=== PATIENT | male | born 1955 | race Caucasian/White ===

== ENCOUNTER 2024-04-19 08:25 | Day surgery (SDC) | payer MEDICARE, SELFPAY ==
[2024-04-17 12:56] VITALS: BMI 38.2
[2024-04-19 08:44] VITALS: BP 161/88; PULSE 82; RESP 16; TEMP 36.4; O2SAT 92
[2024-04-19 09:12] VITALS: O2SAT 95
[2024-04-19] MEDS: Lactated Ringers 1,000 ML 80 ML IVCONT (09:14)
[2024-04-19 09:15] VITALS: BMI 39.6
--- NOTE | 2024-04-19 09:41 | HO.ANESPROP2 ---
HPI - Anesthesia Eval Consult details Narrative: 69 yo M presenting for colonoscopy. SpO2 was 92% in pre-op so RN placed 2L NC. HORACIO not on CPAP. [facility] Past Medical History Medical History (Updated 04/17/24 @ 12:48 by Megan Mo RN) Back pain BPH (benign prostatic hyperplasia) HORACIO (obstructive sleep apnea) Hyperlipidemia Family History Family history of problems with anesthesia: No Surgical History Surgical History (Updated 04/17/24 @ 12:48 by Megan Mo RN) History of back surgery History of total bilateral knee replacement History of esophagogastroduodenoscopy (EGD) H/O colonoscopy History of Problems with Anesthesia: No Social History Social History (Updated 04/17/24 @ 12:48 by Megan Mo RN) Household Members: Spouse Patient Tobacco Use Status: Former Tobacco user Tobacco use type: Cigarette Smoked in Last 30 Days: No Use of substances other than those prescribed or required for medical reasons: Yes Substance Use Type Other:: gummies Substance Use Frequency: Occasionally Are you DNR?: No Advance Directives: No Advance Directives Information Provided: Yes Recently lost weight without trying: No Eating poorly because of decreased appetite: No Nutrition Risks: No Nutritional Risk Poor oral hygiene: No Meds Allergies Allergy/AdvReac Type Severity Reaction Status Date / Time aspirin Allergy Unknown Unknown Verified 04/17/24 12:49 oxycodone [From Tylox] Allergy Unknown Unknown Verified 04/17/24 12:49 Active Medications: Current Medications Lactated Ringer's (Lr) 1,000 mls @ 80 mls/hr IVCONT .[id number] JAGDISH Last Admin: 04/19/24 09:14 Dose: 80 mls/hr Home Medications ?Medication ?Instructions ?Recorded ?Confirmed ?Last Taken ?Type acetaminophen 500 mg tablet 500 mg PO Q6H PRN Pain 04/17/24 04/17/24 Unknown History cetirizine 10 mg tablet (Zyrtec) 10 mg PO DAILY 04/17/24 04/17/24 Unknown History diazepam 5 mg tablet 5 mg PO BEDTIME PRN Anxiety 04/17/24 04/17/24 Unknown History escitalopram oxalate 20 mg tablet 20 mg PO DAILY 04/17/24 04/17/24 Unknown History fluticasone propionate 50 1 spray intranasal DAILY 04/17/24 04/17/24 Unknown History mcg/actuation nasal spray,suspension ibuprofen 600 mg tablet 600 mg PO QID PRN Pain 04/17/24 04/17/24 Unknown History montelukast 10 mg tablet 10 mg PO BEDTIME 04/17/24 04/17/24 Unknown History pantoprazole 40 mg tablet,delayed 40 mg PO DAILY 04/17/24 04/17/24 Unknown History release simvastatin 20 mg tablet 20 mg PO DAILY 04/17/24 04/17/24 Unknown History tamsulosin 0.4 mg capsule 0.4 mg PO BEDTIME 04/17/24 04/17/24 Unknown History Exam Exam Date and Time: 04/19/24 0940 Height,Weight and Vital Signs: Height 5 ft 8.5 in Weight 119.748 kg Last Vital Signs Temp 97.6 F 04/19/24 08:44 Pulse 82 04/19/24 08:44 Resp 16 04/19/24 08:44 BP 161/88 H 04/19/24 08:44 Pulse Ox 95 04/19/24 09:12 O2 Del Method Nasal Cannula 04/19/24 09:12 O2 Flow Rate 2 04/19/24 09:12 Airway Mallampati Class: III TM Dist: <=3cm Neck ROM: Full Denture: Upper Heart: S1S2 Lungs: Diminished bilaterally Assessment and Plan Assessment Anesthesia Assessment: Anesthesia Plan Discussed and Chart Reviewed Final Anesthetic Review Family History of Problems with Anesthesia: No History of Problems with Anesthesia: No NPO: Yes ASA Class: III Final Preanesthetic Review: No Changes in Pt Med Stat, Meds/Allgs Chart Reviewed, Consent Obtained/Reviewed and Anes Risks/Benef Reviewed Patient Risk: Intermediate Procedure Risk: Low Anesthetic Plan Anesthetic Plan: MAC: and Agree w/ Assess. and Plan Disposition: Standard PACU
--- NOTE | 2024-04-19 09:43 | MHC.SHP ---
Pre-Procedural Eval Section A - 24 Hr Update-Section A only Date of Service: 04/19/24 Section B - Complete if H&P > 30 days Chief Complaint: Encounter for screening for malignant neoplasm of Details of Present Illness: see H&P no changes Relevant Family History (Specify if Yes): No Relevant Social History: Tobacco Use Present Medications: None History of Previous Operations: No relevant previous surgery Allergies: Allergies Allergy/AdvReac Type Severity Reaction Status Date / Time aspirin Allergy Unknown Unknown Verified 04/17/24 12:49 oxycodone [From Tylox] Allergy Unknown Unknown Verified 04/17/24 12:49 Review of Systems Sugical H&P ROS: Negative: Constitution, Cardiovascular, Respiratory, Neurological, Psychiatric, Hem-Onc, Allergic/Immunologic, Gastrointestinal, Genitourinary, Musculoskeletal, Integumentary, Endocrine and Eyes/Ears/Nose/Throat Exam Surgical H&P Exam: Normal: HEENT, Normal: Heart, Normal: Lungs, Normal: Extremities, Normal: Abdomen, Normal: Skin and Normal: Neurological Plan Diagnosis/Plan: Unchanged I have reviewed the history and physical and performed a pertinent physical examination on my patient. No changes have occurred unless specified. Time Spent With Patient Time: Total time managing care of this patient today ____ minutes.
[2024-04-19 10:20] VITALS: BP 99/50; PULSE 73; RESP 24; TEMP 36.3
[2024-04-19 10:30] VITALS: BP 110/57; PULSE 68; RESP 22; O2SAT 95
[2024-04-19 10:35] VITALS: BP 121/73; PULSE 71; RESP 20; TEMP 36.2; O2SAT 94
--- NOTE | 2024-04-19 10:46 | OP_ITS ---
DATE OF SERVICE: 04/19/2024 SURGEON: Fili Velasco MD INDICATIONS: Colon cancer screening. PREOPERATIVE DIAGNOSIS: POSTOPERATIVE DIAGNOSIS: PROCEDURE PERFORMED: Colonoscopy to the terminal ileum with snare polypectomy. ESTIMATED BLOOD LOSS: COMPLICATIONS: ANESTHESIA: Medications, monitored anesthesia care. ASSISTANTS: SPECIMENS: DESCRIPTION OF PROCEDURE: History and physical performed. The risks and benefits of the procedure were explained to the patient. Informed consent was obtained. The patient was placed in the left lateral decubitus position. A digital rectal exam was performed and was found to be normal. The Olympus pediatric video colonoscope was introduced into the rectum and advanced to the cecum. The cecum was identified by transillumination, palpation, and identification of ileocecal valve. Examination was performed. The scope was removed. He tolerated the procedure well and was taken to recovery area in stable condition. FINDINGS: The terminal ileum was examined and appeared normal. The visualized colonic mucosa was normal. The quality of prep was good with some liquid stool, which was washed and suctioned as best possible. At 65 cm from the anal verge, there was an 8 mm polyp, which was removed with a hot snare and recovered via suction. No other polyps were identified. Retroflexed examination showed small internal hemorrhoids. IMPRESSION: Colon polyp. RECOMMENDATION: Follow up biopsy results. MD TELLO Arroyo/NIRMALA / [id number]
== END 2024-04-19 10:52 | disposition home or self-care (01) ==
PROVIDERS: PCP Internal Medicine; Visit Provider Internal Medicine Gastroenterology
PROC: 0DJD8ZZ Inspection of Lower Intestinal Tract, Via Natural or Artificial Opening Endoscopic (ICD-10-PCS; CPT 45378; principal; 2024-04-19 10:10)
DX: Z12.11 Encounter for screening for malignant neoplasm of colon (principal); D12.4 Benign neoplasm of descending colon; K64.8 Other hemorrhoids; E78.5 Hyperlipidemia, unspecified; N40.0 Benign prostatic hyperplasia without lower urinary tract symptoms; G47.33 Obstructive sleep apnea (adult) (pediatric); J30.2 Other seasonal allergic rhinitis; Z96.653 Presence of artificial knee joint, bilateral; Z79.1 Long term (current) use of non-steroidal anti-inflammatories (NSAID); Z79.51 Long term (current) use of inhaled steroids; Z79.899 Other long term (current) drug therapy; Z88.5 Allergy status to narcotic agent; Z88.6 Allergy status to analgesic agent; Z87.891 Personal history of nicotine dependence; Z98.890 Other specified postprocedural states
CPT/HCPCS: 45385; 88305; J2003; J2704

== ENCOUNTER 2024-12-30 13:21 | Outpatient (AMB) | payer MEDICARE, SELFPAY ==
--- OUTSIDE RECORDS SUMMARY | 2024-04-19 06:10 | XMS_ITS ---
Author Organization [facility] Address [address] [place] [phone] Care Team Providers Care Extension Division Director Name Role Phone Ishan Andrews Primary Care Provider Fili Shah Jr [phone] REASON FOR VISIT screening Encounters Encounter Location Date Provider Diagnosis [facility] Outpatient [address] [place] [phone] 04/19/2024 Fili Velasco Jr Colon cancer screening Z12.11 and Colon polyps K63.5 Assessments Encounter Date Diagnosis (ICD Code) Assessment Notes Treatment Notes Treatment Clinical Notes Section Notes 04/19/2024 Colon cancer screening (ICD-10 - Z12.11) 04/19/2024 Colon polyps (ICD-10 - K63.5) Plan Of Treatment No Information Progress Notes * DOMENICO PUTNAM EDOB:[birth year] (69 yo M)Acc No.[id number]:04/19/2024 COLON WITH MAC Patient: DOMENICO EPSTEIN Provider: Hugh Velasco MD :1955 A ge:69 Y S ex:Male Date:04/19/2024 Address:[address] [place] [address] Pcp:Ishan Andrews Subjective: * Chief Complaints: * [...] Date: 1 Generated for Helga miller/Sheela/Nylaitting on: 0 12/30/2024 01:44 PM EDT
[2024-12-30 13:27] VITALS: BP 122/70; PULSE 84; O2SAT 94; BMI 38.8
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
--- OUTSIDE RECORDS SUMMARY | 2024-12-30 13:45 | XMS_ITS | Data Portability ---
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) MDM HIGH MUST MEET 2 OUT OF 3 ELEMENTS: PROBLEMS, DATA OR RISK ELEMENT 1: PROBLEMS 1 OR MORE CHRONIC ILLNESS W/SEVERE EXACERBATION, PROGRESSION MAY REQUIRE HOSPITAL LEVEL CARE OR 1 ACUTE OR CHRONIC ILLNESS OR INJURY THAT POSES A THREAT TO LIFE OR BODILY FUNCTION ELEMENT 2: DATA: MUST MEET 2 OF 3 CATEGORIES CATEGORY 1 REVIEW OF PRIOR EXTERNAL NOTES REVIEW OF THE RESULTS ORDERING OF EACH TEST ASSESSMENT REQUIRING INDEPENDENT HISTORIAN(S) CATEGORY 2: INDEPENDENT INTERPRETATION OF TESTS BY ANOTHER PROVIDER/SPECIALI ST CATEGORY 3: DISCUSSION OF MGT OR TEST INTERPRETATION W/EXTERNAL PHYSICIAN/SPECIAL IST ELEMENT 3: RISK HIGH RISK OF MORBIDITY FROM ADDITIONAL DIAGNOSTIC TESTING OR TREATMENT PROVIDER MUST THOROUGHLY DOCUMENT EACH ELEMENT THAT IS COVERED Not available 05/14/2024 15:58:46 09/02/2024 09/02/2024 Patient presente d for medication refill. Patient tolerating medication well at current dose without adverse effects. Refilled as below. Discussed plan with , who expressed understanding. Follow up as noted below. 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) MDM HIGH MUST MEET 2 OUT OF 3 ELEMENTS: PROBLEMS, DATA OR RISK ELEMENT 1: PROBLEMS 1 OR MORE CHRONIC ILLNESS W/SEVERE EXACERBATION, PROGRESSION MAY REQUIRE HOSPITAL LEVEL CARE OR 1 ACUTE OR CHRONIC ILLNESS OR INJURY THAT POSES A THREAT TO LIFE OR BODILY FUNCTION ELEMENT 2: DATA: MUST MEET 2 OF 3 CATEGORIES CATEGORY 1 REVIEW OF PRIOR EXTERNAL NOTES REVIEW OF THE RESULTS ORDERING OF EACH TEST ASSESSMENT REQUIRING INDEPENDENT HISTORIAN(S) CATEGORY 2: INDEPENDENT INTERPRETATION OF TESTS BY ANOTHER PROVIDER/SPECIALI ST CATEGORY 3: DISCUSSION OF MGT OR TEST INTERPRETATION W/EXTERNAL PHYSICIAN/SPECIAL IST ELEMENT 3: RISK HIGH RISK OF MORBIDITY FROM ADDITIONAL DIAGNOSTIC TESTING OR TREATMENT PROVIDER MUST THOROUGHLY DOCUMENT EACH ELEMENT THAT IS COVERED The patient presented to their appointment today for multiple concerns requiring moderate to high-level decision making and took over 40-45 minutes for an adequate and appropriate history, exam, assessment and treatment plan. This appointment was done with an established patient. Not available 10/21/2024 15:39:09 Plan of Treatment Reminders Order Date Submit Date Provider Last Modified By Organization Details Last Modified Time Details Appointments None recorded. Lab hemoglobin A1c, QN, blood 2024 025 [facility], [place], [address], 5 15:07:22 CMP, serum or plasma 2024 025 [facility], [place], [address], 5 15:07:22 CBC w/ auto diff 2024 025 [facility], [place], [address], 5 12:55:51 testostero ne, free + total, serum 2024 025 [facility], [place], [address], 5 15:07:22 amylase + lipase, serum 2024 025 [facility], [place], [address], 5 15:07:22 gamma-glut amyl transferas e (ggt), serum 2024 025 [facility], [place], [address], 5 15:07:22 C-reactive protein, quantitati ve, serum or plasma 2024 025 [facility], [place], [address], 5 15:07:22 ESR (erythrocy te sedimentat ion rate), blood 2024 025 [facility], [place], [address], 5 14:10:05 urinalysis complete, reflex culture 2024 025 [facility], [place], [address], 5 13:03:38 PSA, total + free, serum or plasma 2024 025 [facility], [place], [address], 5 15:35:24 CBC w/ auto diff 2024 025 [facility] (Outpatient), [address] [place] [address], [address], 5 15:49:14 CMP, serum or plasma 2024 025 [facility] (Outpatient), [address] [place] [address], [address], 5 15:49:38 urinalysis complete, reflex culture 2024 025 [facility] (Outpatient), [address] [place] [address], [address], 5 07:47:15 ESR (erythrocy te sedimentat ion rate), blood 2024 [facility] (Outpatient), [address] [place] [address], [address], 5 11:29:44 C reactive protein, QN, serum or plasma 2024 [facility] (Outpatient), [address] [place], [address], 5 11:29:44 HbA1c (hemoglobi n A1c), blood 2024 [facility], [place], [address], 5 13:54:00 PSA, serum or plasma 2024 025 [facility], [place], [address], 5 13:43:41 vitamin D, 25-hydroxy , total, serum 2023 024 [facility], [place], [address], 4 15:57:47 CMP, serum or plasma 2023 024 [facility], [place], [address], 4 15:57:47 CBC 2023 024 [facility], [place], [address], 4 08:53:00 vitamin B12 + folate, serum or blood 2023 024 [facility], [place], [address], 4 21:02:45 TSH, serum or plasma 2023 [address] [place], [address], 4 15:57:47 magnesium, serum or plasma 2023 [address] [place], [address], 4 15:57:47 erythrocyt e sedimentat ion rate by westergren method 2023 0[address] [place], [address], 4 15:57:47 Referral neurologis t referral 2023 024 [facility] Isabel Davila MD, [address] [facility], [address], [place], [address], 4 09:22:28 Procedures None recorded. Surgeries None recorded. Imaging CT, abdomen + pelvis, w/o contrast 2024 025 [facility], [address] [place] [address], [address], 5 09:29:48 XR, chest, 2 view 2024 025 [facility], [address] [place] [address], [address], 5 16:11:23 XR, chest, 2 view 2024 025 [facility] Central Scheduling (Not Breast), [address] [place] [address], [address], 5 17:43:31 MRI, brain, w/o contrast - Not Required Procedure codes: 38618 Call Reference #: [id number] Resolution : Completed on 05/21/2024 at 09:02 am. Call ref #[id number]. 2023 024 [facility], [address] [place], [address], 08:42:07 Medication Orders prednisone 10 mg tablet 2024 025 [facility]2024, [address] [place], [address], 14:37:07 bupropion HCl SR 150 mg tablet,12 hr sustained- release 2024 025 [facility] [address] [place], [address], 14:35:48 trazodone 50 mg tablet 2023 024 [facility] [address] [place], [address], 16:00:38 Patient TargetsNo targets recorded. Patient Instructions Encounter Date Encounter Id Patient Instructions Last Modified By Organization Details Last Modified Time 05/14/2024 [id number] insomnia: care instructions Not available 05/14/2024 16:00:36 09/02/2024 [id number] prediabetes: car e instructions Not available 09/02/2024 14:35:49 learning about mood disorders Not available 09/02/2024 14:29:51 benign prostatic hyperplasia: care instructions Not available 09/02/2024 14:35:49 10/21/2024 [id number] prostate biopsy: about this test Not available 10/21/2024 15:34:04 Reason for Referral Neurologist Referral for Imp aired cognition Referring Physician: Ishan Andrews, Internal Medicine, Encounter Date: 05/14/2024 Results Created Date Observation Date Name Description Value Unit Range Abnormal Flag Note LastModifiedBy Organization Detail LastModifiedTime 05/31/20 24 05/29/2024 MRI, brain , w/o contr ast No observ ation record ed. [address], [address], 09/02/2024 14:14:31 09/19/1909/18/2024 XR, chest , 2 view No observ ation record ed. [email or web address] [address], [address], 09/18/2024 18:16:44 10/23/19 25 10/22/2024 XR, chest , 2 view No observ ation record ed. [email or web address] [address], [address], 10/23/2024 09:04:53 Result Notes None recorded. 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 014818854 Active 2022 Enedelia cid [facility] 5 10:04:24 Benign prostati c hyperpla omer 609448296 Active 2022 Enedelia cid [facility] 5 10:04:38 Morbid obesity 273850560 Active 2022 Enedelia cid [facility] 5 10:04:24 Psoriati c arthriti s 842352805 Active 2017 Enedelia cid [facility] 5 10:04:24 Degenera tion of lumbar interver tebral disc 16589946 Active 2017 hardware [facility]screws [facility] 10:04:24 History of calculus of kidney 330116432 Active 2017 [facility] 5 10:04:24 Injury of knee 349126408 Active 2017 repaired Enedeliaisa cid [facility] 5 10:04:38 Sinusiti s 96119922 Active 2017 [facility] 5 10:04:38 Injury of knee 249074945 Active 2017 [facility] 5 10:04:38 Pain of right hip joint 6833323854 55701 Active 2023 [facility] 5 10:04:38 Pain of left hip joint 2658710202 23324 Active 2023 [facility] 5 10:04:38 Impaired cognitio n 941558258 Active 2023 [facility] 5 10:04:24 Insomnia 826086849 Active 2023 Enedelia cid [facility] 5 10:04:24 COVID-19 718267402 Active 2023 [facility] 5 10:04:38 Sleep apnea 01818695 Active 2024 [facility] 5 10:04:24 Depressi ve disorder 91151003 Active 2024 Ishan Andrews, DO [address] [place] [address], [place], [address], [facility] 5 14:28:37 Impaired fasting glycemia 995597351 Active 2024 DAVIDA MARTINEZ [address] [place], [address], [facility] 5 15:01:45 Acute urinary tract infectio n 621297528 Active 2024 Ishan Andrews, DO [address] [place] [address], [address], [facility] 5 10:00:03 Fever 341584585 Active 2024 DAVIDA MARTINEZ [address] [place], [address], [facility] 5 11:24:39 Acute bronchit is 37982213 Active 2024 DAVIDA MARTINEZ [address] [place] [address], [address], [facility] 5 11:24:52 Pneumoni a 437995054 Active 2024 DAVIDA MARTINEZ [address] [place], [address], [facility] 5 16:41:42 Fatigue 74348698 Active 2024 Ishan Andrews DO [address] [place] [address], [address], [facility] 5 21:32:18 Hypotest osteroni sm 5883575411 104 Active 2024 Ishan Andrews, DO [address] [place] [address], [address], [facility] 5 22:39:56 Intersti tial pneumoni a 78591673 Active 2024 Ishan Andrews DO [address] [place] [address], [address], [facility] 5 15:36:22 Prostate specific antigen above referenc e range 917517219 Active 2017 Ishan Andrews DO [address] [place] [address], [address], [facility] 5 15:33:24 Right upper quadrant pain 305812281 Active 2024 DAVIDA MARTINEZ [address] [place] [address], [address], [facility] 15:00:34 Urinary frequenc y due to benign prostati c hypertro phy 1600310237 75889 Active 2024 DAVIDA MARTINEZ [address] [place] [address], [address], [facility] 15:02:42 Type 2 diabetes mellitus 51689432 Active 2024 DAVIDA MARTINEZ [address] [place] [address], [address], [facility] 16:51:58 Notes:Some problems listed i n Documents: #[id number], #[id number], #[id number], #[id number] could not be added to this patient's chart. Please review these documents and add these problems to the patient's chart manually as needed. Problem Notes None recorded. Procedures Surgical History Date Name Laterality Status Provider Name and Address Organization Details Recorded Time 04/19/20 24 Colonoscopy completed Ishan FlowerNiki Andrews [address], [address], [facility] 04/20/2024 08:37:15 Imaging Results None recorded. Procedure Notes None recorded. Medical Equipment None Reported. Allergies Allergen ID Allergen Name Allergen Category Reaction Reaction Severity Criticality Documentation Date Start Date Code Code System Note Provider Name and Address Organization Details Recorded Time 831 Tylox medicatio n dizziness ringing in ears Not available Not available Not available 10/02/201719700 5 RxNorm [facility] 0 10:32:27 9112 Wellbutri n medicatio n Not available Not available Not available 12/20/2024 41149 RxNorm urina ting alot [facility] 14:36:06 Medications Name Sig Start Date Stop Date Status Note LastModified by Organization Details LastModified Time Prescript ion - Prior Authortyea tirebecca Request 11/07 completed Not Available Not Available Not Available bupropion HCl SR 150 mg tablet,12 hr sustained -release TAKE 1 TABLET BY MOUTH TWICE A DAY 12/20 completed Not Available Not Available Not Available nystatin 100,000 unit/mL oral suspensio n TAKE 5 ML BY MOUTH 4 TIMES A DAY FOR 7 DAYS 10/22 completed Not Available Not Available Not Available prednison e 10 mg tablet TAKE 4 TABLETS BY MOUTH DAILY X3 DAYS, 3 TABS DAILY X3 DAYS,2 TABS DAILY X3 DAYS,1 TAB DAILY X3 DAYS 12/20 completed Not Available Not Available Not Available trazodone 50 mg tablet Take 1 tablet every day by oral route for 30 days. active Not Available Not Available No t Available azithromy suha 250 mg tablet TAKE 2 TABLETS (500 MG) BY ORAL ROUTE ONCE DAILY FOR 1 DAY THEN 1 TABLET (250 MG) BY ORAL ROUTE ONCE DAILY FOR 4 DAYS 09/02 completed Not Available Not Available Not Available meloxicam 15 mg tablet TAKE 1 TABLET EVERY DAY BY ORAL ROUTE FOR 30 DAYS. 10/22 completed Not Available Not Available Not Available Medrol (Ascencion) 4 mg tablets in a dose pack Take 1 dose pk by oral route as directed for 6 days. 09/02 completed Not Available Not Available Not Available ciproflox acin 500 mg tablet TAKE 1 TABLET BY MOUTH EVERY 12 HOURS FOR 10 DAYS 12/20 completed Not Available Not Available Not Available oxycodone -acetamin ophen 5 mg-325 mg tablet TAKE 1 TABLET BY MOUTH EVERY DAY. MAY TAKE 1 EXTRA EVERY DAY NEEDED 04/19 completed Not Available Not Available Not Available hydromorp umer 2 mg tablet TAKE 1 TABLET BY MOUTH EVERY 6 HOURS NEEDED. TAKE SMALLEST , LEAST FREQUENT EFFECTIV E DOSE. 10/22 completed Not Available Not Available Not Available tamsulosi n 0.4 mg capsule TAKE 1 CAPSULE BY MOUTH IN THE EVENING active Not Available Not Available No t Available pantopraz ole 40 mg tablet,de layed release TAKE 1 TABLET BY MOUTH ONCE DAILY 2024 active Not Available Not Available Not Avai lable simvastat in 20 mg tablet TAKE 1 TABLET BY MOUTH ONCE DAILY active Not Available Not Available No t Available oxybutyni n chloride ER 5 mg tablet,ex tended release 24 hr TAKE 1 TABLET BY MOUTH EVERY DAY 12/20 completed Not Available Not Available Not Available monteluka st 10 mg tablet TAKE 1 TABLET BY MOUTH ONCE DAILY active Not Available Not Available No t Available celecoxib 100 mg capsule TAKE 1 CAPSULE BY MOUTH TWICE A DAY 10/22 completed Not Available Not Available Not Available diazepam 5 mg tablet TAKE 1 TABLET BY MOUTH EVERY DAY NEEDED. 2024 active Not Available Not Available Not Avai lable finasteri de 1 mg tablet TAKE 1 TABLET BY MOUTH EVERY DAY FOR 30 DAYS active Not Available Not Available No t Available amoxicill in 875 mg-potass ium clavulana te 125 mg tablet TAKE 1 TABLET BY MOUTH EVERY 12 HOURS FOR 10 DAYS 12/20 completed Not Available Not Available Not Available testoster one 1 % (50 mg/5 gram) transderm al gel packet Apply 1 packet every day by transder mal route for 30 days. 2024 active Not Available Not Available Not Avai lable oxycodone 5 mg tablet Take 2 tablets twice a day by oral route as directed for 30 days. 03/08 completed 10 mg out of stock everywhe re Not Available Not Available Not Available escitalop spring 10 mg tablet TAKE 1 TABLET BY MOUTH EVERY DAY active Not Available Not Available No t Available escitalop spring 20 mg tablet TAKE 1 TABLET BY MOUTH EVERY DAY active Not Available Not Available No t Available testoster one 50 mg/5 gram (1 %) transderm al gel APPLY 1 PACKET EVERY DAY 12/20 completed Not Available Not Available Not Available oxycodone 10 mg tablet Take 1 tablet twice a day by oral route for 30 days. 2024 active Not Available Not Available Not Avai lable vitamin B12 1,000 mcg-folic acid 400 mcg sublingua l tablet Place 1 tablet every day by sublingu al route. active Neurolog ist - OTC Not Available Not Available Not Available BinaxNOW COVID-19 Ag Self Test kit FOLLOW PACKAGE DIRECTIO NS 12/19 completed Not Available Not Available Not Available Paxlovid 300 mg (150 mg x 2)-100 mg tablets in a dose pack Take 1 dose pk by oral route as directed . 09/02 completed STOP SIMVASTA TIN FOR 10 DAYS Not Available Not Available Not Available Vitals Date Recorded Body height Body mass index (BMI) Body weight Heart rate Oxygen saturation Oxygen saturation in Arterial blood by Pulse oximetry Systolic And Diastolic Provider Name and Address Organization Details Last Updated DateTime 5 173.99 cm 39.5 kg/m2 464187. 03 g 96 /min 92 % 92 % 136/82 mm[Hg] Enedelia Lopez [facility] 5 14:06:53 Date Recorded Body height Body mass index (BMI) Body weight Heart rate Oxygen saturation Oxygen saturation in Arterial blood by Pulse oximetry Systolic And Diastolic Provider Name and Address Organization Details Last Updated DateTime 5 173.99 cm 39.4 kg/m2 851469. 79 g 81 /min 98 % 98 % 130/80 mm[Hg] Krystyna Valentine [facility] 5 15:21:31 Date Recorded Body height Body mass index (BMI) Body weight Oxygen saturation Oxygen saturation in Arterial blood by Pulse oximetry Heart rate Systolic And Diastolic Provider Name and Address Organization Details Last Updated DateTime 5 173.99 cm 38.5 kg/m2 818044. 6 g 96 % 96 % 84 /min 122/76 mm[Hg] Barbie Broussard [facility] 5 14:41:55 Date Recorded Body height Body mass index (BMI) Body weight Heart rate Oxygen saturation Oxygen saturation in Arterial blood by Pulse oximetry Systolic And Diastolic Provider Name and Address Organization Details Last Updated DateTime 4 173.99 cm 37 kg/m2 641887. 32 g 94 /min 97 % 97 % 130/80 mm[Hg] Krystyna Valentine [facility] 4 15:36:16 Social History Question Answer Notes LastModified by Organizat ion Details LastModified Time Tobacco Smoking Status Former Smoker Not Available [facility] 04/28/2020 03:36:23 What Was The Date Of Your Most Recent Tobacco Screening? 12/20/2024 [email or web address] Information not available 12/20/2024 Sex: Unknown Functional Status Question Answer Note LastModified by Organization D etails LastModified Time Do you or have you ever used any other forms of tobacco or nicotine? No Information not available 10/04/2021 Mental Status None recorded. Family History Nothing Reported. Medical History No medical history recorded. Immunizations Vaccine Type Date Status Note Provider Nam e and Address Organization Details Recorded Time COVID-19, mRNA, LNP-S, PF, 30 mcg/0.3 mL dose 1 completed Not Available [facility] 08/04/2023 23:29:56 Pneumococcal conjugate PCV 13 0 completed Not Available [facility] 08/04/2023 23:29:56 pneumococcal polysaccharide PPV23 2 completed Not Available [facility] 08/04/2023 23:29:56 Influenza, split virus, quadrivalent, preservative 8 completed Not Available [facility] 08/04/2023 23:29:56 COVID-19, mRNA, LNP-S, PF, 30 mcg/0.3 mL dose 2 completed Not Available [facility] 08/04/2023 23:29:56 Influenza, split virus, quadrivalent, preservative 2 completed Not Available [facility] 08/04/2023 23:29:56 COVID-19, mRNA, LNP-S, PF, 30 mcg/0.3 mL dose 2 completed Not Available [facility] 08/04/2023 23:29:56 COVID-19, mRNA, LNP-S, PF, 30 mcg/0.3 mL dose 1 completed Not Available [facility] 08/04/2023 23:29:56 COVID-19, mRNA, LNP-S, PF, garett-sucrose, 30 mcg/0.3 mL 5 completed Enedelia cid [place] [facility] 12/11/2024 11:40:05 Influenza, split virus, quadrivalent, preservative 9 completed Not Available [facility] 08/04/2023 23:29:56 COVID-19, mRNA, LNP-S, PF, 30 mcg/0.3 mL dose 1 completed Not Available [facility] 08/04/2023 23:29:56 Past Encounters Encounter ID Performer Location Encounter Start Date Encounter Closed Date Diagnosis/Indication Diagnosis SNOMED-CT Code Diagnosis ICD10 Code Diagnosis Note [id number] Ishan Andrews [facility] [address] [facility], [place] [address] 10/02/2017 14:41:22 10/02/2017 15:59:51 Injury of knee 299744429 S89.92XA will need MRI due to knee and leg giving out with spontaneit y Acute sinusitis 18374037 J01.90 finished augmentin and pred with resolution of symptoms [id number] Ishan Andrews [facility] [address] [facility],[place] [address] 03/13/2018 15:30:09 03/13/2018 16:30:07 Injury of knee 827811678 S89.92XA plan forthe knee willbe having th eknee cleaned up and will then get cortisone inj Prostate s pecific antigen above reference range 902662974 R97.20 has undergone bx by dr telles and were negative Degenerati on of lumbar intervertebral disc 89077529 M51.36 about the same will cont with the pain management Renewal of prescription 091907088 Z76.0 [id number] Ishan Andrews [facility] [address] [facility] [place] [address] 09/18/2018 15:32:05 09/18/2018 16:13:17 Psoriatic arthritis 870476372 L40.50 seems to be status quo Degenerati on of lumbar intervertebral disc 47605283 M51.36 about the same will cont with the pain management still in a great erick l of p[ain Abdominal pulsatile mass 6577089 R09.89 [place] [id number] Ishan Andrews [facility] [address] [facility], [place] [address] 04/23/2019 16:04:03 04/23/2019 16:42:49 Abdominal aortic aneurysm screening 461316183 Z13.6 will order Prostate s pecific antigen above reference range 911160948 R97.20 has undergone bx by dr telles and were negative Adult heal th examination 078173759 Z00.00 will order fbw for pt include a1c as his has chk fibs and noted 140's [id number] Ishan Andrews [facility] [address] [facility],[place] [address] 09/23/2019 15:01:16 09/24/2019 14:12:41 Degeneration of lumbar intervertebral disc 23438592 M51.36 about the same will cont with the pain management still in a great erick l of p[ain Psoriatic arthritis 1563 57336 L40.50 seems to be status quo Impaired f asting glycemia [id number] R73.01 A1c is 6.1. I informed him that he needed to be more careful with his appetite and his diet choices. He is certainly prediabeti c at this time but he has shown this to be true in the past. We will be monitoring this later again this summer and will obtain another A-1 C the next time I see him in December. Prostate s pecific antigen above reference range 763309704 R97.20 has undergone bx by dr telles and were negative. Latest psa was 5.5 (5.8) [id number] Ishan Andrews [facility] [address] [facility] [place] [address] 02/24/2020 10:40:35 02/24/2020 15:48:51 Psoriatic arthritis [id number] L40.50 seems to be status quo Degenerati on of lumbar intervertebral disc 93749080 M51.36 about the same will cont with the pain management still in a great erick l of p[ain Injury of knee 554796356 S89.92XA = still struggling with both knees but we will cont totxconser v until pandemic clears [id number] Ishan Andrews [facility] [address] [facility] [address], [place] [address] 09/28/2020 16:06:28 09/29/2020 08:20:32 Degeneration of lumbar intervertebral disc 31198998 M51.36 about the same will cont with the pain management still in a great erick l of p[ain Impaired f asting glycemia 039294793 R73.01 he has lost 40 lbs and i believe he has eliminated the pre dm condition we will chk a1c again in a coupl;e months . Prostate s pecific antigen above reference range 219384860 R97.20 has undergone bx by dr telles and were negative. Latest psa was 5.5 (5.8) [id number] Ishan Andrews [facility] [address] [facility],[place] [address] 02/10/2021 15:20:02 02/10/2021 16:20:11 Active or passive immunization 972650859 Z23 Adult heal th examination 003915799 Z00.00 will order fbw for pt include a1c as his has chk fibs and noted 140's Psoriatic arthritis 1563 03369 L40.50 seems to be status quo Fatigue 20754070 R53.83 [id number] Ishan Andrews [facility] [address] [facility],[place] [employer] [employer] [address] 03/10/2021 13:43:37 03/10/2021 16:43:46 Orthostatic hypotension 44398349 I95.1 will fu with holter and cardio referral [id number] Ishan Andrews [facility] [address] [facility],[place] [employer] [place] [employer] [address] 10/04/2021 15:53:37 10/05/2021 10:29:45 Impaired fasting glycemia 642300560 R73.01 he had lost 40 lbs and i believe he had eliminated the pre dm condition but he has gained a bunch back we will chk a1c again in a couple months . Degenerati on of lumbar intervertebral disc 02220505 M51.36 about the same will cont with the pain management still in a great erick l of p[ain Psoriatic arthritis 1563 11407 L40.50 seems to be status quo Screening for malignant neoplasm of colon 440889286 Z12.11 cologuard [id number] Ishan Andrews [facility] [address] [facility],[place] [employer] [place] [address] 04/19/2022 14:54:17 04/20/2022 11:43:23 Active or passive immunization 165810394 Z23 patient due for flu shot & shingles Adult heal th examination 338989731 Z00.01 will order fbw for pt include a1c as his has chk fibs and noted 140's Advance care planning 71 8558666 Z71.89 done Impaired f asting glycemia 914837595 R73.01 he had lost 40 lbs and i believe he had eliminated the pre dm condition but he has gained a bunch back we will chk a1c again in a couple months . Candidiasis of mouth 797 80939 B37.0 Degenerati on of lumbar intervertebral disc 69183608 M51.36 about the same will cont with the pain management still in a great erick l of p[ain [id number] Ishan Andrews [facility] [address] [facility],[place] [address] 07/04/2022 14:06:38 07/04/2022 15:30:02 Pre-surgery evaluation 950969934 Z01.818 The patient was seen in the office today for pre-op evaluation . All medical conditions on patient's problem list were addressed and are currently stable, no interventi on needed at this time. Based on history and physical performed, the patient is cleared for surgery. Hypotensive episode 6776 3001 I95.1 patient has stable, low BP, has seen cardiology with normal evaluation recheck was 92/60d/c tamsulosin Benign pro static hyperplasia with outflow obstruction 526570184 N13.8 start finasterid e [id number] Ishan Andrews [facility] [address] [facility],[place] [address] 01/11/2023 16:19:14 2023 13:56:55 Psoriatic arthritis 821899300 L40.50 seems to be status quo Impaired f asting glycemia 838292384 R73.01 he had lost 40 lbs and i believe he had eliminated the pre dm condition a1c is now 5.8!!!rech k Benign pro static hyperplasia 675929987 N40.0 Degenerati on of lumbar intervertebral disc 39019598 M51.36 about the same will cont with the pain management still in a great erick l of p[ain [id number] Ishan Calixto Andrews [facility] [address] [facility], [place] [address] 06/21/2023 09:37:43 06/23/2023 15:30:34 Morbid obesity 864176766 E66.01 has cont to lose wgt and is doing fantastic Impaired f asting glycemia 951385333 R73.01 he had lost 40 lbs and i believe he had eliminated the pre dm condition a1c is now 5.8!!!rech k [id number] Ishan Andrews [facility] [address] [facility],[place] [address] [facility] [place] [address] 10/23/2023 13:42:12 10/23/2023 14:16:37 Injury of knee 362653539 S89.92XA = still struggling with both knees but we will cont totxconser v until pandemic clears Degenerati on of lumbar intervertebral disc 12663568 M51.36 about the same will cont with the pain management still in a great erick l of p[ain Pain of ri ght hip joint 9534611957 40281 M25.551 Pain of le ft hip joint 4727582438 22121 M25.552 [id number] Ishan Andrews [facility] [address] [facility],[place] [address] 05/14/2024 15:26:52 05/14/2024 16:03:46 Impaired cognition 021115305 R41.89 is acutely aware of his cognitive decline he is insisting that he is fine at times but also admits he is depressed and his sleep pattern is poor Insomnia 155222642 G47.0 0 [id number] Ishan Andrews [facility] [address] [facility], [address] [facility] [place] [address] 09/02/2024 13:56:06 09/02/2024 14:41:05 Renewal of prescription 942943511 Z76.0 Depression screening 171 455522 Z13.31 pos Psoriatic arthritis 1563 23802 L40.50 seems to be status quo Depressive disorder 3548 9007 F32.A long detailed discussion and review of his consultwil l start buproprion Impaired f asting glycemia 445048278 R73.01 he had lost 40 lbs and i believe he had eliminated the pre dm condition a1c is now 5.8!!!rech k Benign pro static hyperplasia 300617905 N40.0 [id number] [facility] [address] [facility] [address],[place] [address] 09/18/2024 09:22:48 09/18/2024 11:55:15 Fever 251879789 R50.81 will set upwith lab work and recheck urine Acute bronchitis 4430210 2 J20.8 will set up with CXRstart on pred [id number] Ishan Andrews [facility] [address] [facility] [address],[place] [address] 10/21/2024 15:08:57 10/21/2024 16:00:41 Hypotestosteronism 9203335649 104 R89.1 testost was 54 Benign pro static hyperplasia with outflow obstruction 575129034 N13.8 doing better Degenerati on of lumbar intervertebral disc 85144540 M51.369 stable but same Depression screening 171 526535 Z13.31 pos Prostate s pecific antigen above reference range 166225822 R97.20 psa is elevated again we need to have him go back to dr gera Jennings al pneumonia 41192822 J84.9 needs follow up xr [id number] [facility] [address] [facility] [address],[place] [address] 12/20/2024 14:24:35 12/20/2024 15:31:07 Depression screening 235626306 Z13.31 negative Right uppe r quadrant pain 715038865 R10.11 will check blood work levels Impaired f asting glycemia 302471165 R73.01 will set up with lab workIFG Hypotestosteronism 70999 13872 104 E34.9 needs another lab prior to his endo appt Urinary fr equency due to benign prostatic hypertrophy 3694030563 45371 N40.1 R35.0 start finasterid e Health Concerns Section Related Observation LastModified by Organization Detai ls LastModified Time None Recorded Concern Status LastModified by Organization Details LastModified Time None Recorded Advance Directives Directive None Recorded Payers Insurance Date Sequence Insurance Name Policy Number Policy Yo Covered Member ID Yo Member ID Guarantor Name 03/13/2018 1 [employer] (EPO) [id number] Iris Marroquin [id number] Rod Lopez 10/21/2024 1 [place] [employer] Rod Fu Lopez [id number] Rod Marroquin 10/21/2024 1 [place] [id number] Rod Fu Lopez [id number] Rod Marroquin 12/17/2024 1 [facility] (MEDICARE REPLACEMENT/ ADVANTAGE - HMO) [id number] Rod E Lopez [id number] Rod Lopez Notes Date Note Type Note Provider Name a nd Address Organization Details Recorded Time 4 text/html here for rechk and is c/o of his bilat knee painand occ hip painwife feels that he is losing some cognitive ability Ishan Andrews, [address] [place] [address], [address], [facility] 05/14/2024 16:02:36 5 text/html here for rechk and is doing ok overallstill quite depressed and has been dx with a pseudo dementia from thise reportwas started on B12 by neurologistlong detailed discussion Ishan Andrews DO [address] [place], [address], [facility] 09/02/2024 14:36:13 5 text/html c/o bronchitis The patient is participating in this appointment via telemedicine communication with a phone call/video calling service (Doxy)The patient consents to use of these platforms in place of an in-person appointment due to either sick symptoms the patient is presenting with or current office closure due to COVID exposure in order to keep our office staff and patients safe the patient was recently on cipro due to a diverticulitis flare up the patient was exposed to water in the basement patient has fever 100 F, low BP, 104/58, O2 sat 93%per , upper left lobe, diminished lungs soundsfatigue, said he is pale recently on cipro for prostatitis which he has to fu with urology for will have him fu with lab work, urine sample, and CXR DAVIDA MARTINEZ [address] [place], [address], [facility] 09/18/2024 11:30:33 5 text/html Back PainReported bypatient.Location:p ain is not radiating Severity:improving Associated Symptoms:no fever; no weak limbs; no numbness of the legs/feet; no tingling; no incontinence; no shortness of breath; no unintentional weight loss; no chills; no night sweats; no gait instability; no bowel/bladder symptoms; no recent increase in stress Previous Injury:no prior injury to back; no prior malignancy fatigue continues with loss of motivation Ishan Andrews, [address] [place], [address], [facility] 10/21/2024 15:39:34 5 text/html c/o abdominal pain the patient reports that he has been having RUQ painthe patient reports it has been about a monthfeels constant achethe patient does get pain after eatinggetting more bloated with appetite change recommended lab work and CT scan as well DAVIDA MARTINEZ [address] [place], [address], [facility] 12/20/2024 15:10:19
== END 2024-12-30 14:13 | disposition home or self-care (01) ==
LOC: HO.ENCR 13:22
PROVIDERS: PCP Internal Medicine; Visit Provider Student in an Organized Health Care Education/Training Program
DX: E66.9 Obesity, unspecified (principal); Z68.38 Body mass index [BMI] 38.0-38.9, adult; E29.1 Testicular hypofunction; R97.20 Elevated prostate specific antigen [PSA]
CPT/HCPCS: 99205

== ENCOUNTER → 2024-12-30 13:21 | Outpatient (BNVA) | payer MEDICARE, SELFPAY | PROVIDERS: PCP Internal Medicine; Visit Provider Student in an Organized Health Care Education/Training Program | DX: E29.1 Testicular hypofunction (principal); R97.20 Elevated prostate specific antigen [PSA]; E66.9 Obesity, unspecified; Z79.899 Other long term (current) drug therapy; Z68.38 Body mass index [BMI] 38.0-38.9, adult; Z79.51 Long term (current) use of inhaled steroids; Z79.891 Long term (current) use of opiate analgesic | CPT/HCPCS: 99202 ==

== ENCOUNTER 2025-01-01 07:26 | Outpatient (REF) | payer MEDICARE, SELFPAY ==
--- OUTSIDE RECORDS SUMMARY | 2024-04-19 06:10 | XMS_ITS ---
Author Organization [facility] Address [address] [place] [address] Care Team Providers Care Wood Barrel Reconditioner Name Role Phone Ishan Andrews Primary Care Provider Fili Shah Jr REASON FOR VISIT screening Encounters Encounter Location Date Provider Diagnosis [facility] Outpatient [address] [place] [phone] 04/19/2024 Fili Velasco Jr Colon cancer screening Z12.11 and Colon polyps K63.5 Assessments Encounter Date Diagnosis (ICD Code) Assessment Notes Treatment Notes Treatment Clinical Notes Section Notes 04/19/2024 Colon cancer screening (ICD-10 - Z12.11) 04/19/2024 Colon polyps (ICD-10 - K63.5) Plan Of Treatment No Information Progress Notes * DOMENICO PUTNAM EDOB:[birth year] (69 yo M)Acc No.[id number]:04/19/2024 COLON WITH MAC Patient: DOMENICO EPSTEIN Provider: Hugh Velasco MD :1955 A ge:69 Y S ex:Male Date:04/19/2024 Address:[address] [place] [address] Pcp:Ishan Andrews Subjective: * Chief Complaints: * [...] 1 Generated for Helga miller/Sheela/Nylaitting on: 0 01/01/2025 07:28 AM EDT
--- OUTSIDE RECORDS SUMMARY | 2025-01-01 07:28 | XMS_ITS ---
Author Name [facility] Organization Unknown History of Medication Use Medication Directions Dispensed Refills Start Date End Date Stat us acetaminophen (TYLENOL) 500 mg tablet Take 2 tablets (1,000 mg total) by mouth every 6 (six) hours if needed for mild pain. NEEDED active calcium carbonate-vitamin D 500 mg-5 mcg (200 unit) per tablet Take 1 tablet by mouth 1 (one) time each day. 2,000 UNITS active diazePAM (VALIUM) 5 mg tablet Take 1 tablet (5 mg total) by mouth every 8 (eight) hours if needed for anxiety. NEEDED active escitalopram (LEXAPRO) 20 mg tablet Take 1.5 tablets (30 mg total) by mouth 1 (one) time each day. active ibuprofen (ADVIL,MOTRIN) 100 mg/5 mL suspension 30 mL (600 mg total). NEEDED active montelukast (SINGULAIR) 10 mg tablet Take 1 tablet (10 mg total) by mouth at bedtime. active oxyCODONE-acetaminophe n 10-300 mg/5 mL solution Take 10 mg by mouth. 2X DAY active pantoprazole (PROTONIX) 40 mg EC tablet Take 1 tablet (40 mg total) by mouth 1 (one) time each day before breakfast. Do not crush, chew, or split. active simvastatin (ZOCOR) 20 mg tablet Take 1 tablet (20 mg total) by mouth at bedtime. active tamsulosin (FLOMAX) 0.4 mg 24 hr capsule Take 1 capsule (0.4 mg total) by mouth 1 (one) time each day with breakfast. Capsules should be taken 30 minutes following the same meal each day. active Allergies Allergen Reaction Severity Comment Documented Date Source Statu s POLLEN EXTRACTS 07/25/2024 MARIAM_GREG flores
--- OUTSIDE RECORDS SUMMARY | 2025-01-01 07:29 | XMS_ITS | Clinical Summary ---
Author Organization [facility] [place] [address] Care Team Providers Care Cloth Laminating Supervisor Name Role Phone Ishan Andrews DO Primary Care Provider [phone] Allergies Active Allergy Reactions Criticality Noted Date Comments Animal Dander 07/25/2024 Pollen Extracts 07/25/2024 Medications escitalopram (LEXAPRO) 20 mg tablet Take 1.5 tablets (30 mg total) by mouth 1 (one) time each day. Active oxyCODONE-aceta minophen 10-300 mg/5 mL solution Take 10 mg by mouth. 2X DAY Active diazePAM (VALIUM) 5 mg tablet Take 1 tablet (5 mg total) by mouth every 8 (eight) hours if needed for anxiety. NEEDED Active pantoprazole (PROTONIX) 40 mg EC tablet Take 1 tablet (40 mg total) by mouth 1 (one) time each day before breakfast. Do not crush, chew, or split. Active tamsulosin (FLOMAX) 0.4 mg 24 hr capsule Take 1 capsule (0.4 mg total) by mouth 1 (one) time each day with breakfast. Capsules should be taken 30 minutes following the same meal each day. Active montelukast (SINGULAIR) 10 mg tablet Take 1 tablet (10 mg total) by mouth at bedtime. Active simvastatin (ZOCOR) 20 mg tablet Take 1 tablet (20 mg total) by mouth at bedtime. Active calcium carbonate-vitam in D 500 mg-5 mcg (200 unit) per tablet Take 1 tablet by mouth 1 (one) time each day. 2,000 UNITS Active acetaminophen (TYLENOL) 500 mg tablet Take 2 tablets (1,000 mg total) by mouth every 6 (six) hours if needed for mild pain. NEEDED Active ibuprofen (ADVIL,MOTRIN) 100 mg/5 mL suspension 30 mL (600 mg total). NEEDED Active Active Problems No known active problems Social History Tobacco Use Types Packs/Day Years Used Date Smoking Tobacco: Never Assessed Sex and Gender Information Value Date Recorded Sex Assigned at Not on file Legal Sex Male 6:40 AM EST Gender Identity Not on file Sexual Orientation Not on file Plan of Treatment Health Maintenance Due Date Last Done Comments DTaP,Tdap,and Td Vaccines (1 - Tdap) 01/14/1972 Zoster Vaccines (1 of 2) 2003 RSV Immunization Adult Patients (1 - Risk 60-74 years 1-dose series) 2013 Colorectal Cancer Screening: Colonoscopy 05/15/2024 Depression Screening 05/15/2024 Falls Risk Assessment 05/15/2024 Medicare Annual Wellness Visit 05/15/2024 Social Influencers of Health Screening 05/15/2024 Cholesterol Screening (Lipid Panel) 08/25/2024 08/26/2019 COVID-19 Vaccine ( season) 2024 04/09/2024, 11/14/2023, 03/31/2023, Additional history exists Influenza Vaccine (#1) 2025 , 03/02/2023, 03/09/2022, Additional history exists Abdominal Aortic Aneurysm (AAA) Screen Completed 05/16/2019 Hepatitis C Screening Completed 08/26/2019 Pneumococcal Vaccine: 50+ Years Completed 07/26/2021, 03/17/2020 HIB Vaccines Aged Out No longer eligi ble based on patient's age to complete this topic HPV Vaccines Aged Out No longer eligi ble based on patient's age to complete this topic Hepatitis A Vaccines Aged Out No long er eligible based on patient's age to complete this topic Hepatitis B Vaccines Aged Out No long er eligible based on patient's age to complete this topic IPV Vaccines Aged Out No longer eligi ble based on patient's age to complete this topic MMR Vaccines Aged Out No longer eligi ble based on patient's age to complete this topic Meningococcal ACWY Vaccine Aged Out N o longer eligible based on patient's age to complete this topic Meningococcal B Vaccine Aged Out No l onger eligible based on patient's age to complete this topic RSV Immunization Patients Under 20 months Aged Out No longer eligible based on patient's age to complete this topic Varicella Vaccines Aged Out No longer eligible based on patient's age to complete this topic Insurance [employer] MEDICARE Care Teams Cloth Laminating Supervisor Relationship Specialty Start Date End Date Ishan Andrews DO [address] [place] [id number] PCP - General Internal Medicine 07/25/24
--- OUTSIDE RECORDS SUMMARY | 2025-01-01 07:29 | XMS_ITS | Data Portability ---
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) MDM HIGH MUST MEET 2 OUT OF [...] Lab hemoglobin A1c, QN, blood 2024 025 [facility], [place], [address], 5 15:07:22 CMP, serum or plasma 2024 025 [facility], [place], [address], 5 15:07:22 CBC w/ auto diff 2024 025 [facility], [place], [address], 5 12:55:51 testostero ne, free + total, serum 2024 025 [facility], [place], [address], 5 15:07:22 amylase + lipase, serum 2024 025 [facility], [place], [address], 5 15:07:22 gamma-glut amyl transferas e (ggt), serum 2024 025 [facility], [place], [address], 5 15:07:22 C-reactive protein, quantitati ve, serum or plasma 2024 025 [facility], [place], [address], 5 15:07:22 ESR (erythrocy te sedimentat ion rate), blood 2024 025 [facility], [place], [address], 5 14:10:05 urinalysis complete, reflex culture 2024 025 [facility], [place], [address], 5 13:03:38 PSA, total + free, serum or plasma 2024 025 [facility], [place], [address], 5 15:35:24 CBC w/ auto diff 2024 025 [facility] (Outpatient), [address] [place] [address], [address], 5 15:49:14 CMP, serum or plasma 2024 025 [facility] (Outpatient), [address] [place] [address], [address], 5 15:49:38 urinalysis complete, reflex culture 2024 025 [facility] (Outpatient), [address] [place] [address], [address], 5 07:47:15 ESR (erythrocy te sedimentat ion rate), blood 2024 [facility] (Outpatient), [address] [place] [address], [address], 5 11:29:44 C reactive protein, QN, serum or plasma 2024 [facility] (Outpatient), [address] [place], [address], 5 11:29:44 HbA1c (hemoglobi n A1c), blood 2024 [facility], [place], [address], 5 13:54:00 PSA, serum or plasma 2024 025 [facility], [place], [address], 5 13:43:41 vitamin D, 25-hydroxy , total, serum 2023 024 [facility], [place], [address], 4 15:57:47 CMP, serum or plasma 2023 024 [facility], [place], [address], 4 15:57:47 CBC 2023 024 [facility], [place], [address], 4 08:53:00 vitamin B12 + folate, serum or blood 2023 024 [facility], [place], [address], 4 21:02:45 TSH, serum or plasma 2023 [address] [place], [address], 4 15:57:47 magnesium, serum or plasma 2023 024 [place], [address], 4 15:57:47 erythrocyt e sedimentat ion rate by westergren method 2023 024 [place], [address], 4 15:57:47 Referral neurologis t referral 2023 024 [facility] Isabel Davila MD, [address] [facility], [address], [place], [address], 4 09:22:28 Procedures None recorded. Surgeries None recorded. Imaging CT, abdomen + pelvis, w/o contrast 2024 025 [facility], [address] [place] [address], [address], 5 09:29:48 XR, chest, 2 view 2024 025 [facility], [address] [place] [address], [address], 5 16:11:23 XR, chest, 2 view 2024 025 [facility] Central Scheduling (Not Breast), [address] [place] [address], [address], 5 17:43:31 MRI, brain, w/o contrast - Not Required Procedure codes: 38940 Call Reference #: [id number] Resolution : Completed on 05/21/2024 at 09:02 am. Call ref #[id number]. 2023 024 [facility], [address] [place], [address], 08:42:07 Medication Orders prednisone 10 mg tablet 2024 025 [facility], [address] [place], [address], 14:37:07 bupropion HCl SR 150 mg tablet,12 hr sustained- release 2024 025 [facility] [address] [place], [address], 14:35:48 trazodone 50 mg tablet 2023 024 [facility] [address] [place], [address], 16:00:38 Patient TargetsNo targets recorded. Patient Instructions Encounter Date Encounter Id Patient Instructions Last Modified By Organization Details Last Modified Time 05/14/2024 [id number] insomnia: care instructions Not available 05/14/2024 16:00:36 09/02/2024 [id number] prediabetes: car e instructions Not available 09/02/2024 14:35:49 learning about mood disorders Not available 09/02/2024 14:29:51 benign prostatic hyperplasia: care instructions Not available 09/02/2024 14:35:49 10/21/2024 [id number] prostate biopsy: about this test Not available 10/21/2024 15:34:04 Reason for Referral Neurologist Referral for Imp aired cognition Referring Physician: Ishan Andrews, Internal Medicine, Encounter Date: 05/14/2024 Results Created Date Observation Date Name Description Value Unit Range Abnormal Flag Note LastModifiedBy Organization Detail LastModifiedTime 05/31/20 24 05/29/2024 MRI, brain , w/o contr ast No observ ation record ed. [address], [address], 09/02/2024 14:14:31 09/19/1909/18/2024 XR, chest , 2 view No observ ation record ed. [email or web address] [address], [address], 09/18/2024 18:16:44 10/23/19 25 10/22/2024 XR, chest , 2 view No observ ation record ed. [email or web address] [address], [address], 10/23/2024 09:04:53 Result Notes None recorded. Problems Name Problem SNOMED Code Status Onset Date Resolution Date Notes Provider Name and Address Organization Details Recorded Time Impaired fasting glycemia 992025444 Completed 202006/21/2023 Removal Reason: a1c in low 5 DAVIDA MARTINEZ [address] [place], [address], [facility] 5 15:01:46 Candidia sis of mouth 57988617 Active 2021 Enedelia cid [facility] 5 10:04:38 Hypotens demetria episode 14481567 Active 2022 Enedelia cid [facility] 5 10:04:24 Benign prostati c hyperpla omer with outflow obstruct ion 297254714 Active 2022 Enedelia icd [facility] 5 10:04:24 Benign prostati c hyperpla omer 260852339 Active 2022 Enedelia cid [facility] 5 10:04:38 Morbid obesity 059526597 Active 2022 Enedelia cid [facility] 5 10:04:24 Psoriati c arthriti s 132897201 Active 2017 Enedelia cid [facility] 5 10:04:24 Degenera tion of lumbar interver tebral disc 03648039 Active 2017 hardware [facility]screws [facility] 5 10:04:24 History of calculus of kidney 208670700 Active 2017 [facility] 5 10:04:24 Injury of knee 604147356 Active 2017 repaired Enedeliaisa cid [facility] 5 10:04:38 Sinusiti s 22056024 Active 2017 [facility] 5 10:04:38 Injury of knee 597786352 Active 2017 [facility] 5 10:04:38 Pain of right hip joint 1673818938 87434 Active 2023 [facility] 5 10:04:38 Pain of left hip joint 2532128324 25689 Active 2023 [facility] 5 10:04:38 Impaired cognitio n 697605679 Active 2023 [facility] 5 10:04:24 Insomnia 939994502 Active 2023 Enedelia cid [facility] 5 10:04:24 COVID-19 233831962 Active 2023 [facility] 5 10:04:38 Sleep apnea 03523711 Active 2024 [facility] 5 10:04:24 Depressi ve disorder 52809750 Active 2024 Ishan Andrews, DO [address] [place] [address], [place], [address], [facility] 5 14:28:37 Impaired fasting glycemia 257818878 Active 2024 DAVIDA MARTINEZ [address] [place], [address], [facility] 5 15:01:45 Acute urinary tract infectio n 654167998 Active 2024 Ishan Andrews, DO [address] [place] [address], [address], [facility] 5 10:00:03 Fever 919290154 Active 2024 DAVIDA MARTINEZ [address] [place], [address], [facility] 5 11:24:39 Acute bronchit is 49298914 Active 2024 DAVIDA MARTINEZ [address] [place] [address], [address], [facility] 5 11:24:52 Pneumoni a 851539806 Active 2024 DAVIDA MARTINEZ [address] [place], [address], [facility] 5 16:41:42 Fatigue 67036961 Active 2024 Ishan Andrews DO [address] [place] [address], [address], [facility] 5 21:32:18 Hypotest osteroni sm 7263608107 104 Active 2024 Ishan Andrews, DO [address] [place] [address], [address], [facility] 5 22:39:56 Intersti tial pneumoni a 12927240 Active 2024 Ishan Andrews DO [address] [place] [address], [address], [facility] 5 15:36:22 Prostate specific antigen above referenc e range 719120881 Active 2017 Ishan Andrews DO [address] [place] [address], [address], [facility] 5 15:33:24 Right upper quadrant pain 549353311 Active 2024 DAVIDA MARTINEZ [address] [place] [address], [address], [facility] 15:00:34 Urinary frequenc y due to benign prostati c hypertro phy 4019603132 28932 Active 2024 DAVIDA MARTINEZ [address] [place] [address], [address], [facility] 15:02:42 Type 2 diabetes mellitus 75065823 Active 2024 DAVIDA MARTINEZ [address] [place] [address], [address], [facility] 16:51:58 Notes:Some problems listed i n Documents: #[id number], #[id number], #[id number], #[id number] could not be added to this patient's chart. Please review these documents and add these problems to the patient's chart manually as needed. Problem Notes None recorded. Procedures Surgical History Date Name Laterality Status Provider Name and Address Organization Details Recorded Time 04/19/20 24 Colonoscopy completed Ishan FlowerNiki Andrews [address], [address], [facility] 04/20/2024 08:37:15 Imaging Results None recorded. Procedure Notes None recorded. Medical Equipment None Reported. Allergies Allergen ID Allergen Name Allergen Category Reaction Reaction Severity Criticality Documentation Date Start Date Code Code System Note Provider Name and Address Organization Details Recorded Time 831 Tylox medicatio n dizziness ringing in ears Not available Not available Not available 10/02/201719700 5 RxNorm can take [facility]len [facility] 0 10:32:27 9112 Wellbutri n medicatio n Not available Not available Not available 12/20/2024 65017 RxNorm urina ting alot [facility] 14:36:06 Medications Name Sig Start Date Stop [...] Updated DateTime 5 173.99 cm 39.5 kg/m2 219825. 03 g 96 /min 92 % 92 % 136/82 mm[Hg] Enedelia Lopez [facility] 5 14:06:53 Date Recorded Body height Body mass index (BMI) Body weight Heart rate Oxygen saturation Oxygen saturation in Arterial blood by Pulse oximetry Systolic And Diastolic Provider Name and Address Organization Details Last Updated DateTime 5 173.99 cm 39.4 kg/m2 899615. 79 g 81 /min 98 % 98 % 130/80 mm[Hg] Krystyna Valentine [facility] 5 15:21:31 Date Recorded Body height Body mass index (BMI) Body weight Oxygen saturation Oxygen saturation in Arterial blood by Pulse oximetry Heart rate Systolic And Diastolic Provider Name and Address Organization Details Last Updated DateTime 5 173.99 cm 38.5 kg/m2 524878. 6 g 96 % 96 % 84 /min 122/76 mm[Hg] Barbie Broussard [facility] 5 14:41:55 Date Recorded Body height Body mass index (BMI) Body weight Heart rate Oxygen saturation Oxygen saturation in Arterial blood by Pulse oximetry Systolic And Diastolic Provider Name and Address Organization Details Last Updated DateTime 4 173.99 cm 37 kg/m2 482267. 32 g 94 /min 97 % 97 % 130/80 mm[Hg] Krystyna Valentine [facility] 4 15:36:16 Social History Question Answer Notes LastModified by Organizat ion Details LastModified Time Tobacco Smoking Status Former Smoker Not Available [facility]2020 03:36:23 What Was The Date Of [...] mcg/0.3 mL dose 1 completed Not Available [facility] 08/04/2023 23:29:56 Pneumococcal conjugate PCV 13 0 completed Not Available [facility] 08/04/2023 23:29:56 pneumococcal polysaccharide PPV23 2 completed Not Available [facility] 08/04/2023 23:29:56 Influenza, split virus, quadrivalent, preservative 8 completed Not Available [facility] 08/04/2023 23:29:56 COVID-19, mRNA, LNP-S, PF, 30 mcg/0.3 mL dose 2 completed Not Available [facility] 08/04/2023 23:29:56 Influenza, split virus, quadrivalent, preservative 2 completed Not Available [facility] 08/04/2023 23:29:56 COVID-19, mRNA, LNP-S, PF, 30 mcg/0.3 mL dose 2 completed Not Available [facility] 08/04/2023 23:29:56 COVID-19, mRNA, LNP-S, PF, 30 mcg/0.3 mL dose 1 completed Not Available [facility] 08/04/2023 23:29:56 COVID-19, mRNA, LNP-S, PF, garett-sucrose, 30 mcg/0.3 mL 5 completed Enedelia cid [place] [facility] 12/11/2024 11:40:05 Influenza, split virus, quadrivalent, preservative 9 completed Not Available [facility] 08/04/2023 23:29:56 COVID-19, mRNA, LNP-S, PF, 30 mcg/0.3 mL dose 1 completed Not Available [facility] 08/04/2023 23:29:56 Past Encounters Encounter ID Performer Location Encounter Start Date Encounter Closed Date Diagnosis/Indication Diagnosis SNOMED-CT Code Diagnosis ICD10 Code Diagnosis Note [id number] Ishan Andrews [facility] [address], [place] [address] 10/02/2017 14:41:22 10/02/2017 15:59:51 Injury of knee 707077133 S89.92XA will need MRI due to knee and leg giving out with spontaneit y Acute sinusitis 96032949 J01.90 finished augmentin and pred with resolution of symptoms [id number] Ishan Andrews [facility] [address],[facility] [address] 03/13/2018 15:30:09 03/13/2018 16:30:07 Injury of knee 540144793 S89.92XA plan forthe knee willbe having th eknee cleaned up and will then get cortisone inj Prostate s pecific antigen above reference range 363059350 R97.20 has undergone bx by dr telles and were negative Degenerati on of lumbar intervertebral disc 62808174 M51.36 about the same will cont with the pain management Renewal of prescription 324914864 Z76.0 [id number] Ishan Andrews [facility] [address],[facility] [place] [address] 09/18/2018 15:32:05 09/18/2018 16:13:17 Psoriatic arthritis 354088512 L40.50 seems to be status quo Degenerati on of lumbar intervertebral disc 90087921 M51.36 about the same will cont with the pain management still in a great erick l of p[ain Abdominal pulsatile mass 5698104 R09.89 [place] [id number] Ishan Andrews [facility] [address], [address] [address] 04/23/2019 16:04:03 04/23/2019 16:42:49 Abdominal aortic aneurysm screening 373595750 Z13.6 will order Prostate s pecific antigen above reference range 445348302 R97.20 has undergone bx by dr telles and were negative Adult heal th examination 023383348 Z00.00 will order fbw for pt include a1c as his has chk fibs and noted 140's [id number] Ishan Andrews [facility] [address],[place] [address] 09/23/2019 15:01:16 09/24/2019 14:12:41 Degeneration of lumbar intervertebral disc 80668009 M51.36 about the same will cont with the pain management still in a great erick l of p[ain Psoriatic arthritis 1563 27319 L40.50 seems to be status quo Impaired f asting glycemia 066474880 R73.01 A1c is 6.1. I informed him [...] Prostate s pecific antigen above reference range 400966169 R97.20 has undergone bx by dr telles and were negative. Latest psa was 5.5 (5.8) [id number] Ishan Andrews [facility] [address],[facility] [place] [address] 02/24/2020 10:40:35 02/24/2020 15:48:51 Psoriatic arthritis 960974570 L40.50 seems to be status quo Degenerati on of lumbar intervertebral disc 53252941 M51.36 about the same will cont with the pain management still in a great erick l of p[ain Injury of knee 208176951 S89.92XA = still struggling with both knees but we will cont totxconser v until pandemic clears [id number] Ishan Andrews [facility] [address] [facility] [place], [place] [address] 09/28/2020 16:06:28 09/29/2020 08:20:32 Degeneration of lumbar intervertebral disc 63347090 M51.36 about the same will cont with the pain management still in a great erick l of p[ain Impaired f asting glycemia 794228745 R73.01 he has lost 40 lbs and i believe he has eliminated the pre dm condition we will chk a1c again in a coupl;e months . Prostate s pecific antigen above reference range 041291698 R97.20 has undergone bx by dr telles and were negative. Latest psa was 5.5 (5.8) [id number] Ishan Andrews [facility] [address],[place] [address] 02/10/2021 15:20:02 02/10/2021 16:20:11 Active or passive immunization 825153868 Z23 Adult heal th examination 089919753 Z00.00 will order fbw for pt include a1c as his has chk fibs and noted 140's Psoriatic arthritis 1563 42748 L40.50 seems to be status quo Fatigue 05376806 R53.83 [id number] Ishan Andrews [facility] [address],[email or web address] [address] 03/10/2021 13:43:37 03/10/2021 16:43:46 Orthostatic hypotension 31158687 I95.1 will fu with holter and cardio referral [id number] Ishan Andrews [facility] [address],[place] [address] 10/04/2021 15:53:37 10/05/2021 10:29:45 Impaired fasting glycemia 333929132 R73.01 he had lost 40 lbs and i believe he had eliminated the pre dm condition but he has gained a bunch back we will chk a1c again in a couple months . Degenerati on of lumbar intervertebral disc 96052043 M51.36 about the same will cont with the pain management still in a great erick l of p[ain Psoriatic arthritis 1563 05833 L40.50 seems to be status quo Screening for malignant neoplasm of colon 852410711 Z12.11 cologuard [id number] Ishan Andrews [facility] [address],[place] [address] 04/19/2022 14:54:17 04/20/2022 11:43:23 Active or passive immunization 173591564 Z23 patient due for flu shot & shingles Adult heal th examination 250297196 Z00.01 will order fbw for pt include a1c as his has chk fibs and noted 140's Advance care planning 71 4016686 Z71.89 done Impaired f asting glycemia 173891284 R73.01 he had lost 40 lbs and i believe he had eliminated the pre dm condition but he has gained a bunch back we will chk a1c again in a couple months . Candidiasis of mouth 797 48864 B37.0 Degenerati on of lumbar intervertebral disc 37009105 M51.36 about the same will cont with the pain management still in a great erick l of p[ain [id number] Ishan Andrews [facility] [address],[place] [address] 07/04/2022 14:06:38 07/04/2022 15:30:02 Pre-surgery evaluation 909620071 Z01.818 The patient was seen in the [...] Benign pro static hyperplasia with outflow obstruction 255509696 N13.8 start finasterid e [id number] Ishan Andrews [facility] [address],[place] [address] 01/11/2023 16:19:14 2023 13:56:55 Psoriatic arthritis 023662123 L40.50 seems to be status quo Impaired f asting glycemia 688991698 R73.01 he had lost 40 lbs and i believe he had eliminated the pre dm condition a1c is now 5.8!!!rech k Benign pro static hyperplasia 620147161 N40.0 Degenerati on of lumbar intervertebral disc 84210532 M51.36 about the same will cont with the pain management still in a great erick l of p[ain [id number] Ishan Calixto Andrews [facility] [address], [address] [address] 06/21/2023 09:37:43 06/23/2023 15:30:34 Morbid obesity 244444587 E66.01 has cont to lose wgt and is doing fantastic Impaired f asting glycemia 190148136 R73.01 he had lost 40 lbs and i believe he had eliminated the pre dm condition a1c is now 5.8!!!rech k [id number] Ishan Andrews [facility] [address],[place] [address] [facility] [place] [place] [address] 10/23/2023 13:42:12 10/23/2023 14:16:37 Injury of knee 716765984 S89.92XA = still struggling with both knees but we will cont totxconser v until pandemic clears Degenerati on of lumbar intervertebral disc 09411546 M51.36 about the same will cont with the pain management still in a great erick l of p[ain Pain of ri ght hip joint 0780599462 16592 M25.551 Pain of le ft hip joint 4984799970 30506 M25.552 [id number] Ishan Andrews [facility] [address],[place] [address] 05/14/2024 15:26:52 05/14/2024 16:03:46 Impaired cognition 932404771 R41.89 is acutely aware of his cognitive decline he is insisting that he is fine at times but also admits he is depressed and his sleep pattern is poor Insomnia 248188469 G47.0 0 [id number] Ishan Andrews [facility] [address], [address] [facility] [place] [place] [address] 09/02/2024 13:56:06 09/02/2024 14:41:05 Renewal of prescription 194186298 Z76.0 Depression screening 171 239481 Z13.31 pos Psoriatic arthritis 1563 75810 L40.50 seems to be status quo Depressive disorder 3548 9007 F32.A long detailed discussion and review of his consultwil l start buproprion Impaired f asting glycemia 014771290 R73.01 he had lost 40 lbs and i believe he had eliminated the pre dm condition a1c is now 5.8!!!rech k Benign pro static hyperplasia 635648721 N40.0 [id number] [facility] [address] [facility] [place] [address] 09/18/2024 09:22:48 09/18/2024 11:55:15 Fever 991178077 R50.81 will set upwith lab work and recheck urine Acute bronchitis 6837179 2 J20.8 will set up with CXRstart on pred [id number] Ishan Andrews [facility] [address] [facility] [address] [place] [address] 10/21/2024 15:08:57 10/21/2024 16:00:41 Hypotestosteronism 8361167691 104 R89.1 testost was 54 Benign pro static hyperplasia with outflow obstruction 226662672 N13.8 doing better Degenerati on of lumbar intervertebral disc 70937853 M51.369 stable but same Depression screening 171 707016 Z13.31 pos Prostate s pecific antigen above reference range 276779381 R97.20 psa is elevated again we need to have him go back to dr gera Jennings al pneumonia [id number] J84.9 needs follow up xr [id number] [facility] [address] [facility] on [place] [address] 12/20/2024 14:24:35 12/20/2024 15:31:07 Depression screening [id number] Z13.31 negative Right uppe r quadrant pain [id number] R10.11 will check blood work levels Impaired f asting glycemia [id number] R73.01 will set up with lab workIFG Hypotestosteronism [id number] 104 E34.9 needs another lab prior to his endo appt Urinary fr equency due to benign prostatic hypertrophy [id number] 57473 N40.1 R35.0 start finasterid e Health Concerns Section Related Observation LastModified by Organization Detai ls LastModified Time None Recorded Concern Status LastModified by Organization Details LastModified Time None Recorded Advance Directives Directive None Recorded Payers Insurance Date Sequence Insurance Name Policy Number Policy Yo Covered Member ID Yo Member ID Guarantor Name 03/13/2018 1 [employer] (EPO) [id number] Iris Marroquin [id number] Rod Lopez 10/21/2024 1 [place] [employer] Rod Fu Lopez [id number] Rod Marroquin 10/21/2024 1 [place] [id number] Rod Fu Lopez [id number] Rod Marroquin 12/17/2024 1 [employer] (MEDICARE REPLACEMENT/ ADVANTAGE - HMO) [id number] Rod E Lopez [id number] Rod Lopez Notes Date Note Type Note Provider Name a nd Address Organization Details Recorded Time 4 text/html here for rechk and is c/o of his bilat knee painand occ hip painwife feels that he is losing some cognitive ability Ishan Andrews, [address] [place] [address], [phone], [facility] 05/14/2024 16:02:36 5 text/html here for rechk and is doing ok overallstill quite depressed and has been dx with a pseudo dementia from thise reportwas started on B12 by neurologistlong detailed discussion Ishan Andrews DO [address] [place], [address], [facility] 09/02/2024 14:36:13 5 [...] with lab work, urine sample, and CXR DVAIDA MARTINEZ [address] [place], [address], [facility] 09/18/2024 11:30:33 5 [...] with loss of motivation Ishan Andrews, [address] [place], [address], [facility] 10/21/2024 15:39:34 5 text/html c/o abdominal pain the patient reports that he has been having RUQ painthe patient reports it has been about a monthfeels constant achethe patient does get pain after eatinggetting more bloated with appetite change recommended lab work and CT scan as well DAVIDA MARTINEZ [address] [place], [address], [facility] 12/20/2024 15:10:19
[2025-01-01 08:28] LABS: Hematocrit 41.8 % (42.0-52.0); Hemoglobin 13.9 g/dl (14.0-18.0)
[2025-01-01 09:10] LABS: Alanine Aminotransferase 62 U/L (0-40); Albumin Level 4.5 g/dL (3.5-5.0); Alkaline Phosphatase 148 U/L (39-117); Anion Gap 10 (12-20); Aspartate Amino Transferase 56 U/L (5-37); Blood Urea Nitrogen 16 mg/dL (9-16); Calcium 8.9 mg/dL (8.4-10.2); Carbon Dioxide 25 mmol/L (22-29); Chloride 110 mmol/L (96-108); Estimated Glomerular Filt Rate > 60; Potassium 4.3 mmol/L (3.3-5.1); Sodium 141 mmol/L (135-145); Total Protein 7.8 g/dL (6.5-8.0)
[2025-01-01 09:21] LABS: PSA,Total (Free>4and<10) 13.98 ng/mL (0.00-4.00)
[2025-01-02 11:18] LABS: Follicle Stimulating Hormone 2.0 mIU/mL (1.4-12.8)
[2025-01-06 06:28] LABS: Testosterone-Albumin 4.2 g/dL (3.6-5.1); Testosterone-Bioavailable 62.7 ng/dL (15.0-150.0); Testosterone-Free 32.6 pg/mL (6.0-73.0); Testosterone-Total 133 ng/dL (250-1100)
== END 2025-01-01 07:27 | disposition home or self-care (01) ==
LOC: HO.LAB 07:26
PROVIDERS: PCP Internal Medicine; Visit Provider Student in an Organized Health Care Education/Training Program
DX: E29.1 Testicular hypofunction (principal)
CPT/HCPCS: 36415; 80053; 83001; 83002; 84146; 84153; 84270; 84402; 84403; 84443; 85014; 85018

== ENCOUNTER 2025-02-05 14:54 | Outpatient (AMB) | payer MEDICARE, SELFPAY ==
[2025-02-05 14:56] VITALS: BP 114/62; PULSE 68; O2SAT 95; BMI 37.7
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
--- OUTSIDE RECORDS SUMMARY | 2025-02-05 15:01 | XMS_ITS | Patient Health Record ---
Author Organization [facility] Address [address] [place] [address] Care Team Providers Care Sole Stapler Welt Name Role Phone Ishan Andrews Primary Care Provider Fili Shah Jr Unavailable Allergies Allergen (clinical drug ingredient) Drug/Non Drug Allergy documented on EMR Reaction Allergy Type Onset Date Status Tylox Unknown Drug Allergy Active aspirin Aspirin Unknown Drug Allergy Active Results Component Value Reference Range Notes Pathology Reviewed date:04/25/2024 07:50:11 AM Interpretation: Performing Lab:[facility], [address] [place] [phone] Notes/Report: Reason For Referral No Information Medications Medication SIG (Take, Route, Frequency, Duration) Notes Start Date End Date Status Ibuprofen 600 MG 1 tablet with food or milk as needed Orally Three times a day Active Acetaminophen 500 MG 1 capsule as needed Orally every 6 hrs Active Flonase Allergy Relief 50 MCG/ACT 1 spray in each nostril Nasally Once a day for 30 day(s) Active MiraLax (colon prep) 17 GM/SCOOP mixed with Gatorade or Crystal Light Orally begin at 5:00 p.m. the day before the procedure for 1 day 03/07/2024 Active Escitalopram Oxalate 20 MG 1 tablet Orally Once a day Active ZyrTEC 10 MG 1 tablet Orally Once a day for 30 day(s) Active Simvastatin 20 MG Oral for 100 Active Montelukast Sodium 10 MG Oral for 100 Active Pantoprazole Sodium 40 MG Oral for 100 Active Tamsulosin HCl 0.4 MG Oral for 100 Active oxyCODONE HCl 10 MG TAKE 1 TABLET BY MOUTH TWICE DAILY Oral for 30 M5136,Unavailab le Active diazePAM 5 MG TAKE 1 TABLET BY MOUTH EVERY DAY NEEDED Oral for 30 M5136,Unavailab le Active Immunizations Vaccine Route Administration Date Status Comme nts Influenza Unknown 02/26/2024 Administered Social History Tobacco Use: Social History Observation Description Date Details (start date - stop date) Never Smoker NA - NA Tobacco Use/Smoking Question Answer Notes Patient is a nonsmoker Alcohol Screen Question Answer Notes Did you have a drink containing alcohol in the p ast year? No Points 0 Interpretation Negative Problems Problem Type SNOMED Code ICD Code Onset Dates Problem Status W/U Status Risk Notes Problem [id number] Colon cancer screening (Z12.11) Active confirmed Problem [id number] Encounter for long-term (current) use of NSAIDs (Z79.1) Active confirmed Problem [id number] Pre-op evaluation (Z01.818) Active confirmed Vital Signs Temperature 97.7 degrees Fahrenheit 03/07/2024 Blood pressure diastolic 00 mm Hg 03/07/2024 Height 5 ft 8.5 in in 03/07/2024 Blood pressure systolic 000 mm Hg 03/07/2024 Weight 255 lb 4 oz lbs 03/07/2024 BMI 38.24 kg/m2 03/07/2024 Encounters Encounter Location Date Provider Diagnosis [facility] [address] [place] [id number] 04/19/2024 Fili Velasco Jr Colon cancer screening Z12.11 and Colon polyps K63.5 [facility] [address] [place] [phone] 03/07/2024 Fili Velasco Jr Colon cancer screening Z12.11 ; Pre-op evaluation Z01.818 and Encounter for long-term (current) use of NSAIDs Z79.1 [facility] [address] [place] [phone] 04/25/2024 Fili Velasco Jr Assessments Encounter Date Diagnosis (ICD Code) Assessment Notes Treatment Notes Treatment Clinical Notes Section Notes 04/19/2024 Colon cancer screening (ICD-10 - Z12.11) 04/19/2024 Colon polyps (ICD-10 - K63.5) 03/07/2024 Colon cancer screening (ICD-10 - Z12.11) Colonoscopy material was printed We discussed colonoscopy. We discussed risks and benefits of the procedure today. He understands these and agrees to proceed. He is advised stop ibuprofen one week before the procedure 03/07/2024 Pre-op evaluation (ICD-10 - Z01.818) We discussed colonoscopy. We discussed risks and benefits of the procedure today. He understands these and agrees to proceed. He is advised stop ibuprofen one week before the procedure 03/07/2024 Encounter for long-term (current) use of NSAIDs (ICD-10 - Z79.1) We discussed colonoscopy. We discussed risks and benefits of the procedure today. He understands these and agrees to proceed. He is advised stop ibuprofen one week before the procedure Plan Of Treatment Future Test Test Name Order Date COLONOSCOPY 03/07/2024 Insurance Providers Payer Name Payer Address Payer Phone Subscriber Number Group Number Insured Name Patient Relationship to Insured Coverage Start Date Coverage End Date [facility] [address] [address] [place] [address] [id number] DOMENICO PUTNAM Self - patient is the insured Medical (General) History Medical History History ICD Code Hyperlipidemia Environmental allergies HORACIO BPH Back and knee pain EGD with balloon dilation 01/03 Surgical History Surgery Date(Month/Year) total knee replacement bilateral 2022.,2 024 back surgery
--- OUTSIDE RECORDS SUMMARY | 2025-02-05 15:01 | XMS_ITS | Encounter Summary ---
Author Organization [facility] Address [address] [facility] [address] [place] [address] Phone Care Team Providers Care Talent Consultant Name Role Phone KarenIshan pacheco Mundo GRACE Primary Care Provider [phone] Encounter Details Date Type Department Care Team (Late st Contact Info) Description 05/17/2024 Procedure Pass [facility], [address] [address] Social History Tobacco Use Types Packs/Day Years Used Date Smoking Tobacco: Former Cigarettes 0.5 20 1 968 - 1988 Smokeless Tobacco: Never Alcohol Use Standard Drinks/Week [...] PM EDT documented as of this encounter Plan of Treatment Upcoming Encounters Date Type Department Care Team (Late st Contact Info) Description 04/02/2025 2:15 PM EDT Office Visit [facility] [address] [place] [address], [address] [address] Paresh Wilkins MD [address] [place] [address] 06/09/2025 2:00 PM EST Office Visit [facility] [address] [place] [phone] Laya Erazo MD [address] [place] [phone] [email or web address] documented as of this encounter Visit Diagnoses Not on filedocumented in this encounter Care Teams Talent Consultant Relationship Specialty Start Date End Date Ishan Andrews DO PCP - General Internal Medicine 08/01/17 documented as of this encounter Additional Source Comments The information contained in this document represents components of the legal health record. It is not the complete legal health record.[facility]
--- OUTSIDE RECORDS SUMMARY | 2025-02-05 15:01 | XMS_ITS | Clinical Summary ---
Author Organization [facility] [place] [address] Care Team Providers Care Carton Filling Machine Operator Name Role Phone Ishan Andrews DO Primary Care Provider [phone] Allergies Active Allergy Reactions Criticality Noted Date [...] series) 2013 Colorectal Cancer Screening: Colonoscopy 05/15/2024 Falls Risk Assessment 05/15/2024 Medicare Annual Wellness Visit 05/15/2024 Social Influencers of Health Screening 05/15/2024 Depression Screening 06/26/2024 Cholesterol Screening (Lipid Panel) 08/25/2024 08/26/2019 COVID-19 [...] topic Insurance [employer] MEDICARE Care Teams Carton Filling Machine Operator Relationship Specialty Start Date End Date Ishan Andrews DO [address] [place] [phone] PCP - General Internal Medicine 07/25/24
== END 2025-02-05 15:11 | disposition home or self-care (01) ==
LOC: HO.ENCR 14:55
PROVIDERS: PCP Internal Medicine; Visit Provider Student in an Organized Health Care Education/Training Program
DX: E29.1 Testicular hypofunction (principal); E66.9 Obesity, unspecified
CPT/HCPCS: 99213

== ENCOUNTER → 2025-02-05 14:54 | Outpatient (BNVA) | payer MEDICARE, SELFPAY | PROVIDERS: PCP Internal Medicine; Visit Provider Student in an Organized Health Care Education/Training Program | DX: E29.1 Testicular hypofunction (principal); E66.9 Obesity, unspecified; Z68.37 Body mass index [BMI] 37.0-37.9, adult | CPT/HCPCS: 99212 ==

== ENCOUNTER 2025-02-17 13:21 | Outpatient (AMB) | payer MEDICARE, SELFPAY ==
--- OUTSIDE RECORDS SUMMARY | 2019-07-16 19:50 | XMS_ITS | Encounter Summary ---
Author Organization [facility] Address [address] [place] [address] Phone Care Team Providers Care Appeals Nurse Name Role Phone Ishan Andrews Primary Care Provider [phone] Encounter Details Date Type Department Care Team (Late st Contact Info) Description 07/16/2019 6:50 PM EST Hospital Encounter [facility] [address] [place] [address] Petra Shabazz CNP 12 [place] [address] Social History Tobacco Use Types Packs/Day Years [...] 9:50 PM EDT Wang Banks RN * [place] Suicide Severity Rating Scale (Screener/Recent Self-Report) Question [...] Care Team (Late st Contact Info) Description 04/02/2025 2:15 PM EDT Office Visit [facility] [address] [place] [address] 3rd Floor, [address] [place] [address] Paresh Wilkins MD 22 [facility], [address] [address] 06/09/2025 2:00 PM EST Office Visit [facility] [address] [place] [address] [place] [address] Laya Erazo MD [address] [place] [address] [email or web address] documented as of this encounter Procedures Procedure [...] on 08/07/2013, therefore definitely chronic. POS - [id number] Edited by: Laya Padilla on 07/16/2019 7:17 [...] presenton 08/07/2013, therefore definitely chronic. POS - [id number] Edited by: Laya Padilla on 07/16/2019 7:17 PM us Petra Shabazz ADMINISTRATIVE SUPPORT SPECIALIST IMG XR UPPER EXTREMITY Carmen l Result documented in this encounter Visit Diagnoses Not on filedocumented in this encounter Care Teams Appeals Nurse Relationship Specialty Start Date End Date Ishan Andrews DO [email or web address] PCP - General Internal Medicine 08/01/17 documented as of this encounter Additional Source Comments The information contained in this document represents components of the legal health record. It is not the complete legal health record.[facility]
--- OUTSIDE RECORDS SUMMARY | 2024-04-19 06:10 | XMS_ITS ---
Author Organization [facility] Address [address] [place] [address] Care Team Providers Care Proposal Rep Name Role Phone Ishan Andrews Primary Care Provider Fili Shah Jr REASON FOR VISIT screening Encounters Encounter Location Date Provider Diagnosis [facility] [place] [address] [place] [phone] 04/19/2024 Fili Velasco Jr Colon cancer screening Z12.11 and Colon polyps K63.5 Assessments Encounter Date Diagnosis (ICD Code) Assessment Notes Treatment Notes Treatment Clinical Notes Section Notes 04/19/2024 Colon cancer screening (ICD-10 - Z12.11) 04/19/2024 Colon polyps (ICD-10 - K63.5) Plan Of Treatment No Information Progress Notes * DOMENICO PUTNAM EDOB:[birth year] (70 yo M)Acc No.[id number]:04/19/2024 COLON WITH MAC Patient: DOMENICO EPSTEIN Provider: Hugh Velasco MD :1955 A ge:69 Y S ex:Male Date:04/19/2024 Address:[address] [place] [address] Pcp:Ishan Andrews Subjective: * Chief Complaints: * [...] 1 Generated for Helga miller/Sheela/Nylaitting on: 0 02/17/2025 02:42 PM EDT
--- OUTSIDE RECORDS SUMMARY | 2025-02-17 14:41 | XMS_ITS | Encounter Summary ---
Author Organization [facility] Address [address] [facility] [address] [place] [address] Phone Care Team Providers Care Computer Systems Technician Name Role Phone Ishan Andrews Primary Care Provider [phone] Encounter Details Date Type Department Care Team (Late st Contact Info) Description 09/13/2023 Procedure Pass [place] Admitting Dept - Virtual Department [address] [place] [address] Social History Tobacco Use Types Packs/Day Years [...] 9:50 PM EDT Wang Banks RN * [place] Suicide Severity Rating Scale (Screener/Recent Self-Report) Question Answer Date of Assessment Author 1. Wish to be (Past 1 Month) No 024 9:50 PM EDT Laquita Banks RN 2. Non-Specific Active Suici clover Thoughts (Past 1 Month) No 09/13/2023 9:50 PM EDT Laquita Banks RN 6. Suicidal Behavior (Lifetime) No 9:50 PM EDT Laquita Banks, MATT documented as of this encounter Plan of Treatment Upcoming Encounters Date Type Department Care Team (Late st Contact Info) Description 04/02/2025 2:15 PM EDT Office Visit [facility] [address] [place] [address], [address] [place] [address] Paresh Wilkins MD [address] [place] [phone] 06/09/2025 2:00 PM EST Office Visit [facility] [address] [place] [address] [place] [address] Laya Erazo MD [address] [place] [phone] [email or web address] documented as of this encounter Visit Diagnoses Not on filedocumented in this encounter Care Teams Computer Systems Technician Relationship Specialty Start Date End Date DarrylIshan DO Mundo [email or web address] PCP - General Internal Medicine 08/01/17 documented as of this encounter Additional Source Comments The information contained in this document represents components of the legal health record. It is not the complete legal health record.[facility]
--- OUTSIDE RECORDS SUMMARY | 2025-02-17 14:41 | XMS_ITS | Encounter Summary ---
Author Organization [facility] Address [address] [facility] [address] [place] [address] Phone Care Team Providers Care Campus Recruiting Intern Name Role Phone Ishan Andrews DO Primary Care Provider [phone] Encounter Details Date Type Department Care Team (Late st Contact Info) Description 08/01/2017 Transcribe Orders [facility] [address] [place] [address] Ishan Andrews DO 179 [facility] [place] [address] [place] [address] Essential hypertension, benign (Primary Dx) Social History Tobacco Use Types Packs/Day Years [...] Description 04/02/2025 2:15 PM EDT Office Visit [facility] [address] 3rd Floor, [address] [place] [address] Paresh Wilkins MD 22 [facility], [address] [address] 06/09/2025 2:00 PM EST Office Visit [facility] [address] [place] [address] Laya Erazo MD [address] [address] [email or web address] documented as of this encounter Results * (ABNORMAL) PSA (screening) (08/01/2017 10:35 AM EST) PSA 4.96(H) 0 - 4.00 ng/mL [facility] Blood 08/01/2017 10:3 5 AM EST 08/01/2017 10:39 AM EST us Ishan A Bigda DO LAB BLOOD ORDERABLES Final Resul t Performing Organization Address [facility]/ZIP Co de Phone Number [address] [address] * (ABNORMAL) Lipid panel (08/01/2017 10:35 AM EST) Pathologist [facility] HDL 35 mg/dL [facility] Comment: Interpretation: Risk Level Males Decreased >45 mg/dL Average 40-45 mg/dL Increased <40 mg/dL CHOLESTEROL 181 0 - 240 mg/dL [facility] TRIGLYCERIDES 281(H) 30 - 160 mg/dL [facility] LDL 90 50 - 129 mg/dL [facility] Comment: LDL levels in terms of risk for coronary heart disease: <100 mg/dL: Optimal 100-129 mg/dL: Near or above optimal 130-159 mg/dL: Borderline high 160-189 mg/dL: High >190 mg/dL: Very High CARDIAC RISK RATIO 5.2(H) 3.4 - 5.0 C [facility] Blood 08/01/2017 10:3 5 AM EST 08/01/2017 10:40 AM EST us Ishan A Bigda DO LAB BLOOD ORDERABLES Final Resul t Performing Organization Address [facility]/ZIP Co de Phone Number [address] [address] * (ABNORMAL) Comprehensive metabolic panel (08/01/2017 10:35 AM EST) SODIUM 142 133 - 146 mmol/L [facility] POTASSIUM 4.4 3.3 - 5.1 mmol/L [facility] CHLORIDE 104 96 - 108 mmol/L [facility] CO2 30 21 - 35 mmol/L [facility] BUN 18 6 - 19 mg/dL [facility] CREATININE 0.90 0.5 - 1.5 mg/dL [facility] GLUCOSE 125(H) 70 - 99 mg/dL [facility] ALBUMIN 4.0 3.9 - 4.8 g/dL [facility] TOTAL PROTEIN 7.3 6.5 - 8.0 g/dL [facility] CALCIUM 8.9 8.4 - 10.3 mg/dL [facility] ALKALINE PHOSPHATASE 98 39 - 117 U/L [facility] TOTAL BILIRUBIN 0.4 0 - 1.2 mg/dL [facility] AST 32 0 - 37 U/L [facility] ALT 32 0 - 40 U/L [facility] GLOBULIN 3.3 1 - 4.8 g/dL [facility] EGFR >60 60 - 1000 mL/min/1.7 3m2 [facility] Comment:Abnormal if <60. If patient is -Lithuanian, multiply the result by 1.21. ANION GAP 12 10 - 20 mmol/L [facility] Blood 08/01/2017 10:3 5 AM EST 08/01/2017 10:40 AM EST us Ishan Andrews DO LAB BLOOD ORDERABLES Final Resul t [facility] [address] [place] [address] documented in this encounter Visit Diagnoses Diagnosis Essential hypertension, benign- Primary documented in this encounter Care Teams Campus Recruiting Intern Relationship Specialty Start Date End Date Ishan Andrews DO PCP - General Internal Medicine 08/01/17 documented as of this encounter Additional Source Comments The information contained in this document represents components of the legal health record. It is not the complete legal health record.[facility]
--- OUTSIDE RECORDS SUMMARY | 2025-02-17 14:41 | XMS_ITS | Encounter Summary ---
Author Organization [facility] Address [address] [facility] [address] [place] [address] Phone Care Team Providers Care Long Winder Tender Name Role Phone Ishan Andrews DO Primary Care Provider [phone] Encounter Details Date Type Department Care Team (Late st Contact Info) Description 10/27/2023 Ancillary Orders [facility], X-Ray - [facility] [address] [place] [address] Ishan Andrews DO 179 [facility] [place] [address] [email or web address] Pain of left hip joint (Primary Dx); Degeneration of lumbar intervertebral disc Social History Tobacco Use Types Packs/Day Years [...] Description 04/02/2025 2:15 PM EDT Office Visit [facility] [address] [place] [address], [address] [address] Paresh Wilkins MD [address] [place] [address] 06/09/2025 2:00 PM EST Office Visit [facility] [address] [place] [address] Laya Erazo MD [address] [place] [phone] [email or web address] documented as of this encounter Results * XR LUMBOSACRAL SPINE 2-3 VIEWS (10/27/2023 2:33 PM EDT) Anatomical Region Laterality Modality L-spine Computed Radiogr aphy 10/28/2023 2:16 AM EDT Impressions 10/28/2023 10:08 PM EDT Prior L5-S1 posterior decompression and fusion with intact hardware. Moderate lumbar spine degenerative change. Narrative 10/28/2023 10:08 PM EDT XR LUMBOSACRAL SPINE 2-3 VIEWS Referring clinician's provided indication for this examination in [facility]: degeration of lumbar intervertebral disc REQUESTED INDICATION: degeration of lumbar intervertebral disc COMPARISON: CT ABDOM & PELVIS WO FINDINGS: ALIGNMENT: 15 mm L5-S1 anterolisthesis. VERTEBRAE: L5-S1 posterior decompression and fusion. Vertebral body heights preserved. DISCS: Moderate to severe disc height loss at L5-S1. Partially visualized thoracic DISH. FACETS: Facet and uncovertebral arthropathy. PARASPINAL SOFT TISSUES: Mild sacroiliac joint bony proliferative change. Procedure Note Albertina Newsome MD - 10/28/2023 XR LUMBOSACRAL SPINE 2-3 VIEWS Referring clinician's provided indication for this examination in [facility]:degeration of lumbar intervertebral disc REQUESTED INDICATION: degeration of lumbar intervertebral disc COMPARISON: CT ABDOM & PELVIS WO FINDINGS: ALIGNMENT: 15 mm L5-S1 anterolisthesis. VERTEBRAE: L5-S1 posterior decompression and fusion. Vertebral bodyheights preserved. DISCS: Moderate to severe disc height loss at L5-S1. Partially visualizedthoracic DISH. FACETS: Facet and uncovertebral arthropathy. PARASPINAL SOFT TISSUES: Mild sacroiliac joint bony proliferativechange. IMPRESSION: Prior L5-S1 posterior decompression and fusion with intact hardware. Moderate lumbar spine degenerative change. Ishan Andrews DO IMG XR SPINE Final Result documented in this encounter Visit Diagnoses Diagnosis Pain of left hip joint- Primary Degeneration of lumbar intervertebral disc Degeneration of lumbar or lumbosacral intervertebral disc Degeneration of lumbar intervertebral disc Degeneration of lumbar or lumbosacral intervertebral disc documented in this encounter Care Teams Long Winder Tender Relationship Specialty Start Date End Date Ishan Andrews DO PCP - General Internal Medicine 08/01/17 documented as of this encounter Additional Source Comments The information contained in this document represents components of the legal health record. It is not the complete legal health record.[facility]
--- OUTSIDE RECORDS SUMMARY | 2025-02-17 14:41 | XMS_ITS | Encounter Summary ---
Author Organization [facility] Address [address] [facility] [address] [place] [address] Phone Care Team Providers Care Patient Appointment Coordinator Name Role Phone Ishan Andrews DO Primary Care Provider [phone] Encounter Details Date Type Department Care Team ([facility] st Contact Info) Description 10/23/2023 Transcribe Orders Virtual Department 30 [place] [address] Ishan Andrews DO 179 [facility] [place] [address] [place] [address] [email or web address] Pain in right hip (Primary Dx) Social History Tobacco Use Types [...] Description 04/02/2025 2:15 PM EDT Office Visit [facility] [address] [place] [address], [address] [address] Paresh Wilkins MD [address] [place] [phone] [email or web address] 06/09/2025 2:00 PM EST Office Visit [facility] [address] [place] [address] Laya Erazo MD [address] [place] [phone] [email or web address] documented as of this encounter Visit Diagnoses Diagnosis Pain in right hip- Primary documented in this encounter Care Teams Patient Appointment Coordinator Relationship Specialty Start Date End Date Ishan Andrews DO PCP - General Internal Medicine 08/01/17 documented as of this encounter Additional Source Comments The information contained in this document represents components of the legal health record. It is not the complete legal health record.[facility]
--- OUTSIDE RECORDS SUMMARY | 2025-02-17 14:41 | XMS_ITS | Encounter Summary ---
Author Organization [facility] Address [address] [place] [address] [place] [address] Phone Care Team Providers Care Hot Tamale Worker Name Role Phone Ishan Andrews Primary Care Provider [phone] Encounter Details Date Type Department Care Team (Late st Contact Info) Description 08/10/2022 Procedure Pass [place] Admitting Dept - Virtual Department 30 [place] [address] Social History Tobacco Use Types Packs/Day Years Used Date Smoking Tobacco: Former Cigarettes 0.5 20 1 973 - 1993 Smokeless Tobacco: Never Alcohol Use Standard Drinks/Week Comments Yes 0 (1 standard drink = 0.6 oz pur e alcohol) rare beer from time to time Sex and Gender Information Value Date Recorded Sex Assigned at Male 10/25/2017 7:58 PM EDT Legal Sex Male 9:58 PM EDT Gender Identity Male 10/25/2017 7:58 PM EDT Sexual Orientation Straight 10/25/2017 7: 58 PM EDT documented as of this encounter Functional Status * Calculated C-SSRS Risk Score (Lifetime/Recent) Answer Date of Assessment Author No Risk Indicated 08/10/2022 6:22 PM Gem Gandhi RN * [place] Suicide Severity Rating Scale (Screener/Recent Self-Report) Question Answer Date of Assessment Author 1. Wish to be (Past 1 Month) No 023 6:22 PM Gem Gandhi, MATT 2. Non-Specific Active Suici clover Thoughts (Past 1 Month) No 08/10/2022 6:22 PM Delio Gandhi RN 6. Suicidal Behavior (Lifetime) No 3 6:22 PM EST Gem Beltran RN documented as of this encounter Plan of Treatment Upcoming Encounters Date Type Department Care Team (Late st Contact Info) Description 04/02/2025 2:15 PM EDT Office Visit [facility] [address] [place] [address], [address] [address] Paresh Wilkins MD [address] [place] [address] 06/09/2025 2:00 PM EST Office Visit [facility] [address] [place] [address] Laya Erazo MD [address] [place] [address] [email or web address] documented as of this encounter Visit Diagnoses Not on filedocumented in this encounter Care Teams Hot Tamale Worker Relationship Specialty Start Date End Date Ishan Andrews DO PCP - General Internal Medicine 08/01/17 documented as of this encounter Additional Source Comments The information contained in this document represents components of the legal health record. It is not the complete legal health record.[facility]
--- OUTSIDE RECORDS SUMMARY | 2025-02-17 14:41 | XMS_ITS | Encounter Summary ---
Author Organization [facility] Address [address] [facility] [address] [place] [address] Phone Care Team Providers Care Technical Sales Engineer Name Role Phone KarenIshan pacheco Mundo GRACE Primary Care Provider [phone] Encounter Details Date Type Department Care Team (Late st Contact Info) Description 05/17/2024 Procedure Pass [facility], [address] [address] Social History Tobacco Use Types Packs/Day Years [...] Description 04/02/2025 2:15 PM EDT Office Visit [facility] [address] [place] [address], [address] [address] Paresh Wilkins MD [address] [place] [address] 06/09/2025 2:00 PM EST Office Visit [facility] [address] [place] [address] Laya Erazo MD [address] [place] [phone] [email or web address] documented as of this encounter Visit Diagnoses Not on filedocumented in this encounter Care Teams Technical Sales Engineer Relationship Specialty Start Date End Date Ishan Andrews DO PCP - General Internal Medicine 08/01/17 documented as of this encounter Additional Source Comments The information contained in this document represents components of the legal health record. It is not the complete legal health record.[facility]
--- OUTSIDE RECORDS SUMMARY | 2025-02-17 14:41 | XMS_ITS | Encounter Summary ---
Author Organization [facility] Address [address] [facility] [address] [place] [address] Phone Care Team Providers Care Tar Distributor Operator Name Role Phone Ishan Andrews DO Primary Care Provider [phone] Encounter Details Date Type Department Care Team (Late st Contact Info) Description 04/24/2019 Transcribe Orders Virtual Department 30 [place] [address] Ishan Andrews DO 179 [facility] [place] [address] [place] [address] [email or web address] Abdominal aortic aneurysm (AAA) without rupture (Primary Dx) Social History Tobacco Use Types Packs/Day Years Used Date Smoking Tobacco: Former Smokeless Tobacco: Never Alcohol Use Standard Drinks/Week Comments No 0 (1 standard drink = 0.6 oz pur e alcohol) Sex and Gender Information Value Date Recorded Sex Assigned at Male 10/25/2017 7:58 PM EDT Legal Sex Male 9:58 PM EDT Gender Identity Male 10/25/2017 7:58 PM EDT Sexual Orientation Straight 10/25/2017 7: 58 PM EDT documented as of this encounter Plan of Treatment Upcoming Encounters Date Type Department Care Team (Late Contact Info) Description 04/02/2025 2:15 PM EDT Office Visit [facility] [address] [place] [address] 3rd Floor, [address] [place] [address] Paresh Wilkins MD 22 [facility], [address] [place] [address] 06/09/2025 2:00 PM EST Office Visit [facility] [address] [place] [address] Laya Erazo MD [address] [address] [email or web address] documented as of this encounter Visit Diagnoses Diagnosis Abdominal aortic aneurysm (AAA) without rupture- Primary documented in this encounter Care Teams Tar Distributor Operator Relationship Specialty Start Date End Date Ishan Andrews DO [email or web address] PCP - General Internal Medicine 08/01/17 documented as of this encounter Additional Source Comments The information contained in this document represents components of the legal health record. It is not the complete legal health record.[facility]
--- OUTSIDE RECORDS SUMMARY | 2025-02-17 14:41 | XMS_ITS | Encounter Summary ---
Author Organization [facility] Address [address] [facility] [address] [place] [address] Phone Care Team Providers Care Blasting Coal Miner Name Role Phone Ishan Andrews Primary Care Provider Encounter Details Date Type Department Care Team (Late st Contact Info) Description 06/11/2021 Procedure Pass [facility] [place] [place] [address] Social History Tobacco Use Types Packs/Day Years [...] Description 04/02/2025 2:15 PM EDT Office Visit [facility] [address] [place] [address] [place] [address], [address] [place] [address] Paresh Wilkins MD [address] [place] [address] [email or web address] 06/09/2025 2:00 PM EST Office Visit [facility] [address] [place] [address] Laya Erazo MD [address] [place] [address] [email or web address] documented as of this encounter Visit Diagnoses Not on filedocumented in this encounter Care Teams Blasting Coal Miner Relationship Specialty Start Date End Date Ishan Andrews DO [email or web address] PCP - General Internal Medicine 08/01/17 documented as of this encounter Additional Source Comments The information contained in this document represents components of the legal health record. It is not the complete legal health record.[facility]
--- OUTSIDE RECORDS SUMMARY | 2025-02-17 14:41 | XMS_ITS | Patient Health Record ---
Author Organization [facility] Address [address] [place] [address] Care Team Providers Care Crystal Grower Name Role Phone Ishan Andrews Primary Care Provider Fili Shah Jr Unavailable Allergies Allergen (clinical drug ingredient) Drug/Non Drug Allergy documented on EMR Reaction Allergy Type Onset Date Status Tylox Unknown Drug Allergy Active aspirin Aspirin Unknown Drug Allergy Active Results Component Value Reference Range Notes Pathology Reviewed date:04/25/2024 07:50:11 AM Interpretation: Performing Lab:[facility], [address] [place] [phone] Notes/Report: Reason For Referral No Information Medications [...] Problem Status W/U Status Risk Notes Problem [id number] Colon cancer screening (Z12.11) Active confirmed Problem [id number] Encounter for long-term (current) use of NSAIDs (Z79.1) Active confirmed Problem [id number] Pre-op evaluation (Z01.818) Active confirmed Vital Signs Temperature 97.7 degrees Fahrenheit 03/07/2024 Blood pressure diastolic 00 mm Hg 03/07/2024 Height 5 ft 8.5 in in 03/07/2024 Blood pressure systolic 000 mm Hg 03/07/2024 Weight 255 lb 4 oz lbs 03/07/2024 BMI 38.24 kg/m2 03/07/2024 Encounters Encounter Location Date Provider Diagnosis [facility] Outpatient [address] [place] [id number] 04/19/2024 Fili Velasco Jr Colon cancer screening Z12.11 and Colon polyps K63.5 [facility] [address] [place] [phone] 03/07/2024 Fili Velasco Jr Colon cancer screening Z12.11 ; Pre-op evaluation Z01.818 and Encounter for long-term (current) use of NSAIDs Z79.1 [facility] [address] [place] [phone] 04/25/2024 Fili Velasco Jr Assessments Encounter Date [...] Insured Coverage Start Date Coverage End Date [facility] [address] [address] [place] [address] [id number] DOMENICO PUTNAM Self - patient is the insured Medical (General) History Medical History History ICD Code Hyperlipidemia Environmental allergies HORACIO BPH Back and knee pain EGD with balloon dilation 01/03 Surgical History Surgery Date(Month/Year) total knee replacement bilateral 2022.,2 024 back surgery
--- OUTSIDE RECORDS SUMMARY | 2025-02-17 14:41 | XMS_ITS | Encounter Summary ---
Author Organization [facility] Address [address] [facility] [address] [place] [address] Phone Care Team Providers Care Pallet Assembler Name Role Phone Ishan Andrews DO Primary Care Provider [phone] Encounter Details Date Type Department Care Team (Late Contact Info) Description 09/19/2018 Transcribe Orders Virtual Department 30 [place] [address] Ishan Andrews DO 179 [facility] [place] [address] [place] [address] [email or web address] Other specified symptoms and signs involving the circulatory and respiratory systems (Primary Dx) Social History Tobacco Use Types [...] Description 04/02/2025 2:15 PM EDT Office Visit [facility] [address] [place] [address] 3rd Floor, [address] [place] [address] Paresh Wilkins MD 22 [facility], [address] [place], [place] [phone] 06/09/2025 2:00 PM EST Office Visit [facility] 22 [place] [address] Laya Erazo MD [address] [address] [email or web address] documented as of this encounter Visit Diagnoses Diagnosis Other specified symptoms and signs involving the circulatory and respiratory systems- Primary documented in this encounter Care Teams Pallet Assembler Relationship Specialty Start Date End Date Ishan Andrews DO [email or web address] PCP - General Internal Medicine 08/01/17 documented as of this encounter Additional Source Comments The information contained in this document represents components of the legal health record. It is not the complete legal health record.[facility]
--- OUTSIDE RECORDS SUMMARY | 2025-02-17 14:41 | XMS_ITS | Encounter Summary ---
Author Organization [facility] Address [address] [place] [address] Phone Care Team Providers Care Security Agent Name Role Phone Ishan Andrews Primary Care Provider Encounter Details Date Type Department Care Team (Late st Contact Info) Description 09/18/2024 Ancillary Orders [facility], X-Ray - [address] [address] Farzaneh Leiva PA [address] [facility] [place] [address] [place] [address] Acute bronchitis due to other specified organisms (Primary Dx) Social History Tobacco Use Types [...] Description 04/02/2025 2:15 PM EDT Office Visit [facility] [address] [place] [address], [address] [address] Paresh Wilkins MD [address] [place] [address] 06/09/2025 2:00 PM EST Office Visit [facility] [address] [place] [address] Laya Erazo MD [address] [place] [address] [email or web address] documented as of this encounter Results * XR CHEST PA AND LATERAL 2 VIEWS (09/18/2024 1:07 PM EDT) Anatomical Region Laterality Modality Chest Computed Radiogr aphy 09/18/2024 3:52 PM EDT Impressions 09/18/2024 3:55 PM EDT Prominent interstitial markings with patchy lower lobe airspace opacities could represent pneumonitis or edema. No pleural fluid. A clinically significant result was initiated on 09/18/2024 3:54 PM, Message ID [id number]. Narrative 09/18/2024 3:55 PM EDT XR CHEST PA AND LATERAL 2 VIEWS Referring clinician's provided indication for this examination in Epic: Pain. COMPARISON: None. FINDINGS: Devices/Tubes/Lines: None. Lungs: The lung volumes are normal. There are central prominent interstitial markings present within the perihilar regions as well as lower lobes. Patchy lower lobe airspace consolidative opacities are present. Pleura: No pleural effusion or pneumothorax. Heart/Mediastinum: The heart size is borderline enlarged. Peribronchial thickening. No acute mediastinal process is present. Bones/Soft Tissues: Vertebral endplate degenerative changes. No acute osseous or soft tissue findings are present. Procedure Note Nine, Eddi Rosen MD - 09/18/2024 XR CHEST PA AND LATERAL 2 VIEWS Referring clinician's provided indication for this examination in Epic:Pain. COMPARISON: None. FINDINGS: Devices/Tubes/Lines: None. Lungs: The lung volumes are normal. There are central prominentinterstitial markings present within the perihilar regions as well aslower lobes. Patchy lower lobe airspace consolidative opacities arepresent. Pleura: No pleural effusion or pneumothorax. Heart/Mediastinum: The heart size is borderline enlarged. Peribronchialthickening. No acute mediastinal process is present. Bones/Soft Tissues: Vertebral endplate degenerative changes. No acuteosseous or soft tissue findings are present. IMPRESSION: Prominent interstitial markings with patchy lower lobe airspace opacitiescould represent pneumonitis or edema. No pleural fluid. A clinically significant result was initiated on 09/18/2024 3:54 PM,Message ID [id number]. Farzaneh HIGUERA IMG XR CHEST Final Resul t documented in this encounter Visit Diagnoses Diagnosis Acute bronchitis due to other specified organisms- Primary Acute bronchitis due to other specified organisms documented in this encounter Care Teams Security Agent Relationship Specialty Start Date End Date Ishan Andrews DO [email or web address] PCP - General Internal Medicine 08/01/17 documented as of this encounter Additional Source Comments The information contained in this document represents components of the legal health record. It is not the complete legal health record.[facility]
--- OUTSIDE RECORDS SUMMARY | 2025-02-17 14:41 | XMS_ITS | Encounter Summary ---
Author Organization [facility] Address [address] [facility] [address] [place] [address] Phone Care Team Providers Care Dedicated Intermodal Truck Driver Name Role Phone Ishan Andrews Primary Care Provider [phone] Encounter Details Date Type Department Care Team (Latest Contact Info) Description 10/20/2017 Transcribe Orders [facility] [address] [place] [address] Rosanna Alvarez PA-C 54 Sourav Zavala. Jason. [address] [place] [address] Elevated prostate specific antigen (PSA) (Primary Dx) Social History Tobacco Use Types [...] Description 04/02/2025 2:15 PM EDT Office Visit [facility] [address] [place] [address] Paresh Wilkins MD 22 [facility], [address] [place] [address] 06/09/2025 2:00 PM EST Office Visit [facility] [address] [place] [address] [place] [address] Laya Erazo MD [address] [address] [email or web address] documented as of this encounter Results * (ABNORMAL) PSA, free and total (10/20/2017 11:45 AM EDT) PSA, TOTAL 5.8(H) <=4.5 ng/mL [facility] FREE PSA 1.8 ng/mL [facility] FREE/TOT PSA RATIO 0.31 ratio M [facility] Comment: (NOTE) When total PSA is in the range of 4.0-10.0 ng/mL, a free PSA / Total PSA ratio of < or = 0.10 indicates 49 to 65 % risk of prostate cancer depending on age; and a free PSA / total PSA ratio of > 0.25 indicates a 9 to 16% risk of prostate cancer depending on age. ADDITIONAL INFORMATION The testing method is an electrochemiluminescence assay manufactured by [employer] and performed on the Modular or Lila system. Values obtained with different assay methods or kits may be different and cannot be used interchangeably. Test results cannot be interpreted as absolute evidence for the presence or absence of malignant disease. Blood 10/20/2017 11:4 5 AM EDT 10/20/2017 11:50 AM EDT September Kim [facility] LAB BLOOD ORDERABLES Final R esult [facility] [address] [place] [address] documented in this encounter Visit Diagnoses Diagnosis Elevated prostate specific antigen (PSA)- Primary documented in this encounter Care Teams Dedicated Intermodal Truck Driver Relationship Specialty Start Date End Date Ishan Andrews DO [phone] (work) [email or web address] PCP - General Internal Medicine 08/01/17 documented as of this encounter Additional Source Comments The information contained in this document represents components of the legal health record. It is not the complete legal health record.[facility]
--- OUTSIDE RECORDS SUMMARY | 2025-02-17 14:42 | XMS_ITS | Encounter Summary ---
Author Organization [facility] Address [address] [facility] [address] [place] [address] Phone Care Team Providers Care Medical Administrative Name Role Phone Ishan Andrews DO Primary Care Provider [phone] Encounter Details Date Type Department Care Team (Late Contact Info) Description 04/24/2019 Ancillary Orders Virtual Department [address] [place] [address] Ishan Andrews DO [address] [facility] [place] [address] [place] [address] [email or web address] Abdominal aortic aneurysm (AAA) without rupture; Encounter for screening for cardiovascular disorders Social History Tobacco Use Types Packs/Day Years [...] Description 04/02/2025 2:15 PM EDT Office Visit [facility] [address] [place] [address] 3rd Floor, [address] [place] [address] Paresh Wilkins MD [address] [facility], [address] [place] [address] 06/09/2025 2:00 PM EST Office Visit [facility] [address] [place] [address] Laya Erazo MD [address] [place] [address] [email or web address] documented as of this encounter Results * US Abdominal Aortic Screening (05/16/2019 11:02 AM EST) Anatomical Region Laterality Modality Abdomen Ultrasound 05/16/2019 11:2 0 AM EST Impressions 05/16/2019 11:22 AM EST No abdominal aortic aneurysm detected. POS- [id number] Narrative 05/16/2019 11:22 AM EST Screening ultrasound of the aorta is performed. Comparison made to CT abdomen study from February 2012. There is normal tapering of the aorta from proximal 2.8 x 2.7 cm to distal 1.8 x 1.5 cm. No iliac ectasia seen of the common iliac arteries, measured at 1.0 cm on the right and 1.1 cm on the left. Incidental note made of prominently echogenic liver, again consistent with hepatic steatosis and evident on prior CT. Procedure Note Claire Boston MD - 05/16/2019 Screening ultrasound of the aorta is performed. Comparison made to CTabdomen study from February 2012. There is normal tapering of the aortafrom proximal 2.8 x 2.7 cm to distal 1.8 x 1.5 cm. No iliac ectasia seenof the common iliac arteries, measured at 1.0 cm on the right and 1.1 cmon the left. Incidental note made of prominently echogenic liver, againconsistent with hepatic steatosis and evident on prior CT. IMPRESSION: No abdominal aortic aneurysm detected. POS- [id number] us Ishan A Bigda DO IMG US ABDOMEN Final Result documented in this encounter Visit Diagnoses Diagnosis Abdominal aortic aneurysm (AAA) without rupture Encounter for screening for cardiovascular disorders Abdominal aortic aneurysm (AAA) without rupture Encounter for screening for cardiovascular disorders documented in this encounter Care Teams Medical Administrative Relationship Specialty Start Date End Date Ishan Andrews DO [email or web address] PCP - General Internal Medicine 08/01/17 documented as of this encounter Additional Source Comments The information contained in this document represents components of the legal health record. It is not the complete legal health record.[facility]
--- OUTSIDE RECORDS SUMMARY | 2025-02-17 14:42 | XMS_ITS | Clinical Summary ---
Author Organization [facility] [place] [address] Care Team Providers Care Washateria Attendant Name Role Phone Ishan Andrews DO Primary Care Provider [phone] Allergies Active Allergy Reactions Criticality Noted Date [...] topic Insurance [employer] MEDICARE Care Teams Washateria Attendant Relationship Specialty Start Date End Date Ishan Andrews DO [address] [place] [phone] PCP - General Internal Medicine 07/25/24
--- OUTSIDE RECORDS SUMMARY | 2025-02-17 14:42 | XMS_ITS | Encounter Summary ---
Author Organization [facility] Address [address] [facility] [address] [place] [address] Phone Care Team Providers Care Manager Utility Name Role Phone Ishan Andrews DO Primary Care Provider [phone] Reason for Referral * MRI/CAT Scan - New Request Specialty Diagnoses / Procedures Referred By Contac t Referred To Contact Radiology Diagnoses Pain in thoracic spine Procedures MRI Thoracic Spine Ishan Andrews DO [address] [facility] [place], [place] Phone: tel: fax: [email or web address] Referral ID Status Reason Start Date Expiration Date V isits Requested Visits Authorized [id number] New Request 02/13/2025 1 1 Encounter Details Date Type Department Care Team (Late st Contact Info) Description 02/13/2025 Transcribe Orders Virtual Department 30 [place] [address] Ishan Andrews DO [address] [facility] [place] [address] [email or web address] Pain in thoracic spine (Primary Dx) Social History Tobacco Use Types [...] Description 04/02/2025 2:15 PM EDT Office Visit [facility] [address] [place] [address], [address] [address] Paresh Wilkins MD [address] [place] [address] 06/09/2025 2:00 PM EST Office Visit [facility] [address] [place] [address] [place] [address] Laya Erazo MD [address] [place] [address] [email or web address] Scheduled Orders Name Type Priority Associated Diagnoses Orde r Schedule MRI Thoracic Spine Imaging Routine Pain in thoracic spine Expected: 02/13/2025, Expires: 02/13/2026 documented as of this encounter Visit Diagnoses Diagnosis Pain in thoracic spine- Primary documented in this encounter Care Teams Manager Utility Relationship Specialty Start Date End Date Ishan Andrews DO [email or web address] PCP - General Internal Medicine 08/01/17 documented as of this encounter Additional Source Comments The information contained in this document represents components of the legal health record. It is not the complete legal health record.[facility]
--- OUTSIDE RECORDS SUMMARY | 2025-02-17 14:42 | XMS_ITS | Encounter Summary ---
Author Organization [facility] Address [address] [facility] [address] [place] [address] Phone Care Team Providers Care Coating Mixer Supervisor Name Role Phone Ishan Andrews DO Primary Care Provider [phone] Encounter Details Date Type Department Care Team ([facility] st Contact Info) Description 10/27/2023 Ancillary Orders Virtual Department 30 [place] [address] Ishan Andrews DO [address] [facility] [place] [address] [email or web address] Pain in right hip (Primary Dx) Social [...] Description 04/02/2025 2:15 PM EDT Office Visit [facility] [address] [place] [address], [address] [address] Paresh Wilkins MD [address] [place] [address] 06/09/2025 2:00 PM EST Office Visit [facility] [address] [place] [address] [place] [address] Laya Erazo MD [address] [place] [address] [email or web address] documented as of this encounter Results * XR HIPS 2+ VW EA BILAT PLUS PELVIS (10/27/2023 2:33 PM EDT) Anatomical Region Laterality Modality Hip, Pelvis Computed Radiogr aphy 10/28/2023 2:15 AM EDT Impressions 10/28/2023 2:16 AM EDT Moderate right hip osteoarthritis. Narrative 10/28/2023 2:16 AM EDT XR HIPS 2+ VW EA BILAT PLUS PELVIS Referring clinician's provided indication for this examination in Epic: Outside Radiology Order; PAIN IN R HIP JOINT REQUESTED INDICATION: Outside Radiology Order; PAIN IN R HIP JOINT COMPARISON: None FINDINGS: PELVIS: Pelvic ring intact. No displaced fracture. Degenerative changes of the lower lumbar spine, sacroiliac joints, and pubic symphysis. Partially visualized lumbosacral fusion construct with bone graft harvest site in the left iliac crest. RIGHT HIP: Moderate joint space narrowing with subchondral sclerosis and bony proliferative change. LEFT HIP: Mild to moderate hip joint space narrowing. Procedure Note Albertina Newsome MD - 10/28/2023 XR HIPS 2+ VW EA BILAT PLUS PELVIS Referring clinician's provided indication for this examination in [facility]:Outside Radiology Order; PAIN IN R HIP JOINT REQUESTED INDICATION: Outside Radiology Order; PAIN IN R HIP JOINT COMPARISON: None FINDINGS: PELVIS: Pelvic ring intact. No displaced fracture. Degenerative changes ofthe lower lumbar spine, sacroiliac joints, and pubic symphysis. Partiallyvisualized lumbosacral fusion construct with bone graft harvest site inthe left iliac crest. RIGHT HIP: Moderate joint space narrowing with subchondral sclerosis andbony proliferative change. LEFT HIP: Mild to moderate hip joint space narrowing. IMPRESSION: Moderate right hip osteoarthritis. Ishan Andrews DO IMG XR PELVIS Final Result documented in this encounter Visit Diagnoses Diagnosis Pain in right hip Pain in right hip- Primary documented in this encounter Care Teams Coating Mixer Supervisor Relationship Specialty Start Date End Date Ishan Andrews DO PCP - General Internal Medicine 08/01/17 documented as of this encounter Additional Source Comments The information contained in this document represents components of the legal health record. It is not the complete legal health record.[facility]
--- OUTSIDE RECORDS SUMMARY | 2025-02-17 14:42 | XMS_ITS | Encounter Summary ---
Author Organization [facility] Address [address] [facility] [address] [place] [address] Phone Care Team Providers Care Diamond Picker Name Role Phone Ishan Andrews Primary Care Provider [phone] Encounter Details Date Type Department Care Team (Late st Contact Info) Description 12/31/2024 Telephone [facility] [address] [facility] 3rd Floor, [address] [place] [address] Paresh Wilkins MD 22 [facility], [address] [place] [address] [email or web address] Social History Tobacco Use Types Packs/Day Years [...] PM EDT documented as of this encounter Progress Notes * Kendra Barr - 12/31/2024 12:15 PM EDT [facility] is requesting pressure setting changes to pts machine, they are requesting the settings be changd to 10. Spoke with pts who reported that they did request the change. He started off at 4 andsaid he felt like he was unable to breath as well as when he tried the settings at 8. He said at 10he could feel like he was able to breath with the machine. documented in this encounter Plan of Treatment Upcoming Encounters Date Type Department Care Team (Late st Contact Info) Description 04/02/2025 2:15 PM EDT Office Visit [facility] [address] [place] [address] [place] [address], [address] [address] Paresh Wilkins MD [address] [place] [address] 06/09/2025 2:00 PM EST Office Visit [facility] [address] [place] [address] [place] [address] Laya Erazo MD [address] [place] [address] [email or web address] documented as of this encounter Visit Diagnoses Not on filedocumented in this encounter Care Teams Diamond Picker Relationship Specialty Start Date End Date Karenjunior Ishan DO Mundo [email or web address] PCP - General Internal Medicine 08/01/17 documented as of this encounter Additional Source Comments The information contained in this document represents components of the legal health record. It is not the complete legal health record.[facility]
--- OUTSIDE RECORDS SUMMARY | 2025-02-17 14:42 | XMS_ITS | Clinical Summary ---
Author Organization [facility] Address [address] [facility] [address] [place] [phone] Phone Care Team Providers Care Life Sciences Instructor Name Role Phone Ishan Andrews Primary Care Provider [phone] Allergies Active Allergy Reactions Criticality Noted Date Comments Animal Dander 07/25/2024 Aspirin Tinnitus Low 07/16/2019 Developed from ingesting too much aspirin. Tolerated baby aspirin BID following last TKA. Pollen Extracts 07/25/2024 Medications cetirizine (ZYRTEC) 10 MG tablet Take 10 mg by mouth daily. Active escitalopram oxalate (LEXAPRO) 10 MG tablet 1 tablet qd Active escitalopram oxalate (LEXAPRO) 20 MG tablet take 1 tablet qd Act demetria tamsulosin (FLOMAX) 0.4 mg Cp24 1 capsule every night Active pantoprazole (PROTONIX) 40 MG tablet 2 Active acetaminophen (TYLENOL) 325 mg tablet Take 3 tablets (975 mg total) by mouth every 8 (eight) hours. 0 3 Active Additional Information Patient taking differently:975 mg Oral Every 8 hours,1,000 mg BID, Reported on 10/16/2024 docusate sodium (COLACE) 100 MG capsule Take 1 capsule (100 mg total) by mouth 2 (two) times a day as needed for constipation. 3 Active Additional Information Patient taking differently:100 mg OralDaily, Reported on 10/16/2024 diazePAM (VALIUM) 5 MG tablet Take 5 mg by mouth daily as needed for anxiety. 1-2 daily as needed for anxiety 4 Active fluticasone propionate (FLONASE) 50 mcg/actuation nasal spray 2 sprays by Nasal route daily. Active montelukast (SINGULAIR) 10 mg tablet Take 1 tablet by mouth daily. 4 Active simvastatin (ZOCOR) 20 MG tablet Take 1 tablet by mouth daily. 4 Active aspirin 81 MG EC tablet Take 1 tablet (81 mg total) by mouth 2 (two) times a day. For 30 days following surgery. 60 tablet 4 Active celecoxib (CELEBREX) 100 MG capsule Take 1 capsule (100 mg total) by mouth 2 (two) times a day. 60 capsule 4 Active senna (SENOKOT) 8.6 mg tablet Take 2 tablets by mouth nightly at bedtime as needed for constipation. 4 Active Additional Information Patient not taking.Reported on 10/16/2024 HYDROmorphone (DILAUDID) 2 MG tablet Take 1 tablet (2 mg total) by mouth every 6 (six) hours as needed (moderate pain). Partial fill ok. Take smallest, least frequent effective dose. 30 tablet Active Additional Information Patient not taking.Reported on 10/31/2023 oxyCODONE HCl 10 mg Tab Take 1 tablet twice a day by oral route for 30 days. Active cyanocobalamin/ folic acid (VITAMIN D87-NEXTM ACID) 1,000-[address] 1 tablet every day by sublingual route. Active ibuprofen (ADVIL,MOTRIN) 100 mg/5 mL suspension 600 mg as needed. Active Active Problems Problem Noted Date Diagnosed Date Osteoarthritis 09/14/2023 Status post total left knee replacement 09/13/19 24 Palpitations 07/27/2023 Assessment & Plan (07/27/2023 11:12 AM EST): H/o heart palpitations and hypotension, underwent evaluation with 30 day Holter monitor in 2020 which showed: The predominant rhythm was sinus rhythm. There was no documented evidence of atrial fibrillation. There were no documented pauses >2.5 seconds in duration. There were rare PACs and PVCs (<1% burden). There were two short runs of NSVT. There were 48 patient triggered events without documented symptoms, all of which correlated with sinus rhythm with rare ectopy. EKG from 01/13/23 showed NSR, normal ECG. Patient reports that he no longer has any heart palpitations and discovered they were the result of ingesting vinegar (pickled eggs). So he avoids this dietary trigger. Gastroesophageal reflux disease without esophagi tis 07/27/2023 Assessment & Plan (07/27/2023 11:13 AM EST): Continue current medical management with pantoprazole 40 mg PO daily. Take this medication on the morning of surgery with a small sip of water. Other hyperlipidemia 07/27/2023 Assessment & Plan (07/27/2023 11:14 AM EST): Continue on medical management with simvastatin 20 mg PO daily perioperatively. Anxiety and depression 07/27/2023 Assessment & Plan (07/27/2023 11:15 AM EST): Reports stable mood. No SI/HI. Continue on medical management with diazepam 5 mg PO daily and escitalopram oxalate (Lexapro) 30 mg PO daily perioperatively. S/P TKR (total knee replacement), right 08/10/19 23 Asthma 07/14/2022 Assessment & Plan (07/27/2023 11:03 AM EST): Mild, intermittent, not using inhalers, no hospitalizations or steroids. Benign prostatic hyperplasia with urinary obstru ction 07/04/2022 Assessment & Plan (07/27/2023 11:05 AM EST): Patient denies any episodes of urinary retention. He follows with /urology. Reports some urinary frequency/nocturia 2-3 x nightly. On medical management with tamsulosin 0.4 mg PO nightly which should be continued perioperatively. Hypotensive episode 07/04/2022 Assessment & Plan (07/27/2023 11:02 AM EST): Patient reports history of hypotensive episode, evaluated by cardiology with normal evaluation. Echocardiogram on 08/25/21 showing sinus rhythm, mild concentric LVH, with LVEF 60-65%, no aortic stenosis or regurgitation, trace mitral regurgitation. He does have a history of low normal BP's. In office today BP is 136/82. Patient denies any chest pain/pressure, no dyspnea on exertion or shortness of breath, no PND or orthopnea, no dizziness or lightheadedness, no syncope or fainting, and no LE edema. Class 2 severe obesity due t o excess calories with serious comorbidity and body mass index (BMI) of 36.0 to 36.9 in adult 04/12/2022 Assessment & Plan (07/27/2023 11:03 AM EST): Current BMI 36.92. Encouraged weight loss strategies and discussed requirement for BMI<40 to proceed with elective joint replacement surgery due to increased risk of perioperative complications associated with extreme obesity. Chronic bilateral low back pain with sciatica Assessment & Plan (07/27/2023 11:10 AM EST): Patient is on long-term opioids for chronic LBP with history of lumbar fusion, (contract with PCP), takes oxycodone 10 mg PO BID. Patient does not feel he can reduce his opioid intake due to the severity of his chronic back pain. He may continue on his home dose oxycodone perioperatively. Recommend multi-modal analgesia. Patient reports adequate pain control following his right TKA in Jul 2022 with use of Dilaudid perioperatively. Opioid use agreement exists 04/12/2022 Overview (04/12/2022): Percocet for chronic low back pain Impaired fasting glucose 09/28/2020 High prostate specific antigen (PSA) 10/19/2017 Degeneration of lumbar intervertebral disc 10/02 Overview (07/27/2023): hardware/screws Psoriatic arthritis 10/02/2017 Sinusitis 10/02/2017 Assessment & Plan (07/27/2023 11:09 AM EST): Patient reports chronic nasal polyps with allergic symptoms managed on cetirizine 10 mg PO daily, fluticasone propionate nasal spray and montelukast 10 mg PO daily, all of which may be continued perioperatively. Resolved Problems Problem Noted Date Diagnosed Date Resolved Date Preop examination 07/27/2023 10/31/2023 Assessment & Plan (07/27/2023 11:16 AM EST): 68 [address] patient of Dr. Andrews with planned left total knee replacement on 09/13/23. Procedure risk is intermediate. Patient denies symptoms associated with acute coronary syndromes including unstable or severe angina, MS within 1 month, severe CHF, high grade arrhythmia or symptomatic valvular disease. Medical risk assessment at the surgical optimization clinic are as follows. LOBO cardiovascular risk score is 0.2 % risk of myocardial infarction or cardiac arrest, intraoperatively or up to 30 day post-operatively. If <1%, no further cardiac work-up recommended. STOP BANG score shows 5 points indicating a high risk of sleep apnea. Patient reports having a sleep study done years ago and was diagnosed with mild HORACIO , not requiring CPAP. Consider extended monitoring in PACU prior to discharge to an unmonitored floor. DASI score was 23.45 points, able to achieve at least 5.62 METS. If DASI >18, no further cardiac testing recommended. RCRI score was 0.4 % risk for cardiovascular event including myocardial infarction, pulmonary edema, arrhythmia, cardiac arrest or complete heart block. This reflects very low risk on the scale. Patient's risk for major adverse cardiac events is low. This meets ACC/AHA guidelines for proceeding to non-cardiac surgery without additional testing. Patient is able to work out on his total gym machine at home every other day, climbs stairs without exertional or anginal symptoms. Blood work from 06/16/23 shows a hemoglobin A1c of 5.8%. CBC and BMP are unremarkable with a creatinine of 0.90 and eGFR 92. EKG from 01/13/23 showed normal sinus rhythm. HR 66 bpm. Qtc 463 ms. There is no evidence of acute or prior ischemia. Patient plans to have updated EKG done in the next week. Will await results of updated EKG. The patient can otherwise proceed to the intended procedure without further work-up. He should have standard DVT and antibiotic prophylaxis. He reports history of being slow to wake up from anesthesia. He has current opioid tolerance on oxycodone 10 mg PO BID; discussed that his home dose of oxycodone may be continued, however stressed the possibility that his post- operative pain may be more difficult to control. Multimodal analgesia (NSAIDs, acetaminophen, gabapentin, regional nerve blocks) will be necessary to supplement whatever opioid medication he may receive intra-operatively. The patient reports his post-op pain was well-controlled with Dilaudid following his right TKA done in Jul 2022. The patient was instructed to discontinue use of any NSAIDs, fish oil, turmeric, herbal supplements and multivitamins for 10 days before surgery as these could increase the risk of bleeding complications. The patient has the following relative contraindications to same day discharge following joint replacement surgery: significant mental health diagnosis, opioid tolerance, BMI>36. Primary osteoarthritis of left knee 09/22/2022 10/31/2023 History of lumbar fusion 07/14/202206/2023 Sciatica 07/14/2022 07/27/2023 Primary osteoarthritis of both knees 04/12/2022 10/31/2023 Encounters Date Type Department Care Team Description 02/13/2025 Transcribe Orders [facility] Department [address] [place] [id number] Ishan Andrews DO Pain in thoracic spine (Primary Dx) 02/06/2025 3:39 PM EDT - 02/06/2025 11:59 PM EDT Hospital Encounter [address] [address] Ishan Andrews DO Discharge Disposition: Home or Self Care 02/06/2025 3:39 PM EDT - 02/06/2025 11:59 PM EDT Hospital Encounter [address] [address] Ishan Andrews DO Discharge Disposition: Home or Self Care 02/06/2025 Ancillary Orders [address] [address] Ishan Andrews DO Pleurodynia (Primary Dx) 12/31/2024 6:40 PM EDT - 12/31/2024 11:59 PM EDT Hospital Encounter [facility], [facility] Scan [address] [address] Farzaneh Leiva PA Discharge Disposition: Home or Self Care 12/31/2024 Telephone [facility] [address], [address] [place] [address] Paresh Wilkins MD 12/23/2024 10:08 AM EDT - 12/23/2024 11:59 PM EDT Hospital Encounter [facility] [address] [place] [address] Farzaneh Leiva PA Discharge Disposition: Home or Self Care 12/23/2024 Procedure Pass [facility] [address] [place] [phone] 12/23/2024 Transcribe Orders Virtual Department [address] [place] [address] Farzaneh Leiva PA RUQ pain (Primary Dx) 12/23/2024 Transcribe Orders [facility] [address] [place] [phone] Farzaneh Leiva PA Impaired fasting glucose (Primary Dx); Right upper quadrant pain; Endocrine disorder 11/21/2024 Telephone [facility] [address], [address] [place] [address] Paresh Wilkins MD 11/21/2024 Transcribe Orders Virtual Department [address] [place] [phone] Chris Pearl MD Other low back pain (Primary Dx); Personal history of urinary calculi from Last 3 Months Family History Medical History Relation Comments Depression Daughter 2 Depression Daughter 3 Deep vein thrombosis Mother Multiple sclerosis Mother Pulmonary embolism Mother Stroke Mother Breast cancer Sister 3 Diabetes Sister 3 No Known Problems Sister 4 Depression Son Relation Status Comments Daughter 1 suicide Daughter 2 Alive Daughter 3 Alive Father Mother (Age 58) Sister 1 MVA Sister 2 overdose Sister 3 Alive Sister 4 Alive Son Alive Social History Tobacco Use Types Packs/Day Years Used Date Smoking Tobacco: Former Cigarettes 0.5 20 1 968 - 1987 Smokeless Tobacco: Never Tobacco Cessation:Counseling Given: Not Answered Alcohol Use Standard Drinks/Week Comments Never 0 [...] Orientation Straight 10/25/2017 7: 58 PM EDT Last Filed Vital Signs Vital Sign Reading Time Taken Comments Blood Pressure 104/62 10/16/2024 1:41 PM EDT Pulse 92 10/16/2024 1:41 PM EDT Temperature 36.4 C (97.5 F) 09/14/2023 7:32 AM EDT Respiratory Rate 16 09/14/2023 7:32 AM EDT Oxygen Saturation 95% 10/16/2024 1:41 PM EDT Inhaled Oxygen Concentration - - Weight 117.9 kg (260 lb) 10/16/2024 1:41 PM EDT Height 174 cm (5' 8.5 ) 10/16/2024 1:41 PM EDT Body Mass Index 38.95 10/16/2024 1:41 PM EDT Plan of Treatment Upcoming Encounters Date Type Department Care Team (Late st Contact Info) Description 04/02/2025 2:15 PM EDT Office Visit [facility] [address] [place] [address], [address] [place] [address] Paresh Wilkins MD [address] [place] [address], [address] [address] 06/09/2025 2:00 PM EST Office Visit [facility] [address] [place] [address] Laya Erazo MD [address] [place] [phone] [email or web address] Health Maintenance Due Date Last Done Comments Adult Td,Tdap Booster 1953 DEPRESSION SCREENING 1965 ZOSTER VACCINES (1 of 2) 01/14/1972 COLOGUARD 1998 COLONOSCOPY 1998 COLORECTAL CANCER SCREENING 1998 FIT TEST 1998 FOBT 1998 SIGMOIDOSCOPY 1998 VIRTUAL COLONOSCOPY 1998 RSV VACCINE (1 - Risk 60-74 years 1-dose series) 2013 COVID-19 VACCINE ( season) 2024 03/31/2023, 10/31/2022, 03/30/2022, Additional history exists LIPID PANEL 08/25/2024 08/26/2019, 08/01/2017 HEPATITIS C SCREENING Completed 08/26/2019 PNEUMOCOCCAL VACCINES (50+ years) Completed 07/26/2021, 03/17/2020 SMOKING STATUS SCREENING (Once After 26 Yrs) Completed 10/16/2024 ABDOMINAL AORTIC ANEURYSM (AAA) SCREENING Completed 12/31/2024, 05/16/2019 HEPATITIS A VACCINES Aged Out No long er eligible based on patient's age to complete this topic HIB VACCINES Aged Out No longer eligi ble based on patient's age to complete this topic MENINGOCOCCAL VACCINES (ACWY) Aged Out No longer eligible based on patient's age to complete this topic MENINGOCOCCAL VACCINES (B) Aged Out N o longer eligible based on patient's age to complete this topic Medical Devices Implanted Type Area Street And Building Decorator Device Identifier Shelf Expiration Date Model / Serial / Lot Joe Joe Spine Lumbar Description:L4 L5 Cement Bone 1x40 Standard - [id number] Implanted:Qty: 1 on 08/10/2022 by Shawn Charles MD at [facility] Right: Knee [employer] 06/25/2024 [id number] / / [id number] Box Component 70mm Femoral Knee [employer] [place] Posterior Stabilized Open Cemented Right - [id number] Implanted:Qty: 1 on 08/10/2022 by Shawn Charles MD at [facility] Right: Knee [employer] 08/17/2030 [id number] / / [id number] Knee Tray 79mm Plate Bone Primary [employer] [place] I Beam Revision Interlock Cemented - [id number] Implanted:Qty: 1 on 08/10/2022 by Shawn Charles MD at [facility] Right: Knee [employer] 03/23/2032 [id number] / / [id number] Knee Implant [id number] Patella Asymmetric - [id number] Implanted:Qty: 1 on 08/10/2022 by Shawn Charles MD at [facility] Right: Knee [employer] 02/07/2027 [id number] / / [id number] Knee Bearing 79 [id number] Vanguard Stabilized - [id number] Implanted:Qty: 1 on 08/10/2022 by Shawn Charles MD at [facility] Right: Knee [employer] 02/05/2027 [id number] / / [id number] Knee Tray 79mm Plate Bone Primary [employer] [place] I Beam Revision Interlock Cemented - [id number] Implanted:Qty: 1 on 09/13/2023 by Shawn Charles MD at [facility] Left: Knee [employer] 08/30/2032 [id number] / / [id number] Knee Bearing Tibial 18x79 To 83mm Implant Insert Vanguard Ps 05 - [id number] Implanted:Qty: 1 on 09/13/2023 by Shawn Charles MD at [facility] Left: Knee [employer] [id number] 04/28/2028 [id number] / / [id number] Cement Bone 1x40 Standard - [id number] Implanted:Qty: 2 on 09/13/2023 by Shawn Charles MD at [facility] Left: Knee [employer] [id number] 01/23/2026 [id number] / / [id number] Box Component 67.5mm Femoral Knee [employer]ard [employer] [place] Posterior Stabilized Open Cemented Left - [id number] Implanted:Qty: 1 on 09/13/2023 by Shawn Charles MD at [facility] Left: Knee [employer] [id number] 06/27/2033 [id number] / / [id number] Knee Implant [id number] Patella Asymmetric - [id number] Implanted:Qty: 1 on 09/13/2023 by Shawn Charles MD at [facility] Left: Knee [employer] 12/18/2025 [id number] / / [id number] Procedures Procedure Name Priority Date/Time Associated Diagnosis Comments XR THORACIC SPINE 2 VIEW Routine 02/06/2025 4:01 PM EDT Pleurodynia XR RIBS 4 OR MORE VIEWS WITH PA CHEST (BILATERAL) Routine 02/06/2025 4:[address] ABDOMEN/PELVIS WITH CONTRAST Routine 12/31/2024 7:29 PM EDT RUQ pain AMYLASE Routine 12/23/2024 10:10 AM EDT Impaired fasting glucose Right upper quadrant pain Endocrine disorder LIPASE Routine 12/23/2024 10:10 AM EDT Impaired fasting glucose Right upper quadrant pain Endocrine disorder GGT (GAMMA GLUTAMYL TRANSFERASE) Routine 12/23/2024 10:10 AM EDT Impaired fasting glucose Right upper quadrant pain Endocrine disorder C-REACTIVE PROTEIN Routine 12/23/2024 10 :10 AM EDT Impaired fasting glucose Right upper quadrant pain Endocrine disorder SEDIMENTATION RATE (ESR) Routine 12/23/2024 10:10 AM EDT Impaired fasting glucose Right upper quadrant pain Endocrine disorder URINALYSIS W/REFLEX URINE CULTURE Routine 12/23/2024 10:10 AM EDT Impaired fasting glucose Right upper quadrant pain Endocrine disorder HEMOGLOBIN A1C Routine 12/23/2024 10:10 AM EDT Impaired fasting glucose Right upper quadrant pain Endocrine disorder COMPREHENSIVE METABOLIC PANEL Routine 12/23/2024 10:10 AM EDT Impaired fasting glucose Right upper quadrant pain Endocrine disorder CBC AND DIFFERENTIAL Routine 12/23/2024 10:10 AM EDT Impaired fasting glucose Right upper quadrant pain Endocrine disorder TESTOSTERONE, TOTAL AND FREE Routine 12/23/2024 10:10 AM EDT Impaired fasting glucose Right upper quadrant pain Endocrine disorder LIPID PANEL Routine 08/26/2019 9:53 AM EST Elevated prostate specific antigen (PSA) Routine general medical examination at a health care facility HEPATITIS C ANTIBODY, QUALITATIVE Routine 08/26/2019 9:53 AM EST Elevated prostate specific antigen (PSA) Routine general medical examination at a health care facility from Last 3 Months or Most Recently Relevant to Health Maintenance Results * XR THORACIC SPINE 2 VIEW (02/06/2025 4:01 PM EDT) Anatomical Region Laterality Modality T-spine Computed Radiogr aphy 02/07/2025 10:3 3 PM EDT Impressions 02/07/2025 10:34 PM EDT Mild spondylitic changes. Mild curvature upper thoracic spine convex left. If there is a clinical concern for disc herniation or spinal canal stenosis MRI can be considered. Narrative 02/07/2025 10:34 PM EDT XR THORACIC SPINE 2 VIEW Referring clinician's provided indication for this examination in Epic: Pain COMPARISON: None FINDINGS: Mild curvature the upper thoracic spine convex left. There is some straightening of the normal thoracic kyphosis. The mid to upper and upper thoracic vertebral bodies are obscured by shoulder artifact. Visualized thoracic vertebral bodies demonstrate no acute compression fracture deformities. There are mild endplate osteophytes in the thoracic spine. No significant disc space narrowing. Procedure Note Librado Gayle MD - 02/07/2025 XR THORACIC SPINE 2 VIEW Referring clinician's provided indication for this examination in Epic:Pain COMPARISON: None FINDINGS: Mild curvature the upper thoracic spine convex left. There is somestraightening of the normal thoracic kyphosis. The mid to upper and upperthoracic vertebral bodies are obscured by shoulder artifact. Visualizedthoracic vertebral bodies demonstrate no acute compression fracturedeformities. There are mild endplate osteophytes in the thoracic spine. Nosignificant disc space narrowing. IMPRESSION: Mild spondylitic changes. Mild curvature upper thoracic spine convex left. If there is a clinical concern for disc herniation or spinal canalstenosis MRI can be considered. us Ishan A Bigda DO IMG XR SPINE Final Result * XR RIBS 4 OR MORE VIEWS WITH PA CHEST (BILATERAL) (02/06/2025 4:01 PM EDT) Anatomical Region Laterality Modality Chest Computed Radiogr aphy 02/07/2025 10:3 1 PM EDT Impressions 02/07/2025 10:33 PM EDT No displaced rib fracture identified. Narrative 02/07/2025 10:33 PM EDT XR RIBS 4 OR MORE VIEWS WITH PA CHEST (BILATERAL) Referring clinician's provided indication for this examination in [facility]: Pain COMPARISON: Chest x-ray dated 10/22/2024 FINDINGS: No displaced rib fracture identified. PA evaluation of the chest demonstrates no focal consolidation, pleural effusion, pulmonary edema, or pneumothorax. Cardiomediastinal silhouette appears stable. Procedure Note Librado Gayle MD - 02/07/2025 XR RIBS 4 OR MORE VIEWS WITH PA CHEST (BILATERAL) Referring clinician's provided indication for this examination in Epic:Pain COMPARISON: Chest x-ray dated 10/22/2024 FINDINGS: No displaced rib fracture identified. PA evaluation of the chest demonstrates no focal consolidation, pleuraleffusion, pulmonary edema, or pneumothorax. Cardiomediastinal silhouetteappears stable. IMPRESSION: No displaced rib fracture identified. us Ishan A Bigda DO IMG XR CHEST Final Result * CT ABDOMEN/PELVIS WITH CONTRAST (12/31/2024 7:29 PM EDT) Anatomical Region Laterality Modality Abdomen, Pelvis Computed Tomogra phy 01/03/2025 9:44 AM EDT Impressions 01/03/2025 10:02 AM EDT 1. Bilateral non-obstructing nephrolithiasis, increased since 2011. No CT evidence of cholecystitis, pancreatitis, colitis, or other acute intra-abdominal or retroperitoneal pathology. 2. Prostatomegaly. Narrative 01/03/2025 10:[address] ABDOMEN/PELVIS WITH CONTRAST Referring clinician's provided indication for this examination in [facility]: Outside Radiology Order; ruq pain TECHNIQUE: Multidetector-row CT of the abdomen and pelvis was performed after administration of intravenous contrast using tailored dose modulation techniques. Images were reconstructed in the axial, coronal, and sagittal planes. COMPARISON: 03/10/[address] FINDINGS: Lower Chest: No airspace consolidation or pleural effusion. Liver: Chronic steatosis and focal fatty sparing in the pericholecystic region without hepatomegaly or focal parenchymal lesion. Biliary: No evidence of biliary obstruction. Gallbladder unremarkable in appearance without gross pericholecystic inflammatory Spleen: Change. No splenomegaly or focal parenchymal lesion. Pancreas: No parenchymal mass, pseudocyst, duct dilatation, or peripancreatic inflammatory infiltration. Adrenal Glands: No nodules. Kidneys/Ureters: Progressive bilateral nephrolithiasis with 3 small calculi present in the left upper pole, a 5 mm calculus in the right upper pole, and two separate 2 mm calculi in the right lower pole. No hydronephrosis or progressive perirenal stranding. Chronic small left lower pole exophytic cyst, hyperdense on prior non-contrast study, with 1.7 cm exophytic right upper pole cyst and smaller lower pole hypodensities consistent with cysts. No evidence of solid renal mass. Bowel: Stomach nondistended. No evidence of small bowel obstruction. Appendix unremarkable. Moderate colonic stool and gas burden. No paracolic fat infiltration. Peritoneum/Retroperitoneum: No free fluid or mass. Lymph Nodes: No pathologically enlarged mesenteric, para-aortic, iliac chain, or inguinal nodes demonstrated. Pelvic Organs/Bladder: No free fluid. Prostate now measures 6.5 x 6.5 cm versus 4.6 x 4.2 cm previously, impinging upon the bladder floor. Bladder decompressed. Vessels: No aortoiliac aneurysm. Main portal vein grossly patent. Bones/Soft Tissues: No abdominal wall mass or bowel containing hernia. Chronic post-surgical changes at the lumbosacral junction without new traumatic or destructive skeletal lesions noted. Procedure Note Shawn Colin MD - 01/03/2025 CT ABDOMEN/PELVIS WITH CONTRAST Referring clinician's provided indication for this examination in Epic:Outside Radiology Order; ruq pain TECHNIQUE: Multidetector-row CT of the abdomen and pelvis was performedafter administration of intravenous contrast using tailored dosemodulation techniques. Images were reconstructed in the axial, coronal,and sagittal planes. COMPARISON: 03/10/[address] FINDINGS: Lower Chest: No airspace consolidation or pleural effusion. Liver: Chronic steatosis and focal fatty sparing in the pericholecysticregion without hepatomegaly or focal parenchymal lesion. Biliary: No evidence of biliary obstruction. Gallbladder unremarkable inappearance without gross pericholecystic inflammatory Spleen: Change. No splenomegaly or focal parenchymal lesion. Pancreas: No parenchymal mass, pseudocyst, duct dilatation, orperipancreatic inflammatory infiltration. Adrenal Glands: No nodules. Kidneys/Ureters: Progressive bilateral nephrolithiasis with 3 smallcalculi present in the left upper pole, a 5 mm calculus in the right upperpole, and two separate 2 mm calculi in the right lower pole. Nohydronephrosis or progressive perirenal stranding. Chronic small leftlower pole exophytic cyst, hyperdense on prior non-contrast study, with1.7 cm exophytic right upper pole cyst and smaller lower polehypodensities consistent with cysts. No evidence of solid renal mass. Bowel: Stomach nondistended. No evidence of small bowel obstruction.Appendix unremarkable. Moderate colonic stool and gas burden. No paracolicfat infiltration. Peritoneum/Retroperitoneum: No free fluid or mass. Lymph Nodes: No pathologically enlarged mesenteric, para-aortic, iliacchain, or inguinal nodes demonstrated. Pelvic Organs/Bladder: No free fluid. Prostate now measures 6.5 x 6.5 cmversus 4.6 x 4.2 cm previously, impinging upon the bladder floor. Bladderdecompressed. Vessels: No aortoiliac aneurysm. Main portal vein grossly patent. Bones/Soft Tissues: No abdominal wall mass or bowel containing hernia.Chronic post-surgical changes at the lumbosacral junction without newtraumatic or destructive skeletal lesions noted. IMPRESSION: 1. Bilateral non-obstructing nephrolithiasis, increased since 2011. No CTevidence of cholecystitis, pancreatitis, colitis, or other acuteintra-abdominal or retroperitoneal pathology. 2. Prostatomegaly. Farzaneh HIGUERA IMG CT ABD/PELVIS Final Res ult * Urinalysis w/reflex Urine Culture (12/23/2024 10:10 AM EDT) COLOR Yellow Yellow [facility] CLARITY Clear [facility] GLUCOSE Negative Negative [facility] BILI Negative Negative [facility] KETONES Negative Negative [facility] SPECIFIC GRAVITY 1.015 1.005 - 1.030 [facility] BLOOD Negative Negative [facility] PH 6.0 5.0 - 8.0 [facility] Protein-UA Negative Negative [facility] NITRITE Negative Negative [facility] Leukocyte esterase, ur Negative Negative [facility] Urine (Urine) 12/23/2024 10: 10 AM EDT 12/23/2024 10:18 AM EDT us Farzaneh HIGUERA URINE ORDERABLES Final Resu lt [facility] [address] [place] [address] * (ABNORMAL) Testosterone, total and free (12/23/2024 10:10 AM EDT) FREE TESTOSTERONE 5.36 3.28 - 12.2 ng/dL [facility] [address] [place] Comment: (NOTE) ADDITIONAL INFORMATION This test was developed and its performance characteristics determined by [facility] in a manner consistent with CLIA requirements. This test has not been cleared or approved by the U.S. Food and Drug Administration. TESTOSTERONE, TOTAL 149(L) 240 - 950 ng/dL [facility] [place] Comment: (NOTE) ADDITIONAL INFORMATION Testing performed by Liquid Chromatography-Tandem Mass Spectrometry (LC-MS/MS). This test was developed and its performance characteristics determined by [facility] in a manner consistent with CLIA requirements. This test has not been cleared or approved by the U.S. Food and Drug Administration. Blood 12/23/2024 10:1 0 AM EDT 12/23/2024 10:13 AM EDT us Farzaneh HIGUERA LAB BLOOD ORDERABLES Final Result [facility] [address] [address] [place] [address] * (ABNORMAL) Comprehensive metabolic panel (12/23/2024 10:10 AM EDT) Pathologist [facility] SODIUM 141 133 - 146 mmol/L [facility] POTASSIUM 4.9 3.3 - 5.1 mmol/L [facility] CHLORIDE 105 96 - 108 mmol/L [facility] CO2 26 21 - 35 mmol/L [facility] BUN 20(H) 6 - 19 mg/dL [facility] CREATININE 0.90 0.5 - 1.5 mg/dL [facility] GLUCOSE 143(H) 70 - 99 mg/dL [facility] ALBUMIN 4.2 3.9 - 4.8 g/dL [facility] TOTAL PROTEIN 7.9 6.5 - 8.0 g/dL [facility] CALCIUM 9.4 8.4 - 10.3 mg/dL [facility] ALKALINE PHOSPHATASE 156(H) 39 - 117 U/L [facility] TOTAL BILIRUBIN 0.4 0.0 - 1.2 mg/dL [facility] AST 44(H) 0 - 37 U/L [facility] ALT 53(H) 0 - 40 U/L [facility] GLOBULIN 3.7 1 - 4.8 g/dL [facility] EGFR 91 >59 mL/min/1.7 3m2 [facility] Comment:Estimated glomerular filtration rate calculated using the CKD-EPI refit equation. ANION GAP 15 10 - 20 mmol/L [facility] Blood 12/23/2024 10:1 0 AM EDT 12/23/2024 10:13 AM EDT Farzaneh HIGUERA LAB BLOOD ORDERABLES Final Result [address] [address] * (ABNORMAL) GGT (Gamma glutamyl transferase) (12/23/2024 10:10 AM EDT) GGT 68(H) 11 - 51 U/L [facility] Blood 12/23/2024 10:1 0 AM EDT 12/23/2024 10:13 AM EDT Farzaneh HIGUERA LAB BLOOD ORDERABLES Final Result [address] [address] * Sedimentation rate (ESR) (12/23/2024 10:10 AM EDT) ESR 15 0 - 20 mm/h [facility] Blood 12/23/2024 10:1 0 AM EDT 12/23/2024 10:13 AM EDT us Farzaneh HIGUERA LAB BLOOD ORDERABLES Final Result [facility] [address] [place] [address] * (ABNORMAL) CBC and differential (12/23/2024 10:10 AM EDT) WBC 7.34 4.00 - 11.00 K/uL [facility] RBC 4.93 4.50 - 5.90 M/uL [facility] HGB 14.2 13.5 - 17.5 g/dL [facility] HCT 45.5 41.0 - 53.0 % [facility] PLT 317 150 - 450 K/uL [facility] MCV 92.3 80.0 - 100.0 fL [facility] MCH 28.8 27.0 - 31.0 pg [facility] MCHC 31.2(L) 32.0 - 36.0 g/dL [facility] RDW 14.4 11.5 - 14.5 % [facility] MPV 9.0 8.4 - 12.0 fL [facility] NRBC 0.00 0.00 /100 WBCs [facility] ABSOLUTE NRBC 0.00 0.00 K/uL [facility] DIFF METHOD Auto [facility] NEUTS 56.4 48.0 - 76.0 % [facility] LYMPHS 34.7 18.0 - 41.0 % [facility] MONOS 6.3 4.0 - 11.0 % [facility] EOS 1.6 0.0 - 5.0 % [facility] BASOS 0.5 0.0 - 1.5 % [facility] Granulocytes, immature (%) 0.5 0.0 - 0.9 % [facility] ABSOLUTE NEUTS 4.13 1.92 - 7.60 K/uL [facility] ABSOLUTE LYMPHS 2.55 0.72 - 4.10 K/uL [facility] ABSOLUTE MONOS 0.46 0.16 - 1.10 K/uL [facility] ABSOLUTE EOS 0.12 0.00 - 0.50 K/uL [facility] ABSOLUTE BASOS 0.04 0.00 - 0.15 K/uL [facility] Granulocytes, immature 0.04 0.00 - 0.09 K/uL [facility] Blood 12/23/2024 10:1 0 AM EDT 12/23/2024 10:13 AM EDT Farzaneh HIGUERA LAB BLOOD ORDERABLES Final Result [address] [address] * C-Reactive Protein (12/23/2024 10:10 AM EDT) C REACTIVE PROTEIN 3.6 0.0 - 4.0 mg/L [facility] Blood 12/23/2024 10:1 0 AM EDT 12/23/2024 10:13 AM EDT Farzaneh HIGUERA LAB BLOOD ORDERABLES Final Result Performing Organization Address [facility]/ZIP Co de Phone Number [address] [address] * Lipase (12/23/2024 10:10 AM EDT) LIPASE 42 16 - 63 U/L [facility] Blood 12/23/2024 10:1 0 AM EDT 12/23/2024 10:13 AM EDT Farzaneh HIGUERA LAB BLOOD ORDERABLES Final Result Performing Organization Address [facility]/ZIP Co de Phone Number [address] [address] * (ABNORMAL) Hemoglobin A1c (12/23/2024 10:10 AM EDT) HEMOGLOBIN A1C 6.7(H) 4.3 - 5.8 % [facility] Blood 12/23/2024 10:1 0 AM EDT 12/23/2024 10:13 AM EDT Farzaneh HIGUERA LAB BLOOD ORDERABLES Final Result Performing Organization Address [facility] Co de Phone Number [address] [address] * Amylase (12/23/2024 10:10 AM EDT) AMYLASE 85 28 - 100 U/L [facility] Blood 12/23/2024 10:1 0 AM EDT 12/23/2024 10:13 AM EDT Farzaneh Ovi Abbie HIGUERA LAB BLOOD ORDERABLES Final Result Performing Organization Address [facility] Phone Number [address] [address] * Hepatitis C antibody, qualitative (08/26/2019 9:53 AM EST) HCV NON-REACTIV E NON-REACTI VE [facility] Blood 08/26/2019 9:53 AM EST 08/26/2019 9:57 AM EST Ishan Andrews DO LAB BLOOD ORDERABLES Final Resul t Performing Organization Address [facility] de Phone Number [address] [address] * (ABNORMAL) Lipid panel (08/26/2019 9:53 AM EST) HDL 41 mg/dL [facility] Comment: Interpretation <40 mg/dL: Low HDL cholesterol (major risk factor for CHD) Greater than or equal to 60 mg/dL: High HDL cholesterol ( negative risk factor for CHD) HDL - cholesterol is affected by a number of factors, e.g. smoking, excerise, hormones, sex and age. CHOLESTEROL 172 0 - 240 mg/dL [facility] TRIGLYCERIDES 196(H) 30 - 160 mg/dL [facility] LDL 92 50 - 129 mg/dL [facility] Comment: LDL levels in terms of risk for coronary heart disease: <100 mg/dL: Optimal 100-129 mg/dL: Near or above optimal 130-159 mg/dL: Borderline high 160-189 mg/dL: High >190 mg/dL: Very High CARDIAC RISK RATIO 4.2 3.4 - 5.0 [facility] Blood 08/26/2019 9:53 AM EST 08/26/2019 9:57 AM EST us Ishan Andrews DO LAB BLOOD ORDERABLES Final Resul t [address] [address] from Last 3 Months or Most Recently Relevant to Health Maintenance Insurance MEDICARE REPLACEMENT Member Subscriber Plan / Payer ( fective 2021-Present) Name:Rod Marroquin Relation to Subscriber:Self Name:Rod Marroquin Payer ID:[id number] (NAIC) Type:Medicare Address: [place] [id number] MEDICARE REPLACEMENT Member Subscriber Plan / Payer ( fective 2021-Present) Name:Rod Marroquin Relation to Subscriber:Self Name:Rod Marroquin Payer ID:[id number] (NAIC) Type:Medicare Address: [place] [id number] MEDICARE REPLACEMENT MEDICARE REPLACEMENT MEDICARE REPLACEMENT MEDICARE REPLACEMENT MEDICARE REPLACEMENT MEDICARE REPLACEMENT Advance Directives For more information, please contact: [phone] (9AM - 5PM [facility], Monday-Monday) Documents on File Type Date Recorded Patient [employer] Media Specialist Expl anation Healthcare Proxy 08/16/2022 2:27 PM * Full Code (Latest Code Status on File) Date Activated Date Inactivated Comments 09/13/2023 10:47 AM Question Answer Comments Code Status Confirmed With: Patient * Full Code Date Activated Date Inactivated Comments 08/10/2022 8:49 AM 09/13/2023 10:47 AM Question Answer Comments Code Status Confirmed With: Patient Care Teams Life Sciences Instructor Relationship Specialty Start Date End Date Ishan Andrews DO [email or web address] PCP - General Internal Medicine 08/01/17 Additional Source Comments The information contained in this document represents components of the legal health record. It is not the complete legal health record.[facility]
--- OUTSIDE RECORDS SUMMARY | 2025-02-17 14:42 | XMS_ITS | Encounter Summary ---
Author Organization [facility] Address [address] [facility] [address] [place] [address] Phone Care Team Providers Care J2Ee Software Engineer Name Role Phone Ishan Andrews DO Primary Care Provider [phone] Encounter Details Date Type Department Care Team (Late st Contact Info) Description 10/02/2017 Ancillary Orders Virtual Department [address] [place] [address] Ishan Andrews DO [address] [facility] [place] [address] [place] [address] [email or web address] Peripheral tear of medial meniscus of left knee as current injury, subsequent encounter; Tear of medial meniscus of knee, unspecified laterality, unspecified tear type, unspecified whether old or current tear, initial encounter Social History Tobacco Use Types Packs/Day Years [...] Description 04/02/2025 2:15 PM EDT Office Visit [facility] [address] [place] [address] [address]rd Floor, [address] [place] [address] Paresh Wilkins MD [address] [facility], [address] [place] [address] [email or web address] 06/09/2025 2:00 PM EST Office Visit [facility] [address] [place] [address] Laya Erazo MD [address] [address] [email or web address] documented as of this encounter Visit Diagnoses Diagnosis Peripheral tear of medial meniscus of left knee as current injury, subsequent encounter Tear of medial meniscus of knee, unspecified laterality, unspecified tear type, unspecified whether old or current tear, initial encounter documented in this encounter Care Teams J2Ee Software Engineer Relationship Specialty Start Date End Date Ishan Andrews DO [email or web address] PCP - General Internal Medicine 08/01/17 documented as of this encounter Additional Source Comments The information contained in this document represents components of the legal health record. It is not the complete legal health record.[facility]
--- OUTSIDE RECORDS SUMMARY | 2025-02-17 14:42 | XMS_ITS | Encounter Summary ---
Author Organization [facility] Address [address] [facility] [address] [place] [address] Phone Care Team Providers Care Tank Farm Attendant Name Role Phone Ishan Andrews DO Primary Care Provider [phone] Encounter Details Date Type Department Care Team (Late st Contact Info) Description 02/06/2025 Ancillary Orders [facility], X-Ray - [facility] [address] [place] [address] Ishan Andrews DO [address] [facility] [place] [address] [email or web address] Pleurodynia (Primary Dx) Social History Tobacco Use Types [...] Description 04/02/2025 2:15 PM EDT Office Visit [facility] [address] [place] [address], [address] [address] Paresh Wilkins MD [address] [place] [address] 06/09/2025 2:00 PM EST Office Visit [facility] [address] [place] [address] Laya Erazo MD [address] [place] [address] [email or web address] documented as of this encounter Results * XR THORACIC SPINE 2 VIEW [...] clinician's provided indication for this examination in [facility]: Pain COMPARISON: Chest x-ray dated 10/22/2024 FINDINGS: [...] No displaced rib fracture identified. us Ishan Andrews DO IMG XR CHEST Final Result documented in this encounter Visit Diagnoses Diagnosis Pleurodynia- Primary Painful respiration Pleurodynia Painful respiration Pleurodynia Painful respiration documented in this encounter Care Teams Tank Farm Attendant Relationship Specialty Start Date End Date Ishan Andrews DO [email or web address] PCP - General Internal Medicine 08/01/17 documented as of this encounter Additional Source Comments The information contained in this document represents components of the legal health record. It is not the complete legal health record.[facility]
--- OUTSIDE RECORDS SUMMARY | 2025-02-17 14:42 | XMS_ITS | Encounter Summary ---
Author Organization [facility] Address [address] [facility] [address] [place] [address] Phone Care Team Providers Care Wind Turbine Mechanic Name Role Phone Ishan Andrews DO Primary Care Provider [phone] Encounter Details Date Type Department Care Team (Late st Contact Info) Description 10/16/2017 Transcribe Orders [facility] [address] [place] [address] Ishan Andrews DO [address] [facility] [place] [address] [place] [address] Impaired fasting glucose (Primary Dx); Elevated prostate specific antigen (PSA) Social History Tobacco Use Types Packs/Day Years [...] Description 04/02/2025 2:15 PM EDT Office Visit [facility] [address] [place] [address] 3rd Floor, [address] [place] [address] Paresh Wilkins MD [address] [facility], [address] [place] [address] 06/09/2025 2:00 PM EST Office Visit [facility] [address] [place] [address] Laya Erazo MD [address] [address] [email or web address] documented as of this encounter Results * (ABNORMAL) PSA (screening) (10/16/2017 10:45 AM EDT) PSA 5.71(H) 0 - 4.00 ng/mL [facility] Blood 10/16/2017 10:4 5 AM EDT 10/16/2017 10:50 AM EDT us Ishan Andrews DO LAB BLOOD ORDERABLES Final Resul t Performing Organization Address City/[facility]/ZIP Co de Phone Number [address] [address] * Hemoglobin A1c (10/16/2017 10:45 AM EDT) HEMOGLOBIN A1C 5.7 4.3 - 5.8 % [facility] Blood 10/16/2017 10:4 5 AM EDT 10/16/2017 10:49 AM EDT us Ishan Andrews DO LAB BLOOD ORDERABLES Final Resul t Performing Organization Address City/[facility]/ZIP Co de Phone Number [address] [address] documented in this encounter Visit Diagnoses Diagnosis Impaired fasting glucose- Primary Elevated prostate specific antigen (PSA) documented in this encounter Care Teams Wind Turbine Mechanic Relationship Specialty Start Date End Date Ishan Andrews DO [email or web address] PCP - General Internal Medicine 08/01/17 documented as of this encounter Additional Source Comments The information contained in this document represents components of the legal health record. It is not the complete legal health record.[facility]
--- OUTSIDE RECORDS SUMMARY | 2025-02-17 14:42 | XMS_ITS | Encounter Summary ---
Author Organization [facility] Address [address] [facility] [address] [place] [address] Phone Care Team Providers Care Engineering Mgr Name Role Phone Ishan Andrews DO Primary Care Provider [phone] Encounter Details Date Type Department Care Team (Late st Contact Info) Description 09/22/2017 Ancillary Orders Virtual Department [address] [place] [address] Ishan Andrews DO [address] [facility] [place] [address] [place] [address] Chronic sinusitis, unspecified location; Fever, unspecified fever cause; Facial pain Social History Tobacco Use Types Packs/Day Years [...] Description 04/02/2025 2:15 PM EDT Office Visit [facility] [address] [facility] 3rd Floor, [address] [place] [address] Paresh Wilkins MD [address] [facility], [address] [place] [address] 06/09/2025 2:00 PM EST Office Visit [facility] [address] [place] [address] Laya Erazo MD [address] [address] [email or web address] documented as of this encounter Visit Diagnoses Diagnosis Chronic sinusitis, unspecified location Fever, unspecified fever cause Facial pain Headache documented in this encounter Care Teams Engineering Mgr Relationship Specialty Start Date End Date Ishan Andrews DO [email or web address] PCP - General Internal Medicine 08/01/17 documented as of this encounter Additional Source Comments The information contained in this document represents components of the legal health record. It is not the complete legal health record.[facility]
--- OUTSIDE RECORDS SUMMARY | 2025-02-17 14:42 | XMS_ITS | Encounter Summary ---
Author Organization [facility] Address [address] [place] [address] Phone Care Team Providers Care Milling Machine Operator Gear Name Role Phone Ishan Andrews DO Primary Care Provider [phone] Encounter Details Date Type Department Care Team (Late st Contact Info) Description 09/18/2017 Ancillary Orders [facility], X-Ray - [facility] [address] [place] [address] Ishan Andrews DO [address] [facility] [place] [address] [place] [address] [email or web address] Chronic pain of both knees Social History Tobacco Use Types Packs/Day Years [...] Description 04/02/2025 2:15 PM EDT Office Visit [facility] [address] [place] [address] 3rd Floor, [address] [place] [address] Paresh Wilkins MD [address] [place] [address], [address] [address] 06/09/2025 2:00 PM EST Office Visit [facility] [address] [place] [address] [place] [address] Laya Erazo MD [address] [place] [address] [email or web address] documented as of this encounter Results * XR KNEE 4 OR MORE VIEWS (LEFT) (09/18/2017 2:34 PM EDT) Anatomical Region Laterality Modality Knee Left Radiographic Sumaya ging 09/18/2017 2:45 PM EDT Impressions 09/18/2017 2:48 PM EDT Mild degenerative changes in the medial and patellofemoral compartments of the left knee with minimal progression relative to prior imaging from 2013. S/S: Left knee pain, osteoarthritis POS - [id number] Narrative 09/18/2017 2:48 PM EDT COMPARISON: Seen AP knee films August 07, 2013 FINDINGS: 4 views of the left knee are obtained. There is minor medial joint space narrowing and minimal medial compartment spurring present. No knee effusion is seen. No acute subluxation or acute bony injury is evident. Patellar spurring is evident. Procedure Note César Sheehan MD - 09/18/2017 COMPARISON: Seen AP knee films August 07, 2013 FINDINGS: 4 views of the left knee are obtained. There is minor medial joint space narrowing and minimal medial compartmentspurring present. No knee effusion is seen. No acute subluxation or acute bony injury is evident. Patellar spurring is evident. IMPRESSION: Mild degenerative changes in the medial and patellofemoral compartmentsof the left knee with minimal progression relative to prior imaging [id number]. S/S: Left knee pain, osteoarthritis POS - [id number] us Ishan A Bigda DO IMG XR LOWER EXTREMITY Final Res ult * XR KNEE 4 OR MORE VIEWS (RIGHT) (09/18/2017 2:31 PM EDT) Anatomical Region Laterality Modality Knee Right Radiographic Sumaya ging 09/18/2017 2:48 PM EDT Impressions 09/18/2017 2:50 PM EDT Progressive degenerative changes in the right knee joint-most prominently in the medial compartment but also the patellofemoral and lateral compartments. S/S: Right knee pain, osteoarthritis POS - [id number] Narrative 09/18/2017 2:50 PM EDT COMPARISON: Bilateral standing views of the knees August 07, 2013 FINDINGS: 5 views of the right knee are obtained. No knee effusion is seen. There is prominent medial joint space narrowing and spurring evident with mild lateral compartment spurring and more prominent patellar spurring noted. No acute bony injury is evident. Mild medial subluxation of the distal femur on the proximal patella is noted and is unchanged. Procedure Note César Sheehan MD - 09/18/2017 COMPARISON: Bilateral standing views of the knees August 07, 2013 FINDINGS: 5 views of the right knee are obtained. No knee effusion is seen. There is prominent medial joint space narrowing and spurring evident withmild lateral compartment spurring and more prominent patellar spurringnoted. No acute bony injury is evident. Mild medial subluxation of the distal femur on the proximal patella isnoted and is unchanged. IMPRESSION: Progressive degenerative changes in the right knee joint-most prominentlyin the medial compartment but also the patellofemoral and lateralcompartments. S/S: Right knee pain, osteoarthritis POS - [id number] us Ishan A Bigda DO IMG XR LOWER EXTREMITY Final Res ult * XR Knee Standing (Bilateral, Single View Only) (09/18/2017 2:30 PM EDT) Anatomical Region Laterality Modality Knee Right, Knee Bilateral Radio graphic Imaging 09/18/2017 2:50 PM EDT Impressions 09/18/2017 2:51 PM EDT Osteoarthritis of the knees greater on the right than the left with prominent medial joint space narrowing and spurring present on the right. S/S: Bilateral knee pain, osteoarthritis POS - [id number] Narrative 09/18/2017 2:51 PM EDT COMPARISON: Standing AP view of the knees August 07, 2013 FINDINGS: A single standing AP view of the knees is obtained. There is progressive medial joint space narrowing in the medial compartment of the right knee. Progressive bony spurring is evident medially on the right as well. On the left mild medial joint space narrowing is noted and is only minimally more prominent than seen previously. Procedure Note César Sheehan MD - 09/18/2017 COMPARISON: Standing AP view of the knees August 07, 2013 FINDINGS: A single standing AP view of the knees is obtained. There is progressive medial joint space narrowing in the medialcompartment of the right knee. Progressive bony spurring is evidentmedially on the right as well. On the left mild medial joint space narrowing is noted and is onlyminimally more prominent than seen previously. IMPRESSION: Osteoarthritis of the knees greater on the right than the left withprominent medial joint space narrowing and spurring present on theright. S/S: Bilateral knee pain, osteoarthritis POS - [id number] Ishan Andrews DO IMG XR LOWER EXTREMITY Final Res ult documented in this encounter Visit Diagnoses Diagnosis Chronic pain of both knees Chronic pain of both knees Chronic pain of both knees Chronic pain of both knees documented in this encounter Care Teams Milling Machine Operator Gear Relationship Specialty Start Date End Date Ishan Andrews DO [email or web address] PCP - General Internal Medicine 08/01/17 documented as of this encounter Additional Source Comments The information contained in this document represents components of the legal health record. It is not the complete legal health record.[facility]
--- OUTSIDE RECORDS SUMMARY | 2025-02-17 14:42 | XMS_ITS | Encounter Summary ---
Author Organization [facility] Address [address] [facility] [address] [place] [address] Phone Care Team Providers Care Mdm Sr Name Role Phone Ishan Andrews DO Primary Care Provider [phone] Encounter Details Date Type Department Care Team (Late st Contact Info) Description 10/22/2024 Ancillary Orders [facility], X-Ray - [facility] [address] [place] [address] Ishan Andrews DO [address] [facility] [address] [email or web address] Bilateral interstitial pneumonia (Primary Dx) Social History Tobacco Use Types [...] with a working camera? Not on file 05 / Intimate Partner Violence Answer Date R ecorded [...] Description 04/02/2025 2:15 PM EDT Office Visit [facility] [address] [place] [address], [address] [address] Paresh Wilkins MD [address] [place] [address] 06/09/2025 2:00 PM EST Office Visit [facility] [address] [place] [address] Laya Erazo MD [address] [place] [address] [email or web address] documented as of this encounter Results * XR CHEST PA AND LATERAL 2 VIEWS (10/22/2024 2:17 PM EDT) Anatomical Region Laterality Modality Chest Computed Radiogr aphy 10/22/2024 2:39 PM EDT Impressions 10/22/2024 2:40 PM EDT 1. No specific radiographic evidence for pneumonia or edema. 2. No pneumothorax. 3. If symptoms persist, consider follow-up chest CT Narrative 10/22/2024 2:40 PM EDT XR CHEST PA AND LATERAL 2 VIEWS Referring clinician's provided indication for this examination in Epic: Pneumonia COMPARISON: 09/18/2024 FINDINGS: Devices/Tubes/Lines: None. Lungs: No specific radiographic evidence for pneumonia or edema. Pleura: No pleural effusion or pneumothorax. Heart/Mediastinum: Heart size is stable. Bones/Soft Tissues: No displaced rib fractures. Procedure Note Sohail Rushing MD - 10/22/2024 XR CHEST PA AND LATERAL 2 VIEWS Referring clinician's provided indication for this examination in Epic:Pneumonia COMPARISON: 09/18/2024 FINDINGS: Devices/Tubes/Lines: None. Lungs: No specific radiographic evidence for pneumonia or edema. Pleura: No pleural effusion or pneumothorax. Heart/Mediastinum: Heart size is stable. Bones/Soft Tissues: No displaced rib fractures. IMPRESSION: 1. No specific radiographic evidence for pneumonia or edema. 2. No pneumothorax. 3. If symptoms persist, consider follow-up chest CT Ishan Andrews DO IMG XR CHEST Final Result documented in this encounter Visit Diagnoses Diagnosis Bilateral interstitial pneumonia- Primary Bilateral interstitial pneumonia documented in this encounter Care Teams Mdm Sr Relationship Specialty Start Date End Date Ishan Andrews DO PCP - General Internal Medicine 08/01/17 documented as of this encounter Additional Source Comments The information contained in this document represents components of the legal health record. It is not the complete legal health record.[facility]
--- OUTSIDE RECORDS SUMMARY | 2025-02-17 14:42 | XMS_ITS | Encounter Summary ---
Author Organization [facility] Address [address] [place] [address] Phone Care Team Providers Care Ad Operations Intern Name Role Phone Ishan Andrews Mundo GRACE Primary Care Provider [phone] Encounter Details Date Type Department Care Team (Late st Contact Info) Description 12/23/2024 Procedure Pass [facility], Ct Scan - [address] [address] Social History Tobacco Use Types Packs/Day Years [...] Description 04/02/2025 2:15 PM EDT Office Visit [facility] [address] [place] [address], [address] [address] Paresh Wilkins MD [address] [place] [address] 06/09/2025 2:00 PM EST Office Visit [facility] [address] [place] [address] Laya Erazo MD [address] [place] [address] [email or web address] documented as of this encounter Visit Diagnoses Not on filedocumented in this encounter Care Teams Ad Operations Intern Relationship Specialty Start Date End Date Ishan Andrews DO PCP - General Internal Medicine 08/01/17 documented as of this encounter Additional Source Comments The information contained in this document represents components of the legal health record. It is not the complete legal health record.[facility]
--- OUTSIDE RECORDS SUMMARY | 2025-02-17 14:42 | XMS_ITS | Encounter Summary ---
Author Organization [facility] Address [address] [facility] [address] [place] [address] Phone Care Team Providers Care Speech Therapy Director Name Role Phone Ishan Andrews Primary Care Provider [phone] Encounter Details Date Type Department Care Team (Late st Contact Info) Description 03/11/2021 Procedure Pass [facility] [address] [place] [address] Social History Tobacco Use Types Packs/Day Years Used Date Smoking Tobacco: Former Smokeless Tobacco: Never Alcohol Use Standard Drinks/Week Comments No 0 (1 standard drink = 0.6 oz pur e alcohol) Sex and Gender Information Value Date Recorded Sex Assigned at Male 10/25/2017 7:58 PM EDT Legal Sex Male 9:58 PM EDT Gender Identity Male 10/25/2017 7:58 PM EDT Sexual Orientation Straight 10/25/2017 7 :58 PM EDT documented as of this encounter Plan of Treatment Upcoming Encounters Date Type Department Care Team (Late st Contact Info) Description 04/02/2025 2:15 PM EDT Office Visit [facility] [address] [place] [address], [address] [place] [address] Paresh Wilkins MD [address] [place] [address] [email or web address] 06/09/2025 2:00 PM EST Office Visit [facility] [address] [place] [address] Laya Erazo MD [address] [place] [address] [email or web address] documented as of this encounter Visit Diagnoses Not on filedocumented in this encounter Care Teams Speech Therapy Director Relationship Specialty Start Date End Date Ishan Andrews DO [email or web address] PCP - General Internal Medicine 08/01/17 documented as of this encounter Additional Source Comments The information contained in this document represents components of the legal health record. It is not the complete legal health record.[facility]
--- OUTSIDE RECORDS SUMMARY | 2025-02-17 14:43 | XMS_ITS | Encounter Summary ---
Author Organization [facility] Address [address] [place] [address] [place] [address] Phone Care Team Providers Care Air Conditioning Insulation Installer Name Role Phone Ishan Andrews Primary Care Provider [phone] Encounter Details Date Type Department Care Team (Latest Contact Info) Description 09/22/2022 Ancillary Orders [facility] [address] [place] [address] Shawn Charles MD [address] [place] [address] Orthopedics & Sports Medicine, [place] [address] [email or web address] Aftercare following joint replacement surgery Social History Tobacco Use Types Packs/Day Years Used Date Smoking Tobacco: Former Cigarettes 0.5 20 1 973 - 1993 Smokeless Tobacco: Never Alcohol Use Standard Drinks/Week Comments Yes 0 (1 standard drink = 0.6 oz pur e alcohol) rare beer from time to time Home Health Assessment: Transportation Answer Date Recorded Lack of Transportation (Medical) No 08/26/2022 Lack of Transportation (Non-Medical) No 08/26/2022 Patient Unable or Declines to Respond No 08/26/2022 Sex and Gender Information Value Date Recorded Sex Assigned at Male 10/25/2017 7:58 PM EDT Legal Sex Male 9:58 PM EDT Gender Identity Male 10/25/2017 7:58 PM EDT Sexual Orientation Straight 10/25/2017 7: 58 PM EDT documented as of this encounter Plan of Treatment Upcoming Encounters Date Type Department Care Team (Late st Contact Info) Description 04/02/2025 2:15 PM EDT Office Visit [facility] [address], [address] [place] [address] Paresh Wilkins MD [address] [address] [email or web address] 06/09/2025 2:00 PM EST Office Visit [facility] 22 [place] [address] Laya Erazo MD [address] [place] [address] [email or web address] documented as of this encounter Results * XR KNEE 3 VIEW (RIGHT) (09/22/2022 11:51 AM EDT) Narrative SYSTEMGENERATED, DOCUMENTATION - 09/22/2022 11:52 AM EDT This image report has been auto-finalized and has not been read by a Radiologist. Interpretation has been included in the provider encounter note for this date of service. us Shawn Charles MD IMG XR LOWER EXTREMITY Final Result documented in this encounter Visit Diagnoses Diagnosis Aftercare following joint replacement surgery Aftercare following joint replacement surgery documented in this encounter Care Teams Air Conditioning Insulation Installer Relationship Specialty Start Date End Date Ishan Andrews DO PCP - General Internal Medicine 08/01/17 documented as of this encounter Additional Source Comments The information contained in this document represents components of the legal health record. It is not the complete legal health record.[facility]
--- OUTSIDE RECORDS SUMMARY | 2025-02-17 14:43 | XMS_ITS | Encounter Summary ---
Author Organization [facility] Address [address] [place] [address] Phone Care Team Providers Care Store Shopper Name Role Phone KarenjuniorIshan DO Primary Care Provider [phone] Reason for Referral * MRI/CAT Scan - Closed Specialty Diagnoses / Procedures Referred By Contac t Referred To Contact Radiology Diagnoses RUQ pain Procedures CT Abdomen/Pelvis Farzaneh Leiva PA [address] [facility] [place] [address] Phone: tel: fax: Referral ID Status Reason Start Date Expiration Date Visits Re quested Visits Authorized [id number] Closed 12/23/2024 12/23/2025 1 1 Encounter Details Date Type Department Care Team (Latest Contact Info) Description 12/23/2024 Transcribe Orders Virtual Department [address] [place] [address] Farzaneh Leiva PA [address] [facility] [place] [address] RUQ pain (Primary Dx) Social History Tobacco Use Types [...] Description 04/02/2025 2:15 PM EDT Office Visit [facility] [address] [place] [address] [place] [address], [address] [place] [address] Paresh Wilkins MD [address] [place] [address] 06/09/2025 2:00 PM EST Office Visit [facility] [address] [place] [address] [place] [address] Laya Erazo MD [address] [place] [address] [email or web address] documented as of this encounter Results * CT ABDOMEN/PELVIS WITH CONTRAST (12/31/2024 7:29 [...] this examination in Epic: Outside Radiology Order; ruq pain TECHNIQUE: Multidetector-row [...] HIGUERA IMG CT ABD/PELVIS Final Res ult documented in this encounter Visit Diagnoses Diagnosis RUQ pain- Primary Abdominal pain, right upper quadrant RUQ pain Abdominal pain, right upper quadrant documented in this encounter Care Teams Store Shopper Relationship Specialty Start Date End Date Ishan Andrews DO [email or web address] PCP - General Internal Medicine 08/01/17 documented as of this encounter Additional Source Comments The information contained in this document represents components of the legal health record. It is not the complete legal health record.[facility]
--- OUTSIDE RECORDS SUMMARY | 2025-02-17 14:43 | XMS_ITS | Encounter Summary ---
Author Organization [facility] Address [address] [facility] [address] [place] [address] Phone Care Team Providers Care Electroplater Automatic Name Role Phone Ishan Andrews DO Primary Care Provider [phone] Reason for Referral * MRI/CAT Scan - Closed Specialty Diagnoses / Procedures Referred By Jeremiah t Referred To Contact Radiology Diagnoses Other symptoms and signs involving cognitive functions and awareness Procedures MRI Brain Ishan Andrews DO Phone: tel: fax: [email or web address] Referral ID Status Reason Start Date Expiration Date Visits Re quested Visits Authorized [id number] Closed 05/17/2024 05/17/2025 1 1 Encounter Details Date Type Department Care Team (Late st Contact Info) Description 05/17/2024 Transcribe Orders Virtual Department 30 [place] [address] Ishan Andrews DO [address] [facility] [place] [address] [email or web address] Other symptoms and signs involving cognitive functions and awareness (Primary Dx) Social History Tobacco Use Types [...] Description 04/02/2025 2:15 PM EDT Office Visit [facility] [address] [place] [address], [address] [address] Paresh Wilkins MD [address] [place] [address] [email or web address] 06/09/2025 2:00 PM EST Office Visit [facility] [address] [place] [address] [place] [address] Laya Erazo MD [address] [place] [address] [email or web address] documented as of this encounter Results * MRI BRAIN WITHOUT CONTRAST (05/29/2024 6:10 PM EST) Anatomical Region Laterality Modality Head Magnetic Resonan ce 05/31/2024 1:33 PM EST Impressions 05/31/2024 1:38 PM EST 1. No acute intracranial abnormality within the limitations of susceptibility hypointensity from retained metallic object in the left face. 2. Mild generalized parenchymal volume loss and mild burden of chronic small vessel disease. Narrative 05/31/2024 1:38 PM EST MRI BRAIN WITHOUT CONTRAST Referring clinician's provided indication for this examination in [facility]: impaired cognition TECHNIQUE: MRI BRAIN WITHOUT CONTRAST Multi-sequence, multi-planar MRI of the brain was performed without intravenous contrast. COMPARISON: None available. FINDINGS: Please note that there is marked susceptibility artifact in the left frontotemporal region from metallic retained foreign object in the face, limiting optimal evaluation. Within this limitation: Brain Parenchyma: Mild generalized parenchymal volume loss. Hippocampal volume loss is proportionate with parenchymal volume loss. No evidence of acute infarct, mass or hemorrhage. There are scattered foci of T2 hyperintensity in the white matter, likely a manifestation of chronic small vessel disease. Ventricular System and Extra-Axial Spaces: The ventricles and cortical sulci are prominent, as commonly seen in patients of this age. No evidence of midline shift or hydrocephalus. Extracranial Structures: There are normal flow voids of the major intracranial vessels. Moderate mucosal thickening in the ethmoid air cells and right maxillary sinus. The mastoid air cells appear clear. The orbits and soft tissues are unremarkable. Procedure Note Kellee Thrasher MD - 05/31/2024 MRI BRAIN WITHOUT CONTRAST Referring clinician's provided indication for this examination in Epic:impaired cognition TECHNIQUE: MRI BRAIN WITHOUT CONTRAST Multi-sequence, multi-planar MRI of the brain was performed withoutintravenous contrast. COMPARISON: None available. FINDINGS: Please note that there is marked susceptibility artifact in the leftfrontotemporal region from metallic retained foreign object in the face,limiting optimal evaluation. Within this limitation: Brain Parenchyma: Mild generalized parenchymal volume loss. Hippocampalvolume loss is proportionate with parenchymal volume loss. No evidence ofacute infarct, mass or hemorrhage. There are scattered foci of [id number] in the white matter, likely a manifestation of chronicsmall vessel disease. Ventricular System and Extra-Axial Spaces: The ventricles and corticalsulci are prominent, as commonly seen in patients of this age. No evidenceof midline shift or hydrocephalus. Extracranial Structures: There are normal flow voids of the majorintracranial vessels. Moderate mucosal thickening in the ethmoid air cellsand right maxillary sinus. The mastoid air cells appear clear. The orbitsand soft tissues are unremarkable. IMPRESSION: 1. No acute intracranial abnormality within the limitations ofsusceptibility hypointensity from retained metallic object in the leftface. 2. Mild generalized parenchymal volume loss and mild burden of chronicsmall vessel disease. us Ishan Andrews DO IMG MR HEAD/NECK Final Result documented in this encounter Visit Diagnoses Diagnosis Other symptoms and signs involving cognitive functions and awareness- Primary Other symptoms and signs involving cognitive functions and awareness documented in this encounter Care Teams Electroplater Automatic Relationship Specialty Start Date End Date Ishan Andrews DO [email or web address] PCP - General Internal Medicine 08/01/17 documented as of this encounter Additional Source Comments The information contained in this document represents components of the legal health record. It is not the complete legal health record.[facility]
== END 2025-02-18 11:42 | disposition home or self-care (01) ==
LOC: HO.HMGAL 13:21
PROVIDERS: PCP Internal Medicine; Visit Provider Registered Nurse Emergency
DX: J30.89 Other allergic rhinitis (principal)
CPT/HCPCS: 95117; 95165

== ENCOUNTER 2025-02-25 13:51 | Outpatient (AMB) | payer MEDICARE, SELFPAY ==
--- OUTSIDE RECORDS SUMMARY | 2019-07-16 19:50 | XMS_ITS | Encounter Summary ---
Author Organization [facility] Address [address] [place] [address] Phone Care Team Providers Care Furnace Firer Name Role Phone Ishan Andrews Primary Care Provider [phone] Encounter Details Date Type Department Care Team (Late st Contact Info) Description 07/16/2019 6:50 PM EST Hospital Encounter [facility] [address] [place] [address] Petra Shabazz CNP 12 [place] [address] Social History Tobacco Use Types Packs/Day Years [...] Risk Indicated 09/13/2023 9:50 PM EDT Wang aBnks RN * [place] Suicide Severity Rating Scale (Screener/Recent Self-Report) Question [...] Care Team (Late st Contact Info) Description 02/13/2025 Procedure Pass [address] [address] 03/18/2025 6:45 PM EDT Appointment [address] [address] Ishan Andrews, DO [address] [facility] [place] [address] 04/02/2025 2:15 PM EDT Office Visit [facility] [address] [place] [address], [address] [place] [address] Paresh Wilkins MD [address] [place] [address] 06/09/2025 2:00 PM EST Office Visit [facility] [address] [place] [address] Laya Erazo MD [address] [place] [address] [email or web address] documented as of this [...] on 08/07/2013, therefore definitely chronic. POS - [id number] Edited by: Laya Padilla on 07/16/2019 7:17 [...] presenton 08/07/2013, therefore definitely chronic. POS - [id number] Edited by: Laya Padilla on 07/16/2019 7:17 PM us Petra Shabazz DRY LUMBER GRADER IMG XR UPPER EXTREMITY Carmen l Result documented in this encounter Visit Diagnoses Not on filedocumented in this encounter Care Teams Furnace Firer Relationship Specialty Start Date End Date Ishan Andrews DO [email or web address] PCP - General Internal Medicine 08/01/17 documented as of this encounter Additional Source Comments The information contained in this document represents components of the legal health record. It is not the complete legal health record.[facility]
--- NOTE | 2025-02-25 13:55 | A.OFFVIS_ITS ---
Intake Visit Reasons: hx of Elevated PSA and low testosterone Intake Note: New Patient is present for elevated PSA and low Testosterone Urology Rx:Tamsulosin Blood Thinners:none Imaging completed: none Labs done 01/01/25: PSA 13.98 Fiberglass Pipe Covering Supervisor Required: No Accompanied by: Spouse Allergies aspirin Allergy (Unknown, Verified 02/25/25 13:56) Unknown oxycodone (From Tylox) Allergy (Unknown, Verified 02/25/25 13:56) Unknown HPI Comments Details: Rod is a pleasant male. He is a patient of Dr. Hodgson. He is seen for the following urologic conditions - low testosterone - elevated PSA Complete evaluation of elevated PSA Likely secondary to very large prostate Trial finasteride with repeat lab work Multifactorial low testosterone secondary to low sex hormone binding globulin, oxycodone use for 10 years, sleep apnea Elevated PSA Prior prostate biopsy WNEUG Recent prostate MRI - 11/17 170 g prostate, transition zone PI-RADS 2, seminal vesicle 1.6 cm T2 cyst. PSA 01/17 13.9 Low testosterone Tiredness, fatigue Decreased muscle mass Recent started treatment for sleep apnea which has had significant improvement Very low measured testosterone - 01/17 LH 1.8, SHBG 12, T1 33, free T 30 Long-term use of oxycodone 10 mg b.i.d. for many years [facility] Medical History (Updated 02/25/25 @ 14:43 by Isidoro Puckett MD) Obesity (BMI 30-39.9) Hypogonadism in male Elevated PSA Back pain BPH (benign prostatic hyperplasia) HORACIO (obstructive sleep apnea) Hyperlipidemia Surgical History History of back surgery History of total bilateral knee replacement History of esophagogastroduodenoscopy (EGD) H/O colonoscopy Social History Household Members: Spouse Patient Tobacco Use Status: Former Tobacco user Tobacco use type: Cigarette Review of Systems Const Denies chills and Denies fever(s) Card Reports no additional complaints and Denies syncope Resp Denies cough GI Denies abdominal pain and Denies heartburn Reports as per HPI and Denies change in libido Neuro Denies syncope Psych Denies change in libido Endo Denies change in libido Physical Exam Const General: cooperative, healthy appearing, comfortable and no acute distress Orientation/consciousness: patient oriented x3 HEENT Face and sinus: Yes normal facial exam Mouth: moist mucous membranes Neck Neck: Yes normal visual inspection, Yes full ROM and Yes trachea midline Chest Chest palpation & inspection: normal inspection of the chest Resp Effort & Inspection: normal respiratory effort, able to speak in complete sentences and no respiratory distress GI Inspection: Yes normal to inspection Back/Spine/Pelvis Cervical Spine: normal cervical lordosis Thoracic/Lumbar Spine: thoracic and lumbar spine normal to inspection Skin General skin exam: no rashes or lesions noted Neuro General: patient oriented x3, gait normal, tone normal and moves all extremities Extrem General: Yes normal to inspection and Yes capillary refill normal Results AMB Urinalysis, Automated UA Leukoctes 0 Dileep/uL Last Edit by FLORINDA Hua on 02/25/25 14:19 UA Nitrite Negative Last Edit by FLORINDA Hua on 02/25/25 14:19 UA Urobilinogen 0.2 mg/dL Last Edit by FLORINDA Hua on 02/25/25 14:1 9 UA Protein 15 mg/dL Last Edit by Marion Leal CCM on 02/25/25 14:19 UA pH 6.0 Last Edit by FLORINDA Hua on 02/25/25 14:19 UA Blood 0 Elliott/uL Last Edit by FLORINDA Hua on 02/25/25 14:19 UA Specific [place] 1.020 Last Edit by FLORINDA Hua on 02/25/25 14: 19 UA Ketone Negative Last Edit by FLORINDA Hua on 02/25/25 14:19 UA Bilirubin 1 mg/dL Last Edit by Marion Leal CCM on 02/25/25 14:19 UA Glucose 0 mg/dL Last Edit by Marion Leal CCM on 02/25/25 14:19 Results Reviewed Results Reviewed: Laboratory Last Values Urine pH (Auto) 6.0 02/25/25 14:19 Specific [place] (Auto) 1.020 02/25/25 14:19 Urine Protein (Auto) 15 mg/dL 02/25/25 14:19 Glucose (UA)(Auto) 0 mg/dL 02/25/25 14:19 Urine Ketones (Auto) Negative 02/25/25 14:19 Urine Blood (Auto) 0 Elliott/uL 02/25/25 14:19 Urine Nitrite (Auto) Negative 02/25/25 14:19 Urine Bilirubin (Auto) 1 mg/dL 02/25/25 14:19 Urine Urobilinogen (Auto) 0.2 mg/dL 02/25/25 14:19 Leukocyte Esterase (Auto) 0 Dileep/uL 02/25/25 14:19 Assessment & Plan Assessment & Plan (1) Hypogonadism in male: Code(s): E29.1 - Testicular hypofunction Category: Medical (2) Elevated PSA: Code(s): R97.20 - Elevated prostate specific antigen [PSA] Category: Medical (3) BPH (benign prostatic hyperplasia): Code(s): N40.0 - Benign prostatic hyperplasia without lower urinary tract symptoms Category: Medical Plan Trial finasteride 10 week follow-up lab work Bladder ultrasound to confirm prostate size 12 week follow-up cystoscopy office Orders: Orders AMB Urinalysis Automated Today Z13.9 - Encounter for screening, unspecified Testosterone, Free/Total 10 Weeks E29.1 - Testicular hypofunction PSA,Total (Free>4and<10) 10 Weeks E29.1 - Testicular hypofunction US bladder Today E29.1 - Testicular hypofunction Patient Instructions: This note is constructed using voice recognition software. While every effort has been made to ensure accuracy tube operator errors may have been included. Imaging studies, laboratory and physical exam results were discussed and reviewed in detail. No major barriers to patient understanding were identified. An opportunity to ask questions regarding the treatment plan was provided. All questions were answered. The patient expressed understanding and agreement with the above treatment plan. The patient is aware they should contact our office by phone for worsening of their current condition or the appearance of new urologic symptoms. Compliance is encouraged with any medications and followup testing that is ordered. It is a privilege to participate in the urologic care of your patient. If you have any questions or concerns regarding treatment for the above conditions, or other urologic issues, please do not hesitate to contact me. The office telephone contact is [phone]. Sincerely, Dr Isidoro Puckett MD, [facility] - Urology Compassionate Specialist Care for the Genitourinary System Coding Level of Care Code New Pt Level 4 (16248) Diagnoses Hypogonadism in male E29.1 Elevated PSA R97.20 BPH (benign prostatic hyperplasia) N40.0
--- OUTSIDE RECORDS SUMMARY | 2025-02-25 15:05 | XMS_ITS | Encounter Summary ---
Author Organization [facility] Address [address] [facility] [address] [place] [address] Phone Care Team Providers Care Social Sciences Lecturer Name Role Phone Ishan Andrews DO Primary Care Provider [phone] Encounter Details Date Type Department Care Team (Latest Contact Info) Description 10/20/2017 Transcribe Orders [facility] [address] [place] [address] Rosanna Alvarez PA-C [address] [place] [address] Elevated prostate specific antigen (PSA) (Primary Dx) [...] st Contact Info) Description 02/13/2025 Procedure Pass [address] [address] 03/18/2025 6:45 PM EDT Appointment [address] [address] Ishan Andrews DO 179 [facility] [place] [address] 04/02/2025 2:15 PM EDT Office Visit [facility] [address], [address] [place] [address] Paresh Wilkins MD [address] [place] [address] 06/09/2025 2:00 PM EST Office Visit [facility] [address] [place] [address] Laya Erazo MD [address] [place] [address] [email or web address] documented as of this encounter Results * (ABNORMAL) PSA, free and total (10/20/2017 11:45 AM EDT) PSA, TOTAL 5.8(H) <=4.5 ng/mL [facility] FREE PSA 1.8 ng/mL [facility] FREE/TOT PSA RATIO 0.31 ratio [facility] Comment: (NOTE) When total [...] ABEBE LAB BLOOD ORDERABLES Final R esult [facility] [address] [place] [address] documented in this encounter Visit Diagnoses Diagnosis Elevated prostate specific antigen (PSA)- Primary documented in this encounter Care Teams Social Sciences Lecturer Relationship Specialty Start Date End Date Ishan Andrews DO [email or web address] PCP - General Internal Medicine 08/01/17 documented as of this encounter Additional Source Comments The information contained in this document represents components of the legal health record. It is not the complete legal health record.[facility]
--- OUTSIDE RECORDS SUMMARY | 2025-02-25 15:05 | XMS_ITS | Encounter Summary ---
Author Organization Located Within [facility] Address [address] [facility] [address] [place] [address] Phone Care Team Providers Care General Service Officer Name Role Phone Ishan Andrews DO Primary Care Provider [phone] Encounter Details Date Type Department Care Team (Late st Contact Info) Description 09/19/2018 Transcribe Orders Virtual Department 30 [place] [address] Ishan Andrews DO 179 [facility] [place] [address] [email or web address] Other specified symptoms and signs involving the [...] Department Care Team (Late Contact Info) Description 02/13/2025 Procedure Pass [address] [address] 03/18/2025 6:45 PM EDT Appointment [address] [address] Ishan Andrews DO 179 [facility] [place] [address] 04/02/2025 2:15 PM EDT Office Visit [facility] [address] [place] [address], [address] [place] [address] Paresh Wilkins MD [address] [address] 06/09/2025 2:00 PM EST Office Visit [facility] [address] [place] [address] Laya Erazo MD [address] [place] [address] documented as of this encounter Visit Diagnoses Diagnosis Other specified symptoms and signs involving the circulatory and respiratory systems- Primary documented in this encounter Care Teams General Service Officer Relationship Specialty Start Date End Date Ishan Andrews DO PCP - General Internal Medicine 08/01/17 documented as of this encounter Additional Source Comments The information contained in this document represents components of the legal health record. It is not the complete legal health record.[facility]
--- OUTSIDE RECORDS SUMMARY | 2025-02-25 15:05 | XMS_ITS | Encounter Summary ---
Author Organization [facility] Address [address] [facility] [address] [place] [address] Phone Care Team Providers Care Employee Development Manager Name Role Phone Ishan Andrews DO Primary Care Provider [phone] Encounter Details Date Type Department Care Team (Late st Contact Info) Description 10/27/2023 Ancillary Orders [facility], X-Ray - [facility] 30 [place] [address] Ishan Andrews DO 179 [facility] [place] [address] [email or web address] Pain of left hip joint (Primary Dx); [...] st Contact Info) Description 02/13/2025 Procedure Pass [address] [address] 03/18/2025 6:45 PM EDT Appointment [address] [address] Ishan Andrews, 179 [facility] [place] [address] 04/02/2025 2:15 PM EDT Office Visit [facility] [address] [place] [address] [place] [address], [address] [address] Paresh Wilkins MD [address] [place] [address] 06/09/2025 2:00 PM EST Office Visit [facility] [address] [place] [address] [place] [address] Laya Erazo MD [address] [place] [address] [email or web address] documented as of this encounter Results * [...] clinician's provided indication for this examination in [facility]: degeration of lumbar intervertebral disc REQUESTED [...] clinician's provided indication for this examination in [facility]:degeration of lumbar intervertebral disc REQUESTED INDICATION: [...] intact hardware. Moderate lumbar spine degenerative change. us Ishan A Bigda DO IMG XR SPINE Final Result documented in this encounter Visit Diagnoses Diagnosis Pain of left hip joint- Primary Degeneration of lumbar intervertebral disc Degeneration of lumbar or lumbosacral intervertebral disc Degeneration of lumbar intervertebral disc Degeneration of lumbar or lumbosacral intervertebral disc documented in this encounter Care Teams Employee Development Manager Relationship Specialty Start Date End Date Ishan Andrews DO [email or web address] PCP - General Internal Medicine 08/01/17 documented as of this encounter Additional Source Comments The information contained in this document represents components of the legal health record. It is not the complete legal health record.[facility]
--- OUTSIDE RECORDS SUMMARY | 2025-02-25 15:05 | XMS_ITS | Encounter Summary ---
Author Organization [facility] Address [address] [facility] [address] [place] [address] Phone Care Team Providers Care Associate Publisher Name Role Phone Ishan Andrews DO Primary Care Provider [phone] Encounter Details Date Type Department Care Team ([facility] st Contact Info) Description 10/23/2023 Transcribe Orders Virtual Department 30 [place] [address] Ishan Andrews DO 179 [facility] [place] [address] [email or web address] Pain in right hip (Primary Dx) Social [...] st Contact Info) Description 02/13/2025 Procedure Pass [address] [address] 03/18/2025 6:45 PM EDT Appointment [address] [address] Ishan Andrews, 179 [place] [address] 04/02/2025 2:15 PM EDT Office Visit [facility] [address] [place] [address], [address] [address] Parehs Wilkins MD [address] [place] [address] 06/09/2025 2:00 PM EST Office Visit [facility] [address] [place] [address] Laya Erazo MD [address] [place] [address] [email or web address] documented as of this encounter Visit Diagnoses Diagnosis Pain in right hip- Primary documented in this encounter Care Teams Associate Publisher Relationship Specialty Start Date End Date KarenIshan pacheco DO Mundo [email or web address] PCP - General Internal Medicine 08/01/17 documented as of this encounter Additional Source Comments The information contained in this document represents components of the legal health record. It is not the complete legal health record.[facility]
--- OUTSIDE RECORDS SUMMARY | 2025-02-25 15:05 | XMS_ITS | Encounter Summary ---
Author Organization [facility] Address [address] [facility] [address] [place] [address] Phone Care Team Providers Care Internet Webmaster Name Role Phone Ishan Andrews Primary Care Provider [phone] Encounter Details Date Type Department Care Team (Late st Contact Info) Description 08/10/2022 Procedure Pass OR Admitting Dept - Virtual Department 30 [place] [address] Social History Tobacco Use Types Packs/Day Years [...] 08/10/2022 6:22 PM Gem Gandhi RN * [place] Suicide Severity Rating Scale (Screener/Recent Self-Report) Question Answer Date of Assessment Author 1. Wish to be (Past 1 Month) No 023 6:22 PM Gem Gandhi, MATT 2. Non-Specific Active Suici clover Thoughts (Past 1 Month) No 08/10/2022 6:22 PM Delio Gandhi RN 6. Suicidal Behavior (Lifetime) No 6:22 PM EST Gem Beltran RN documented as of this encounter Plan of Treatment Upcoming Encounters Date Type Department Care Team (Late st Contact Info) Description 02/13/2025 Procedure Pass [facility], [address] [address] 03/18/2025 6:45 PM EDT Appointment [address] [address] Ishan Andrews DO 179 [place] [address] 04/02/2025 2:15 PM EDT Office Visit [facility] [address] [place] [address] Paresh Wilkins MD [address] [place] [address] 06/09/2025 2:00 PM EST Office Visit [facility] [address] [place] [address] Laya Erazo MD [address] [place] [address] documented as of this encounter Visit Diagnoses Not on filedocumented in this encounter Care Teams Internet Webmaster Relationship Specialty Start Date End Date Ishan Andrews DO PCP - General Internal Medicine 08/01/17 documented as of this encounter Additional Source Comments The information contained in this document represents components of the legal health record. It is not the complete legal health record.[facility]
--- OUTSIDE RECORDS SUMMARY | 2025-02-25 15:05 | XMS_ITS | Encounter Summary ---
Author Organization [facility] Address [address] [facility] [address] [place] [address] Phone Care Team Providers Care Hull Inspector Name Role Phone KarenIshan pacheco Mundo GRACE Primary Care Provider [phone] Encounter Details Date Type Department Care Team (Late st Contact Info) Description 05/17/2024 Procedure Pass [facility], [address] [address] Social History Tobacco Use Types Packs/Day Years [...] st Contact Info) Description 02/13/2025 Procedure Pass [address] [address] 03/18/2025 6:45 PM EDT Appointment [address] [address] Ishan Andrews DO 179 [facility] [place] [address] 04/02/2025 2:15 PM EDT Office Visit [facility] [address] [place] [address], [address] [address] Paresh Wilkins MD [address] [place] [address] 06/09/2025 2:00 PM EST Office Visit [facility] [address] [place] [address] [place] [address] Laya Erazo MD [address] [place] [address] documented as of this encounter Visit Diagnoses Not on filedocumented in this encounter Care Teams Hull Inspector Relationship Specialty Start Date End Date Ishan Andrews DO [email or web address] PCP - General Internal Medicine 08/01/17 documented as of this encounter Additional Source Comments The information contained in this document represents components of the legal health record. It is not the complete legal health record.[facility]
--- OUTSIDE RECORDS SUMMARY | 2025-02-25 15:05 | XMS_ITS | Encounter Summary ---
Author Organization [facility] Address [address] [place] [address] Phone Care Team Providers Care Director Community Health Nursing Name Role Phone Ishan Andrews Primary Care Provider [phone] Encounter Details Date Type Department Care Team (Late st Contact Info) Description 09/18/2024 Ancillary Orders [facility], X-Ray - [address] [address] Farzaneh Leiva PA [address] [facility] [place] [address] Acute bronchitis due to other specified organisms [...] st Contact Info) Description 02/13/2025 Procedure Pass [address] [address] 03/18/2025 6:45 PM EDT Appointment [address] [address] Ishan Andrews, 179 [facility] [place] [address] 04/02/2025 2:15 PM EDT Office Visit [facility] [address] [place] [address], [address] [address] Paresh Wilkins MD [address] [place] [address] 06/09/2025 2:00 PM EST Office Visit [facility] [address] [place] [address] [place] [address] Laya Erazo MD [address] [place] [phone] .[email or web address] documented as of this encounter Results * [...] initiated on 09/18/2024 3:54 PM, Message ID [id number]. Narrative 09/18/2024 3:55 PM EDT XR CHEST [...] was initiated on 09/18/2024 3:54 PM,Message ID [id number]. Farzaneh HIGUERA IMG XR CHEST Final Resul t documented in this encounter Visit Diagnoses Diagnosis Acute bronchitis due to other specified organisms- Primary Acute bronchitis due to other specified organisms documented in this encounter Care Teams Director Community Health Nursing Relationship Specialty Start Date End Date Ishan Andrews DO [email or web address] PCP - General Internal Medicine 08/01/17 documented as of this encounter Additional Source Comments The information contained in this document represents components of the legal health record. It is not the complete legal health record.[facility]
--- OUTSIDE RECORDS SUMMARY | 2025-02-25 15:06 | XMS_ITS | Encounter Summary ---
Author Organization [facility] Address [address] [place] [address] Phone Care Team Providers Care Leather Whitener Name Role Phone Ishan Andrews DO Primary Care Provider [phone] Encounter Details Date Type Department Care Team (Late st Contact Info) Description 10/02/2017 Ancillary Orders Virtual Department 30 [place] [address] Ishan Andrews DO 179 [facility] [place] [address] [email or web address] Peripheral tear of medial meniscus of left [...] st Contact Info) Description 02/13/2025 Procedure Pass [address] [address] 03/18/2025 6:45 PM EDT Appointment [address] [address] Ishan Andrews DO 179 [facility] [place] [address] [email or web address] 04/02/2025 2:15 PM EDT Office Visit [facility] [address] [place] [address], [address] [place] [address] Paresh Wilkins MD [address] [address] 06/09/2025 2:00 PM EST Office Visit [facility] [address] [place] [address] Laya Erazo MD [address] [place] [address] [email or web address] documented as of this encounter Visit Diagnoses Diagnosis Peripheral tear of medial meniscus of left knee as current injury, subsequent encounter Tear of medial meniscus of knee, unspecified laterality, unspecified tear type, unspecified whether old or current tear, initial encounter documented in this encounter Care Teams Leather Whitener Relationship Specialty Start Date End Date Ishan Andrews DO [email or web address] PCP - General Internal Medicine 08/01/17 documented as of this encounter Additional Source Comments The information contained in this document represents components of the legal health record. It is not the complete legal health record.[facility]
--- OUTSIDE RECORDS SUMMARY | 2025-02-25 15:06 | XMS_ITS | Clinical Summary ---
Author Organization [facility] Address [address] [facility] [address] [place] [address] Phone Care Team Providers Care Maintenance Team Member Name Role Phone Ishan Andrews Primary Care Provider [phone] Allergies Active Allergy Reactions Criticality Noted Date [...] 30 days. Active cyanocobalamin/ folic acid (VITAMIN N20-MLGNG ACID) 1,000-[address] 1 tablet [...] coronary syndromes including unstable or severe angina, CA within 1 month, severe CHF, high grade [...] Department Care Team Description 02/13/2025 Transcribe Orders [facility] Department [address] [place] [address] Ishan Andrews DO Pain in thoracic spine (Primary Dx) 02/06/2025 3:39 PM EDT - 02/06/2025 11:59 PM EDT Hospital Encounter [address] [address] Ishan Andrews DO Discharge Disposition: Home or Self Care 02/06/2025 3:39 PM EDT - 02/06/2025 11:59 PM EDT Hospital Encounter [address] [address] Ishan Andrews DO Discharge Disposition: Home or Self Care 02/06/2025 Ancillary Orders [address] [address] Ishan Andrews DO Pleurodynia (Primary Dx) 12/31/2024 6:40 PM EDT - 12/31/2024 11:59 PM EDT Hospital Encounter [facility], Ct Scan [address] [address] Farzaneh Leiva PA Discharge Disposition: Home or Self Care 12/31/2024 Telephone [facility] [address]rd Floor, [address] [place] [address] Paresh Wilkins MD 12/23/2024 10:08 AM EDT - 12/23/2024 11:59 PM EDT Hospital Encounter [facility] [address] [place] [address] Farzaneh Leiva PA Discharge Disposition: Home or Self Care 12/23/2024 Procedure Pass [facility] - [facility] [address] [place] [address] 12/23/2024 Transcribe Orders Virtual Department [address] [place] [address] Farzaneh Leiva PA RUQ pain (Primary Dx) 12/23/2024 Transcribe Orders [facility] [address] [place] [address] Farzaneh Leiva PA Impaired fasting glucose (Primary Dx); Right upper quadrant pain; Endocrine disorder from Last 3 Months Family History Medical [...] 1 968 - 1988 Smokeless Tobacco: Never Tobacco Cessation:Counseling Given: Not [...] st Contact Info) Description 02/13/2025 Procedure Pass [address] [address] 03/18/2025 6:45 PM EDT Appointment [address] [address] Ishan Andrews, DO [address] [place] [address] 04/02/2025 2:15 PM EDT Office Visit [facility] [address] [place] [address] [facility], [address] [place] [address] Paresh Wilkins MD [address] [place] [address], [address] [place] [address] 06/09/2025 2:00 PM EST Office Visit [facility] [address] [place] [address] [place] [address] Laya Erazo MD [address] [place] [address] [address] [place] [address] [email or web address] Health Maintenance Due Date Last Done Comments Adult Td,Tdap Booster 1953 DEPRESSION SCREENING 1965 ZOSTER VACCINES (1 of 2) 01/14/1972 COLOGUARD 1998 COLONOSCOPY 1998 COLORECTAL CANCER SCREENING 1998 FIT TEST 1998 FOBT 1998 SIGMOIDOSCOPY 1998 VIRTUAL COLONOSCOPY 1998 RSV VACCINE (1 - Risk 60-74 years 1-dose series) 2013 LIPID PANEL 08/25/2024 08/26/2019, 08/01/2017 INFLUENZA VACCINE (#1) 2025 , 03/09/2022, 03/01/2022, Additional history exists COVID-19 VACCINE ( season) 2025 03/31/2023, 10/31/2022, 03/30/2022, Additional history exists HEPATITIS C SCREENING Completed 08/26/2019 PNEUMOCOCCAL VACCINES [...] this topic Medical Devices Implanted Type Area Home Child Care Provider Device Identifier Shelf Expiration Date Model / Serial / Lot Joe Joe Spine Lumbar Description:L4 L5 Cement Bone 1x40 Standard - [id number] Implanted:Qty: 1 on 08/10/2022 by Shawn Charles MD at [facility] Right: Knee [employer]NA [employer] 06/25/2024 [id number] / / [id number] Box Component 70mm Femoral Knee Vanguard Interlok Keene Posterior Stabilized Open Cemented Right - [id number] Implanted:Qty: 1 on 08/10/2022 by Shawn Charles MD at [facility] Right: Knee [employer] 08/17/2030 [id number] / / [id number] Knee Tray 79mm Plate Bone Primary Vanguard Keene I Beam Revision Interlock Cemented - [id number] Implanted:Qty: 1 on 08/10/2022 by Shawn Charles MD at [facility] Right: Knee [employer] 03/23/2032 [id number] / / [id number] Knee Implant 77f11fn Patella Asymmetric - [id number] Implanted:Qty: 1 on 08/10/2022 by Shawn Charles MD at [facility] Right: Knee [employer] 02/07/2027 [id number] / / [id number] Knee Bearing 79 93p01yn Vanguard Stabilized - [id number] Implanted:Qty: 1 on 08/10/2022 by Shawn Charles MD at [facility] Right: Knee [employer] 02/05/2027 [id number] / / [id number] Knee Tray 79mm Plate Bone Primary Vanguard Keene I Beam Revision Interlock Cemented - [id number] Implanted:Qty: 1 on 09/13/2023 by Shawn Charles MD at [facility] Left: Knee [employer] 08/30/2032 [id number] / / [id number] Knee Bearing Tibial 18x79 To 83mm Implant Insert Vanguard Ps 05 - [id number] Implanted:Qty: 1 on 09/13/2023 by Shawn Charles MD at [facility] Left: Knee [employer] [id number] 04/28/2028 [id number] / / [id number] Cement Bone 1x40 Standard - [id number] Implanted:Qty: 2 on 09/13/2023 by Shawn Charles MD at [facility] Left: Knee [employer] [id number] 01/23/2026 [id number] / / [id number] Box Component 67.5mm Femoral Knee Vanguard Interlok Keene Posterior Stabilized Open Cemented Left - [id number] Implanted:Qty: 1 on 09/13/2023 by Shawn Charles MD at [facility] Left: Knee [employer] [id number] 06/27/2033 [id number] / / [id number] Knee Implant [id number] Patella Asymmetric - [id number] Implanted:Qty: 1 on 09/13/2023 by Shawn Charles MD at [facility] Left: Knee [employer] 12/18/2025 [id number] / / [id number] Procedures Procedure Name Priority Date/Time Associated Diagnosis [...] for this examination in Epic: Pain COMPARISON: Chest x-ray dated 10/22/2024 FINDINGS: [...] clinician's provided indication for this examination in [facility]: Outside Radiology Order; ruq pain TECHNIQUE: [...] other acuteintra-abdominal or retroperitoneal pathology. 2. Prostatomegaly. us Farzaneh HIGUERA IMG CT ABD/PELVIS Final Res ult * Urinalysis w/reflex Urine Culture (12/23/2024 10:10 AM EDT) COLOR Yellow Yellow [facility] CLARITY Clear [facility] GLUCOSE Negative Negative [facility] BILI Negative Negative [facility] KETONES Negative Negative [facility] SPECIFIC GRAVITY 1.015 1.005 - 1.030 [facility] BLOOD Negative Negative [facility] PH 6.0 5.0 - 8.0 [facility] Protein-UA Negative Negative [facility] NITRITE Negative Negative [facility] Leukocyte esterase, ur Negative Negative [facility] Urine (Urine) 12/23/2024 10: 10 AM EDT 12/23/2024 10:18 AM EDT Farzaneh HIGUERA URINE ORDERABLES Final Resu lt Performing Organization Address City/[facility]/ZIP Co de Phone Number [address] [address] * (ABNORMAL) Testosterone, total and free (12/23/2024 10:10 AM EDT) FREE TESTOSTERONE 5.36 3.28 - 12.2 ng/dL [facility] Comment: (NOTE) ADDITIONAL INFORMATION This test was developed and its performance characteristics determined by [facility] in a manner consistent with CLIA requirements. This test has not been cleared or approved by the U.S. Food and Drug Administration. TESTOSTERONE, TOTAL 149(L) 240 - 950 ng/dL [facility] Comment: (NOTE) ADDITIONAL INFORMATION Testing performed by Liquid Chromatography-Tandem Mass Spectrometry (LC-MS/MS). This test was developed and its performance characteristics determined by [facility] in a manner consistent with CLIA requirements. This test has not been cleared or approved by the U.S. Food and Drug Administration. Blood 12/23/2024 10:1 0 AM EDT 12/23/2024 10:13 AM EDT Farzaneh HIGUERA LAB BLOOD ORDERABLES Final Result Performing Organization Address City/[facility]/ZIP Co de Phone Number [facility] [address] [place] [address] * (ABNORMAL) Comprehensive metabolic panel (12/23/2024 10:10 AM EDT) SODIUM 141 133 - 146 mmol/L [facility] POTASSIUM 4.9 3.3 - 5.1 mmol/L [facility] CHLORIDE 105 96 - 108 mmol/L [facility] CO2 26 21 - 35 mmol/L [facility] BUN 20(H) 6 - 19 mg/dL [facility] CREATININE 0.90 0.5 - 1.5 mg/dL [facility] GLUCOSE 143(H) 70 - 99 mg/dL [facility] ALBUMIN 4.2 3.9 - 4.8 g/dL [facility] TOTAL PROTEIN 7.9 6.5 - 8.0 g/dL [facility] CALCIUM 9.4 8.4 - 10.3 mg/dL [facility] ALKALINE PHOSPHATASE 156(H) 39 - 117 U/L [facility] TOTAL BILIRUBIN 0.4 0.0 - 1.2 mg/dL [facility] AST 44(H) 0 - 37 U/L [facility] ALT 53(H) 0 - 40 U/L [facility] GLOBULIN 3.7 1 - 4.8 g/dL [facility] EGFR 91 >59 mL/min/1.7 3m2 [facility] Comment:Estimated glomerular filtration rate calculated using the CKD-EPI refit equation. ANION GAP 15 10 - 20 mmol/L [facility] Blood 12/23/2024 10:1 0 AM EDT 12/23/2024 10:13 AM EDT Farzaneh HIGUERA LAB BLOOD ORDERABLES Final Result Performing Organization Address [facility]/ZIP Co de Phone Number [address] [address] * (ABNORMAL) GGT (Gamma glutamyl transferase) (12/23/2024 10:10 AM EDT) GGT 68(H) 11 - 51 U/L [facility] Blood 12/23/2024 10:1 0 AM EDT 12/23/2024 10:13 AM EDT Farzaneh HIGUERA LAB BLOOD ORDERABLES Final Result Performing Organization Address [facility]/ZIP Co de Phone Number [address] [address] * Sedimentation rate (ESR) (12/23/2024 10:10 AM EDT) ESR 15 0 - 20 mm/h [facility] Blood 12/23/2024 10:1 0 AM EDT 12/23/2024 10:13 AM EDT us Farzaneh HIGUERA LAB BLOOD ORDERABLES Final Result [facility] [address] [place] [address] * (ABNORMAL) CBC and differential (12/23/2024 10:10 AM EDT) WBC 7.34 4.00 - 11.00 K/uL [facility] RBC 4.93 4.50 - 5.90 M/uL [facility] HGB 14.2 13.5 - 17.5 g/dL [facility] HCT 45.5 41.0 - 53.0 % [facility] PLT 317 150 - 450 K/uL [facility] MCV 92.3 80.0 - 100.0 fL [facility] MCH 28.8 27.0 - 31.0 pg [facility] MCHC 31.2(L) 32.0 - 36.0 g/dL [facility] RDW 14.4 11.5 - 14.5 % [facility] MPV 9.0 8.4 - 12.0 fL [facility] NRBC 0.00 0.00 /100 WBCs [facility] ABSOLUTE NRBC 0.00 0.00 K/uL [facility] DIFF METHOD Auto [facility] NEUTS 56.4 48.0 - 76.0 % [facility] LYMPHS 34.7 18.0 - 41.0 % [facility] MONOS 6.3 4.0 - 11.0 % [facility] EOS 1.6 0.0 - 5.0 % [facility] BASOS 0.5 0.0 - 1.5 % [facility] Granulocytes, immature (%) 0.5 0.0 - 0.9 % [facility] ABSOLUTE NEUTS 4.13 1.92 - 7.60 K/uL [facility] ABSOLUTE LYMPHS 2.55 0.72 - 4.10 K/uL [facility] ABSOLUTE MONOS 0.46 0.16 - 1.10 K/uL [facility] ABSOLUTE EOS 0.12 0.00 - 0.50 K/uL [facility] ABSOLUTE BASOS 0.04 0.00 - 0.15 K/uL [facility] Granulocytes, immature 0.04 0.00 - 0.09 K/uL [facility] Blood 12/23/2024 10:1 0 AM EDT 12/23/2024 10:13 AM EDT Farzaneh HIGUERA LAB BLOOD ORDERABLES Final Result Performing Organization Address [facility]/ZIP Co de Phone Number [address] [address] * C-Reactive Protein (12/23/2024 10:10 AM EDT) C REACTIVE PROTEIN 3.6 0.0 - 4.0 mg/L [facility] Blood 12/23/2024 10:1 0 AM EDT 12/23/2024 10:13 AM EDT Farzaneh HIGUERA LAB BLOOD ORDERABLES Final Result Performing Organization Address [facility]/ZIP Co de Phone Number [address] [address] * Lipase (12/23/2024 10:10 AM EDT) LIPASE 42 16 - 63 U/L [facility] Blood 12/23/2024 10:1 0 AM EDT 12/23/2024 10:13 AM EDT Farzaneh HIGUERA LAB BLOOD ORDERABLES Final Result Performing Organization Address [facility] Co de Phone Number [address] [address] * (ABNORMAL) Hemoglobin A1c (12/23/2024 10:10 AM EDT) HEMOGLOBIN A1C 6.7(H) 4.3 - 5.8 % [facility] Blood 12/23/2024 10:1 0 AM EDT 12/23/2024 10:13 AM EDT Farzaneh HIGUERA LAB BLOOD ORDERABLES Final Result Performing Organization Address [facility] Co de Phone Number [address] [address] * Amylase (12/23/2024 10:10 AM EDT) Pathologist [facility] AMYLASE 85 28 - 100 U/L [facility] Blood 12/23/2024 10:1 0 AM EDT 12/23/2024 10:13 AM EDT Farzaneh HIGUERA LAB BLOOD ORDERABLES Final Result Performing Organization Address [facility] de Phone Number [address] [address] * Hepatitis C antibody, qualitative (08/26/2019 9:53 AM EST) Pathologist [facility] HCV NON-REACTIV E NON-REACTI VE [facility] Blood 08/26/2019 9:53 AM EST 08/26/2019 9:57 AM EST Ishan Andrews DO LAB BLOOD ORDERABLES Final Resul t Performing Organization Address [facility] de Phone Number [address] [address] * (ABNORMAL) Lipid panel (08/26/2019 9:53 AM EST) Pathologist [facility] HDL 41 mg/dL [facility] Comment: Interpretation <40 mg/dL: Low HDL cholesterol (major risk factor for CHD) Greater than or equal to 60 mg/dL: High HDL cholesterol ( negative risk factor for CHD) HDL - cholesterol is affected by a number of factors, e.g. smoking, excerise, hormones, sex and age. CHOLESTEROL 172 0 - 240 mg/dL [facility] TRIGLYCERIDES 196(H) 30 - 160 mg/dL [facility] LDL 92 50 - 129 mg/dL [facility] Comment: LDL levels in terms of risk for coronary heart disease: <100 mg/dL: Optimal 100-129 mg/dL: Near or above optimal 130-159 mg/dL: Borderline high 160-189 mg/dL: High >190 mg/dL: Very High CARDIAC RISK RATIO 4.2 3.4 - 5.0 C [facility] Blood 08/26/2019 9:53 AM EST 08/26/2019 9:57 AM EST us Isahn Andrews DO LAB BLOOD ORDERABLES Final Resul t Performing Organization Address City/State/[facility] Co de Phone Number [address] [address] from Last 3 Months or Most Recently Relevant to Health Maintenance Insurance [facility] MEDICARE REPLACEMENT MEDICARE REPLACEMENT MEDICARE REPLACEMENT MEDICARE REPLACEMENT MEDICARE REPLACEMENT MEDICARE REPLACEMENT MEDICARE REPLACEMENT MEDICARE REPLACEMENT Advance Directives For more information, please contact: [phone] (9AM - 5PM [facility], Monday-Monday) Documents on File Type Date Recorded Patient Price Lister Expl anation Healthcare Proxy 08/16/2022 2:27 PM * Full Code (Latest Code Status on File) Date Activated Date Inactivated Comments 09/13/2023 10:47 AM Question Answer Comments Code Status Confirmed With: Patient * Full Code Date Activated Date Inactivated Comments 08/10/2022 8:49 AM 09/13/2023 10:47 AM Question Answer Comments Code Status Confirmed With: Patient Care Teams Maintenance Team Member Relationship Specialty Start Date End Date Ishan Andrews DO [email or web address] PCP - General Internal Medicine 08/01/17 Additional Source Comments The information contained in this document represents components of the legal health record. It is not the complete legal health record.[facility]
--- OUTSIDE RECORDS SUMMARY | 2025-02-25 15:06 | XMS_ITS | Encounter Summary ---
Author Organization [facility] Address [address] [facility] [address] [place] [address] Phone Care Team Providers Care Traffic Sign Supervisor Name Role Phone Ishan Andrews DO Primary Care Provider [phone] Encounter Details Date Type Department Care Team (Late st Contact Info) Description 02/06/2025 Ancillary Orders [facility], X-Ray - [facility] [address] [place] [address] Ishan Andrews DO [address] [facility] [place] [address] [email or web address] Pleurodynia (Primary Dx) Social History Tobacco Use [...] st Contact Info) Description 02/13/2025 Procedure Pass [address] [address] 03/18/2025 6:45 PM EDT Appointment [address] [address] Ishan Andrews, DO [address] [facility] [place] [address] [place] [address] 04/02/2025 2:15 PM EDT Office Visit [facility] [address] [place] [address] [place] [address], [address] [address] Paresh Wilkins MD [address] [place] [address] 06/09/2025 2:00 PM EST Office Visit [facility] [address] [place] [address] [place] [address] Laya Erazo MD [address] [place] [address] [email or web address] documented as of this encounter Results * [...] indication for this examination in [facility]: Pain COMPARISON: None FINDINGS: Mild curvature the [...] indication for this examination in [facility]:Pain COMPARISON: None FINDINGS: Mild curvature the upper [...] indication for this examination in [facility]: Pain COMPARISON: Chest x-ray dated 10/22/2024 FINDINGS: No displaced rib fracture identified. PA evaluation of the chest demonstrates no focal consolidation, pleural effusion, pulmonary edema, or pneumothorax. Cardiomediastinal silhouette appears stable. Procedure Note Librado Gayle MD - 02/07/2025 XR RIBS 4 OR MORE VIEWS WITH PA CHEST (BILATERAL) Referring clinician's provided indication for this examination in [facility]:Pain COMPARISON: Chest x-ray dated 10/22/2024 FINDINGS: No [...] respiration documented in this encounter Care Teams Traffic Sign Supervisor Relationship Specialty Start Date End Date Ishan Andrews DO [email or web address] PCP - General Internal Medicine 08/01/17 documented as of this encounter Additional Source Comments The information contained in this document represents components of the legal health record. It is not the complete legal health record.[facility]
--- OUTSIDE RECORDS SUMMARY | 2025-02-25 15:06 | XMS_ITS | Encounter Summary ---
Author Organization [facility] Address [address] [address] Phone Care Team Providers Care Shoe Packer Name Role Phone Ishan Andrews DO Primary Care Provider [phone] Encounter Details Date Type Department Care Team (Late st Contact Info) Description 04/24/2019 Ancillary Orders Virtual Department [address] [place] [address] Ishan Andrews DO [address] [facility] [address] [email or web address] Abdominal aortic aneurysm (AAA) without rupture; Encounter [...] st Contact Info) Description 02/13/2025 Procedure Pass [address] [address] 03/18/2025 6:45 PM EDT Appointment [address] [address] Ishan Andrews DO [address] [facility] [address] 04/02/2025 2:15 PM EDT Office Visit [facility] [address] [place] [address], [address] [place] [address] Paresh Wilkins MD [address] [place] [address] [place] [address] 06/09/2025 2:00 PM EST Office Visit [facility] [address] [place] [address] [place] [address] Laya Erazo MD [address] [place] [address] documented as of this encounter Results * [...] aortic aneurysm detected. POS- [id number] us Ishan Andrews DO IMG US ABDOMEN Final Result documented in this encounter Visit Diagnoses Diagnosis Abdominal aortic aneurysm (AAA) without rupture Encounter for screening for cardiovascular disorders Abdominal aortic aneurysm (AAA) without rupture Encounter for screening for cardiovascular disorders documented in this encounter Care Teams Shoe Packer Relationship Specialty Start Date End Date Ishan Andrews DO [email or web address] PCP - General Internal Medicine 08/01/17 documented as of this encounter Additional Source Comments The information contained in this document represents components of the legal health record. It is not the complete legal health record.[facility]
--- OUTSIDE RECORDS SUMMARY | 2025-02-25 15:06 | XMS_ITS | Encounter Summary ---
Author Organization [facility] Address [address] [place] [address] Phone Care Team Providers Care Court Interpreter Name Role Phone Ishan Andrews DO Primary Care Provider [phone] Encounter Details Date Type Department Care Team (Late st Contact Info) Description 06/11/2021 Procedure Pass [facility] [address] [place] [address] Social History Tobacco Use Types Packs/Day Years [...] st Contact Info) Description 02/13/2025 Procedure Pass [address] [address] 03/18/2025 6:45 PM EDT Appointment [address] [address] Ishan Andrews DO [address] [place] [address] 04/02/2025 2:15 PM EDT Office Visit [facility] [address] [place] [address], [address] [place] [address] Paresh Wilkins MD [address] [place] [address] 06/09/2025 2:00 PM EST Office Visit [facility] [address] [place] [address] Laya Erazo MD [address] [place] [address] documented as of this encounter Visit Diagnoses Not on filedocumented in this encounter Care Teams Court Interpreter Relationship Specialty Start Date End Date Ishan Andrews DO PCP - General Internal Medicine 08/01/17 documented as of this encounter Additional Source Comments The information contained in this document represents components of the legal health record. It is not the complete legal health record.[facility]
--- OUTSIDE RECORDS SUMMARY | 2025-02-25 15:06 | XMS_ITS | Encounter Summary ---
Author Organization [facility] Address [address] [facility] [address] [place] [address] Phone Care Team Providers Care Red Cross Worker Name Role Phone Ishan Andrews DO Primary Care Provider [phone] Encounter Details Date Type Department Care Team (Late st Contact Info) Description 10/16/2017 Transcribe Orders [facility] [address] [place] [address] Ishan Andrews DO 179 [place] [address] [email or web address] Impaired fasting glucose (Primary Dx); Elevated prostate [...] st Contact Info) Description 02/13/2025 Procedure Pass [address] [address] 03/18/2025 6:45 PM EDT Appointment [address] [address] Ishan Andrews DO 179 [place], [place] [address] 04/02/2025 2:15 PM EDT Office Visit [facility] 22 [facility] 3rd [facility], [address] [place] [address] Paresh Wilkins MD 22 [facility], [address] [address] 06/09/2025 2:00 PM EST Office Visit [facility] [address] [place] [address] Laya Erazo MD [address] [place] [address] [email or web address] documented as of this encounter Results * (ABNORMAL) PSA (screening) (10/16/2017 10:45 AM EDT) PSA 5.71(H) 0 - 4.00 ng/mL [facility] Blood 10/16/2017 10:4 5 AM EDT 10/16/2017 10:50 AM EDT us Ishan A Bigda DO LAB BLOOD ORDERABLES Final Resul t Performing Organization Address City/[facility]/ZIP Co de Phone Number [address] [address] * Hemoglobin A1c (10/16/2017 10:45 AM EDT) HEMOGLOBIN A1C 5.7 4.3 - 5.8 % [facility] Blood 10/16/2017 10:4 5 AM EDT 10/16/2017 10:49 AM EDT us Ishan A Bigda DO LAB BLOOD ORDERABLES Final Resul t [address] [address] documented in this encounter Visit Diagnoses Diagnosis Impaired fasting glucose- Primary Elevated prostate specific antigen (PSA) documented in this encounter Care Teams Red Cross Worker Relationship Specialty Start Date End Date DarrylIshan Mundo [email or web address] PCP - General Internal Medicine 08/01/17 documented as of this encounter Additional Source Comments The information contained in this document represents components of the legal health record. It is not the complete legal health record.[facility]
--- OUTSIDE RECORDS SUMMARY | 2025-02-25 15:06 | XMS_ITS | Encounter Summary ---
Author Organization [facility] Address [address] [place] [address] Phone Care Team Providers Care Maintenance Shop Laborer Name Role Phone Ishan Andrews DO Primary Care Provider [phone] Encounter Details Date Type Department Care Team (Late st Contact Info) Description 09/22/2017 Ancillary Orders Virtual Department [address] [place] [address] Ishan Andrews DO 179 [place] [address] [email or web address] Chronic sinusitis, unspecified location; Fever, unspecified fever [...] st Contact Info) Description 02/13/2025 Procedure Pass [address] [address] 03/18/2025 6:45 PM EDT Appointment [address] [address] Ishan Andrews DO 179 [place] [address] 04/02/2025 2:15 PM EDT Office Visit [facility] [address] [place] [address], [address] [place] [address] Paresh Wilkins MD [address] [place] [address] 06/09/2025 2:00 PM EST Office Visit [facility] [address] [place] [address] Laya Erazo MD [address] [place] [address] documented as of this encounter Visit Diagnoses Diagnosis Chronic sinusitis, unspecified location Fever, unspecified fever cause Facial pain Headache documented in this encounter Care Teams Maintenance Shop Laborer Relationship Specialty Start Date End Date Ishan Andrews DO PCP - General Internal Medicine 08/01/17 documented as of this encounter Additional Source Comments The information contained in this document represents components of the legal health record. It is not the complete legal health record.[facility]
--- OUTSIDE RECORDS SUMMARY | 2025-02-25 15:06 | XMS_ITS | Encounter Summary ---
Author Organization [facility] Address [address] [facility] [address] [place] [address] Phone Care Team Providers Care Corrugator Machine Operator Name Role Phone Ishan Andrews Primary Care Provider [phone] Encounter Details Date Type Department Care Team (Late st Contact Info) Description 12/31/2024 Telephone [facility] 22 [facility] 3rd Floor, [address] [place] [address] Paresh Wilkins MD 22 [facility], [address] [place] [address] [email or web address] Social History Tobacco Use Types Packs/Day Years [...] Kendra Barr - 12/31/2024 12:15 PM EDT [facility] is requesting pressure setting changes to [...] st Contact Info) Description 02/13/2025 Procedure Pass [address] [address] 03/18/2025 6:45 PM EDT Appointment [address] [address] Ishan Andrews, DO 179 [facility] [place] [address] 04/02/2025 2:15 PM EDT Office Visit [facility] [address] [place] [address] 3rd Floor, [address] [address] Paresh Wilkins MD 22 [facility], [address] [address] 06/09/2025 2:00 PM EST Office Visit [facility] [address] [place] [address] Laya Erazo MD [address] [place] [address] [email or web address] documented as of this encounter Visit Diagnoses Not on filedocumented in this encounter Care Teams Corrugator Machine Operator Relationship Specialty Start Date End Date Ishan Andrews DO [email or web address] PCP - General Internal Medicine 08/01/17 documented as of this encounter Additional Source Comments The information contained in this document represents components of the legal health record. It is not the complete legal health record.[facility]
--- OUTSIDE RECORDS SUMMARY | 2025-02-25 15:06 | XMS_ITS | Encounter Summary ---
Author Organization [facility] Address [address] [facility] [address] [place] [address] Phone Care Team Providers Care Precinct Police Captain Name Role Phone Ishan Andrews DO Primary Care Provider [phone] Encounter Details Date Type Department Care Team (Late st Contact Info) Description 04/24/2019 Transcribe Orders Virtual Department [address] [place] [address] Ishan Andrews DO 179 [place] [address] [email or web address] Abdominal aortic aneurysm (AAA) without rupture (Primary [...] st Contact Info) Description 02/13/2025 Procedure Pass [address] [address] 03/18/2025 6:45 PM EDT Appointment [address] [address] Ishan Andrews DO 179 [facility] [place] [address] 04/02/2025 2:15 PM EDT Office Visit [facility] [address] [place] [address], [address] [place] [address] Paresh Wilkins MD [address] [place] [address] 06/09/2025 2:00 PM EST Office Visit [facility] [address] [place] [address] Laya Erazo MD [address] [place] [address] documented as of this encounter Visit Diagnoses Diagnosis Abdominal aortic aneurysm (AAA) without rupture- Primary documented in this encounter Care Teams Precinct Police Captain Relationship Specialty Start Date End Date Ishan Andrews DO PCP - General Internal Medicine 08/01/17 documented as of this encounter Additional Source Comments The information contained in this document represents components of the legal health record. It is not the complete legal health record.[facility]
--- OUTSIDE RECORDS SUMMARY | 2025-02-25 15:06 | XMS_ITS | Encounter Summary ---
Author Organization [facility] Address [address] [facility] [address] [place] [address] Phone Care Team Providers Care Auto Parts Clerk Name Role Phone Ishan Andrews Mundo GRACE Primary Care Provider [phone] Encounter Details Date Type Department Care Team (Late st Contact Info) Description 12/23/2024 Procedure Pass [facility], Ct Scan - [address] [address] Social History Tobacco Use Types Packs/Day Years [...] st Contact Info) Description 02/13/2025 Procedure Pass [address] [address] 03/18/2025 6:45 PM EDT Appointment [address] [address] Ishan Andrews DO 179 [facility] [place] [address] 04/02/2025 2:15 PM EDT Office Visit [facility] [address] [place] [address], [address] [address] Paresh Wilkins MD [address] [place] [address] 06/09/2025 2:00 PM EST Office Visit [facility] [address] [place] [address] Laya Erazo MD [address] [place] [address] documented as of this encounter Visit Diagnoses Not on filedocumented in this encounter Care Teams Auto Parts Clerk Relationship Specialty Start Date End Date Ishan Andrews DO [email or web address] PCP - General Internal Medicine 08/01/17 documented as of this encounter Additional Source Comments The information contained in this document represents components of the legal health record. It is not the complete legal health record.[facility]
--- OUTSIDE RECORDS SUMMARY | 2025-02-25 15:06 | XMS_ITS | Encounter Summary ---
Author Organization [facility] Address [address] [facility] [address] [place] [address] Phone Care Team Providers Care Health Care Specialist Name Role Phone Ishan Andrews DO Primary Care Provider [phone] Encounter Details Date Type Department Care Team (Late st Contact Info) Description 08/01/2017 Transcribe Orders [facility] [address] [place] [address] Ishan Andrews DO 179 [place] [address] [email or web address] Essential hypertension, benign (Primary Dx) Social History [...] st Contact Info) Description 02/13/2025 Procedure Pass [address] [address] 03/18/2025 6:45 PM EDT Appointment [address] [address] Ishan Andrews DO 179 [place], [place] [address] 04/02/2025 2:15 PM EDT Office Visit [facility] [address], [address] [place] [address] Paresh Wilkins MD [address] [address] 06/09/2025 2:00 PM EST Office Visit [facility] 22 [place] [address] Laya Erazo MD [address] [place] [address] [email or web address] documented as of this encounter Results * (ABNORMAL) PSA (screening) (08/01/2017 10:35 AM EST) Pathologist [facility] PSA 4.96(H) 0 - 4.00 ng/mL [facility] Blood 08/01/2017 10:3 5 AM EST 08/01/2017 10:39 AM EST us Ishan Jonesda DO LAB BLOOD ORDERABLES Final Resul t [facility] [address] [place] [address] * (ABNORMAL) Lipid panel (08/01/2017 10:35 AM EST) Pathologist [facility] HDL 35 mg/dL [facility] Comment: Interpretation: Risk Level Males Decreased >45 mg/dL Average 40-45 mg/dL Increased <40 mg/dL CHOLESTEROL 181 0 - 240 mg/dL [facility] TRIGLYCERIDES 281(H) 30 - 160 mg/dL [facility] LDL 90 50 - 129 mg/dL [facility] Comment: LDL levels in terms of risk for coronary heart disease: <100 mg/dL: Optimal 100-129 mg/dL: Near or above optimal 130-159 mg/dL: Borderline high 160-189 mg/dL: High >190 mg/dL: Very High CARDIAC RISK RATIO 5.2(H) 3.4 - 5.0 C [facility] Blood 08/01/2017 10:3 5 AM EST 08/01/2017 10:40 AM EST us Ishan A Bigda DO LAB BLOOD ORDERABLES Final Resul t [address] [address] * (ABNORMAL) Comprehensive metabolic panel (08/01/2017 10:35 AM EST) SODIUM 142 133 - 146 mmol/L [facility] POTASSIUM 4.4 3.3 - 5.1 mmol/L [facility] CHLORIDE 104 96 - 108 mmol/L [facility] CO2 30 21 - 35 mmol/L [facility] BUN 18 6 - 19 mg/dL [facility] CREATININE 0.90 0.5 - 1.5 mg/dL [facility] GLUCOSE 125(H) 70 - 99 mg/dL [facility] ALBUMIN 4.0 3.9 - 4.8 g/dL [facility] TOTAL PROTEIN 7.3 6.5 - 8.0 g/dL [facility] CALCIUM 8.9 8.4 - 10.3 mg/dL [facility] ALKALINE PHOSPHATASE 98 39 - 117 U/L [facility] TOTAL BILIRUBIN 0.4 0 - 1.2 mg/dL [facility] AST 32 0 - 37 U/L [facility] ALT 32 0 - 40 U/L [facility] GLOBULIN 3.3 1 - 4.8 g/dL [facility] EGFR >60 60 - 1000 mL/min/1.7 3m2 [facility] Comment:Abnormal if <60. If patient is -Vincentian, multiply the result by 1.21. ANION GAP 12 10 - 20 mmol/L [facility] Blood 08/01/2017 10:3 5 AM EST 08/01/2017 10:40 AM EST us Ishan A Bigda DO LAB BLOOD ORDERABLES Final Resul t [facility] [address] [place] [address] documented in this encounter Visit Diagnoses Diagnosis Essential hypertension, benign- Primary documented in this encounter Care Teams Health Care Specialist Relationship Specialty Start Date End Date Ishan Andrews DO [email or web address] PCP - General Internal Medicine 08/01/17 documented as of this encounter Additional Source Comments The information contained in this document represents components of the legal health record. It is not the complete legal health record.[facility]
--- OUTSIDE RECORDS SUMMARY | 2025-02-25 15:06 | XMS_ITS | Encounter Summary ---
Author Organization [facility] Address [address] [facility] [address] [place] [address] Phone Care Team Providers Care Bonded Structures Repairer Name Role Phone Ishan Andrews Primary Care Provider [phone] Encounter Details Date Type Department Care Team (Late st Contact Info) Description 09/13/2023 Procedure Pass OR Admitting Dept - Virtual Department [address] [place] [address] Social History Tobacco Use Types Packs/Day Years [...] 9:50 PM EDT Wang Banks RN * Bond Suicide Severity Rating Scale (Screener/Recent Self-Report) Question [...] st Contact Info) Description 02/13/2025 Procedure Pass [address] [address] 03/18/2025 6:45 PM EDT Appointment [address] [address] Ishan Andrews, 179 [facility] [place] [address] 04/02/2025 2:15 PM EDT Office Visit [facility] [address] [place] [address] 3rd Floor, [address] [place] [address] Paresh Wilkins MD [address] [place] [address], [address] [place] [address] 06/09/2025 2:00 PM EST Office Visit [facility] [address] [place] [address] [place] [address] Laya Erazo MD [address] [place] [address] documented as of this encounter Visit Diagnoses Not on filedocumented in this encounter Care Teams Bonded Structures Repairer Relationship Specialty Start Date End Date Ishan Andrews DO [email or web address] PCP - General Internal Medicine 08/01/17 documented as of this encounter Additional Source Comments The information contained in this document represents components of the legal health record. It is not the complete legal health record.[facility]
--- OUTSIDE RECORDS SUMMARY | 2025-02-25 15:07 | XMS_ITS | Encounter Summary ---
Author Organization [facility] Address [address] [facility] [address] [place] [address] Phone Care Team Providers Care Disease Case Manager Name Role Phone Ishan Andrews DO Primary Care Provider [phone] Encounter Details Date Type Department Care Team (Late st Contact Info) Description 09/18/2017 Ancillary Orders [facility] [address] [address] Ishan Andrews DO 179 [place] [address] [email or web address] Chronic pain of both knees Social History [...] st Contact Info) Description 02/13/2025 Procedure Pass [address] [address] 03/18/2025 6:45 PM EDT Appointment [address] [address] Ishan Andrews DO 179 [place], [place] [phone] 04/02/2025 2:15 PM EDT Office Visit [facility] 22 [facility] 3rd [facility], [address] [place] [address] Paresh Wilkins MD 22 [facility], [address] [place] [address] 06/09/2025 2:00 PM EST Office Visit [facility] [address] [place] [address] Laya Erazo MD [address] [place] [address] [email or web address] documented as of this encounter Results * [...] with minimal progression relative to prior imaging [id number]. S/S: Left knee pain, osteoarthritis POS - [...] osteoarthritis POS - [id number] us Ishan A Darryl DO IMG XR LOWER EXTREMITY Final Res [...] Bilateral knee pain, osteoarthritis POS - [id number] us Ishan Mundo Darryl DO IMG XR LOWER EXTREMITY Final Res ult documented in this encounter Visit Diagnoses Diagnosis Chronic pain of both knees Chronic pain of both knees Chronic pain of both knees Chronic pain of both knees documented in this encounter Care Teams Disease Case Manager Relationship Specialty Start Date End Date Ishan Andrews DO [phone] (work) [email or web address] PCP - General Internal Medicine 08/01/17 documented as of this encounter Additional Source Comments The information contained in this document represents components of the legal health record. It is not the complete legal health record.[facility]
--- OUTSIDE RECORDS SUMMARY | 2025-02-25 15:07 | XMS_ITS | Encounter Summary ---
Author Organization [facility] Address [address] [facility] [address] [place] [address] Phone Care Team Providers Care Academic Counselor Name Role Phone Ishan Andrews DO Primary Care Provider [phone] Encounter Details Date Type Department Care Team (Late st Contact Info) Description 10/22/2024 Ancillary Orders [facility], X-Ray - [facility] [address] [place] [address] Ishan Andrews DO 179 [place] [address] [email or web address] Bilateral interstitial pneumonia (Primary Dx) Social History [...] st Contact Info) Description 02/13/2025 Procedure Pass [address] [address] 03/18/2025 6:45 PM EDT Appointment [address] [address] Ishan Andrews, 179 [facility] [place] [address] 04/02/2025 2:15 PM EDT Office Visit [facility] [address] [place] [address] [place] [address], [address] [address] Paresh Wilkins MD [address] [place] [address] 06/09/2025 2:00 PM EST Office Visit [facility] [address] [place] [address] [place] [address] Laya Erazo MD [address] [place] [address] [email or web address] documented as of this encounter Results * [...] pneumonia documented in this encounter Care Teams Academic Counselor Relationship Specialty Start Date End Date Ishan Andrews DO [email or web address] PCP - General Internal Medicine 08/01/17 documented as of this encounter Additional Source Comments The information contained in this document represents components of the legal health record. It is not the complete legal health record.[facility]
--- OUTSIDE RECORDS SUMMARY | 2025-02-25 15:07 | XMS_ITS | Encounter Summary ---
Author Organization [facility] Address [address] [facility] [address] [place] [address] Phone Care Team Providers Care Ticket Scheduler Name Role Phone Ishan Andrews DO Primary Care Provider [phone] Reason for Referral * MRI/CAT Scan - Authorized Specialty Diagnoses / Procedures Referred By Contac t Referred To Contact Radiology Diagnoses Pain in thoracic spine Procedures MRI Thoracic Spine Ishan Andrews DO 179 [place], [place] Phone: tel: fax: [email or web address] Referral ID Status Reason Start Date Expiration Date V isits Requested Visits Authorized [id number] Authorized 02/13/2025 02/13/2026 1 1 Encounter Details Date Type Department Care Team (Late st Contact Info) Description 02/13/2025 Transcribe Orders Virtual Department 30 [place] [address] Ishan Andrews DO 179 [place] [address] [email or web address] Pain in thoracic spine (Primary Dx) Social [...] st Contact Info) Description 02/13/2025 Procedure Pass [address] [address] 03/18/2025 6:45 PM EDT Appointment [address] [address] Ishan Andrews, DO 179 [facility] [place] [address] 04/02/2025 2:15 PM EDT Office Visit [facility] [address] Floor, [address] [place] [address] Paresh Wilkins MD [address] [place] [address] [email or web address] 06/09/2025 2:00 PM EST Office Visit [facility] [address] [place] [address] [place] [address] Laya Erazo MD [address] [place] [address] [email or web address] Scheduled Orders Name Type Priority Associated Diagnoses Orde r Schedule MRI Thoracic Spine Imaging Routine Pain in thoracic spine Expected: 02/13/2025, Expires: 02/13/2026 documented as of this encounter Visit Diagnoses Diagnosis Pain in thoracic spine- Primary documented in this encounter Care Teams Ticket Scheduler Relationship Specialty Start Date End Date Ishan Andrews DO [email or web address] PCP - General Internal Medicine 08/01/17 documented as of this encounter Additional Source Comments The information contained in this document represents components of the legal health record. It is not the complete legal health record.[facility]
--- OUTSIDE RECORDS SUMMARY | 2025-02-25 15:07 | XMS_ITS | Encounter Summary ---
Author Organization [facility] Address [address] [facility] [address] [place] [address] Phone Care Team Providers Care Certified Flex Endoscope Reprocessor Name Role Phone Ishan Andrews DO Primary Care Provider [phone] Reason for Referral * MRI/CAT Scan - Closed Specialty Diagnoses / Procedures Referred By Jeremiah t Referred To Contact Radiology Diagnoses Other symptoms and signs involving cognitive functions and awareness Procedures MRI Brain Ishan Andrews DO Phone: tel: fax: [email or web address] Referral ID Status Reason Start Date Expiration Date Visits Re quested Visits Authorized [id number] Closed 05/17/2024 05/17/2025 1 1 Encounter Details Date Type Department Care Team (Late st Contact Info) Description 05/17/2024 Transcribe Orders Virtual Department 30 [place] [address] Ishan Andrews DO 179 [facility] [place] [address] Other symptoms and signs involving cognitive functions [...] st Contact Info) Description 02/13/[address] [address] 03/18/2025 6:45 PM EDT Appointment [address] [address] Ishan Andrews, DO 179 [facility] [place] [address] 04/02/2025 2:15 PM EDT Office Visit [facility] [address] [place] [address] 3rd Floor, [address] [place] [address] Paresh Wilkins MD 22 [facility], [address] [address] [email or web address] 06/09/2025 2:00 PM EST Office Visit [facility] [address] [place] [address] Laya Erazo MD [address] [place] [address] [email or web address] documented as of this [...] provided indication for this examination in Epic: impaired cognition TECHNIQUE: MRI BRAIN WITHOUT CONTRAST [...] provided indication for this examination in [facility]:impaired cognition TECHNIQUE: MRI BRAIN WITHOUT CONTRAST Multi-sequence, [...] or hemorrhage. There are scattered foci of [id number] in the white matter, likely a manifestation [...] and mild burden of chronicsmall vessel disease. Ishan Andrews DO IMG MR HEAD/NECK Final Result documented in this encounter Visit Diagnoses Diagnosis Other symptoms and signs involving cognitive functions and awareness- Primary Other symptoms and signs involving cognitive functions and awareness documented in this encounter Care Teams Certified Flex Endoscope Reprocessor Relationship Specialty Start Date End Date Ishan Andrews DO [email or web address] PCP - General Internal Medicine 08/01/17 documented as of this encounter Additional Source Comments The information contained in this document represents components of the legal health record. It is not the complete legal health record.[facility]
--- OUTSIDE RECORDS SUMMARY | 2025-02-25 15:07 | XMS_ITS | Encounter Summary ---
Author Organization [facility] Address [address] [facility] [address] [place] [address] Phone Care Team Providers Care Director Of Distance Learning Name Role Phone Ishan Andrews DO Primary Care Provider [phone] Encounter Details Date Type Department Care Team ([facility] st Contact Info) Description 10/27/2023 Ancillary Orders Virtual Department 30 [place] [address] Ishan Andrews DO 179 [facility] [place] [address] [email or web address] Pain in right hip (Primary Dx) Social [...] st Contact Info) Description 02/13/2025 Procedure Pass [address] [address] 03/18/2025 6:45 PM EDT Appointment [address] [address] Ishan Andrews, 179 [facility] [place] [address] 04/02/2025 2:15 PM EDT Office Visit [facility] [address] [place] [address], [address] [address] Paresh Wilkins MD [address] [place] [address] 06/09/2025 2:00 PM EST Office Visit [facility] [address] [place] [address] Laya Erazo MD [address] [place] [address] documented as of this encounter Results * [...] for this examination in Epic:Outside Radiology Order; PAIN IN R HIP JOINT [...] space narrowing. IMPRESSION: Moderate right hip osteoarthritis. us Ishan Andrews DO IMG XR PELVIS Final Result documented in this encounter Visit Diagnoses Diagnosis Pain in right hip Pain in right hip- Primary documented in this encounter Care Teams Director Of Distance Learning Relationship Specialty Start Date End Date Ishan Andrews DO [email or web address] PCP - General Internal Medicine 08/01/17 documented as of this encounter Additional Source Comments The information contained in this document represents components of the legal health record. It is not the complete legal health record.[facility]
--- OUTSIDE RECORDS SUMMARY | 2025-02-25 15:07 | XMS_ITS | Encounter Summary ---
Author Organization [facility] Address [address] [place] [address] [place] [address] Phone Care Team Providers Care Treasury Management Sales Consultant Name Role Phone Ishan Andrews Primary Care Provider [phone] Encounter Details Date Type Department Care Team (Latest Contact Info) Description 09/22/2022 Ancillary Orders [facility] [address] [place] [address] Shawn Charles MD [address] [place] [address] Orthopedics & Sports Medicine, [facility] [place] [address] [email or web address] Aftercare following joint replacement surgery Social [...] st Contact Info) Description 02/13/2025 Procedure Pass [address] [address] 03/18/2025 6:45 PM EDT Appointment [address] [address] Ishan Andrews DO 179 [facility] [place] [address] 04/02/2025 2:15 PM EDT Office Visit [facility] [address] [place] [address], [address] [address] Paresh Wilkins MD [address] [place] [address] 06/09/2025 2:00 PM EST Office Visit [facility] [address] [place] [address] Laya Erazo MD [address] [place] [address] documented as of this encounter Results * [...] surgery documented in this encounter Care Teams Treasury Management Sales Consultant Relationship Specialty Start Date End Date Ishan Andrews DO PCP - General Internal Medicine 08/01/17 documented as of this encounter Additional Source Comments The information contained in this document represents components of the legal health record. It is not the complete legal health record.[facility]
--- OUTSIDE RECORDS SUMMARY | 2025-02-25 15:07 | XMS_ITS | Encounter Summary ---
Author Organization [facility] Address [address] [place] [address] Phone Care Team Providers Care Hydramatic Specialist Name Role Phone Ishan Andrews DO Primary Care Provider [phone] Encounter Details Date Type Department Care Team (Late st Contact Info) Description 03/11/2021 Procedure Pass Non-Invasive Cardiology [address] [place] [address] Social History Tobacco Use Types Packs/Day Years [...] st Contact Info) Description 02/13/2025 Procedure Pass [address] [address] 03/18/2025 6:45 PM EDT Appointment [address] [address] Ishan Andrews DO [address] [place] [address] 04/02/2025 2:15 PM EDT Office Visit [facility] [address] [place] [address], [address] [place] [address] Paresh Wilkins MD [address] [place] [address] 06/09/2025 2:00 PM EST Office Visit [facility] [address] [place] [address] Laya Erazo MD [address] [place] [address] documented as of this encounter Visit Diagnoses Not on filedocumented in this encounter Care Teams Hydramatic Specialist Relationship Specialty Start Date End Date Ishan Andrews DO PCP - General Internal Medicine 08/01/17 documented as of this encounter Additional Source Comments The information contained in this document represents components of the legal health record. It is not the complete legal health record.[facility]
--- OUTSIDE RECORDS SUMMARY | 2025-02-25 15:07 | XMS_ITS | Clinical Summary ---
Author Organization [facility] [place] [address] Care Team Providers Care Colored Leather Setter Name Role Phone Ishan Andrews DO Primary Care Provider Allergies Active Allergy Reactions Criticality Noted Date [...] Panel) 08/25/2024 08/26/2019 COVID-19 Vaccine ( season) 2025 04/09/2024, 11/14/2023, 03/31/2023, Additional history exists Influenza [...] topic Insurance [employer] MED[employer] Care Teams Colored Leather Setter Relationship Specialty Start Date End Date Ishan Andrews DO [address] [place] [phone] PCP - General Internal Medicine 07/25/24
--- OUTSIDE RECORDS SUMMARY | 2025-02-25 15:07 | XMS_ITS | Encounter Summary ---
Author Organization [facility] Address [address] [place] [address] Phone Care Team Providers Care Stain Sprayer Name Role Phone KarenjuniorIshan DO Primary Care Provider [phone] Reason for Referral * MRI/CAT Scan - Closed Specialty Diagnoses / Procedures Referred By Contac t Referred To Contact Radiology Diagnoses RUQ pain Procedures CT Abdomen/Pelvis Farzaneh Leiva PA 6 [facility] [place] [address] Phone: tel: fax: Referral ID Status Reason Start Date Expiration Date Visits Re quested Visits Authorized [id number] Closed 12/23/2024 12/23/2025 1 1 Encounter Details Date Type Department Care Team (Latest Contact Info) Description 12/23/2024 Transcribe Orders Virtual Department [address] [place] [address] Farzaneh Leiva PA 6 [facility] [place] [address] RUQ pain (Primary Dx) Social History Tobacco [...] Contact Info) Description 02/13/2025 Procedure Pass [address] [address] 03/18/2025 6:45 PM EDT Appointment [address] [address] Ishan Andrews, DO 179 [facility] [place] [address] 04/02/2025 2:15 PM EDT Office Visit [facility] [place] [address] Floor, [address] [place] [address] Paresh Wilkins MD 22 [facility], [address] [place] [address] 06/09/2025 2:00 PM EST Office Visit [facility] [address] [place] [address] [place] [address] Laya Erazo MD [address] [place] [address] [address] [place] [address] [email or web address] documented as of this encounter Results * [...] or retroperitoneal pathology. 2. Prostatomegaly. Farzaneh HIGUERA IM CT ABD/PELVIS Final Res ult documented in this encounter Visit Diagnoses Diagnosis RUQ pain- Primary Abdominal pain, right upper quadrant RUQ pain Abdominal pain, right upper quadrant documented in this encounter Care Teams Stain Sprayer Relationship Specialty Start Date End Date Ishan Andrews DO [email or web address] PCP - General Internal Medicine 08/01/17 documented as of this encounter Additional Source Comments The information contained in this document represents components of the legal health record. It is not the complete legal health record.[facility]
== END 2025-02-25 14:41 | disposition home or self-care (01) ==
LOC: HO.HUSH 13:52
PROVIDERS: PCP Internal Medicine; Visit Provider Urology
DX: E29.1 Testicular hypofunction (principal); R97.20 Elevated prostate specific antigen [PSA]; N40.0 Benign prostatic hyperplasia without lower urinary tract symptoms; Z13.9 Encounter for screening, unspecified
CPT/HCPCS: 99204

== ENCOUNTER → 2025-02-25 13:51 | Outpatient (BNVA) | payer MEDICARE, SELFPAY | PROVIDERS: PCP Internal Medicine; Visit Provider Urology | DX: E29.1 Testicular hypofunction (principal); R97.20 Elevated prostate specific antigen [PSA]; N40.0 Benign prostatic hyperplasia without lower urinary tract symptoms; Z13.9 Encounter for screening, unspecified | CPT/HCPCS: 81003; 99202 ==

== ENCOUNTER 2025-03-17 13:36 | Outpatient (AMB) | payer MEDICARE, SELFPAY ==
--- OUTSIDE RECORDS SUMMARY | 2025-03-17 16:04 | XMS_ITS | Patient Health Record ---
Demographics Address [address] [place] [address] Mobile Preferred Language en Marital Status [employer] Affiliation Unknown
--- OUTSIDE RECORDS SUMMARY | 2025-03-17 16:04 | XMS_ITS | Encounter Summary ---
Author Organization [facility]
--- OUTSIDE RECORDS SUMMARY | 2025-03-17 16:04 | XMS_ITS ---
Encounter Summary Created on: March 17, 2025
--- OUTSIDE RECORDS SUMMARY | 2025-03-17 16:04 | XMS_ITS ---
Encounter Summary Created on: March 17, 2025 Rod Marroquin : 1955
== END 2025-03-17 13:37 | disposition home or self-care (01) ==
LOC: HO.HMGAL 13:36
PROVIDERS: PCP Internal Medicine; Visit Provider Registered Nurse Emergency
DX: J30.89 Other allergic rhinitis (principal)
CPT/HCPCS: 95117; 95165

== ENCOUNTER 2025-04-14 14:51 | Outpatient (AMB) | payer MEDICARE, SELFPAY ==
--- OUTSIDE RECORDS SUMMARY | 2024-04-19 06:10 | XMS_ITS ---
Author Organization [facility] Address [address] [place] [address] Care Team Providers Care Chartered Wealth Manager Name Role Phone Ishan Andrews Primary Care Provider Fili Shah Jr REASON FOR VISIT screening Encounters Encounter Location Date Provider Diagnosis [facility] [place] [address] [place] [phone] 04/19/2024 Fili Velasco Jr Colon cancer screening Z12.11 and Colon polyps K63.5 Assessments Encounter Date Diagnosis (ICD Code) Assessment Notes Treatment Notes Treatment Clinical Notes Section Notes 04/19/2024 Colon cancer screening (ICD-10 - Z12.11) 04/19/2024 Colon polyps (ICD-10 - K63.5) Plan Of Treatment No Information Progress Notes * DOMENICO PUTNAM EDOB:[birth year] (70 yo M)Acc No.[id number]:04/19/2024 COLON WITH MAC Patient: DOMENICO EPSTEIN Provider: Hugh Velasco MD :1955 A ge:69 Y S ex:Male Date:04/19/2024 Address:[address] [place] [address] Pcp:Ishan Andrews Subjective: * Chief Complaints: * 1 . Screening. * Medical History: Objective: * Vitals: Assessment: * Assessment: 1. C olon cancer screening - Z12.11 (Primary) 2 . C olon polyps - K63.5? Plan: * Treatment: * Procedure Codes: 4 5385 LESION REMOVAL COLONOSCOPY, 0529F INTRVL 3+YRS PTS CLNSCP DOCD, 0528F RCMND FLW-UP 10 YRS DOCD, Modifiers: 1P * * The named appointment provid er may or may not be the originator of this progress note, and it is not deemed complete until electronically signed by the appointment provider. Sign off status: Pending * Provider: Hugh Velasco MD Date: Generated for Helga miller/Sheela/Nylaitting on: 07:00 PM EDT
--- OUTSIDE RECORDS SUMMARY | 2025-04-14 18:58 | XMS_ITS | Encounter Summary ---
Author Organization [facility] Address [address] [facility] [address] [place] [address] Phone Care Team Providers Care Manager E Learning Name Role Phone Karenjnuior Ishan Flower DO Primary Care Provider [phone] Ishan Andrews DO Primary Care Provider [phone] Encounter Details Date Type Department Care Team (Late st Contact Info) Description 10/23/2023 Transcribe Orders Virtual Department [address] [place] [address] Ishan Andrews DO 179 [facility] [place] [address] [email or web address] Pain in right hip [...] 2:00 PM EST Office Visit [facility] [address] [place] [address] Laya Erazo MD [address] [place] [address] [email or web address] documented as of this encounter Visit Diagnoses Diagnosis Pain in right hip- Primary documented in this encounter Care Teams Manager E Learning Relationship Specialty Start Date End Date Ishan Andrews DO [email or web address] PCP - General Internal Medicine 08/01/17 03/17/25 Ishan Andrews DO [address] [place] [address] [email or web address] PCP - General Internal Medicine 03/18/25 documented as of this encounter Additional Source Comments The information contained in this document represents components of the legal health record. It is not the complete legal health record.[facility]
--- OUTSIDE RECORDS SUMMARY | 2025-04-14 18:58 | XMS_ITS | Encounter Summary ---
Author Organization [facility] Address [address] [place] [address] Phone Care Team Providers Care Geriatric Psychiatrist Name Role Phone Ishan Andrews DO Primary Care Provider [phone] Ishan Andrews DO Primary Care Provider [phone] Encounter Details Date Type Department Care Team (Late Contact Info) Description 06/11/2021 Procedure Pass [facility] [place] [place] [address] Social History Tobacco Use Types Packs/Day Years [...] Department Care Team (Late Contact Info) Description 06/09/2025 2:00 PM EST Office Visit [facility] [address] [place] [address] Laya Erazo MD [address] [place] [address] documented as of this encounter Visit Diagnoses Not on filedocumented in this encounter Care Teams Geriatric Psychiatrist Relationship Specialty Start Date End Date Ishan Andrews DO [email or web address] PCP - General Internal Medicine 08/01/17 03/17/25 Ishan Andrews DO 179 [place] [address] PCP - General Internal Medicine 03/18/25 documented as of this encounter Additional Source Comments The information contained in this document represents components of the legal health record. It is not the complete legal health record.[facility]
--- OUTSIDE RECORDS SUMMARY | 2025-04-14 18:58 | XMS_ITS | Encounter Summary ---
Author Organization [facility] Address [address] [place] [address] Phone Care Team Providers Care [employer] Flatbed Truck Driver Name Role Phone Ishan Andrews DO Primary Care Provider [phone] Ishan Andrews DO Primary Care Provider [phone] Encounter Details Date Type Department Care Team (Late st Contact Info) Description 09/18/2024 Ancillary Orders [facility] [address] [place] [address] Farzaneh Leiva PA [address] [place] [place] [address] Acute bronchitis due to other specified organisms [...] 2:00 PM EST Office Visit [facility] [address] [place] [address] Laya Erazo MD [address] [place] [address] [email or web address] documented as of this encounter Results * [...] initiated on 09/18/2024 3:54 PM, Message ID [id number]. Narrative 09/18/2024 3:55 PM EDT XR CHEST [...] soft tissue findings are present. Procedure Note NineEddi MD - 09/18/2024 XR CHEST PA AND [...] was initiated on 09/18/2024 3:54 PM,Message ID [id number]. Farzaneh HIGUERA IMG XR CHEST Final Resul t documented in this encounter Visit Diagnoses Diagnosis Acute bronchitis due to other specified organisms- Primary Acute bronchitis due to other specified organisms documented in this encounter Care Teams Regional Company Flatbed Truck Driver Relationship Specialty Start Date End Date Ishan Andrews DO [email or web address] PCP - General Internal Medicine 08/01/17 03/17/25 Ishan Andrews DO [address] [place] [address] [email or web address] PCP - General Internal Medicine 03/18/25 documented as of this encounter Additional Source Comments The information contained in this document represents components of the legal health record. It is not the complete legal health record.[facility]
--- OUTSIDE RECORDS SUMMARY | 2025-04-14 18:58 | XMS_ITS | Encounter Summary ---
Author Organization [facility] Address [address] [facility] [address] [place] [address] Phone Care Team Providers Care Electric Accounting Machine Operator Name Role Phone Ishan Andrews DO Primary Care Provider [phone] Ishan Andrews DO Primary Care Provider [phone] Encounter Details Date Type Department Care Team (Latest Contact Info) Description 10/20/2017 Transcribe Orders [facility] [address] [place] [address] Rosanna Alvarez PA-C [address] [place] [address] [email or web address] Elevated prostate specific antigen (PSA) (Primary Dx) [...] PM EST Office Visit [facility] [address] [place] [address] Laya Erazo MD [address] [place] [address] documented as of this encounter Results * (ABNORMAL) PSA, free and total (10/20/2017 11:45 AM EDT) PSA, TOTAL 5.8(H) <=4.5 ng/mL [facility] RIZVI FREE PSA 1.8 ng/mL [facility] [place] FREE/TOT PSA RATIO 0.31 ratio M [facility] [place] Comment: (NOTE) When total PSA is in [...] method is an electrochemiluminescence assay manufactured by [employer] and performed on the Modular or Lila system. Values obtained with different assay methods or kits may be different and cannot be used interchangeably. Test results cannot be interpreted as absolute evidence for the presence or absence of malignant disease. Blood 10/20/2017 11:4 5 AM EDT 10/20/2017 11:50 AM EDT September Kim [facility] BLOOD ORDERABLES Final R esult Performing Organization Address City/State/[facility] Co de Phone Number [facility] [place] [address] [place] [address] documented in this encounter Visit Diagnoses Diagnosis Elevated prostate specific antigen (PSA)- Primary documented in this encounter Care Teams Electric Accounting Machine Operator Relationship Specialty Start Date End Date Ishan Andrews DO [email or web address] PCP - General Internal Medicine 08/01/17 03/17/25 Ishan Andrews DO [address] [place] [address] [email or web address] PCP - General Internal Medicine 03/18/25 documented as of this encounter Additional Source Comments The information contained in this document represents components of the legal health record. It is not the complete legal health record.[facility]
--- OUTSIDE RECORDS SUMMARY | 2025-04-14 18:58 | XMS_ITS | Encounter Summary ---
Author Organization [facility] Address [address] [address] Phone Care Team Providers Care Kick Plate Installer Name Role Phone Ishan Andrews Primary Care Provider [phone] Karenjunior Ishan Mundo Primary Care Provider [phone] Encounter Details Date Type Department Care Team (Late Contact Info) Description 09/19/2018 Transcribe Orders Virtual Department 30 [place] [address] Ishan Andrews DO 179 [facility] [place] [address] [email or web address] Other specified symptoms and signs involving the [...] 2:00 PM EST Office Visit [facility] [address] [place] [address] Laya Erazo MD [address] [place] [address] documented as of this encounter Visit Diagnoses Diagnosis Other specified symptoms and signs involving the circulatory and respiratory systems- Primary documented in this encounter Care Teams Kick Plate Installer Relationship Specialty Start Date End Date Ishan Andrews DO PCP - General Internal Medicine 08/01/17 03/17/25 Ishan Andrews DO [address] [place] [address] PCP - General Internal Medicine 03/18/25 documented as of this encounter Additional Source Comments The information contained in this document represents components of the legal health record. It is not the complete legal health record.[facility]
--- OUTSIDE RECORDS SUMMARY | 2025-04-14 18:58 | XMS_ITS | Patient Health Record ---
Author Organization [facility] Address [address] [place] [address] Care Team Providers Care Component Assembler Supervisor Name Role Phone Ishan Andrews Primary Care Provider Fili Shah Jr Unavailable [phone] Allergies Allergen (clinical drug ingredient) Drug/Non Drug Allergy documented on EMR Reaction Allergy Type Onset Date Status Tylox Unknown Drug Allergy Active aspirin Aspirin Unknown Drug Allergy Active Results Component Value Reference Range Notes Pathology Reviewed date:04/25/2024 07:50:11 AM Interpretation: Performing Lab:[facility], [address] [place] [id number] Notes/Report: Reason For Referral No Information Medications Medication SIG (Take, Route, Frequency, Duration) Notes Start Date End Date Status Ibuprofen 600 MG 1 tablet with food or milk as needed Orally Three times a day Active Acetaminophen 500 MG 1 capsule as needed Orally every 6 hrs Active Flonase Allergy Relief 50 MCG/ACT 1 spray in each nostril Nasally Once a day; Duration: 30 day(s) Active MiraLax (colon prep) 17 GM/SCOOP mixed with Gatorade or Crystal Light Orally begin at 5:00 p.m. the day before the procedure; Duration: 1 day 03/07/2024 Active Escitalopram Oxalate 20 MG 1 tablet Orally Once a day Active ZyrTEC 10 MG 1 tablet Orally Once a day; Duration: 30 day(s) Active Simvastatin 20 MG Oral; Duration: 100 Active Montelukast Sodium 10 MG Oral; Duration: 100 Active Pantoprazole Sodium 40 MG Oral; Duration: 100 Active Tamsulosin HCl 0.4 MG Oral; Duration: 100 Active oxyCODONE HCl 10 MG TAKE 1 TABLET BY MOUTH TWICE DAILY Oral; Duration: 30 M5136,Unavailab le Active diazePAM 5 MG TAKE 1 TABLET BY MOUTH EVERY DAY NEEDED Oral; Duration: 30 M5136,Unavailab le Active Immunizations Vaccine Route [...] Problem Status W/U Status Risk Notes Problem Colon cancer screening (611138837) Colon cancer screening (Z12.11) Active confirmed Problem senior living current use of non-steroidal anti-inflammato ry drug (57327709768809 3) Encounter for long-term (current) use of NSAIDs (Z79.1) Active confirmed Problem Pre-op evaluation (706816656) Pre-op evaluation (Z01.818) Active confirmed Encounters Encounter Location Date Provider Diagnosis [facility] Outpatient [address] [place] [phone] 04/19/2024 Fili Velasco Jr Colon cancer screening Z12.11 and Colon polyps K63.5 [facility] [address] [facility] [address] [place] [address] 04/25/2024 Fili Velasco Jr Assessments Encounter Date Diagnosis (ICD Code) Assessment Notes Treatment Notes Treatment Clinical Notes Section Notes 04/19/2024 Colon cancer screening (ICD-10 - Z12.11) 04/19/2024 Colon polyps (ICD-10 - K63.5) Plan Of Treatment Future Test Test Name Order Date COLONOSCOPY 03/07/2024 Insurance Providers Payer Name Payer Address Payer Phone Subscriber Number Group Number Insured Name Patient Relationship to Insured Coverage Start Date Coverage End Date [facility] [id number] [place] [address] [id number] DOMENICO PUTNAM Self - patient is the insured Medical (General) History Medical History History ICD Code Hyperlipidemia Environmental allergies HORACIO BPH Back and knee pain EGD with balloon dilation 01/03 Surgical History Surgery Date(Month/Year) total knee replacement bilateral 2022.,2 024 back surgery
--- OUTSIDE RECORDS SUMMARY | 2025-04-14 18:58 | XMS_ITS | Encounter Summary ---
Author Organization [facility] Address [address] [facility] [address] [place] [address] Phone Care Team Providers Care Emergency Response Officer Name Role Phone Karenjunior Ishan Flower DO Primary Care Provider [phone] Ishan Andrews DO Primary Care Provider [phone] Encounter Details Date Type Department Care Team (Late st Contact Info) Description 10/27/2023 Ancillary Orders [facility], X-Ray - [facility] [address] [place] [address] Ishan Andrews DO [address] [facility] [address] [place] [address] [email or web address] Pain of left hip joint (Primary Dx); [...] 2:00 PM EST Office Visit [facility] [address] [place] [address] [place] [address] Laya Erazo MD [address] [place] [address] [email or web address] documented as of this encounter Results * [...] provided indication for this examination in Epic: degeration of lumbar intervertebral disc REQUESTED INDICATION: [...] clinician's provided indication for this examination in Epic:degeration of lumbar intervertebral disc REQUESTED INDICATION: degeration [...] disc documented in this encounter Care Teams Emergency Response Officer Relationship Specialty Start Date End Date Ishan Andrews DO PCP - General Internal Medicine 08/01/17 03/17/25 Ishan Andrews DO [address] [place] [address] PCP - General Internal Medicine 03/18/25 documented as of this encounter Additional Source Comments The information contained in this document represents components of the legal health record. It is not the complete legal health record.[facility]
--- OUTSIDE RECORDS SUMMARY | 2025-04-14 18:58 | XMS_ITS | Encounter Summary ---
Author Organization [facility] Address [address] [facility] [address] [place] [address] Phone Care Team Providers Care Tray Casting Machine Operator Name Role Phone Ishan Andrews DO Primary Care Provider [phone] KarenIshan pacheco DO Primary Care Provider [phone] Encounter Details Date Type Department Care Team (Late st Contact Info) Description 05/17/2024 Procedure Pass [facility], [address] [address] Social History Tobacco Use Types Packs/Day Years [...] 2:00 PM EST Office Visit [facility] [address] [place] [address] Laya Erazo MD [address] [place] [address] documented as of this encounter Visit Diagnoses Not on filedocumented in this encounter Care Teams Tray Casting Machine Operator Relationship Specialty Start Date End Date Ishan Andrews DO PCP - General Internal Medicine 08/01/17 03/17/25 Ishan Andrews DO [address] [place] [address] PCP - General Internal Medicine 03/18/25 documented as of this encounter Additional Source Comments The information contained in this document represents components of the legal health record. It is not the complete legal health record.[facility]
--- OUTSIDE RECORDS SUMMARY | 2025-04-14 18:58 | XMS_ITS | Encounter Summary ---
Author Organization [facility] Address [address] [place] [address] [place] [address] Phone Care Team Providers Care Drying Tunnel Operator Name Role Phone Ishan Andrews Primary Care Provider [phone] Ishan Andrews DO Primary Care Provider [phone] Encounter Details Date Type Department Care Team (Late st Contact Info) Description 08/10/2022 Procedure Pass OR Admitting Dept - Virtual Department [address] [place] [address] Social History Tobacco Use Types Packs/Day Years Used Date Smoking Tobacco: Former Cigarettes 0.5 20 1 973 - 1992 Smokeless Tobacco: Never Alcohol Use Standard Drinks/Week [...] 08/10/2022 6:22 PM Gem Gandhi RN * [place] Suicide Severity Rating Scale (Screener/Recent Self-Report) Question Answer Date of Assessment Author 1. Wish to be (Past 1 Month) No 023 6:22 PM Gem Gandhi, MATT 2. Non-Specific Active Suici clover Thoughts (Past 1 Month) No 08/10/2022 6:22 PM EST Delio Beltran RN 6. Suicidal Behavior (Lifetime) No 6:22 PM Gem Gandhi, RN documented as of this encounter Plan of Treatment Upcoming Encounters Date Type Department Care Team (Late st Contact Info) Description 06/09/2025 2:00 PM EST Office Visit [facility] [address] [place] [address] Laya Erazo MD [address] [place] [address] documented as of this encounter Visit Diagnoses Not on filedocumented in this encounter Care Teams Drying Tunnel Operator Relationship Specialty Start Date End Date Ishan Andrews DO [email or web address] PCP - General Internal Medicine 08/01/17 03/17/25 Ishan Andrews DO [address] [place] [address] PCP - General Internal Medicine 03/18/25 documented as of this encounter Additional Source Comments The information contained in this document represents components of the legal health record. It is not the complete legal health record.[facility]
--- OUTSIDE RECORDS SUMMARY | 2025-04-14 18:59 | XMS_ITS | Encounter Summary ---
Author Organization [facility] Address [address] [facility] [address] [place] [address] Phone Care Team Providers Care Champion Of Sustainable Design Name Role Phone Karenjunior Ishan Flower DO Primary Care Provider [phone] Ishan Andrews DO Primary Care Provider [phone] Encounter Details Date Type Department Care Team (Late st Contact Info) Description 08/01/2017 Transcribe Orders [facility] [address] [place] [address] Ishan Andrews DO [address] [facility] [place] [address] Essential hypertension, benign (Primary Dx) Social History [...] 2:00 PM EST Office Visit [facility] [address] [place] [address] [place] [address] Laya Erazo MD [address] [place] [address] documented as of this encounter Results * (ABNORMAL) PSA (screening) (08/01/2017 10:35 AM EST) PSA 4.96(H) 0 - 4.00 ng/mL [facility] Blood 08/01/2017 10:3 5 AM EST 08/01/2017 10:39 AM EST us [facility] Final Resul t Performing Organization Address City/[facility]/ZIP Co de Phone Number [address] [address] * (ABNORMAL) Lipid panel (08/01/2017 10:35 AM EST) Pathologist [facility] HDL 35 mg/dL [facility] Comment: Interpretation: Risk Level Males Decreased >45 mg/dL Average 40-45 mg/dL Increased <40 mg/dL CHOLESTEROL 181 0 - 240 mg/dL [facility] TRIGLYCERIDES 281(H) 30 - 160 mg/dL [facility] LDL 90 50 - 129 mg/dL [facility] Comment: LDL levels in terms of risk for coronary heart disease: <100 mg/dL: Optimal 100-129 mg/dL: Near or above optimal 130-159 mg/dL: Borderline high 160-189 mg/dL: High >190 mg/dL: Very High CARDIAC RISK RATIO 5.2(H) 3.4 - 5.0 [facility] Blood 08/01/2017 10:3 5 AM EST 08/01/2017 10:40 AM EST us Ishan A Bigda DO LAB BLOOD ORDERABLES Final Resul t Performing Organization Address [facility]/ZIP Co de Phone Number [address] [address] * (ABNORMAL) Comprehensive metabolic panel (08/01/2017 10:35 AM EST) SODIUM 142 133 - 146 mmol/L [facility] POTASSIUM 4.4 3.3 - 5.1 mmol/L [facility] CHLORIDE 104 96 - 108 mmol/L [facility] CO2 30 21 - 35 mmol/L [facility] BUN 18 6 - 19 mg/dL [facility] CREATININE 0.90 0.5 - 1.5 mg/dL [facility] GLUCOSE 125(H) 70 - 99 mg/dL [facility] ALBUMIN 4.0 3.9 - 4.8 g/dL [facility] TOTAL PROTEIN 7.3 6.5 - 8.0 g/dL [facility] CALCIUM 8.9 8.4 - 10.3 mg/dL [facility] ALKALINE PHOSPHATASE 98 39 - 117 U/L [facility] TOTAL BILIRUBIN 0.4 0 - 1.2 mg/dL [facility] AST 32 0 - 37 U/L [facility] ALT 32 0 - 40 U/L [facility] GLOBULIN 3.3 1 - 4.8 g/dL [facility] EGFR >60 60 - 1000 mL/min/1.7 3m2 [facility] Comment:Abnormal if <60. If patient is -Italian, multiply the result by 1.21. ANION GAP 12 10 - 20 mmol/L [facility] Blood 08/01/2017 10:3 5 AM EST 08/01/2017 10:40 AM EST us Ishan Andrews DO LAB BLOOD ORDERABLES Final Resul t Performing Organization Address City/State/[facility] Co de Phone Number [facility] [address] [place] [address] documented in this encounter Visit Diagnoses Diagnosis Essential hypertension, benign- Primary documented in this encounter Care Teams Champion Of Sustainable Design Relationship Specialty Start Date End Date Ishan Andrews DO [email or web address] PCP - General Internal Medicine 08/01/17 03/17/25 Ishan Andrews DO [address] [place] [address] PCP - General Internal Medicine 03/18/25 documented as of this encounter Additional Source Comments The information contained in this document represents components of the legal health record. It is not the complete legal health record.[facility]
--- OUTSIDE RECORDS SUMMARY | 2025-04-14 18:59 | XMS_ITS | Encounter Summary ---
Author Organization [facility] Address [address] [facility] [address] [place] [address] Phone Care Team Providers Care News Operations Manager Name Role Phone Karenjunior Ishan Flower DO Primary Care Provider [phone] Ishan Andrews DO Primary Care Provider [phone] Encounter Details Date Type Department Care Team (Late st Contact Info) Description 02/06/2025 Ancillary Orders [facility], X-Ray - [facility] [address] [place] [address] Ishan Andrews DO [address] [facility] [place] [address] [place] [address] [email or web address] Pleurodynia (Primary Dx) Social History Tobacco Use [...] 2:00 PM EST Office Visit [facility] [address] [place] [address] Laya Erazo MD [address] [place] [address] [email or web address] documented as of this encounter Results [...] for this examination in [facility]: Pain COMPARISON: Chest x-ray dated 10/22/2024 FINDINGS: No displaced rib fracture identified. PA evaluation of the chest demonstrates no focal consolidation, pleural effusion, pulmonary edema, or pneumothorax. Cardiomediastinal silhouette appears stable. Procedure Note Libraod Gayle MD - 02/07/2025 XR RIBS 4 OR MORE VIEWS WITH PA CHEST (BILATERAL) Referring clinician's provided indication for this examination in Epic:Pain COMPARISON: Chest x-ray dated 10/22/2024 FINDINGS: No displaced rib fracture identified. PA evaluation of the chest demonstrates no focal consolidation, pleuraleffusion, pulmonary edema, or pneumothorax. Cardiomediastinal silhouetteappears stable. IMPRESSION: No displaced rib fracture identified. Ishan Andrews DO IMG XR CHEST Final Result documented in this encounter Visit Diagnoses Diagnosis Pleurodynia- Primary Painful respiration Pleurodynia Painful respiration Pleurodynia Painful respiration documented in this encounter Care Teams News Operations Manager Relationship Specialty Start Date End Date Ishan Andrews DO PCP - General Internal Medicine 08/01/17 03/17/25 Ishan Andrews DO [address] [place] [address] PCP - General Internal Medicine 03/18/25 documented as of this encounter Additional Source Comments The information contained in this document represents components of the legal health record. It is not the complete legal health record.[facility]
--- OUTSIDE RECORDS SUMMARY | 2025-04-14 18:59 | XMS_ITS | Encounter Summary ---
Author Organization [facility] Address [address] [facility] [address] [place] [address] Phone Care Team Providers Care Pulvi Mixer Operator Name Role Phone Ishan Andrews DO Primary Care Provider [phone] Ishan Andrews DO Primary Care Provider [phone] Reason for Referral * MRI/CAT Scan - Closed Specialty Diagnoses / Procedures Referred By Jeremiah hawkins Referred To Contact Radiology Diagnoses Pain in thoracic spine Procedures MRI Thoracic Spine Ishan Andrews DO [address] [facility] [address] [place], [place] Phone: tel: fax: [email or web address] Referral ID Status Reason Start Date Expiration Date Visits Re quested Visits Authorized [id number] Closed 02/13/2025 02/13/2026 1 1 Encounter Details Date Type Department Care Team (Late st Contact Info) Description 02/13/2025 Transcribe Orders Virtual Department [address] [place] [address] Ishan Andrews DO [address] [place] [address] [email or web address] Pain in thoracic spine (Primary Dx) Social [...] PM EST Office Visit [facility] [address] [place] [address] Laya Erazo MD [address] [address] [email or web address] documented as of this encounter Results * MRI THORACIC SPINE (NEURO) WITHOUT CONTRAST (03/18/2025 7:31 PM EDT) Anatomical Region Laterality Modality T-spine Magnetic Resonan ce 03/19/2025 8:57 AM EDT Impressions 03/19/2025 9:05 AM EDT No significant spinal canal or foraminal stenosis in the thoracic spine. Narrative 03/19/2025 9:05 AM EDT MRI THORACIC SPINE (NEURO) WITHOUT CONTRAST Referring clinician's provided indication for this examination in [facility]: Outside Radiology Order; thoracic pain TECHNIQUE: MRI THORACIC SPINE (NEURO) WITHOUT CONTRAST Multi-sequence, multi-planar MRI of the thoracic spine was performed without intravenous contrast. COMPARISON: None FINDINGS: THORACIC SPINE: Alignment and Vertebrae: Normal alignment. No compression fracture. Marrow: Probable hemangioma in T6, T10, T11 and T12 vertebral bodies Discs and Endplates: Mild multilevel loss of disc height with disc desiccation. No significant spinal foraminal stenosis. Minimal disc bulges, especially at T6-T7, T7-T8 and T8-T9. Spinal Cord: No spinal cord compression or signal abnormality. Soft Tissue: No prevertebral edema. Other Findings: None. Procedure Note Cirilo Bedolla MD, PhD - 03/19/2025 MRI THORACIC SPINE (NEURO) WITHOUT CONTRAST Referring clinician's provided indication for this examination in [facility]:Outside Radiology Order; thoracic pain TECHNIQUE: MRI THORACIC SPINE (NEURO) WITHOUT CONTRAST Multi-sequence, multi-planar MRI of the thoracic spine was performedwithout intravenous contrast. COMPARISON: None FINDINGS: THORACIC SPINE: Alignment and Vertebrae: Normal alignment. No compression fracture. Marrow: Probable hemangioma in T6, T10, T11 and T12 vertebral bodies Discs and Endplates: Mild multilevel loss of disc height with discdesiccation. No significant spinal foraminal stenosis. Minimal discbulges, especially at T6-T7, T7-T8 and T8-T9. Spinal Cord: No spinal cord compression or signal abnormality. Soft Tissue: No prevertebral edema. Other Findings: None. IMPRESSION: No significant spinal canal or foraminal stenosis in the thoracic spine. us Ishan A Bigda DO IMG MR XSPECIALTY Final Result documented in this encounter Visit Diagnoses Diagnosis Pain in thoracic spine- Primary Pain in thoracic spine documented in this encounter Care Teams Pulvi Mixer Operator Relationship Specialty Start Date End Date Ishan Andrews DO PCP - General Internal Medicine 08/01/17 03/17/25 Ishan Andrews DO [address] [place] [address] [email or web address] PCP - General Internal Medicine 03/18/25 documented as of this encounter Additional Source Comments The information contained in this document represents components of the legal health record. It is not the complete legal health record.[facility]
--- OUTSIDE RECORDS SUMMARY | 2025-04-14 18:59 | XMS_ITS | Encounter Summary ---
Author Organization [facility] Address [address] [address] Phone Care Team Providers Care Air Conditioning Service Technician Name Role Phone Karenjunior Ishan Flower DO Primary Care Provider [phone] Ishan Andrews DO Primary Care Provider [phone] Encounter Details Date Type Department Care Team (Late Contact Info) Description 04/24/2019 Ancillary Orders Virtual Department [address] [place] [address] Ishan Andrews DO [address] [facility] [place] [address] [place] [address] [email or web address] Abdominal aortic aneurysm (AAA) without rupture; Encounter [...] Upcoming Encounters Date Type Department Care Team ([facility] Contact Info) Description 06/09/2025 2:00 PM EST Office Visit [facility] [address] [place] [address] Laya Erazo MD [address] [place] [phone] [email or web address] documented as of this encounter Results * [...] disorders documented in this encounter Care Teams Air Conditioning Service Technician Relationship Specialty Start Date End Date Ishan Andrews DO PCP - General Internal Medicine 08/01/17 03/17/25 Ishan Andrews DO [address] [place] [address] PCP - General Internal Medicine 03/18/25 documented as of this encounter Additional Source Comments The information contained in this document represents components of the legal health record. It is not the complete legal health record.[facility]
--- OUTSIDE RECORDS SUMMARY | 2025-04-14 18:59 | XMS_ITS | Encounter Summary ---
Author Organization [facility] Address [address] [facility] [address] [place] [address] Phone Care Team Providers Care Scientific Helper Name Role Phone Karenjunior Ishan Flower DO Primary Care Provider [phone] Ishan Andrews DO Primary Care Provider [phone] Encounter Details Date Type Department Care Team (Late Contact Info) Description 10/16/2017 Transcribe Orders [facility] [address] [place] [address] Ishan Andrews DO [address] [place] [address] Impaired fasting glucose (Primary Dx); Elevated prostate [...] PM EST Office Visit [facility] [address] [place] [address] Laya Erazo MD [address] [place] [address] [phone] [email or web address] documented as of this encounter Results * (ABNORMAL) PSA (screening) (10/16/2017 10:45 AM EDT) PSA 5.71(H) 0 - 4.00 ng/mL [facility] Blood 10/16/2017 10:4 5 AM EDT 10/16/2017 10:50 AM EDT us Ishan A Bigda DO LAB BLOOD ORDERABLES Final Resul t [address] [address] * Hemoglobin A1c (10/16/2017 10:45 AM EDT) HEMOGLOBIN A1C 5.7 4.3 - 5.8 % [facility] Blood 10/16/2017 10:4 5 AM EDT 10/16/2017 10:49 AM EDT us Ishan A Karenda DO LAB BLOOD ORDERABLES Final Resul t Performing Organization Address City/[facility]/ZIP Co de Phone Number [address] [address] documented in this encounter Visit Diagnoses Diagnosis Impaired fasting glucose- Primary Elevated prostate specific antigen (PSA) documented in this encounter Care Teams Scientific Helper Relationship Specialty Start Date End Date Ishan Andrews DO [email or web address] PCP - General Internal Medicine 08/01/17 03/17/25 Ishan Andrews DO [address] [place] [address] [email or web address] PCP - General Internal Medicine 03/18/25 documented as of this encounter Additional Source Comments The information contained in this document represents components of the legal health record. It is not the complete legal health record.[facility]
--- OUTSIDE RECORDS SUMMARY | 2025-04-14 18:59 | XMS_ITS | Encounter Summary ---
Author Organization [facility] Address [address] [place] [address] Phone Care Team Providers Care Family Medicine Chair Name Role Phone Ishan Andrews DO Primary Care Provider [phone] Ishan Andrews DO Primary Care Provider [phone] Encounter Details Date Type Department Care Team (Late st Contact Info) Description 12/23/2024 Procedure Pass [facility], Ct Scan - [address] [address] Social History Tobacco Use Types Packs/Day Years [...] PM EST Office Visit [facility] [address] [place] [address] Laya Erazo MD [address] [place] [address] documented as of this encounter Visit Diagnoses Not on filedocumented in this encounter Care Teams Family Medicine Chair Relationship Specialty Start Date End Date Ishan Andrews DO PCP - General Internal Medicine 08/01/17 03/17/25 Ishan Andrews DO [address] [place] [address] PCP - General Internal Medicine 03/18/25 documented as of this encounter Additional Source Comments The information contained in this document represents components of the legal health record. It is not the complete legal health record.[facility]
--- OUTSIDE RECORDS SUMMARY | 2025-04-14 18:59 | XMS_ITS | Encounter Summary ---
Author Organization [facility] Address [address] [place] [address] Phone Care Team Providers Care Wall Mirror Department Supervisor Name Role Phone Ishan Andrews DO Primary Care Provider [phone] Ishan Andrews DO Primary Care Provider [phone] Encounter Details Date Type Department Care Team (Late Contact Info) Description 03/11/2021 Procedure Pass Non-Invasive Cardiology [address] [place] [address] Social History Tobacco Use Types Packs/Day Years [...] 2:00 PM EST Office Visit [facility] [address] [place] [address] Laya Erazo MD [address] [place] [address] documented as of this encounter Visit Diagnoses Not on filedocumented in this encounter Care Teams Wall Mirror Department Supervisor Relationship Specialty Start Date End Date Ishan Andrwes DO [email or web address] PCP - General Internal Medicine 08/01/17 03/17/25 Ishan Andrews DO [address] [place] [address] [email or web address] PCP - General Internal Medicine 03/18/25 documented as of this encounter Additional Source Comments The information contained in this document represents components of the legal health record. It is not the complete legal health record.[facility]
--- OUTSIDE RECORDS SUMMARY | 2025-04-14 18:59 | XMS_ITS | Encounter Summary ---
Author Organization [facility] Address [address] [address] Phone Care Team Providers Care Cut Out Operator Name Role Phone KarenIshan pacheco Mundo GRACE Primary Care Provider [phone] Ishan Andrews DO Primary Care Provider [phone] Encounter Details Date Type Department Care Team (Late Contact Info) Description 09/22/2017 Ancillary Orders Virtual Department 30 [place] [address] Ishan Andrews DO [address] [facility] [place] [address] [email or web address] Chronic sinusitis, unspecified location; Fever, unspecified fever [...] 2:00 PM EST Office Visit [facility] [address] [place] [address] Laya Erazo MD [address] [place] [address] documented as of this encounter Visit Diagnoses Diagnosis Chronic sinusitis, unspecified location Fever, unspecified fever cause Facial pain Headache documented in this encounter Care Teams Cut Out Operator Relationship Specialty Start Date End Date Ishan Andrews DO [email or web address] PCP - General Internal Medicine 08/01/17 03/17/25 Ishan Andrews DO [address] [place] [address] [email or web address] PCP - General Internal Medicine 03/18/25 documented as of this encounter Additional Source Comments The information contained in this document represents components of the legal health record. It is not the complete legal health record.[facility]
--- OUTSIDE RECORDS SUMMARY | 2025-04-14 18:59 | XMS_ITS | Encounter Summary ---
Author Organization [facility] Address [address] [facility] [address] [place] [address] Phone Care Team Providers Care Corporate Strategy Associate Name Role Phone Karenjunior Ishan Flower DO Primary Care Provider [phone] Ishan Andrews DO Primary Care Provider [phone] Encounter Details Date Type Department Care Team (Late st Contact Info) Description 10/22/2024 Ancillary Orders [facility], X-Ray - [facility] [address] [place] [address] Ishan Andrews DO 179 [facility] [place] [address] [email or web address] Bilateral interstitial pneumonia (Primary Dx) Social History [...] PM EST Office Visit [facility] [address] [place] [address] [place] [address] Laya Erazo MD [address] [place] [address] [email or web address] documented as of this encounter Results * [...] If symptoms persist, consider follow-up chest CT us Ishan Andrews DO IMG XR CHEST Final Result documented in this encounter Visit Diagnoses Diagnosis Bilateral interstitial pneumonia- Primary Bilateral interstitial pneumonia documented in this encounter Care Teams Corporate Strategy Associate Relationship Specialty Start Date End Date Ishan Andrews DO PCP - General Internal Medicine 08/01/17 03/17/25 Ishan Andrews DO [address] [place] [address] PCP - General Internal Medicine 03/18/25 documented as of this encounter Additional Source Comments The information contained in this document represents components of the legal health record. It is not the complete legal health record.[facility]
--- OUTSIDE RECORDS SUMMARY | 2025-04-14 18:59 | XMS_ITS | Encounter Summary ---
Author Organization [facility] Address [address] [facility] [address] [place] [address] Phone Care Team Providers Care Cook Candy Name Role Phone Ishan Andrews DO Primary Care Provider [phone] KarenIshan pcaheco DO Primary Care Provider [phone] Encounter Details Date Type Department Care Team (Late st Contact Info) Description 02/13/2025 Procedure Pass [facility], [address] [address] Social History Tobacco Use Types Packs/Day Years [...] 2:00 PM EST Office Visit [facility] [address] [place] [address] Laya Erazo MD [address] [place] [address] documented as of this encounter Visit Diagnoses Not on filedocumented in this encounter Care Teams Cook Candy Relationship Specialty Start Date End Date Ishan Andrews DO PCP - General Internal Medicine 08/01/17 03/17/25 Ishan Andrews DO [address] [place] [address] PCP - General Internal Medicine 03/18/25 documented as of this encounter Additional Source Comments The information contained in this document represents components of the legal health record. It is not the complete legal health record.[facility]
--- OUTSIDE RECORDS SUMMARY | 2025-04-14 18:59 | XMS_ITS | Encounter Summary ---
Author Organization [facility] Address [address] [facility] [address] [place] [address] Phone Care Team Providers Care Blueprint Engineer Name Role Phone Karenjunior Ishan Flower DO Primary Care Provider [phone] Ishan Andrews DO Primary Care Provider [phone] Encounter Details Date Type Department Care Team (Late st Contact Info) Description 09/18/2017 Ancillary Orders [facility], X-Ray - [facility] [address] [place] [address] Ishan Andrews DO 179 [facility] [place] [address] [email or web address] Chronic pain of both knees Social History [...] 2:00 PM EST Office Visit [facility] [address] [place] [address] Laya Erazo MD [address] [place] [address] documented as of this encounter Results * [...] with minimal progression relative to prior imaging [id number]. S/S: Left knee pain, osteoarthritis POS - [...] pain, osteoarthritis POS - [id number] us Ishan Andrews DO IMG XR LOWER EXTREMITY Final Res ult documented in this encounter Visit Diagnoses Diagnosis Chronic pain of both knees Chronic pain of both knees Chronic pain of both knees Chronic pain of both knees documented in this encounter Care Teams Blueprint Engineer Relationship Specialty Start Date End Date Ishan Andrews DO [email or web address] PCP - General Internal Medicine 08/01/17 03/17/25 Ishan Andrews DO [address] [place] [address] PCP - General Internal Medicine 03/18/25 documented as of this encounter Additional Source Comments The information contained in this document represents components of the legal health record. It is not the complete legal health record.[facility]
--- OUTSIDE RECORDS SUMMARY | 2025-04-14 18:59 | XMS_ITS | Clinical Summary ---
Author Organization [facility] Address [address] [facility] [address] [place] [address] Phone Care Team Providers Care Steep Tender Name Role Phone Ishan Andrews Primary Care Provider [phone] Allergies Active Allergy Reactions Criticality Noted Date [...] 30 days. Active cyanocobalamin/ folic acid (VITAMIN G21-[id number] ACID) 1,000-[address] 1 tablet [...] coronary syndromes including unstable or severe angina, NH within 1 month, severe CHF, high grade [...] Encounters Date Type Department Care Team Description 03/18/2025 6:25 PM EDT - 03/18/2025 11:59 PM EDT Hospital Encounter [address] [address] Ishan Andrews, DO Discharge Disposition: Home or Self Care 02/13/2025 Procedure Pass [address] [address] 02/13/2025 Transcribe Orders Virtual Department [address] [place] [address] Ishan Andrews, Pain in thoracic spine (Primary Dx) 02/06/2025 3:39 PM EDT - 02/06/2025 11:59 PM EDT Hospital Encounter [address] [address] Ishan Andrews, Discharge Disposition: Home or Self Care 02/06/2025 3:39 PM EDT - 02/06/2025 11:59 PM EDT Hospital Encounter [address] [address] Ishan Andrews, DO Discharge Disposition: Home or Self Care 02/06/2025 Ancillary Orders [address] [place] [address] Ishan Andrews, Pleurodynia (Primary Dx) from Last 3 Months Family History Medical [...] EDT Inhaled Oxygen Concentration - - Weight 111.1 kg (245 lb) 03/14/2025 10:25 AM EDT Height 172.7 cm (5' 8 ) 03/14/2025 10:25 AM EDT Body Mass Index 37.25 03/14/2025 10:25 AM EDT Plan of Treatment Upcoming Encounters Date Type Department Care Team (Late st Contact Info) Description 06/09/2025 2:00 PM EST Office Visit [facility] [address] [place] [address] [place] [address] Laya Erazo MD [address] [place] [address] [email or web address] Health Maintenance Due Date Last Done Comments Adult Td,Tdap Booster 1953 DEPRESSION SCREENING 1965 ZOSTER VACCINES (1 of 2) 01/14/1972 COLOGUARD 1998 COLONOSCOPY 1998 COLORECTAL CANCER SCREENING 1998 FIT TEST 1998 FOBT 1998 SIGMOIDOSCOPY 1998 VIRTUAL COLONOSCOPY 1998 RSV VACCINE (1 - Risk 50-74 years 1-dose series) 2003 LIPID PANEL 08/25/2024 08/26/2019, 08/01/2017 INFLUENZA VACCINE [...] this topic Medical Devices Implanted Type Area Line Haul Truck Driver Device Identifier Shelf Expiration Date Model / Serial / Lot Joe Joe Spine Lumbar Description:L4 L5 Cement Bone 1x40 Standard - [id number] Implanted:Qty: 1 on 08/10/2022 by Shawn Charles MD at [facility] Right: Knee [employer]NA [employer] 06/25/2024 [id number] / / [id number] Box Component 70mm Femoral Knee Vanguard Interlok Adkins Posterior Stabilized Open Cemented Right - [id number] Implanted:Qty: 1 on 08/10/2022 by Shawn Charles MD at [facility] Right: Knee [employer] 08/17/2030 [id number] / / [id number] Knee Tray 79mm Plate Bone Primary Vanguard Adkins I Beam Revision Interlock Cemented - [id number] Implanted:Qty: 1 on 08/10/2022 by Shawn Charles MD at [facility] Right: Knee [employer] 03/23/2032 [id number] / / [id number] Knee Implant 24a95uv Patella Asymmetric - [id number] Implanted:Qty: 1 on 08/10/2022 by Shawn Charles MD at [facility] Right: Knee [employer] 02/07/2027 [id number] / / [id number] Knee Bearing 79 52w33gy Vanguard Stabilized - [id number] Implanted:Qty: 1 on 08/10/2022 by Shawn Charles MD at [facility] Right: Knee [employer] 02/05/2027 [id number] / / [id number] Knee Tray 79mm Plate Bone Primary Vanguard Adkins I Beam Revision Interlock Cemented - [id number] Implanted:Qty: 1 on 09/13/2023 by Shawn Charles MD at [facility] Left: Knee [employer] 08/30/2032 [id number] / / [id number] Knee Bearing Tibial 18x79 To 83mm Implant Insert Vanguard Ps 05 - [id number] Implanted:Qty: 1 on 09/13/2023 by Shawn Charles MD at [facility] Left: Knee [employer] [id number] 04/28/2028 [id number] / / [id number] Cement Bone 1x40 Standard - [id number] Implanted:Qty: 2 on 09/13/2023 by Shawn Charles MD at [facility] Left: Knee [employer] [id number] 01/23/2026 [id number] / / [id number] Box Component 67.5mm Femoral Knee Vanguard Interlok Adkins Posterior Stabilized Open Cemented Left - [id number] Implanted:Qty: 1 on 09/13/2023 by Shawn Charles MD at [facility] Left: Knee [employer] [id number] 06/27/2033 [id number] / / [id number] Knee Implant [id number] Patella Asymmetric - [id number] Implanted:Qty: 1 on 09/13/2023 by Shawn Charles MD at [facility] Left: Knee [employer]NA [employer] 12/18/2025 [id number] / / [id number] Procedures Procedure Name Priority Date/Time Associated Diagnosis Comments MRI THORACIC SPINE (NEURO) WITHOUT CONTRAST Routine 03/18/2025 7:31 PM EDT Pain in thoracic spine XR THORACIC SPINE 2 VIEW Routine 02/06/2025 4:01 PM EDT Pleurodynia XR RIBS 4 OR MORE VIEWS WITH PA CHEST (BILATERAL) Routine 02/06/2025 4:[address] ABDOMEN/PELVIS WITH CONTRAST Routine 12/31/2024 7:29 PM EDT RUQ pain LIPID PANEL Routine 08/26/2019 9:53 AM EST Elevated prostate specific antigen (PSA) Routine general medical examination at a health care facility HEPATITIS C ANTIBODY, QUALITATIVE Routine 08/26/2019 9:53 AM EST Elevated prostate specific antigen (PSA) Routine general medical examination at a health care facility from Last 3 Months or Most Recently Relevant to Health Maintenance Results * MRI THORACIC SPINE (NEURO) WITHOUT CONTRAST (03/18/2025 7:31 PM EDT) Anatomical Region Laterality Modality T-spine Magnetic Resonan ce 03/19/2025 8:57 AM EDT Impressions 03/19/2025 9:05 AM EDT No significant spinal canal or foraminal stenosis in the thoracic spine. Narrative 03/19/2025 9:05 AM EDT MRI THORACIC SPINE (NEURO) WITHOUT CONTRAST Referring clinician's provided indication for this examination in Epic: Outside Radiology Order; thoracic pain TECHNIQUE: MRI [...] for this examination in Epic:Outside Radiology Order; thoracic pain TECHNIQUE: MRI THORACIC [...] Bigda DO IMG MR XSPECIALTY Final Result * XR THORACIC SPINE 2 VIEW (02/06/2025 [...] clinician's provided indication for this examination in [facility]: Pain COMPARISON: Chest x-ray dated 10/22/2024 FINDINGS: No displaced rib fracture identified. PA evaluation of the chest demonstrates no focal consolidation, pleural effusion, pulmonary edema, or pneumothorax. Cardiomediastinal silhouette appears stable. Procedure Note Librado Gayle MD - 02/07/2025 XR RIBS 4 OR MORE VIEWS WITH PA CHEST (BILATERAL) Referring clinician's provided indication for this examination in [facility]:Pain COMPARISON: Chest x-ray dated 10/22/2024 FINDINGS: No [...] IMG CT ABD/PELVIS Final Res ult * Hepatitis C antibody, qualitative (08/26/2019 9:53 AM EST) HCV NON-REACTIV E NON-REACTI VE [facility] Blood 08/26/2019 9:53 AM EST 08/26/2019 9:57 AM EST us Ishan A Bigda DO LAB BLOOD ORDERABLES Final Resul t [address] [address] * (ABNORMAL) Lipid panel (08/26/2019 9:53 AM EST) HDL 41 mg/dL [facility] Comment: Interpretation <40 mg/dL: Low HDL cholesterol (major risk factor for CHD) Greater than or equal to 60 mg/dL: High HDL cholesterol ( negative risk factor for CHD) HDL - cholesterol is affected by a number of factors, e.g. smoking, excerise, hormones, sex and age. CHOLESTEROL 172 0 - 240 mg/dL [facility] TRIGLYCERIDES 196(H) 30 - 160 mg/dL [facility] LDL 92 50 - 129 mg/dL [facility] Comment: LDL levels in terms of risk for coronary heart disease: <100 mg/dL: Optimal 100-129 mg/dL: Near or above optimal 130-159 mg/dL: Borderline high 160-189 mg/dL: High >190 mg/dL: Very High CARDIAC RISK RATIO 4.2 3.4 - 5.0 [facility] Blood 08/26/2019 9:53 AM EST 08/26/2019 9:57 AM EST us Ishan A Bigda DO LAB BLOOD ORDERABLES Final Resul t [address] [address] from Last 3 Months or Most Recently Relevant to Health Maintenance Insurance MEDICARE REPLACEMENT MEDICARE REPLACEMENT MEDICARE REPLACEMENT Member Subscriber Plan / Payer (Ef fective 2021-Present) Name:Rod Marroquin Relation to Subscriber:Self Name:Rod Marroquin Payer ID:[id number] (NAIC) Type:Medicare Address: [place] [id number] MEDICARE REPLACEMENT Member Subscriber Plan / Payer (Ef fective 2021-Present) Name:Rod Marroquin Relation to Subscriber:Self Name:Rod Marroquin Payer ID:[id number] (NAIC) Type:Medicare Address: [place] [id number] MEDICARE REPLACEMENT Member Subscriber Plan / Payer (Ef fective 2021-Present) Name:Rod Marroquin Relation to Subscriber:Self Name:Rod Marroquin Payer ID:[id number] (NAIC) Type:Medicare Address: [place] [id number] MEDICARE REPLACEMENT Member Subscriber Plan / Payer (Ef fective 2021-Present) Name:Rdo Marroquin Relation to Subscriber:Self Name:Rod Marroquin Payer ID:[id number] (NAIC) Type:Medicare Address: [place] [id number] MEDICARE REPLACEMENT Advance Directives For more information, please contact: [phone] (9AM - 5PM [facility], Monday-Monday) Documents on File Type Date Recorded Patient Food And Beverage Service Manager Expl anation Healthcare Proxy 08/16/2022 2:27 PM * Full Code (Latest Code Status on File) Date Activated Date Inactivated Comments 09/13/2023 10:47 AM Question Answer Comments Code Status Confirmed With: Patient * Full Code Date Activated Date Inactivated Comments 08/10/2022 8:49 AM 09/13/2023 10:47 AM Question Answer Comments Code Status Confirmed With: Patient Care Teams Steep Tender Relationship Specialty Start Date End Date Ishan Andrews DO [address] [place] [address] [email or web address] PCP - General Internal Medicine 03/18/25 Additional Source Comments The information contained in this document represents components of the legal health record. It is not the complete legal health record.[facility]
--- OUTSIDE RECORDS SUMMARY | 2025-04-14 18:59 | XMS_ITS | Encounter Summary ---
Author Organization [facility] Address [address] [facility] [address] [place] [address] Phone Care Team Providers Care Batt Packer Name Role Phone Ishan Andrews DO Primary Care Provider [phone] Ishan Andrews DO Primary Care Provider [phone] Encounter Details Date Type Department Care Team (Late st Contact Info) Description 09/13/2023 Procedure Pass OR Admitting Dept - Virtual Department [address] [place] [address] Social History Tobacco Use Types Packs/Day Years [...] Risk Indicated 09/13/2023 9:50 PM EDT Wang Banks, MATT * [place] Suicide Severity Rating Scale (Screener/Recent Self-Report) Question [...] 2:00 PM EST Office Visit [facility] [address] [place] [address] Laya Erazo MD [address] [place] [address] documented as of this encounter Visit Diagnoses Not on filedocumented in this encounter Care Teams Batt Packer Relationship Specialty Start Date End Date Ishan Andrews DO PCP - General Internal Medicine 08/01/17 03/17/25 Ishan Andrews DO [address] [place] [address] [email or web address] PCP - General Internal Medicine 03/18/25 documented as of this encounter Additional Source Comments The information contained in this document represents components of the legal health record. It is not the complete legal health record.[facility]
--- OUTSIDE RECORDS SUMMARY | 2025-04-14 18:59 | XMS_ITS | Encounter Summary ---
Author Organization [facility] Address [address] [address] Phone Care Team Providers Care Summer Law Clerk Name Role Phone Karenjunior Ishan Flower DO Primary Care Provider [phone] Ishan Andrews DO Primary Care Provider [phone] Encounter Details Date Type Department Care Team (Late Contact Info) Description 10/02/2017 Ancillary Orders Virtual Department [address] [place] [address] Ishan Andrews DO 179 [facility] [place] [address] [email or web address] Peripheral tear of medial [...] 2:00 PM EST Office Visit [facility] [address] [place] [address] Laya Erazo MD [address] [place] [phone] [email or web address] documented as of this encounter Visit Diagnoses Diagnosis Peripheral tear of medial meniscus of left knee as current injury, subsequent encounter Tear of medial meniscus of knee, unspecified laterality, unspecified tear type, unspecified whether old or current tear, initial encounter documented in this encounter Care Teams Summer Law Clerk Relationship Specialty Start Date End Date Ishan Andrews DO [email or web address] PCP - General Internal Medicine 08/01/17 03/17/25 Ishan Andrews DO [address] [place] [address] [email or web address] PCP - General Internal Medicine 03/18/25 documented as of this encounter Additional Source Comments The information contained in this document represents components of the legal health record. It is not the complete legal health record.[facility]
--- OUTSIDE RECORDS SUMMARY | 2025-04-14 18:59 | XMS_ITS | Encounter Summary ---
Author Organization [facility] Address [address] [facility] [address] [place] [address] Phone Care Team Providers Care Baby Sitter Name Role Phone Karenjunior Ishan Flower DO Primary Care Provider [phone] Ishan Andrews DO Primary Care Provider [phone] Encounter Details Date Type Department Care Team (Late st Contact Info) Description 10/27/2023 Ancillary Orders Virtual Department [address] [place] [address] Ishan Andrews DO 179 [facility] [place] [address] [place] [address] [email or web address] Pain in right hip (Primary Dx) Social [...] PM EST Office Visit [facility] [address] [place] [address] Laya Erazo MD [address] [place] [address] [email or web address] documented as of this encounter Results * [...] Primary documented in this encounter Care Teams Baby Sitter Relationship Specialty Start Date End Date Ishan Andrews DO [email or web address] PCP - General Internal Medicine 08/01/17 03/17/25 Ishan Andrews DO 179 [place] [address] PCP - General Internal Medicine 03/18/25 documented as of this encounter Additional Source Comments The information contained in this document represents components of the legal health record. It is not the complete legal health record.[facility]
--- OUTSIDE RECORDS SUMMARY | 2025-04-14 18:59 | XMS_ITS | Encounter Summary ---
Author Organization [facility] Address [address] [address] Phone Care Team Providers Care Mainframe Systems Engineer Name Role Phone KarenIshan pacheco Primary Care Provider [phone] Ishan Andrews DO Primary Care Provider [phone] Encounter Details Date Type Department Care Team (Late Contact Info) Description 04/24/2019 Transcribe Orders Virtual Department [address] [place] [address] Ishan Andrews DO [address] [facility] [place] [address] [place] [address] [email or web address] Abdominal aortic aneurysm [...] PM EST Office Visit [facility] [address] [place] [address] Laya Erazo MD [address] [place] [address] [phone] documented as of this encounter Visit Diagnoses Diagnosis Abdominal aortic aneurysm (AAA) without rupture- Primary documented in this encounter Care Teams Mainframe Systems Engineer Relationship Specialty Start Date End Date Ishan Andrews DO PCP - General Internal Medicine 08/01/17 03/17/25 Ishan Andrews DO [address] [place] [address] PCP - General Internal Medicine 03/18/25 documented as of this encounter Additional Source Comments The information contained in this document represents components of the legal health record. It is not the complete legal health record.[facility]
--- OUTSIDE RECORDS SUMMARY | 2025-04-14 19:00 | XMS_ITS | Encounter Summary ---
Author Organization [facility] Address [address] [facility] [address] [place] [address] Phone Care Team Providers Care Supervisor Force Adjustment Name Role Phone Ishan Andrews DO Primary Care Provider [phone] Ishan Andrews DO Primary Care Provider [phone] Reason for Referral * MRI/CAT Scan - Closed Specialty Diagnoses / Procedures Referred By Jeremiah hawkins Referred To Contact Radiology Diagnoses Other symptoms and signs involving cognitive functions and awareness Procedures MRI Brain Ishan Andrews DO Phone: tel: fax: [email or web address] Referral ID Status Reason Start Date Expiration Date Visits Re quested Visits Authorized [id number] Closed 05/17/2024 05/17/2025 1 1 Encounter Details Date Type Department Care Team (Late st Contact Info) Description 05/17/2024 Transcribe Orders Virtual Department [address] [place] [address] Ishan Andrews DO [address] [facility] [address] .[employer] Other symptoms and signs involving cognitive functions [...] 2:00 PM EST Office Visit [facility] [address] [place] [address] [place] [address] Laya Erazo MD [address] [address] documented as of this encounter Results * [...] in [facility]:impaired cognition TECHNIQUE: MRI BRAIN WITHOUT CONTRAST Multi-sequence, [...] or hemorrhage. There are scattered foci of [id number] in the white matter, likely a manifestation [...] awareness documented in this encounter Care Teams Supervisor Force Adjustment Relationship Specialty Start Date End Date Ishan Andrews DO [email or web address] PCP - General Internal Medicine 08/01/17 03/17/25 Ishan Andrews DO [address] [place] [address] PCP - General Internal Medicine 03/18/25 documented as of this encounter Additional Source Comments The information contained in this document represents components of the legal health record. It is not the complete legal health record.[facility]
--- OUTSIDE RECORDS SUMMARY | 2025-04-14 19:00 | XMS_ITS | Encounter Summary ---
Author Organization [facility] Address [address] [place] [address] Phone Care Team Providers Care Drift Miner Name Role Phone Karenjunior Ishan Mundo Primary Care Provider [phone] Karenjunior Ishan Mundo Primary Care Provider [phone] Reason for Referral * MRI/CAT Scan - Closed Specialty Diagnoses / Procedures Referred By Jeremiah hawkins Referred To Contact Radiology Diagnoses RUQ pain Procedures CT Abdomen/Pelvis Farzaneh Leiva PA [address] [place] [address] [place] [address] Phone: tel: fax: Referral ID Status Reason Start Date Expiration Date Visits Re quested Visits Authorized [id number] Closed 12/23/2024 12/23/2025 1 1 Encounter Details Date Type Department Care Team (Latest Contact Info) Description 12/23/2024 Transcribe Orders Virtual Department 30 [place] [address] Farzaneh Leiva PA [address] [place] [address] [place] [address] RUQ pain (Primary Dx) Social History Tobacco [...] 2:00 PM EST Office Visit [facility] [address] [place] [address] Laya Erazo MD [address] [place] [address] [email or web address] documented as of [...] quadrant documented in this encounter Care Teams Drift Miner Relationship Specialty Start Date End Date Ishan Andrews DO [email or web address] PCP - General Internal Medicine 08/01/17 03/17/25 Ishan Andrews DO [address] [place] [address] [email or web address] PCP - General Internal Medicine 03/18/25 documented as of this encounter Additional Source Comments The information contained in this document represents components of the legal health record. It is not the complete legal health record.[facility]
--- OUTSIDE RECORDS SUMMARY | 2025-04-14 19:00 | XMS_ITS | Encounter Summary ---
Author Organization [facility] Address [address] [place] [address] Phone Care Team Providers Care Academic Manager Name Role Phone Ishan Andrews DO Primary Care Provider [phone] Ishan Andrews Primary Care Provider [phone] Encounter Details Date Type Department Care Team (Latest Contact Info) Description 09/22/2022 Ancillary Orders [facility] [address] [place] [address] Shawn Charles MD [address] [place] [address] Orthopedics & Sports Medicine, [facility] [place], [place] [phone] [email or web address] Aftercare following joint replacement surgery Social [...] PM EST Office Visit [facility] [address] [place] [address] Laya Erazo MD [address] [place] [address] documented as of this encounter Results * [...] surgery documented in this encounter Care Teams Academic Manager Relationship Specialty Start Date End Date Ishan Andrews DO PCP - General Internal Medicine 08/01/17 03/17/25 Ishan Andrews DO [address] [place] [address] [place] [address] PCP - General Internal Medicine 03/18/25 documented as of this encounter Additional Source Comments The information contained in this document represents components of the legal health record. It is not the complete legal health record.[facility]
== END 2025-04-14 15:02 | disposition home or self-care (01) ==
LOC: HO.HMGAL 14:51
PROVIDERS: PCP Internal Medicine; Visit Provider Registered Nurse Emergency
DX: J30.89 Other allergic rhinitis (principal)
CPT/HCPCS: 95117; 95165

== ENCOUNTER 2025-05-12 15:00 | Outpatient (AMB) | payer MEDICARE, SELFPAY ==
--- OUTSIDE RECORDS SUMMARY | 2025-05-13 05:32 | XMS_ITS | Clinical Summary ---
Author Organization [facility] [place] [address] Care Team Providers Care Manager Parking Name Role Phone Ishan Andrews DO Primary Care Provider [phone] Allergies Active Allergy Reactions Criticality Noted Date [...] Health Maintenance Due Date Last Done Comments Colorectal Cancer Screening: Colonoscopy 1955 DTaP,Tdap,and Td Vaccines (1 - Tdap) 01/14/1972 RSV Immunization Adult Patients (1 - Risk 50-74 years 1-dose series) 2003 Zoster Vaccines (1 of 2) 2003 Falls Risk Assessment 05/15/2024 Medicare Annual Wellness [...] topic Insurance [employer] MEDICARE Care Teams Manager Parking Relationship Specialty Start Date End Date Ishan Andrews DO [address] [place] [phone] PCP - General Internal Medicine 07/25/24
== END 2025-05-12 15:01 | disposition home or self-care (01) ==
LOC: HO.HMGAL 15:00
PROVIDERS: PCP Internal Medicine; Visit Provider Registered Nurse Emergency
DX: J30.89 Other allergic rhinitis (principal)
CPT/HCPCS: 95117; 95165

== ENCOUNTER 2025-05-20 12:40 | Outpatient (REF) | payer MEDICARE, SELFPAY ==
--- OUTSIDE RECORDS SUMMARY | 2019-07-16 18:50 | XMS_ITS | Encounter Summary ---
Author Organization [facility] Address [address] [place] [address] Phone Care Team Providers Care Heating Repair Technician Name Role Phone Ishan Andrews Primary Care Provider [phone] Encounter Details Date Type Department Care Team (Late st Contact Info) Description 07/16/2019 6:50 PM EST Hospital Encounter [facility] [address] [place] [address] Petra Shabazz CNP 12 [place] [address] Social History Tobacco Use Types Packs/Day Years Used Date Smoking Tobacco: Former Cigarettes 0.5 20 1 968 - 1987 Smokeless Tobacco: Never Alcohol Use Standard Drinks/Week Comments Never 0 (1 standard drink = 0.6 oz pur e alcohol) Home Health Assessment: Transportation Answer Date Recorded Lack of Transportation (Medical) No 08/26/2022 Lack of Transportation (Non-Medical) No 08/26/2022 Patient Unable or Declines to Respond No 08/26/2022 Education Answer Date Recorded Are you interested in more education? Not on jamie e 10/21/2022 Are you concerned about learning? Not on file 10/21/2022 No 10/21/2022 No 10/21/2022 Digital Access Answer Date Recorded No 11/21/2022 No 11/21/2022 Reliable internet access at home? Not on file 11/21/2022 Device with a working camera? Not on file Intimate Partner Violence Answer Date R ecorded Are you denied basic needs s uch as food, clothing, or medical care? No 09/13/2023 In the past 12 months have y ou been in a relationship with a person who hurts, threatens, or tries to control you? No 09/13/2023 Are you denied basic needs s uch as food, clothing, or medical care? No 09/13/2023 In the past 12 months have y ou been in a relationship with a person who hurts, threatens, or tries to control you? No 09/13/2023 Sex and Gender Information Value Date Recorded Sex Assigned at Male 10/25/2017 7:58 PM EDT Legal Sex Male 9:58 PM EDT Gender Identity Male 10/25/2017 7:58 PM EDT Sexual Orientation Straight 10/25/2017 7: 58 PM EDT documented as of this encounter Functional Status * Calculated C-SSRS Risk Score (Lifetime/Recent) Answer Date of Assessment Author No Risk Indicated 09/13/2023 9:50 PM EDT Wang Banks RN * [place] Suicide Severity Rating Scale (Screener/Recent Self-Report) Question Answer Date of Assessment Author 1. Wish to be (Past 1 Month) No 024 9:50 PM EDT Laquita Banks, MATT 2. Non-Specific Active Suici clover Thoughts (Past 1 Month) No 09/13/2023 9:50 PM EDT Laquita Banks RN 6. Suicidal Behavior (Lifetime) No 4 9:50 PM EDT Laquita Banks RN documented as of this encounter Plan of Treatment Upcoming Encounters Date Type Department Care Team (Late st Contact Info) Description 06/09/2025 2:00 PM EST Office Visit [facility] [address] [place] [address] Laya Erazo MD [address] [place] [address] [email or web address] documented as of this encounter Procedures Procedure Name Priority Date/Time Associated Diagnosis Comments XR HUMERUS (LEFT) Urgent/patient waiting 07/16/2019 6:57 PM EST Left upper arm pain documented in this encounter Results * XR Humerus (Left) (07/16/2019 6:57 PM EST) Anatomical Region Laterality Modality Arm Left Radiographic Sumaya ging 07/16/2019 7:08 PM EST Impressions 07/16/2019 7:44 PM EST No acute traumatic findings. No acute fracture. Normal humerus. Punctate density in the superficial soft tissues, which was also present on 08/07/2013, therefore definitely chronic. POS - [id number] Edited by: Laya Padilla on 07/16/2019 7:17 PM Narrative 07/16/2019 7:44 PM EST EXAM: XR HUMERUS (LEFT) HISTORY: *Upper arm trauma, initial exam. TECHNIQUE: LEFT humerus 2 views. COMPARISON: 08/07/2013 LEFT shoulder x-rays. FINDINGS: There is no acute fracture. No abnormal periosteal reaction. No lytic or blastic bone lesion. There is a 2 mm focus of hyperdensity in the subcutaneous fat anterior and lateral to the mid humerus in the upper arm. When reviewing prior x-rays from 08/07/2013, this punctate density was present at that time in the same location. Grossly normal shoulder and elbow joints on the views provided. Procedure Note Tania Daugherty MD - 07/16/2019 EXAM: XR HUMERUS (LEFT) HISTORY: *Upper arm trauma, initial exam. TECHNIQUE: LEFT humerus 2 views. COMPARISON: 08/07/2013 LEFT shoulder x-rays. FINDINGS: There is no acute fracture. No abnormal periosteal reaction. No lytic orblastic bone lesion. There is a 2 mm focus of hyperdensity in the subcutaneous fat anterior andlateral to the mid humerus in the upper arm. When reviewing prior x-raysfrom 08/07/2013, this punctate density was present at that time in thesame location. Grossly normal shoulder and elbow joints on the views provided. IMPRESSION: No acute traumatic findings. No acute fracture. Normal humerus. Punctate density in the superficial soft tissues, which was also presenton 08/07/2013, therefore definitely chronic. POS - [id number] Edited by: Laya Padilla on 07/16/2019 7:17 PM us Petra Shabazz LOCOMOTIVE INSPECTOR IMG XR UPPER EXTREMITY Carmen l Result documented in this encounter Visit Diagnoses Not on filedocumented in this encounter Care Teams Heating Repair Technician Relationship Specialty Start Date End Date Ishan Andrews DO [email or web address] PCP - General Internal Medicine 08/01/17 03/17/25 documented as of this encounter Additional Source Comments The information contained in this document represents components of the legal health record. It is not the complete legal health record.[facility]
--- OUTSIDE RECORDS SUMMARY | 2024-04-19 05:10 | XMS_ITS ---
Author Organization [facility] Address [address] [place] [address] Care Team Providers Care Security Chief Museum Name Role Phone Ishan Andrews Primary Care Provider Fili Shah Jr [phone] REASON FOR VISIT screening Encounters Encounter Location Date Provider Diagnosis [facility] Outpatient [address] [place] [phone] 04/19/2024 Fili Velasco Jr Colon cancer screening Z12.11 and Colon polyps K63.5 Assessments Encounter Date Diagnosis (ICD Code) Assessment Notes Treatment Notes Treatment Clinical Notes Section Notes 04/19/2024 Colon cancer screening (ICD-10 - Z12.11) 04/19/2024 Colon polyps (ICD-10 - K63.5) Plan Of Treatment No Information Progress Notes * DOMENICO PUTNAM EDOB:[birth year] (70 yo M)Acc No.[id number]:04/19/2024 COLON WITH MAC Patient: DOMENICO EPSTEIN Provider: Hugh Velasco MD :1955 A ge:69 Y S ex:Male Date:04/19/2024 Address:[address] [place] [address] Pcp:Ishan Andrews Subjective: * Chief Complaints: * S creening Assessment: * Assessment: 1. C olon cancer screening - Z12.11 (Primary) 2 . C olon polyps - K63.5? Plan: * Procedure Codes: 4 5385 LESION REMOVAL [id number] INTRVL 3+YRS PTS CLNSCP [id number] RCMND FLW-UP 10 YRS DOCD, Modifiers: 1P Billing Information: * Procedure Codes: 66153 LESION REMOVAL COLONOSCOPY. 0529F INTRVL 3+YRS PTS CLNSCP DOCD. 0528F RCMND FLW-UP 10 YRS DOCD. Modifiers: 1P * The named appointment provid er may or may not be the originator of this progress note, and it is not deemed complete until electronically signed by the appointment provider. Sign off status: Pending * Provider: Hugh Velasco MD Date: Generated for Helga miller/Sheela/Nylaitting on: 07/20/2024 04:16 PM EST
--- NOTE | ~2025-05-20 | US_ITS ---
CLINICAL HISTORY: E29.1 - hypogonadism, testicular hypofunction US Urinary Bladder Comparison: None Findings: The urinary bladder is unremarkable. Prevoid volume: 109 mL. Postvoid volume: 80 mL Enlarged prostate. Ureteral jets are not visualized bilaterally. IMPRESSION: Enlarged prostate. Significant postvoid residual within the bladder of 80 mL. This document has been electronically signed by: Farzaneh Hawkins MD on 05/21/2025 10:25:11
--- OUTSIDE RECORDS SUMMARY | 2025-05-20 16:15 | XMS_ITS | Encounter Summary ---
Author Organization [facility] Address [address] [place] [address] Phone Care Team Providers Care Silk Winding Machine Operator Name Role Phone Ishan Andrews DO Primary Care Provider Ishan Andrews DO Primary Care Provider [phone] Encounter Details Date Type Department Care Team (Late st Contact Info) Description 09/18/2024 Ancillary Orders [facility], X-Ray - [facility] [address] [place] [address] Farzaneh Leiva PA [address] [place] [address] [place] [address] Acute bronchitis due to other specified organisms [...] 2:00 PM EST Office Visit [facility] [address] [place] [address] Laya Erazo MD [address] [place] [address] [email or web address] documented as of this encounter Results [...] initiated on 09/18/2024 3:54 PM, Message ID [id number]. Narrative 09/18/2024 3:55 PM EDT XR CHEST [...] was initiated on 09/18/2024 3:54 PM,Message ID [id number]. Farzaneh HIGUERA IMG XR CHEST Final Resul t documented in this encounter Visit Diagnoses Diagnosis Acute bronchitis due to other specified organisms- Primary Acute bronchitis due to other specified organisms documented in this encounter Care Teams Silk Winding Machine Operator Relationship Specialty Start Date End Date Ishan Andrews DO [email or web address] PCP - General Internal Medicine 08/01/17 03/17/25 Ishan Andrews DO [address] [place] [address] [email or web address] PCP - General Internal Medicine 03/18/25 documented as of this encounter Additional Source Comments The information contained in this document represents components of the legal health record. It is not the complete legal health record.[facility]
--- OUTSIDE RECORDS SUMMARY | 2025-05-20 16:15 | XMS_ITS | Encounter Summary ---
Author Organization [facility] Address [address] [facility] [address] [place] [address] Phone Care Team Providers Care Rolling Mill Plugger Name Role Phone Ishan Andrews DO Primary Care Provider [phone] KarenIshan pacheco DO Primary Care Provider [phone] Encounter Details Date Type Department Care Team (Late st Contact Info) Description 05/17/2024 Procedure Pass [facility], [address] [address] Social History Tobacco Use Types Packs/Day Years [...] 2:00 PM EST Office Visit [facility] [address] [place] [address] Laya Erazo MD [address] [place] [address] [email or web address] documented as of this encounter Visit Diagnoses Not on filedocumented in this encounter Care Teams Rolling Mill Plugger Relationship Specialty Start Date End Date Ishan Andrews DO [email or web address] PCP - General Internal Medicine 08/01/17 03/17/25 Ishan Andrews DO [address] [place] [address] [email or web address] PCP - General Internal Medicine 03/18/25 documented as of this encounter Additional Source Comments The information contained in this document represents components of the legal health record. It is not the complete legal health record.[facility]
--- OUTSIDE RECORDS SUMMARY | 2025-05-20 16:15 | XMS_ITS | Encounter Summary ---
Author Organization [facility] Address [address] [place] [address] [place] [address] Phone Care Team Providers Care Contact Centre Supervisor Name Role Phone Ishan Andrews DO Primary Care Provider [phone] Ishan Andrews DO Primary Care Provider [phone] Encounter Details Date Type Department Care Team (Latest Contact Info) Description 10/20/2017 Transcribe Orders [address] [address] Rosanna Alvarez PA-C [address] Jason. [address] [place] [address] [email or web address] Elevated prostate specific antigen (PSA) (Primary Dx) [...] 2:00 PM EST Office Visit [facility] [address] [place] [address] Laya Erazo MD [address] [place] [address] [phone] [email or web address] documented as of this encounter Results * (ABNORMAL) PSA, free and total (10/20/2017 11:45 AM EDT) PSA, TOTAL 5.8(H) <=4.5 ng/mL [facility] FREE PSA 1.8 ng/mL [facility] FREE/TOT PSA RATIO 0.31 ratio M [facility] Comment: (NOTE) When total [...] method is an electrochemiluminescence assay manufactured by [employer] and performed on the Modular or Lila system. Values obtained with different assay methods or kits may be different and cannot be used interchangeably. Test results cannot be interpreted as absolute evidence for the presence or absence of malignant disease. Blood 10/20/2017 11:4 5 AM EDT 10/20/2017 11:50 AM EDT September Kim [facility] BLOOD BKR ORDERABLES Fin al Result [facility] [address] [place] [address] documented in this encounter Visit Diagnoses Diagnosis Elevated prostate specific antigen (PSA)- Primary documented in this encounter Care Teams Contact Centre Supervisor Relationship Specialty Start Date End Date Ishan Andrews DO [email or web address] PCP - General Internal Medicine 08/01/17 03/17/25 Ishan Andrews DO [address] [place] [address] [email or web address] PCP - General Internal Medicine 03/18/25 documented as of this encounter Additional Source Comments The information contained in this document represents components of the legal health record. It is not the complete legal health record.[facility]
--- OUTSIDE RECORDS SUMMARY | 2025-05-20 16:15 | XMS_ITS | Data Portability ---
Author Organization [facility], Telehealth Patient Home Address [address] [place] [address] Assessment Encounter Date Assessment Date Assessment LastModified by Organization Details LastModified Time 09/02/2024 09/02/2024 Patient presente d for medication refill. Patient tolerating medication well at current dose without adverse effects. Refilled as below. Discussed plan with , who expressed understanding. Follow up as noted below. 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 MUST MEET 2 OUT OF 3 ELEMENTS: PROBLEMS, DATA OR RISK ELEMENT 1: PROBLEMS ADDRESSED 1 OR MORE CHRONIC ILLNESS WITH EXACERBATION OR 2 OR MORE STABLE CHRONIC ILLNESSES OR 1 UNDIAGNOSED NEW PROBLEM OR 1 ACUTE ILLNESS W/SYMPTOMS OR 1 ACUTE COMPLICATED INJURY ELEMENT 2: DATA MUST MEET 1 OF 3 CATEGORIES CATEGORY 1: REVIEW OF PRIOR EXTERNAL NOTES, REVIEW OF RESULTS, ORDERING OF EACH TEST, ASSESSMENT REQUIRING INDEPENDENT HISTORIAN OR CATEGORY 2: INDEPENDENT INTERPRETATION OF TESTS BY ANOTHER PHYSICIAN OR SPECIALIST OR CATEGORY 3: DISCUSSION OF MGT OR TEST INTERPRETATION W/EXTERNAL PHYSICIAN OR SPECIALIST ELEMENT 3: RISK RISK OF COMPLICATIONS AND/OR MORBIDITY OR MORTALITY OF PATIENT MANAGEMENT PROVIDER MUST THOROUGHLY DOCUMENT EACH ELEMENT THAT IS COVERED Not available 02/03/2025 15:33:38 Plan of Treatment Reminders Order Date Submit Date Provider Last Modified By Organization Details Last Modified Time Details Appointments FOLLOW UP 15 2024 03:30P M DR NICK Not available Not available Not available Lab hemoglobi n A1c, QN, blood 2024 025 [facility], [place], [address], 12/20/2024 15:07:22 CMP, serum or plasma 2024 025 [facility], [place], [address], 12/20/2024 15:07:22 CBC w/ auto diff 2024 025 [facility], [place], [address], 12/23/2024 12:55:51 testoster one, free + total, serum 2024 025 [facility], [place], [address], 12/20/2024 15:07:22 amylase + lipase, serum 2024 025 [facility], [place], [address], 12/20/2024 15:07:22 gamma-glu tamyl transfera se (ggt), serum 2024 025 [facility], [place], [address], 12/20/2024 15:07:22 C-reactiv e protein, quantitat demetria, serum or plasma 2024 025 [facility], [place], [address], 12/20/2024 15:07:22 ESR (erythroc yte sedimenta tion rate), blood 2024 025 [facility], [place], [address], 12/23/2024 14:10:05 urinalysi s complete, reflex culture 2024 025 [facility], [place], [address], 12/23/2024 13:03:38 PSA, total + free, serum or plasma 2024 025 [facility], [place], [address], 01/02/2025 13:23:32 PSA, total + free, serum or plasma 2024 025 [facility], [place], [address], 01/02/2025 13:23:32 CBC w/ auto diff 2024 025 [facility] (Outpatient), [address] [place] [address], [address], 09/18/2024 15:49:14 CMP, serum or plasma 2024 025 [facility] (Outpatient), [address] [place], [address], 09/18/2024 15:49:38 urinalysi s complete, reflex culture 2024 025 [facility] (Outpatient), [address] [place], [address], 09/19/2024 07:47:15 ESR (erythroc yte sedimenta tion rate), blood 2024 025 [facility] (Outpatient), [address] [place], [address], 09/18/2024 11:29:44 C reactive protein, QN, serum or plasma 2024 025 [facility] (Outpatient), [address] [place], [address], 09/18/2024 11:29:44 HbA1c (hemoglob in A1c), blood 2024 025 [facility], [place], [address], 09/09/2024 13:54:00 PSA, serum or plasma 2024 025 [facility], [place], [address], 09/09/2024 13:43:41 Referral None recorded. Procedures None recorded. Surgeries None recorded. Imaging XR, ribs, bilateral , 3 view 2024 025 [facility], [address] [place] [address], [address], 02/08/2025 15:18:03 XR, thoracic spine, 2 view 2024 025 [facility], [address] [place] [address], [address], 02/08/2025 15:18:13 CT, abdomen + pelvis, w/o contrast 2024 025 [email or web address], [address] [place] [address], [address], 12/24/2024 09:29:48 XR, chest, 2 view 2024 025 [facility], [address] [place] [address], [address], 10/22/2024 16:11:23 XR, chest, 2 view 2024 025 [facility] Central Scheduling (Not Breast), [address] [place] [address], [address], 09/18/2024 17:43:31 Medication Orders prednison e 10 mg tablet 2024 025 [facility]Pharmacy #2024, [address] [place], [address], 12/20/2024 14:37:07 bupropion HCl SR 150 mg tablet,12 hr sustained -release 2024 025 [facility] [address] [place], [address], 12/20/2024 14:35:48 Patient TargetsNo targets recorded. Patient Instructions Encounter Date Encounter Id Patient Instructions Last Modified By Organization Details Last Modified Time 09/02/2024 [id number] prediabetes: car e instructions Not available 09/02/2024 14:35:49 learning about mood disorders Not available 09/02/2024 14:29:51 benign prostatic hyperplasia: care instructions Not available 09/02/2024 14:35:49 10/21/2024 [id number] prostate biopsy: about this test Not available 10/21/2024 15:34:04 Reason for Referral None Reported. Results Created Date Observation Date Name Description Value Unit Range Abnormal Flag Note LastModifiedBy Organization Detail LastModifiedTime 09/19/1909/18/2024 XR, chest , 2 view No observ ation record ed. [address], [address], 09/18/2024 18:16:44 10/23/19 25 10/22/2024 XR, chest , 2 view No observ ation record ed. [email or web address] [address], [place], [address], 10/23/2024 09:04:53 01/04/20 25 12/31/2024 CT, abdom en + pelvi s, w/o contr ast No observ ation record ed. [facility] [address] [place] [address], [address], 01/03/2025 15:29:27 02/08/20 25 02/06/2025 XR, ribs, bilat eral, 3 view No observ ation record ed. [address], [address], 02/12/2025 16:02:47 02/08/20 25 02/06/2025 XR, thora cic spine , 2 view No observ ation record ed. [address], [address], 02/12/2025 16:02:47 03/19/20 25 03/18/2025 MRI, thora cic spine , w/o contr ast No observ ation record ed. [facility] [address] [facility] [address], [place], [address], 03/20/2025 22:36:54 Result Notes None recorded. Problems Name Problem SNOMED Code Status Onset Date Resolution Date Notes Provider Name and Address Organization Details Recorded Time Psoriati c arthriti s 856101472 Active 2017 Enedelia cid [place] - [facility] 10:04:24 Degenera tion of lumbar interver tebral disc 15025717 Active 2017 [facility] 10:[facility] History of calculus of kidney 036846264 [facility] 10:04:24 Injury of knee 621811094 Active 2017 [facility] 10:04:38 Sinusiti s 12216550 Active 2017 [facility] 10:04:38 Injury of knee 312801703 Active 2017 [facility] 10:04:38 Prostate specific antigen above referenc e range 410347630 Active 2017 Ishan Nick DO [address] [place], [address], [facility] 5 15:33:24 Impaired fasting glycemia 945119404 Completed 202006/21/2023 Removal Reason: a1c in low 5 DAVIDA MARTINEZ [address] [place], [address], [facility] 5 15:01:46 Candidia sis of mouth 52019244 Active 2021 [facility] 10:04:38 Hypotens demetria episode 37915985 Active 2022 [facility] 10:04:24 Benign prostati c hyperpla omer with outflow obstruct ion 827979965 Active 2022 [facility] 10:04:24 Benign prostati c hyperpla omer 971284685 Active 2022 Enedeliaisa cid [facility] 5 10:04:38 Morbid obesity 100824962 Active 2022 Enedelia cid [facility] 5 10:04:24 Pain of right hip joint 6268341623 43810 Active 2023 Enedeliaisa Lopez null, [facility] 5 10:04:38 Pain of left hip joint 4685296319 83666 Active 2023 Enedelia Lopez null, [facility] 5 10:04:38 Impaired cognitio n 830195441 Active 2023 Enedelia Lopez null, [facility] 5 10:04:24 Insomnia 969972445 Active 2023 Enedeliaisa Lopez null, [facility] 5 10:04:24 COVID-19 742854728 Active 2023 Enedelia Lopez null, [facility] 5 10:04:38 Sleep apnea 64561993 Active 2024 Enedeliaisa Lopez null, [facility] 5 10:04:24 Depressi ve disorder 33558000 Active 2024 Ishan Nick DO [address] [place] [address], [address], [facility] 5 14:28:37 Impaired fasting glycemia 854246667 Active 2024 DAVIDA MARTINEZ [address] [place], [address], [facility] 5 15:01:45 Acute urinary tract infectio n 474301936 Active 2024 Ishan Nick DO [address] [place], [address], [place] [facility] 5 10:00:03 Fever 633393491 Active 2024 DAVIDA MARTINEZ [address] [place], [address], [facility] 5 11:24:39 Acute bronchit is 29770145 Active 2024 DAVIDA MARTINEZ [address] [place] [address], [address], [facility] 5 11:24:52 Pneumoni a 015383767 Active 2024 DAVIDA MARTINEZ [address] [place] [address], [address], [facility] 5 16:41:42 Fatigue 09033149 Active 2024 Ishan Nick DO [address] [place] [address], [address], [facility] 5 21:32:18 Hypotest osteroni sm 4137913021 104 Active 2024 Ishan Nikc DO [address] [place] [address], [address], [facility] 5 22:39:56 Intersti tial pneumoni a 56677212 Active 2024 Ishan Nick DO [address] [place] [address], [address], [facility] 5 15:36:22 Right upper quadrant pain 226594630 Active 2024 DAVIDA MARTINEZ [address] [place] [address], [address], [facility] 5 15:00:34 Urinary frequenc y due to benign prostati c hypertro phy 0221068377 15890 Active 2024 DAVIDA MARTINEZ [address] [place] [address], [address], [facility] 5 15:02:42 Type 2 diabetes mellitus 42443415 Active 2024 DAVIDA MARTINEZ [address] [place] [address], [address], [facility] 5 16:51:58 Rib pain 798538877 Active 2024 Ishan Nick DO [address] [place] [address], [address], [facility] 5 15:34:49 Notes:Some problems listed i n Documents: #[id number], #[id number], #[id number], #[id number], #[id number] could not be added to this patient's chart. Please review these documents and add these problems to the patient's chart manually as needed. Problem Notes None recorded. Procedures Surgical History Date Name Laterality Status Provider Name and Address Organization Details Recorded Time 04/19/20 24 Colonoscopy completed Ishan Nick, DO [address] [place], [address], [facility] 04/20/2024 08:37:15 Imaging Results None recorded. Procedure Notes None recorded. Medical Equipment None Reported. Allergies Allergen ID Allergen Name Allergen Category Reaction Reaction Severity Criticality Documentation Date Start Date Code Code System Note Provider Name and Address Organization Details Recorded Time 831 Tylox medicatio n dizziness ringing in ears Not available Not available Not available 10/02/2017 73224 5 RxNorm [facility]len [facility] 10:32:27 9112 Wellbutri n medicatio n Not available Not available Not available 12/20/2024 66853 RxNorm urina ting alot [facility] 5 14:36:06 9570 aspirin medicatio n ringing in ears Not available low 05/09/20252019 1191 RxNorm Devel oped from inges ting too much aspir in. Familia ated baby aspir in BID follo wing last TKA. Not Available joe - External Data Service - prod 5 13:58:32 Medications Name Sig Start Date Stop Date Status Note LastModified by Organization Details LastModified Time Prescript ion - Prior Authoriza tion Request 11/07 completed Not Available Not Available [...] 1 CAPSULE BY MOUTH IN THE EVENING 2024 active Not Available Not Available Not Avai lable pantopraz ole 40 mg tablet,de layed release TAKE 1 TABLET BY MOUTH ONCE DAILY 2024 active Not Available Not Available Not Avai lable simvastat in 20 mg tablet TAKE 1 TABLET BY MOUTH ONCE DAILY 2024 active Not Available Not Available Not Avai lable oxybutyni n chloride ER 5 mg tablet,ex tended release 24 hr TAKE 1 TABLET BY MOUTH EVERY DAY 12/20 completed Not Available Not Available Not Available monteluka st 10 mg tablet TAKE 1 TABLET BY MOUTH ONCE DAILY 2024 active Not Available Not Available Not Avai lable celecoxib 100 mg capsule TAKE 1 CAPSULE BY MOUTH TWICE A DAY 10/22 completed Not Available Not Available Not Available finasteri de 5 mg tablet TAKE 1 TABLET BY MOUTH EVERY DAY active Not Available Not Available No t Available diazepam 5 mg tablet TAKE 1 [...] by transder mal route for 30 days. 02/03 completed Not Available Not Available Not Available oxycodone 5 mg tablet Take 2 tablets [...] TAKE 1 TABLET BY MOUTH EVERY DAY 2024 active Not Available Not Available Not Avai lable testoster one 50 mg/5 gram (1 %) [...] (BMI) Body weight Heart rate Oxygen saturation Systolic And Diastolic Provider Name and Address Organization Details Last Updated DateTime 5 173.99 cm 39.5 kg/m2 839371. 03 g 96 /min 92 % 136/82 mm[Hg] Enedelia Lopez [facility] 5 14:06:53 Date Recorded Body height Body mass index (BMI) Body weight Heart rate Oxygen saturation Systolic And Diastolic Provider Name and Address Organization Details Last Updated DateTime 5 173.99 cm 39.4 kg/m2 232541. 79 g 81 /min 98 % 130/80 mm[Hg] Krystyna Navamond [facility] 5 15:21:31 Date Recorded Body height Body mass index (BMI) Body weight Oxygen saturation Heart rate Systolic And Diastolic Provider Name and Address Organization Details Last Updated DateTime 5 173.99 cm 38.5 kg/m2 661562. 6 g 96 % 84 /min 122/76 mm[Hg] JOSEPH MARTINEZ [facility] 5 14:41:55 Date Recorded Body height Body mass index (BMI) Body weight Oxygen saturation Heart rate Systolic And Diastolic Provider Name and Address Organization Details Last Updated DateTime 5 173.99 cm 37.5 kg/m2 611335. 89 g 97 % 67 /min 116/70 mm[Hg] JOSEPH MARTINEZ [facility] 5 15:15:09 Social History Question Answer Notes LastModified by Organizat ion Details LastModified Time Tobacco Smoking Status Former Smoker Not Available [facility] 04/28/2020 03:36:23 What Was The Date Of Your Most Recent Tobacco Screening? 02/03/2025 [email or web address] Information not available 02/03/2025 Sex: Unknown Functional Status Question Answer Note [...] mRNA, LNP-S, PF, 30 mcg/0.3 mL dose 02/27/202 1 completed Not Available Counts include 234 beds at the [facility] 08/04/2023 23:29:56 Pneumococcal conjugate PCV 13 0 completed Not Available Counts include 234 beds at the [facility] 08/04/2023 23:29:56 pneumococcal polysaccharide PPV23 2 completed Not Available Counts include 234 beds at the [facility] 08/04/2023 23:29:56 Influenza, split virus, quadrivalent, preservative 8 completed Not Available Counts include 234 beds at the [facility] 08/04/2023 23:29:56 COVID-19, mRNA, LNP-S, PF, 30 mcg/0.3 mL dose 2 completed Not Available Counts include 234 beds at the [facility] 08/04/2023 23:29:56 Influenza, split virus, quadrivalent, preservative 2 completed Not Available Counts include 234 beds at the [facility] 08/04/2023 23:29:56 COVID-19, mRNA, LNP-S, PF, 30 mcg/0.3 mL dose 2 completed Not Available Counts include 234 beds at the [facility] 08/04/2023 23:29:56 COVID-19, mRNA, LNP-S, PF, 30 mcg/0.3 mL dose 1 completed Not Available Counts include 234 beds at the [facility] 08/04/2023 23:29:56 COVID-19, mRNA, LNP-S, PF, garett-sucrose, 30 mcg/0.3 mL 5 completed Enedelia cid [facility] 12/11/2024 11:40:05 influenza, unspecified formulation 5 completed Enedelia cid [facility] 03/17/2025 09:08:47 SARS-COV-2 (COVID-19) vaccine, UNSPECIFIED 5 completed Ovi cid [facility] 04/26/2025 15:20:29 Influenza, split virus, quadrivalent, preservative 9 completed Not Available Counts include 234 beds at the [facility] 08/04/2023 23:29:56 COVID-19, mRNA, LNP-S, PF, 30 mcg/0.3 mL dose 1 completed Not Available Counts include 234 beds at the [facility] 08/04/2023 23:29:56 Past Encounters Encounter ID Performer Location Encounter Start Date Encounter Closed Date Diagnosis/Indication Diagnosis SNOMED-CT Code Diagnosis ICD10 Code Diagnosis IMO Codes Diagnosis Note [id number] Ishan Calixto Nick [facility] [address] [facility],[place] [address] 10/02/2017 14:41:22 10/02/2017 15:59:51 Injury of knee 797995026 S89.92XA will need MRI due to knee and leg giving out with spontaneit y Acute sinusitis 19135328 J01.90 finished augmentin and pred with resolution of symptoms [id number] Ishan Nick [facility] [address] [facility],[place] [address] 03/13/2018 15:30:09 03/13/2018 16:30:07 Injury of knee 592643267 S89.92XA plan forthe knee willbe having th eknee cleaned up and will then get cortisone inj Prostate s pecific antigen above reference range 557082562 R97.20 has undergone bx by dr telles and were negative Degenerati on of lumbar intervertebral disc 01583391 M51.36 about the same will cont with the pain management Renewal of prescription [id number] Z76.0 [id number] Ishan Nick [facility] [address] [facility],[place] [address] 09/18/2018 15:32:05 09/18/2018 16:13:17 Psoriatic arthritis 903367094 L40.50 seems to be status quo Degenerati on of lumbar intervertebral disc 95978226 M51.36 about the same will cont with the pain management still in a great erick l of p[ain Abdominal pulsatile mass 5296181 R09.89 [place] [id number] Ishan Nick [facility] [address] [facility],[place] [address] 04/23/2019 16:04:03 04/23/2019 16:42:49 Abdominal aortic aneurysm screening 109373275 Z13.6 will order Prostate s pecific antigen above reference range 311167100 R97.20 has undergone bx by dr telles and were negative Adult heal th examination 023241203 Z00.00 will order fbw for pt include a1c as his has chk fibs and noted 140's [id number] Ishan Nick [facility] [address] [facility] [place] [address] 09/23/2019 15:01:16 09/24/2019 14:12:41 Degeneration of lumbar intervertebral disc 03586419 M51.36 about the same will cont with the pain management still in a great erick l of p[ain Psoriatic arthritis 1563 24066 L40.50 seems to be status quo Impaired f asting glycemia 087180617 R73.01 A1c is 6.1. I informed him [...] Prostate s pecific antigen above reference range 469874801 R97.20 has undergone bx by dr telles and were negative. Latest psa was 5.5 (5.8) [id number] Ishan Nick [facility] [address] [facility],[place] [address] 02/24/2020 10:40:35 02/24/2020 15:48:51 Psoriatic arthritis 036713414 L40.50 seems to be status quo Degenerati on of lumbar intervertebral disc 26272493 M51.36 about the same will cont with the pain management still in a great erick l of p[ain Injury of knee 419489010 S89.92XA = still struggling with both knees but we will cont totxconser v until pandemic clears [id number] Ishan Nick [facility] [address] [facility] [place] [address] 09/28/2020 16:06:28 09/29/2020 08:20:32 Degeneration of lumbar intervertebral disc 28879160 M51.36 about the same will cont with the pain management still in a great erick l of p[ain Impaired f asting glycemia 299742845 R73.01 he has lost 40 lbs and i believe he has eliminated the pre dm condition we will chk a1c again in a coupl;e months . Prostate s pecific antigen above reference range 920905985 R97.20 has undergone bx by dr telles and were negative. Latest psa was 5.5 (5.8) [id number] Ishan Nick [facility] [address] [facility] [place] [address] 02/10/2021 15:20:02 02/10/2021 16:20:11 Active or passive immunization 451856968 Z23 Adult [facility] th examination 989744981 Z00.00 will order fbw for pt include a1c as his has chk fibs and noted 140's Psoriatic arthritis 1563 83508 L40.50 seems to be status quo Fatigue 31536698 R53.83 [id number] Ishan Nick [facility] [address] [facility] [place] [address] 03/10/2021 13:43:37 03/10/2021 16:43:46 Orthostatic hypotension 93625175 I95.1 will fu with holter and cardio referral [id number] Ishan Nick [facility] [address] [facility] [place] [facility] [place] [address] 10/04/2021 15:53:37 10/05/2021 10:29:45 Impaired fasting glycemia 599050362 R73.01 he had lost 40 lbs and i believe he had eliminated the pre dm condition but he has gained a bunch back we will chk a1c again in a couple months . Degenerati on of lumbar intervertebral disc 38965630 M51.36 about the same will cont with the pain management still in a great erick l of p[ain Psoriatic arthritis 1563 60910 L40.50 seems to be status quo Screening for malignant neoplasm of colon 010335054 Z12.11 cologuard [id number] Ishan Nick [facility] [address] [facility] [place] [address] 04/19/2022 14:54:17 04/20/2022 11:43:23 Active or passive immunization 123448124 Z23 patient due for flu shot & shingles Adult heal th examination 521686767 Z00.01 will order fbw for pt include a1c as his has chk fibs and noted 140's Advance care planning 71 3203226 Z71.89 done Impaired f asting glycemia 769608951 R73.01 he had lost 40 lbs and i believe he had eliminated the pre dm condition but he has gained a bunch back we will chk a1c again in a couple months . Candidiasis of mouth 797 86708 B37.0 Degenerati on of lumbar intervertebral disc 37282436 M51.36 about the same will cont with the pain management still in a great erick l of p[ain [id number] Ishan Nick [facility] [address] [facility],[place] [address] 07/04/2022 14:06:38 07/04/2022 15:30:02 Pre-surgery evaluation 285127864 Z01.818 The patient was seen in the [...] Benign pro static hyperplasia with outflow obstruction [id number] N13.8 [place] e [address] Ishan Nick [facility] Internal Medicine [address] [facility],[place] [address] 01/11/2023 16:19:14 2023 13:56:55 Psoriatic arthritis 412891483 L40.50 seems to be status quo Impaired f asting glycemia 445052285 R73.01 he had lost 40 lbs and i believe he had eliminated the pre dm condition a1c is now 5.8!!!rech k Benign pro static hyperplasia 041333534 N40.0 Degenerati on of lumbar intervertebral disc 67057292 M51.36 about the same will cont with the pain management still in a great erick l of p[ain [id number] Ishan Nick [facility] Internal Medicine [address] [facility],[place] [address] 06/21/2023 09:37:43 06/23/2023 15:30:34 Morbid obesity 429436497 E66.01 has cont to lose wgt and is doing fantastic Impaired f asting glycemia 127000141 R73.01 he had lost 40 lbs and i believe he had eliminated the pre dm condition a1c is now 5.8!!!rech k [id number] Ishan Nick [facility] Internal Medicine [address] [facility],[place] [address] 10/23/2023 13:42:12 10/23/2023 14:16:37 Injury of knee 876296791 S89.92XA = still struggling with both knees but we will cont totxconser v until pandemic clears Degenerati on of lumbar intervertebral disc 50055777 M51.36 about the same will cont with the pain management still in a great erick l of p[ain Pain of ri ght hip joint 0784798941 12429 M25.551 Pain of le ft hip joint 2134654771 63858 M25.552 806106 Ishan Nick [facility] Internal Medicine [address] [facility],[place] [address] 05/14/2024 15:26:52 05/14/2024 16:03:46 Impaired cognition 602267624 R41.89 is acutely aware of his cognitive decline he is insisting that he is fine at times but also admits he is depressed and his sleep pattern is poor Insomnia 724111337 G47.0 0 903717 Ishan Nick [facility] Internal Medicine [address] [facility],[place] [address] 09/02/2024 13:56:06 09/02/2024 14:41:05 Renewal of prescription 410373262 Z76.0 Depression screening 171 712014 Z13.31 pos Psoriatic arthritis 1563 97855 L40.50 seems to be status quo Depressive disorder 1049 9631 F32.A long detailed discussion and review of his consultwil l start buproprion Impaired f asting glycemia 295346038 R73.01 he had lost 40 lbs and i believe he had eliminated the pre dm condition a1c is now 5.8!!!rech k Benign pro static hyperplasia 819828757 N40.0 619847 Ishan Nick [facility] Internal Medicine [address] [facility] [place], [place] [facility] [address] 09/18/2024 09:22:48 09/18/2024 11:55:15 Fever 654925631 R50.81 will set upwith lab work and recheck urine Acute bronchitis 2133127 2 J20.8 will set up with CXRstart on pred [id number] Ishan Nick [facility] Internal [facility] [address] [facility] [place] [address] 10/21/2024 15:08:57 10/21/2024 16:00:41 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.1 testost was 54 Benign pro static hyperplasia with outflow obstruction 120282665 N13.8 doing better Degenerati on of lumbar intervertebral disc 32664784 M51.369 stable but same Depression screening 171 170825 Z13.31 pos Prostate s pecific antigen above reference range 351847322 R97.20 77028 psa is elevated again we need to have him go back to dr gera Jennings al pneumonia 99886303 J84.9 [id number] needs follow up xr 394837 Ishan Nick [facility] Internal [facility] [address] [facility] [place] [address] 12/20/2024 14:24:35 12/20/2024 15:31:07 Depression screening 096204375 Z13.31 negative Right uppe r quadrant pain 980433570 R10.11 991559 will check blood work levels Impaired f asting glycemia 682517450 R73.01 698082 will set up with lab workIFG Hypotestosteronism 63823 08691 104 E34.9 401433 needs another lab prior to his endo appt Urinary fr equency due to benign prostatic hypertrophy 2884850045 01310 N40.1 R35.0 01964011 start finasterid e [id number] Ishan DO [facility] [address] [facility],[place] [address] 02/03/2025 15:07:55 02/03/2025 16:17:38 Depression screening 281765722 Z13.31 pos Type 2 kelly betes mellitus 88873413 E11.9 15237062 stable Hypotestosteronism 07412 72549 104 E34.9 476463 testost was 54 and 91 being followed by endocrine and urology Rib pain 773639297 R07.8 1 94152615 06179085 Health Concerns Section Related Observation LastModified by Organization Detai ls LastModified Time None Recorded Concern Status LastModified by Organization Details LastModified Time None Recorded Advance Directives Directive None Recorded Payers Insurance Date Sequence Insurance Name Policy Number Policy Yo Covered Member ID Yo Member ID Guarantor Name 03/13/2018 1 [employer] (EPO) [id number] Iris Marroquin [id number] Rod Marroquin 10/21/2024 1 [place] Rod Marroquin [id number] Rod Marroquin 10/21/2024 1 [place] [id number] Rod Marroquin [id number] Rod Marroquin 04/01/[address] [facility] (MEDICARE REPLACEMENT/ ADVANTAGE - HMO) [id number] Rod Marroquin [id number] Rod Marroquin Notes Date Note Type Note Provider Name a nd Address Organization Details Recorded Time 5 text/html ROS as noted in the HPI here for rechk and is doing ok overallstill quite depressed and has been dx with a pseudo dementia from thissee reportwas started on B12 by neurologistlong detailed discussion Ishan Nick DO [address] [facility], [place], [address], [facility] Internal Medicine 09/02/2024 14:36:13 5 text/html ROS as noted in the HPI c/o bronchitis The patient is participating in [...] urine sample, and CXR DAVIDA MARTINEZ [address] [place], [address], [facility] Medicine 09/18/2024 11:30:33 5 text/html Back PainReported by PatientHPIFor location, patient reportspain is not radiating. For severity, patient reportsimproving. For associated symptoms, patient reportsno fever,no weak limbs,no numbness of the legs/feet,no tingling,no incontinence,no shortness of breath,no unintentional weight loss,no chills,no night sweats,no gait instability,no bowel/bladder symptoms, andno recent increase in stress. For previous injury, patient reportsno prior injury to backandno prior malignancy.ROS as noted in the HPI fatigue continues with loss of motivation Ishan Nick DO [address] [place], [address], [facility] 10/21/2024 15:39:34 5 text/html ROS as noted in the HPI c/o abdominal pain the patient reports that he has been having RUQ painthe patient reports it has been about a monthfeels constant achethe patient does get pain after eatinggetting more bloated with appetite change recommended lab work and CT scan as well DAVIDA MARTINEZ [address] [place], [address], [facility] 12/20/2024 15:10:19 5 text/html Care Management - DiabetesReported by PatientHPIFor self care, patient reportsseeing eye doctor yearly for dilated eye exam,checking feet regularly,normal range of home blood sugars (in the low 100s), andno side effects from medications. For associated symptoms, patient reportssymptoms are usually well controlled,no fatigue,no dizziness,no excessive sweating,no headaches,no confusion,no increased thirst,no increased appetite,no increased urination,no blurred vision,no numbness of feet, andno calluses on feet.ROS as noted in the HPI here for rechk and is having a hard time with bilateral rib painhas been ongoing since the time of his pneumonia Ishan Nick, DO [address] [facility], [place], [address], [facility] 02/04/2025 21:06:48
--- OUTSIDE RECORDS SUMMARY | 2025-05-20 16:15 | XMS_ITS | Encounter Summary ---
Author Organization [facility] Address [address] [place] [address] Phone Care Team Providers Care Cement Production Plant Operator Name Role Phone Ishan Andrews Primary Care Provider [phone] Encounter Details Date Type Department Care Team (Late st Contact Info) Description 05/16/2025 Orders Only [address] [address] Farzaneh Leiva PA [address] [place] [address] [place] [address] Type 2 diabetes mellitus without complication, without long-term current use of insulin (Primary Dx) Social History Tobacco Use Types [...] PM EST Office Visit [facility] [address] [place] [address] Laya Erazo MD [address] [place] [address] [email or web address] Scheduled Orders Name Type Priority Associated Diagnoses Orde r Schedule Comprehensive Metabolic Panel (CMP) Lab Routine Type 2 diabetes mellitus without complication, without long-term current use of insulin Every 3 months for 18 Occurrences starting 05/16/2025 until 12/23/2025, 1 completed Hemoglobin A1c Lab Routine Type 2 diabetes mellitus without complication, without long-term current use of insulin Every 3 months for 18 Occurrences starting 05/16/2025 until 12/23/2025, 1 completed documented as of this encounter Results * (ABNORMAL) Hemoglobin A1c (05/16/2025 10:10 AM EST) Hemoglobin A1c 5.9(H) 4.3 - 5.6 % 05/16/2025 12:27 PM [facility] Calculated Mean Blood Glucose 123 mg/dL 05/16/2025 12:27 PM [facility] Comment:There is no establis hed normal range for the Estimated Average Glucose (EAG). However, a HbA1c of 5.6% (upper limit of normal) represents an EAG of 114 mg/dL. The diagnostic HbA1c level for diabetes is greater than or equal to 6.5%, which represents an EAG greater than or equal to 140 mg/dL. Blood (Blood) Venipuncture / Unknown 05/16/2025 10:10 AM EST 05/16/2025 10:10 AM EST us Farzaneh [facility] LAB BLOOD BKR ORDERABLES Fi nal Result [facility] [address] [place] [address] * (ABNORMAL) Comprehensive Metabolic Panel (CMP) (05/16/2025 10:10 AM EST) Sodium 141 136 - 145 mmol/L 05/16/2025 12:28 PM [facility] Potassium 4.1 3.4 - 5.1 mmol/L 05/16/2025 12:28 PM [facility] Chloride 107 98 - 107 mmol/L 05/16/2025 12:28 PM [facility] CO2 25 20 - 31 mmol/L 05/16/2025 12:28 PM [facility] Anion Gap 9 3 - 17 mmol/L 05/16/2025 12:28 PM [facility] BUN 15 6 - 23 mg/dL 05/16/2025 12:28 PM [facility] Creatinine 0.80 0.60 - 1.30 mg/dL 05/16/2025 12:28 PM [facility] eGFR 94 >59 mL/min/1.7 3m2 05/16/2025 12:28 PM [facility] Comment:Estimated glomerular filtration rate calculated using the CKD-EPI refit equation. Glucose 122(H) 70 - 99 mg/dL 05/16/2025 12:28 PM [facility] Calcium 8.8 8.5 - 10.5 mg/dL 05/16/2025 12:28 PM [facility] AST 18 <40 U/L 05/16/2025 12:28 PM [facility] ALT 15 <50 U/L 05/16/2025 12:28 PM [facility] Alkaline Phosphatase 139(H) 40 - 130 U/L 05/16/2025 12:28 PM [facility] Bilirubin, Total 0.5 0.0 - 1.2 mg/dL 05/16/2025 12:28 PM [facility] Total Protein 7.3 6.4 - 8.3 g/dL 05/16/2025 12:28 PM [facility] Albumin 3.9 3.5 - 5.2 g/dL 05/16/2025 12:28 PM [facility] Globulin 3.4 1.9 - 4.1 g/dL 05/16/2025 12:28 PM [facility] Blood (Blood) Venipuncture / Unknown 05/16/2025 10:10 AM EST 05/16/2025 10:10 AM EST Farzaneh [facility] LAB BLOOD BKR ORDERABLES Fi nal Result [address] [address] documented in this encounter Visit Diagnoses Diagnosis Type 2 diabetes mellitus without complication, without long-term current use of insulin- Primary documented in this encounter Care Teams Cement Production Plant Operator Relationship Specialty Start Date End Date Ishan Andrews DO [address] [place] [address] [email or web address] PCP - General Internal Medicine 03/18/25 documented as of this encounter Additional Source Comments The information contained in this document represents components of the legal health record. It is not the complete legal health record.[facility]
--- OUTSIDE RECORDS SUMMARY | 2025-05-20 16:15 | XMS_ITS | Patient Health Record ---
Author Organization [facility] Address [address] [place] [address] Care Team Providers Care Creative Designer Name Role Phone Ishan Andrews Primary Care Provider Fili Shah Jr Unavailable [phone] Allergies Allergen (clinical drug ingredient) Drug/Non Drug Allergy documented on EMR Reaction Allergy Type Onset Date Status aspirin Aspirin Unknown Drug Allergy Active Tylox Unknown Drug Allergy Active Reason For Referral No Information Medications Medication SIG (Take, Route, Frequency, Duration) Notes Start Date End Date Status Ibuprofen 600 MG Tablet 1 tablet with fo od or milk as needed Orally Three times a day Active Acetaminophen 500 MG Capsule 1 capsule as needed Orally every 6 hrs Active Flonase Allergy Relief 50 MCG/ACT Suspension 1 spray in each nostril Nasally Once a day; Duration: 30 day(s) Active MiraLax (colon prep) 17 GM/SCOOP Powder mixed with Gatorade or Crystal Light Orally begin at 5:00 p.m. the day before the procedure; Duration: 1 day 03/07/2024 Active Escitalopram Oxalate 20 MG Tablet 1 tablet Orally Once a day Active ZyrTEC 10 MG Tablet Chewable 1 tablet Orally Once a day; Duration: 30 day(s) Active Simvastatin 20 MG Tablet Oral; Duration: 100 Active Montelukast Sodium 10 MG Tablet Oral; Duration: 100 Active Pantoprazole Sodium 40 MG Tablet Delayed Release Oral; Duration: 100 Active Tamsulosin HCl 0.4 MG Capsule Oral; Duration: 100 Active oxyCODONE HCl 10 MG Tablet TAKE 1 TABLET BY MOUTH TWICE DAILY Oral; Duration: 30 M5136,Unavailab le Active diazePAM 5 MG Tablet TAKE 1 TABLET BY MOUTH EVERY DAY NEEDED Oral; Duration: 30 M5136,Unavailab le Active Immunizations Vaccine Route Administration Date Status Comme nts Influenza Unknown 02/26/2024 Administered Social History Tobacco Use: Social History Observation Description Date Details (start date - stop date) Never Smoker NA - NA Social History Drugs/Alcohol: Social Info Question Answer Notes Alcohol Screen Did you have a drink containing alcohol in the past year? No Points 0 Interpretation Negative Tobacco Use: Social Info Question Answer Notes Tobacco Use/Smoking Patient is a nonsmoker Additional Details Category Social Info Options Details Miscellaneous: Marital status: Occupation: retired Problems Problem Type SNOMED Code ICD Code Onset Dates Problem Status W/U Status Risk Notes Problem Colon cancer screening (331601864) Colon cancer screening (Z12.11) Active confirmed Problem superintendent container terminal current use of non-steroidal anti-inflammato ry drug (24484560537112 3) Encounter for long-term (current) use of NSAIDs (Z79.1) Active confirmed Problem Pre-op evaluation (433546698) Pre-op evaluation (Z01.818) Active confirmed Plan Of Treatment Future Test Test Name Order Date COLONOSCOPY 03/07/2024 Insurance Providers Payer Name Payer Address Payer Phone Subscriber Number Group Number Insured Name Patient Relationship to Insured Coverage Start Date Coverage End Date [facility] [address] [address] [place] [address] [phone] [id number] DOMENIOC PUTNAM Self - patient is the insured Medical (General) History Medical History History ICD Code Hyperlipidemia Environmental allergies HORACIO BPH Back and knee pain EGD with balloon dilation 01/03 Surgical History Surgery Date(Month/Year) total knee replacement bilateral 2022.,2 024 back surgery
--- OUTSIDE RECORDS SUMMARY | 2025-05-20 16:15 | XMS_ITS | Encounter Summary ---
Author Organization [facility] Address [address] [address] Phone Care Team Providers Care Marketing Communications Coordinator Name Role Phone Ishan Andrews Primary Care Provider [phone] Karenjunior Ishan Mundo Primary Care Provider [phone] Encounter Details Date Type Department Care Team (Late Contact Info) Description 09/19/2018 Transcribe Orders Virtual Department [address] [place] [address] Ishan Andrews DO [address] [facility] [place] [address] [email or web address] Other specified symptoms [...] 2:00 PM EST Office Visit [facility] [address] [place] [address] Laya Erazo MD [address] [place] [address] documented as of this encounter Visit Diagnoses Diagnosis Other specified symptoms and signs involving the circulatory and respiratory systems- Primary documented in this encounter Care Teams Marketing Communications Coordinator Relationship Specialty Start Date End Date Ishan Andrews DO PCP - General Internal Medicine 08/01/17 03/17/25 Ishan Andrews DO [address] [place] [address] PCP - General Internal Medicine 03/18/25 documented as of this encounter Additional Source Comments The information contained in this document represents components of the legal health record. It is not the complete legal health record.[facility]
--- OUTSIDE RECORDS SUMMARY | 2025-05-20 16:15 | XMS_ITS | Encounter Summary ---
Author Organization [facility] Address [address] [facility] [address] [place] [address] Phone Care Team Providers Care Dryland Farmer Name Role Phone Karenjunior Ishan Flower DO Primary Care Provider [phone] Ishan Andrews DO Primary Care Provider [phone] Encounter Details Date Type Department Care Team (Late st Contact Info) Description 10/27/2023 Ancillary Orders [facility], X-Ray - [facility] [address] [place] [address] Ishan Andrews DO [address] [facility] [place] [address] [place] [address] [email or web address] Pain of left hip joint (Primary [...] 2:00 PM EST Office Visit [facility] [address] [place] [address] [place] [address] Laya Erazo MD [address] [place] [address] [email or web address] documented as of this encounter Results [...] disc documented in this encounter Care Teams Dryland Farmer Relationship Specialty Start Date End Date Ishan Andrews DO [email or web address] PCP - General Internal Medicine 08/01/17 03/17/25 Ishan Andrews DO [address] [place] [address] [email or web address] PCP - General Internal Medicine 03/18/25 documented as of this encounter Additional Source Comments The information contained in this document represents components of the legal health record. It is not the complete legal health record.[facility]
--- OUTSIDE RECORDS SUMMARY | 2025-05-20 16:15 | XMS_ITS | Encounter Summary ---
Author Organization [facility] Address [address] [place] [address] Phone Care Team Providers Care Medical Center Representative Name Role Phone Ishan Andrews DO Primary Care Provider [phone] Ishan Anderws DO Primary Care Provider [phone] Encounter Details Date Type Department Care Team (Late Contact Info) Description 06/11/2021 Procedure Pass Echo Lab [place] [place] [address] Social History Tobacco Use Types Packs/Day Years [...] PM EST Office Visit [facility] [address] [place] [address] Laya Erazo MD [address] [place] [address] documented as of this encounter Visit Diagnoses Not on filedocumented in this encounter Care Teams Medical Center Representative Relationship Specialty Start Date End Date Ishan Andrews DO [email or web address] PCP - General Internal Medicine 08/01/17 03/17/25 Ishan Andrews DO [address] [place] [address] PCP - General Internal Medicine 03/18/25 documented as of this encounter Additional Source Comments The information contained in this document represents components of the legal health record. It is not the complete legal health record.[facility]
--- OUTSIDE RECORDS SUMMARY | 2025-05-20 16:15 | XMS_ITS | Encounter Summary ---
Author Organization [facility] Address [address] [facility] [address] [place] [address] Phone Care Team Providers Care Enrollment Counselor Name Role Phone Ishan Andrews DO Primary Care Provider [phone] Ishan Andrews DO Primary Care Provider [phone] Encounter Details Date Type Department Care Team (Late st Contact Info) Description 09/13/2023 Procedure Pass OR Admitting Dept - Virtual Department [address] [place] [address] Social History Tobacco Use Types Packs/Day Years [...] 9:50 PM EDT Wang Banks, MATT * Rabun Suicide Severity Rating Scale (Screener/Recent Self-Report) Question [...] 2:00 PM EST Office Visit [facility] [address] [place] [address] Laya Erzao MD [address] [place] [address] documented as of this encounter Visit Diagnoses Not on filedocumented in this encounter Care Teams Enrollment Counselor Relationship Specialty Start Date End Date Ishan Andrews DO PCP - General Internal Medicine 08/01/17 03/17/25 Ishan Andrews DO [address] [place] [address] [email or web address] PCP - General Internal Medicine 03/18/25 documented as of this encounter Additional Source Comments The information contained in this document represents components of the legal health record. It is not the complete legal health record.[facility]
--- OUTSIDE RECORDS SUMMARY | 2025-05-20 16:15 | XMS_ITS | Encounter Summary ---
Author Organization [facility] Address [address] [facility] [address] [place] [address] Phone Care Team Providers Care Head Sawyer Name Role Phone Karenjunior Ishan Flower DO Primary Care Provider [phone] Ishan Andrews DO Primary Care Provider [phone] Encounter Details Date Type Department Care Team (Late st Contact Info) Description 10/23/2023 Transcribe Orders Virtual Department [address] [place] [address] Ishan Andrews DO [address] [facility] [place] [address] [place] [address] [email or web address] Pain in right hip [...] 2:00 PM EST Office Visit [facility] [address] [place] [address] Laya Erazo MD [address] [place] [address] [email or web address] documented as of this encounter Visit Diagnoses Diagnosis Pain in right hip- Primary documented in this encounter Care Teams Head Sawyer Relationship Specialty Start Date End Date Ishan Andrews DO PCP - General Internal Medicine 08/01/17 03/17/25 Ishan Andrews DO [address] [place] [address] PCP - General Internal Medicine 03/18/25 documented as of this encounter Additional Source Comments The information contained in this document represents components of the legal health record. It is not the complete legal health record.[facility]
--- OUTSIDE RECORDS SUMMARY | 2025-05-20 16:15 | XMS_ITS | Encounter Summary ---
Author Organization [facility] Address [address] [address] Phone Care Team Providers Care Filter Cloth Maker Name Role Phone KarenIshan pacheco Primary Care Provider [phone] Ishan Andrews DO Primary Care Provider [phone] Encounter Details Date Type Department Care Team (Late Contact Info) Description 04/24/2019 Transcribe Orders Virtual Department 30 [place] [address] Ishan Andrews DO [address] [facility] [place] [address] [place] [address] [email or web address] Abdominal aortic aneurysm (AAA) without rupture (Primary [...] PM EST Office Visit [facility] [address] [place] [address] Laya Erazo MD [address] [place] [address] [phone] documented as of this encounter Visit Diagnoses Diagnosis Abdominal aortic aneurysm (AAA) without rupture- Primary documented in this encounter Care Teams Filter Cloth Maker Relationship Specialty Start Date End Date Ishan Andrews DO PCP - General Internal Medicine 08/01/17 03/17/25 Ishan Andrews DO [address] [place] [address] PCP - General Internal Medicine 03/18/25 documented as of this encounter Additional Source Comments The information contained in this document represents components of the legal health record. It is not the complete legal health record.[facility]
--- OUTSIDE RECORDS SUMMARY | 2025-05-20 16:15 | XMS_ITS | Encounter Summary ---
Author Organization [facility] Address [address] [place] [address] [place] [address] Phone Care Team Providers Care Operations/Dispatch Name Role Phone Ishan Andrews Primary Care Provider [phone] Ishan Andrews DO Primary Care Provider [phone] Encounter Details Date Type Department Care Team (Late st Contact Info) Description 08/10/2022 Procedure Pass OR Admitting Dept - Virtual Department 30 [place] [address] Social History Tobacco Use Types Packs/Day Years [...] 08/10/2022 6:22 PM Gem Gandhi RN * Tuttle Suicide Severity Rating Scale (Screener/Recent Self-Report) Question [...] PM EST Office Visit [facility] [address] [place] [address] Laya Erazo MD [address] [place] [address] documented as of this encounter Visit Diagnoses Not on filedocumented in this encounter Care Teams Operations/Dispatch Relationship Specialty Start Date End Date Ishan Andrews DO [email or web address] PCP - General Internal Medicine 08/01/17 03/17/25 Ishan Andrews DO [address] [place] [address] PCP - General Internal Medicine 03/18/25 documented as of this encounter Additional Source Comments The information contained in this document represents components of the legal health record. It is not the complete legal health record.[facility]
--- OUTSIDE RECORDS SUMMARY | 2025-05-20 16:16 | XMS_ITS | Encounter Summary ---
Author Organization [facility] Address 399 [facility] [address] [place] [address] Phone Care Team Providers Care Planning Associate Name Role Phone Karenjunior Ishan Flower DO Primary Care Provider Ishan Andrews DO Primary Care Provider [phone] Encounter Details Date Type Department Care Team (Late Contact Info) Description 10/16/2017 Transcribe Orders [address] [place] [address] Ishan Andrews DO 179 [facility] [place] [address] [email or web address] Impaired fasting glucose (Primary Dx); Elevated prostate [...] PM EST Office Visit [facility] [address] [place] [address] Laya Erazo MD [address] [place] [address] [phone] documented as of this encounter Results * (ABNORMAL) PSA (screening) (10/16/2017 10:45 AM EDT) PSA 5.71(H) 0 - 4.00 ng/mL [facility] Blood 10/16/2017 10:4 5 AM EDT 10/16/2017 10:50 AM EDT us Ishan A Bigda DO LAB BLOOD BKR ORDERABLES Final R esult [address] [address] * Hemoglobin A1c (10/16/2017 10:45 AM EDT) HEMOGLOBIN A1C 5.7 4.3 - 5.8 % [facility] Blood 10/16/2017 10:4 5 AM EDT 10/16/2017 10:49 AM EDT us Ishan A Bigda DO LAB BLOOD BKR ORDERABLES Final R esult [address] [address] documented in this encounter Visit Diagnoses Diagnosis Impaired fasting glucose- Primary Elevated prostate specific antigen (PSA) documented in this encounter Care Teams Planning Associate Relationship Specialty Start Date End Date Ishan Andrews DO [email or web address] PCP - General Internal Medicine 08/01/17 03/17/25 Ishan Andrews DO [address] [place] [address] [email or web address] PCP - General Internal Medicine 03/18/25 documented as of this encounter Additional Source Comments The information contained in this document represents components of the legal health record. It is not the complete legal health record.[facility]
--- OUTSIDE RECORDS SUMMARY | 2025-05-20 16:16 | XMS_ITS | Encounter Summary ---
Author Organization [facility] [place] Address 399 [facility] [address] [place] [address] Phone Care Team Providers Care Marinator Name Role Phone Karenjunior Ishan Flower DO Primary Care Provider [phone] Ishan Andrews DO Primary Care Provider [phone] Encounter Details Date Type Department Care Team (Late st Contact Info) Description 10/22/2024 Ancillary Orders [facility], X-Ray - [facility] [address] [place] [address] Ishan Andrews DO 179 [facility] [place] [address] [place] [address] [email or web address] Bilateral interstitial pneumonia (Primary Dx) Social History [...] PM EST Office Visit [facility] [address] [place] [address] [place] [address] Laya Erazo MD [address] [place] [address] [email or web address] [...] pneumonia documented in this encounter Care Teams Marinator Relationship Specialty Start Date End Date Ishan Andrews DO [email or web address] PCP - General Internal Medicine 08/01/17 03/17/25 Ishan Andrews DO 179 [place] [address] PCP - General Internal Medicine 03/18/25 documented as of this encounter Additional Source Comments The information contained in this document represents components of the legal health record. It is not the complete legal health record.[facility]
--- OUTSIDE RECORDS SUMMARY | 2025-05-20 16:16 | XMS_ITS | Encounter Summary ---
Author Organization [facility] Address 399 [facility] [address] [place] [address] Phone Care Team Providers Care Accounts Receivable Associate Name Role Phone Ishan Andrews DO Primary Care Provider [phone] KarenIshan pacheco DO Primary Care Provider [phone] Encounter Details Date Type Department Care Team (Late st Contact Info) Description 02/13/2025 Procedure Pass [employer], [address] [address] Social History Tobacco Use Types Packs/Day Years [...] PM EST Office Visit [facility] [address] [place] [address] Laya Erazo MD [address] [place] [address] [email or web address] documented as of this encounter Visit Diagnoses Not on filedocumented in this encounter Care Teams Accounts Receivable Associate Relationship Specialty Start Date End Date Ishan Andrews DO [email or web address] PCP - General Internal Medicine 08/01/17 03/17/25 Ishan Andrews DO [address] [place] [address] [email or web address] PCP - General Internal Medicine 03/18/25 documented as of this encounter Additional Source Comments The information contained in this document represents components of the legal health record. It is not the complete legal health record.[facility]
--- OUTSIDE RECORDS SUMMARY | 2025-05-20 16:16 | XMS_ITS | Encounter Summary ---
Author Organization [facility] Address 399 [facility] [address] [place] [address] Phone Care Team Providers Care Peer Financial Counselor Name Role Phone Karenjunior Ishan Flower DO Primary Care Provider [phone] Ishan Andrews DO Primary Care Provider [phone] Encounter Details Date Type Department Care Team (Late st Contact Info) Description 08/01/2017 Transcribe Orders [address] [place] [address] Ishan Andrews DO 179 [facility] [address] [place] [address] [email or web address] Essential hypertension, benign (Primary Dx) Social History [...] PM EST Office Visit [facility] [address] [place] [address] Laya Erazo MD [address] [place] [address] documented as of this encounter Results * (ABNORMAL) PSA (screening) (08/01/2017 10:35 AM EST) PSA 4.96(H) 0 - 4.00 ng/mL [facility] Blood 08/01/2017 10:3 5 AM EST 08/01/2017 10:39 AM EST us Ishan A Bigda DO LAB BLOOD BKR ORDERABLES Final R esult [address] [address] * (ABNORMAL) Lipid panel (08/01/2017 10:35 AM EST) Pathologist [facility] HDL 35 mg/dL [facility] Comment: Interpretation: Risk Level Males Decreased >45 mg/dL Average 40-45 mg/dL Increased <40 mg/dL CHOLESTEROL 181 0 - 240 mg/dL [facility] TRIGLYCERIDES 281(H) 30 - 160 mg/dL [facility] LDL 90 50 - 129 mg/dL [facility] Comment: LDL levels in terms of risk for coronary heart disease: <100 mg/dL: Optimal 100-129 mg/dL: Near or above optimal 130-159 mg/dL: Borderline high 160-189 mg/dL: High >190 mg/dL: Very High CARDIAC RISK RATIO 5.2(H) 3.4 - 5.0 C [facility] Blood 08/01/2017 10:3 5 AM EST 08/01/2017 10:40 AM EST us Ishan A Bigda DO LAB BLOOD BKR ORDERABLES Final R esult [address] [address] * (ABNORMAL) Comprehensive metabolic panel (08/01/2017 10:35 AM EST) Pathologist [facility] SODIUM 142 133 - 146 mmol/L [facility] POTASSIUM 4.4 3.3 - 5.1 mmol/L [facility] CHLORIDE 104 96 - 108 mmol/L [facility] CO2 30 21 - 35 mmol/L [facility] BUN 18 6 - 19 mg/dL [facility] CREATININE 0.90 0.5 - 1.5 mg/dL [facility] GLUCOSE 125(H) 70 - 99 mg/dL [facility] ALBUMIN 4.0 3.9 - 4.8 g/dL [facility] TOTAL PROTEIN 7.3 6.5 - 8.0 g/dL [facility] CALCIUM 8.9 8.4 - 10.3 mg/dL [facility] ALKALINE PHOSPHATASE 98 39 - 117 U/L [facility] TOTAL BILIRUBIN 0.4 0 - 1.2 mg/dL [facility] AST 32 0 - 37 U/L [facility] ALT 32 0 - 40 U/L [facility] GLOBULIN 3.3 1 - 4.8 g/dL [facility] EGFR >60 60 - 1000 mL/min/1.7 3m2 [facility] Comment:Abnormal if <60. If patient is -Latvian, multiply the result by 1.21. ANION GAP 12 10 - 20 mmol/L [facility] Blood 08/01/2017 10:3 5 AM EST 08/01/2017 10:40 AM EST us Ishan Andrews DO LAB BLOOD BKR ORDERABLES Final R esult Performing Organization Address City/State/[facility] Co de Phone Number [address] [address] documented in this encounter Visit Diagnoses Diagnosis Essential hypertension, benign- Primary documented in this encounter Care Teams Peer Financial Counselor Relationship Specialty Start Date End Date Ishan Andrews DO PCP - General Internal Medicine 08/01/17 03/17/25 Ishan Andrews DO [address] [place] [address] PCP - General Internal Medicine 03/18/25 documented as of this encounter Additional Source Comments The information contained in this document represents components of the legal health record. It is not the complete legal health record.[facility]
--- OUTSIDE RECORDS SUMMARY | 2025-05-20 16:16 | XMS_ITS | Clinical Summary ---
Author Organization [place] [place] [address] Care Team Providers Care Concrete Building Assembler Name Role Phone Ishan Andrews DO Primary Care Provider [phone] Allergies Active Allergy Reactions Criticality Noted Date [...] topic Insurance [employer] MEDICARE Care Teams Concrete Building Assembler Relationship Specialty Start Date End Date Ishan Andrews DO [address] [place] [phone] PCP - General Internal Medicine 07/25/24
--- OUTSIDE RECORDS SUMMARY | 2025-05-20 16:16 | XMS_ITS | Encounter Summary ---
Author Organization [facility] Address [address] [address] Phone Care Team Providers Care Joy Loading Machine Operator Name Role Phone Karenjunior Ishan Flower DO Primary Care Provider [phone] Ishan Andrews DO Primary Care Provider [phone] Encounter Details Date Type Department Care Team (Late Contact Info) Description 04/24/2019 Ancillary Orders Virtual Department 30 [place] [address] Ishan Andrews DO 179 [facility] [address] [place] [address] [email or web address] Abdominal aortic aneurysm (AAA) without rupture; Encounter [...] 2:00 PM EST Office Visit [facility] [address] [place] [address] Laya Erazo MD [address] [place] [address] [phone] [email or web address] [...] disorders documented in this encounter Care Teams Joy Loading Machine Operator Relationship Specialty Start Date End Date Ishan Andrews DO [email or web address] PCP - General Internal Medicine 08/01/17 03/17/25 Ishan Andrews DO 179 [place] [address] [email or web address] PCP - General Internal Medicine 03/18/25 documented as of this encounter Additional Source Comments The information contained in this document represents components of the legal health record. It is not the complete legal health record.[facility]
--- OUTSIDE RECORDS SUMMARY | 2025-05-20 16:16 | XMS_ITS | Encounter Summary ---
Author Organization [facility] Address [address] [place] [address] Phone Care Team Providers Care Applications Instructor Name Role Phone Ishan Andrews DO Primary Care Provider [phone] Ishan Andrews DO Primary Care Provider [phone] Encounter Details Date Type Department Care Team (Late Contact Info) Description 03/11/2021 Procedure Pass Non-Invasive Cardiology [address] [place] [address] Social History Tobacco Use Types Packs/Day Years [...] 2:00 PM EST Office Visit [facility] [address] [place] [address] Laya Eraoz MD [address] [place] [address] documented as of this encounter Visit Diagnoses Not on filedocumented in this encounter Care Teams Applications Instructor Relationship Specialty Start Date End Date Ishan Andrews DO PCP - General Internal Medicine 08/01/17 03/17/25 Ishan Andrews DO 179 [place] [address] [email or web address] PCP - General Internal Medicine 03/18/25 documented as of this encounter Additional Source Comments The information contained in this document represents components of the legal health record. It is not the complete legal health record.[facility]
--- OUTSIDE RECORDS SUMMARY | 2025-05-20 16:16 | XMS_ITS | Clinical Summary ---
Author Organization [facility] Address 399 [facility] [address] [place] [address] Phone Care Team Providers Care Music Journalist Name Role Phone Ishan Andrews Primary Care Provider [phone] Allergies Active Allergy Reactions Criticality Noted Date [...] 30 days. Active cyanocobalamin/ folic acid (VITAMIN I10-ESVZJ ACID) 1,000-[address] 1 tablet [...] coronary syndromes including unstable or severe angina, [place] within 1 month, severe CHF, high grade [...] Encounters Date Type Department Care Team Description 05/16/2025 Orders Only [address] [address] Farzaneh Leiva PA Type 2 diabetes mellitus without complication, without long-term current use of insulin (Primary Dx) 03/18/2025 6:25 PM EDT - 03/18/2025 11:59 PM EDT Hospital Encounter [address] [address] Ishan Andrews, Discharge Disposition: Home or Self Care 02/13/2025 Procedure Pass [address] [address] from Last 3 Months Family History Medical [...] 2:00 PM EST Office Visit [facility] [address] [place] [address] [place] [address] Laya Erazo MD [address] [place] [address] [email or web address] Health Maintenance Due Date Last Done Comments [...] 03/09/2022, 03/01/2022, Additional history exists COVID-19 VACCINE (2024- season) 2025 03/31/2023, 10/31/2022, 03/30/2022, Additional history [...] this topic Medical Devices Implanted Type Area Patient Accounts Clerk Device Identifier Shelf Expiration Date Model / Serial / Lot Joe Joe Spine Lumbar Description:L4 L5 Cement Bone 1x40 Standard - [id number] Implanted:Qty: 1 on 08/10/2022 by Shawn Charles MD at [facility] Right: Knee [employer] 06/25/2024 [id number] / / [id number] Box Component 70mm Femoral Knee Vanguard Interlok Acme Posterior Stabilized Open Cemented Right - [id number] Implanted:Qty: 1 on 08/10/2022 by Shawn Charles MD at [facility] Right: Knee [employer] 08/17/2030 [id number] / / [id number] Knee Tray 79mm Plate Bone Primary Vanguard Acme I Beam Revision Interlock Cemented - [id number] Implanted:Qty: 1 on 08/10/2022 by Shawn Charles MD at [facility] Right: Knee [employer] 03/23/2032 [id number] / / [id number] Knee Implant [id number] Patella Asymmetric - [id number] Implanted:Qty: 1 on 08/10/2022 by Shawn Charles MD at [facility] Right: Knee [employer] 02/07/2027 [id number] / / [id number] Knee Bearing 79 [id number] Vanguard Stabilized - [id number] Implanted:Qty: 1 on 08/10/2022 by Shawn Charles MD at [facility] Right: Knee [employer] 02/05/2027 [id number] / / [id number] Knee Tray 79mm Plate Bone Primary [employer] Acme I Beam Revision Interlock Cemented - [id number] Implanted:Qty: 1 on 09/13/2023 by Shawn Charles MD at [facility] Left: Knee [employer] 08/30/2032 [id number] / / [id number] Knee Bearing Tibial 18x79 To 83mm Implant Insert Vanguard Ps 05 - [id number] Implanted:Qty: 1 on 09/13/2023 by Shawn Charles MD at [facility] Left: Knee [employer] [id number] 04/28/2028 [id number] / / [id number] Cement Bone 1x40 Standard - [id number] Implanted:Qty: 2 on 09/13/2023 by Shawn Charles MD at [facility] Left: Knee [employer] [id number] 01/23/2026 [id number] / / [id number] Box Component 67.5mm Femoral Knee Vanguard Interlok Acme Posterior Stabilized Open Cemented Left - [id number] Implanted:Qty: 1 on 09/13/2023 by Shawn Charles MD at [facility] Left: Knee [employer] [id number] 06/27/2033 [id number] / / [id number] Knee Implant [id number] Patella Asymmetric - [id number] Implanted:Qty: 1 on 09/13/2023 by Shawn Charles MD at [facility] Left: Knee [employer] 12/18/2025 [id number] / / [id number] Procedures Procedure Name Priority Date/Time Associated Diagnosis Comments HEMOGLOBIN A1C Routine 05/16/2025 10:10 AM EST Type 2 diabetes mellitus without complication, without long-term current use of insulin COMPREHENSIVE METABOLIC PANEL (CMP) Routine 05/16/2025 10:10 AM EST Type 2 diabetes mellitus without complication, without long-term current use of insulin MRI THORACIC SPINE (NEURO) WITHOUT CONTRAST Routine 03/18/2025 7:31 PM EDT Pain in thoracic spine CT ABDOMEN/PELVIS WITH CONTRAST Routine 12/31/2024 7:29 [...] Recently Relevant to Health Maintenance Results * (ABNORMAL) Comprehensive Metabolic Panel (CMP) (05/16/2025 10:10 AM EST) Pathologist [facility] Sodium 141 136 - 145 mmol/L 05/16/2025 12:28 PM [facility] Potassium 4.1 3.4 - 5.1 mmol/L 05/16/2025 12:28 PM [facility] Chloride 107 98 - 107 mmol/L 05/16/2025 12:28 PM [facility] CO2 25 20 - 31 mmol/L 05/16/2025 12:28 PM [facility] Anion Gap 9 3 - 17 mmol/L 05/16/2025 12:28 PM [facility] BUN 15 6 - 23 mg/dL 05/16/2025 12:28 PM [facility] Creatinine 0.80 0.60 - 1.30 mg/dL 05/16/2025 12:28 PM [facility] eGFR 94 >59 mL/min/1.7 3m2 05/16/2025 12:28 PM [facility] Comment:Estimated glomerular filtration rate calculated using the CKD-EPI refit equation. Glucose 122(H) 70 - 99 mg/dL 05/16/2025 12:28 PM [facility] Calcium 8.8 8.5 - 10.5 mg/dL 05/16/2025 12:28 PM [facility] AST 18 <40 U/L 05/16/2025 12:28 PM [facility] ALT 15 <50 U/L 05/16/2025 12:28 PM [facility] Alkaline Phosphatase 139(H) 40 - 130 U/L 05/16/2025 12:28 PM [facility] Bilirubin, Total 0.5 0.0 - 1.2 mg/dL 05/16/2025 12:28 PM [facility] Total Protein 7.3 6.4 - 8.3 g/dL 05/16/2025 12:28 PM [facility] Albumin 3.9 3.5 - 5.2 g/dL 05/16/2025 12:28 PM [facility] Globulin 3.4 1.9 - 4.1 g/dL 05/16/2025 12:28 PM [facility] Blood (Blood) Venipuncture / Unknown 05/16/2025 10:10 AM EST 05/16/2025 10:10 AM EST Farzaneh Leiva [place] LAB BLOOD BKR ORDERABLES Fi nal Result Performing Organization Address [facility]/ZIP Co de Phone Number [address] [address] * (ABNORMAL) Hemoglobin A1c (05/16/2025 10:10 AM EST) Hemoglobin A1c 5.9(H) 4.3 - 5.6 % 05/16/2025 12:27 PM EST [facility] Calculated Mean Blood Glucose 123 mg/dL 05/16/2025 12:27 PM EST [facility] Comment:There is no establis hed normal [...] AM EST 05/16/2025 10:10 AM EST Farzaneh Ortegafay Leiva [place] LAB BLOOD BKR ORDERABLES Fi nal Result Performing Organization Address [facility] Co de Phone Number [address] [address] * MRI THORACIC SPINE (NEURO) WITHOUT CONTRAST [...] DO IMG MR XSPECIALTY Final Result * CT ABDOMEN/PELVIS WITH CONTRAST [...] clinician's provided indication for this examination in [facility]:Outside Radiology Order; ruq pain TECHNIQUE: Multidetector-row CT [...] 08/26/2019 9:57 AM EST us Ishan A Karenjunior DO LAB BLOOD BKR ORDERABLES Final R esult Performing Organization Address [facility] Co de Phone Number [address] [address] * (ABNORMAL) Lipid panel (08/26/2019 9:53 AM [...] RISK RATIO 4.2 3.4 - 5.0 C [facility] Blood 08/26/2019 9:53 AM EST 08/26/2019 9:57 AM EST us Ishan A Karenjunior DO LAB BLOOD BKR ORDERABLES Final R esult Performing Organization Address City/[facility] Co de Phone Number [address] [address] from Last 3 Months or Most Recently Relevant to Health Maintenance [place] [address] [place] [address] MEDICARE REPLACEMENT MEDICARE REPLACEMENT MEDICARE REPLACEMENT MEDICARE REPLACEMENT MEDICARE REPLACEMENT MEDICARE REPLACEMENT MEDICARE REPLACEMENT MEDICARE REPLACEMENT MEDICARE REPLACEMENT Advance Directives For more information, please contact: [phone] (9AM - 5PM [facility], Monday-Monday) Documents on File Type Date Recorded Patient Endoscopy Specialty Technician Expl anation Healthcare Proxy 08/16/2022 2:27 PM * Full Code (Latest Code Status on File) Date Activated Date Inactivated Comments 09/13/2023 10:47 AM Question Answer Comments Code Status Confirmed With: Patient * Full Code Date Activated Date Inactivated Comments 08/10/2022 8:49 AM 09/13/2023 10:47 AM Question Answer Comments Code Status Confirmed With: Patient Care Teams Music Journalist Relationship Specialty Start Date End Date Ishan Andrews DO [address] [place] [address] [email or web address] PCP - General Internal Medicine 03/18/25 Additional Source Comments The information contained in this document represents components of the legal health record. It is not the complete legal health record.[facility]
--- OUTSIDE RECORDS SUMMARY | 2025-05-20 16:16 | XMS_ITS | Encounter Summary ---
Author Organization [facility] Address [address] [address] Phone Care Team Providers Care Claims Auditor Name Role Phone Karenjunior Ishan Flower DO Primary Care Provider [phone] Ishan Andrews DO Primary Care Provider [phone] Encounter Details Date Type Department Care Team (Late Contact Info) Description 10/02/2017 Ancillary Orders Virtual Department 30 [place] [address] Ishan Andrews DO 179 [facility] [place] [address] [place] [address] [email or web address] Peripheral tear of medial meniscus of left [...] PM EST Office Visit [facility] [address] [place] [address] Laya Erazo MD [address] [place] [address] [phone] [email or web address] documented as of this encounter Visit Diagnoses Diagnosis Peripheral tear of medial meniscus of left knee as current injury, subsequent encounter Tear of medial meniscus of knee, unspecified laterality, unspecified tear type, unspecified whether old or current tear, initial encounter documented in this encounter Care Teams Claims Auditor Relationship Specialty Start Date End Date Ishan Andrews DO [email or web address] PCP - General Internal Medicine 08/01/17 03/17/25 Ishan Andrews DO [address] [place] [address] [email or web address] PCP - General Internal Medicine 03/18/25 documented as of this encounter Additional Source Comments The information contained in this document represents components of the legal health record. It is not the complete legal health record.[facility]
--- OUTSIDE RECORDS SUMMARY | 2025-05-20 16:16 | XMS_ITS | Encounter Summary ---
Author Organization [facility] Address 399 [facility] [address] [place] [address] Phone Care Team Providers Care Spray Rig Operator Name Role Phone Karenjunior Ishan Flower DO Primary Care Provider [phone] Ishan Andrews DO Primary Care Provider [phone] Encounter Details Date Type Department Care Team (Late st Contact Info) Description 09/18/2017 Ancillary Orders [facility], X-Ray - [facility] [address] [place] [address] Ishan Andrews DO 179 [facility] [place] [address] [email or web address] Chronic pain of both knees Social History [...] PM EST Office Visit [facility] [address] [place] [address] Laya Erazo MD [address] [place] [address] documented as of this encounter Results * [...] with minimal progression relative to prior imaging [id number]. S/S: Left knee pain, osteoarthritis POS - [...] knees documented in this encounter Care Teams Spray Rig Operator Relationship Specialty Start Date End Date Ishan Andrews DO PCP - General Internal Medicine 08/01/17 03/17/25 Ishan Andrews DO [address] [place] [address] PCP - General Internal Medicine 03/18/25 documented as of this encounter Additional Source Comments The information contained in this document represents components of the legal health record. It is not the complete legal health record.[facility]
--- OUTSIDE RECORDS SUMMARY | 2025-05-20 16:16 | XMS_ITS | Encounter Summary ---
Author Organization [facility] Address 399 [facility] [address] [place] [address] Phone Care Team Providers Care English Adjunct Faculty Name Role Phone Karenjunior Ishan Flower DO Primary Care Provider [phone] Ishan Andrews DO Primary Care Provider [phone] Encounter Details Date Type Department Care Team (Late st Contact Info) Description 02/06/2025 Ancillary Orders [facility], X-Ray - [facility] [address] [place] [address] Ishan Andrews DO 179 [facility] [place] [address] [email or web address] Pleurodynia (Primary Dx) Social History Tobacco [...] PM EST Office Visit [facility] [address] [place] [address] Laya Erazo MD [address] [place] [address] [email or web address] documented as of this encounter [...] clinician's provided indication for this examination in [facility]: Pain COMPARISON: Chest x-ray dated [...] respiration documented in this encounter Care Teams English Adjunct Faculty Relationship Specialty Start Date End Date Ishan Andrews DO [email or web address] PCP - General Internal Medicine 08/01/17 03/17/25 Ishan Andrews DO [address] [place] [address] PCP - General Internal Medicine 03/18/25 documented as of this encounter Additional Source Comments The information contained in this document represents components of the legal health record. It is not the complete legal health record.[facility]
--- OUTSIDE RECORDS SUMMARY | 2025-05-20 16:16 | XMS_ITS | Encounter Summary ---
Author Organization [facility] Address [address] [address] Phone Care Team Providers Care Welder/Fabricator Name Role Phone KarenIshan pacheco Mundo GRACE Primary Care Provider [phone] Ishan Andrews DO Primary Care Provider [phone] Encounter Details Date Type Department Care Team (Late Contact Info) Description 09/22/2017 Ancillary Orders Virtual Department 30 [place] [address] Ishan Andrews DO 179 [place] [address] [email or web address] Chronic sinusitis, unspecified location; Fever, unspecified fever [...] PM EST Office Visit [facility] [address] [place] [address] Laya Erazo MD [address] [place] [address] documented as of this encounter Visit Diagnoses Diagnosis Chronic sinusitis, unspecified location Fever, unspecified fever cause Facial pain Headache documented in this encounter Care Teams Welder/Fabricator Relationship Specialty Start Date End Date Ishan Andrews DO [email or web address] PCP - General Internal Medicine 08/01/17 03/17/25 Ishan Andrews DO [address] [place] [address] [email or web address] PCP - General Internal Medicine 03/18/25 documented as of this encounter Additional Source Comments The information contained in this document represents components of the legal health record. It is not the complete legal health record.[facility]
--- OUTSIDE RECORDS SUMMARY | 2025-05-20 16:16 | XMS_ITS | Encounter Summary ---
Author Organization [facility] Address 399 [facility] [address] [place] [address] Phone Care Team Providers Care Equipment Man Name Role Phone Ishan Andrews DO Primary Care Provider [phone] Ishan Andrews DO Primary Care Provider [phone] Reason for Referral * MRI/CAT Scan - Closed Specialty Diagnoses / Procedures Referred By Jeremiah hawkins Referred To Contact Radiology Diagnoses Pain in thoracic spine Procedures MRI Thoracic Spine Ishan Andrews DO 179 [facility] D [place] Phone: tel: fax: [email or web address] Referral ID Status Reason Start Date Expiration Date Visits Re quested Visits Authorized [id number] Closed 02/13/2025 02/13/2026 1 1 Encounter Details Date Type Department Care Team (Late st Contact Info) Description 02/13/2025 Transcribe Orders Virtual Department 30 [place] [address] Ishan Andrews DO 179 [facility] [place] [address] [email or web address] Pain in thoracic spine (Primary Dx) Social [...] PM EST Office Visit [facility] [address] [place] [address] Laya Erazo MD [address] [address] [email or web address] documented as [...] clinician's provided indication for this examination in [facility]: Outside Radiology Order; thoracic pain TECHNIQUE: [...] clinician's provided indication for this examination in [facility]:Outside Radiology Order; thoracic pain TECHNIQUE: MRI [...] spine documented in this encounter Care Teams Equipment Man Relationship Specialty Start Date End Date Ishan Andrews DO PCP - General Internal Medicine 08/01/17 03/17/25 Ishan Andrews DO [address] [place] [address] [email or web address] PCP - General Internal Medicine 03/18/25 documented as of this encounter Additional Source Comments The information contained in this document represents components of the legal health record. It is not the complete legal health record.[facility]
--- OUTSIDE RECORDS SUMMARY | 2025-05-20 16:16 | XMS_ITS | Encounter Summary ---
Author Organization [facility] Address 399 [facility] [address] [place] [address] Phone Care Team Providers Care Dope Maintenance Worker Name Role Phone Karenjunior Ishan Flower DO Primary Care Provider [phone] Ishan Andrews DO Primary Care Provider [phone] Encounter Details Date Type Department Care Team (Late st Contact Info) Description 10/27/2023 Ancillary Orders Virtual Department [address] [place] [address] Ishan Andrews DO 179 [facility] [place] [address] [email or web address] Pain in right hip (Primary Dx) Social [...] 2:00 PM EST Office Visit [facility] [address] [place] [address] Laya Erazo MD [address] [place] [address] [email or web address] documented as of this encounter Results * [...] Primary documented in this encounter Care Teams Dope Maintenance Worker Relationship Specialty Start Date End Date Ishan Andrews DO PCP - General Internal Medicine 08/01/17 03/17/25 Ishan Andrews DO 179 [place] [address] PCP - General Internal Medicine 03/18/25 documented as of this encounter Additional Source Comments The information contained in this document represents components of the legal health record. It is not the complete legal health record.[facility]
--- OUTSIDE RECORDS SUMMARY | 2025-05-20 16:16 | XMS_ITS | Encounter Summary ---
Author Organization [facility] Address [address] [place] [address] Phone Care Team Providers Care Manufacturing Engineering Manager Name Role Phone Ishan Andrews DO Primary Care Provider [phone] Ishan Andrews DO Primary Care Provider [phone] Encounter Details Date Type Department Care Team (Late st Contact Info) Description 12/23/2024 Procedure Pass [facility], Ct Scan - [address] [address] Social History Tobacco Use Types Packs/Day Years [...] PM EST Office Visit [facility] [address] [place] [address] Laya Erazo MD [address] [place] [address] documented as of this encounter Visit Diagnoses Not on filedocumented in this encounter Care Teams Manufacturing Engineering Manager Relationship Specialty Start Date End Date Ishan Andrews DO [email or web address] PCP - General Internal Medicine 08/01/17 03/17/25 Ishan Andrews DO [address] [place] [address] [email or web address] PCP - General Internal Medicine 03/18/25 documented as of this encounter Additional Source Comments The information contained in this document represents components of the legal health record. It is not the complete legal health record.[facility]
--- OUTSIDE RECORDS SUMMARY | 2025-05-20 16:17 | XMS_ITS | Encounter Summary ---
Author Organization [facility] Address [address] [place] [address] Phone Care Team Providers Care Debarker Operator Name Role Phone Karenjunior Ishan Mundo Primary Care Provider [phone] Karenjunior Ishan Mundo Primary Care Provider [phone] Reason for Referral * MRI/CAT Scan - Closed Specialty Diagnoses / Procedures Referred By Jeremiah hawkins Referred To Contact Radiology Diagnoses RUQ pain Procedures CT Abdomen/Pelvis Farzaneh Leiva PA [address] [facility] [place] [address] [place] [address] Phone: tel: fax: Referral ID Status Reason Start Date Expiration Date Visits Re quested Visits Authorized [id number] Closed 12/23/2024 12/23/2025 1 1 Encounter Details Date Type Department Care Team (Latest Contact Info) Description 12/23/2024 Transcribe Orders Virtual Department 30 [place] [address] Farzaneh Leiva PA 6 [facility] [place] [address] RUQ pain (Primary Dx) Social History Tobacco [...] PM EST Office Visit [facility] [address] [place] [address] Laya Erazo MD [address] [place] [address] [email or web address] documented as of [...] quadrant documented in this encounter Care Teams Debarker Operator Relationship Specialty Start Date End Date Ishan Andrews DO PCP - General Internal Medicine 08/01/17 03/17/25 Ishan Andrews DO 179 [place] [address] PCP - General Internal Medicine 03/18/25 documented as of this encounter Additional Source Comments The information contained in this document represents components of the legal health record. It is not the complete legal health record.[facility]
--- OUTSIDE RECORDS SUMMARY | 2025-05-20 16:17 | XMS_ITS | Encounter Summary ---
Author Organization [facility] Address [address] [place] [address] Phone Care Team Providers Care Saddle And Harness Maker Name Role Phone Ishan Andrews DO Primary Care Provider [phone] Ishan Andrews Primary Care Provider [phone] Encounter Details Date Type Department Care Team (Latest Contact Info) Description 09/22/2022 Ancillary Orders [facility] [address] [place] [address] Shawn Charles MD [address] [place] [address] Orthopedics & Sports Medicine, [facility] [place], [place] [id number] [email or web address] Aftercare following joint replacement surgery Social [...] PM EST Office Visit [facility] [address] [place] [address] Laya Erazo MD [address] [place] [address] documented as of this encounter Results * [...] surgery documented in this encounter Care Teams Saddle And Harness Maker Relationship Specialty Start Date End Date Ishan Andrews DO PCP - General Internal Medicine 08/01/17 03/17/25 Ishan Andrews DO [address] [place] [address] [place] [address] PCP - General Internal Medicine 03/18/25 documented as of this encounter Additional Source Comments The information contained in this document represents components of the legal health record. It is not the complete legal health record.[facility]
--- OUTSIDE RECORDS SUMMARY | 2025-05-20 16:17 | XMS_ITS | Encounter Summary ---
Author Organization [facility] Address 399 [facility] [address] [place] [address] Phone Care Team Providers Care Set Up Mold Technician Name Role Phone Ishan Andrews DO Primary Care Provider [phone] Ishan Andrews DO Primary Care Provider [phone] Reason for Referral * MRI/CAT Scan - Closed Specialty Diagnoses / Procedures Referred By Jeremiah hawkins Referred To Contact Radiology Diagnoses Other symptoms and signs involving cognitive functions and awareness Procedures MRI Brain Ishan Andrews DO Phone: tel: fax: [email or web address] Referral ID Status Reason Start Date Expiration Date Visits Re quested Visits Authorized [id number] Closed 05/17/2024 05/17/2025 1 1 Encounter Details Date Type Department Care Team (Late st Contact Info) Description 05/17/2024 Transcribe Orders Virtual Department [address] [place] [address] Ishan Andrews DO 179 [facility] [place] [address] [email or web address] Other symptoms and signs involving cognitive functions [...] 2:00 PM EST Office Visit [facility] [address] [place] [address] [place] [address] Laya Erazo MD [address] [address] documented as of this encounter Results * [...] examination in [facility]: impaired cognition TECHNIQUE: MRI BRAIN WITHOUT CONTRAST [...] this examination in [facility]:impaired cognition TECHNIQUE: MRI BRAIN WITHOUT CONTRAST Multi-sequence, [...] or hemorrhage. There are scattered foci of [id number] in the white matter, likely a manifestation [...] awareness documented in this encounter Care Teams Set Up Mold Technician Relationship Specialty Start Date End Date Ishan Andrews DO PCP - General Internal Medicine 08/01/17 03/17/25 Ishan Andrews DO 179 [place] [address] PCP - General Internal Medicine 03/18/25 documented as of this encounter Additional Source Comments The information contained in this document represents components of the legal health record. It is not the complete legal health record.[facility]
== END 2025-05-20 12:41 | disposition home or self-care (01) ==
LOC: HO.US 12:40
PROVIDERS: PCP Internal Medicine; Visit Provider Urology
DX: E29.1 Testicular hypofunction (principal)
CPT/HCPCS: 76857

== ENCOUNTER → 2025-05-20 12:45 | Outpatient (BNV) | payer MEDICARE, SELFPAY | PROVIDERS: PCP Internal Medicine; Visit Provider Radiology Diagnostic Radiology | DX: N40.0 Benign prostatic hyperplasia without lower urinary tract symptoms (principal) | CPT/HCPCS: 76857 ==

== ENCOUNTER 2025-06-11 13:21 | Outpatient (AMB) | payer MEDICARE, SELFPAY ==
--- OUTSIDE RECORDS SUMMARY | 2019-07-16 18:50 | XMS_ITS | Encounter Summary ---
Author Organization [facility] Address [address] [place] [address] Phone Care Team Providers Care Manager Track Name Role Phone Ishan Andrews Primary Care Provider [phone] Encounter Details Date Type Department Care Team (Late st Contact Info) Description 07/16/2019 6:50 PM EST Hospital Encounter [facility] [address] [place] [address] Petra Shabazz CNP 12 [place] [address] Social History Tobacco Use Types Packs/Day Years [...] 9:50 PM EDT Wang Banks RN * [place] Suicide Severity Rating Scale (Screener/Recent Self-Report) Question Answer Date of Assessment Author 1. Wish to be (Past 1 Month) No 024 9:50 PM EDT Laquita Banks RN 2. Non-Specific Active Suici clover Thoughts (Past 1 Month) No 09/13/2023 9:50 PM EDT Laquita Banks RN 6. Suicidal Behavior (Lifetime) No 4 9:50 PM EDT Laquita Banks RN documented as of this encounter Plan of Treatment Not on file documented as of this encounter Procedures Procedure [...] on 08/07/2013, therefore definitely chronic. POS - [id number] Edited by: Laya Padilla on 07/16/2019 7:17 [...] presenton 08/07/2013, therefore definitely chronic. POS - [id number] Edited by: Laya Padilla on 07/16/2019 7:17 PM Petra Shabazz VP CARDIOVASCULAR IMG XR UPPER EXTREMITY Carmen l Result documented in this encounter Visit Diagnoses Not on filedocumented in this encounter Care Teams Manager Track Relationship Specialty Start Date End Date Ishan Andrews DO [email or web address] PCP - General Internal Medicine 08/01/17 03/17/25 documented as of this encounter Additional Source Comments The information contained in this document represents components of the legal health record. It is not the complete legal health record.[facility]
--- OUTSIDE RECORDS SUMMARY | 2024-04-19 05:10 | XMS_ITS ---
Author Organization [facility] Address [address] [place] [address] Care Team Providers Care Auto Clutch Rebuilder Name Role Phone Ishan Andrews Primary Care Provider Fili Shah Jr REASON FOR VISIT screening Encounters Encounter Location Date Provider Diagnosis [facility] Outpatient [address] [place] [phone] 04/19/2024 Fili Velasco Jr Colon cancer screening Z12.11 and Colon polyps K63.5 Assessments Encounter Date Diagnosis (ICD Code) Assessment Notes Treatment Notes Treatment Clinical Notes Section Notes 04/19/2024 Colon cancer screening (ICD-10 - Z12.11) 04/19/2024 Colon polyps (ICD-10 - K63.5) Plan Of Treatment No Information Progress Notes * DOMENICO PUTNAM EDOB:[birth year] (70 yo M)Acc No.[id number]:04/19/2024 COLON WITH MAC Patient: DOMENICO EPSTEIN Provider: Hugh Velasco MD :1955 A ge:69 Y S ex:Male Date:04/19/2024 Address:[address] [place] [address] Pcp:Ishan Andrews Subjective: * Chief Complaints: * S creening Assessment: * Assessment: 1. C olon cancer screening - Z12.11 (Primary) 2 . C olon polyps - K63.5? Plan: * Procedure Codes: 4 5385 LESION REMOVAL [id number] INTRVL 3+YRS PTS CLNSCP [id number] RCMND FLW-UP 10 YRS DOCD, Modifiers: 1P Billing Information: * Procedure Codes: 49592 LESION REMOVAL COLONOSCOPY. 0529F INTRVL 3+YRS PTS CLNSCP DOCD. 0528F RCMND FLW-UP 10 YRS DOCD. Modifiers: 1P * The named appointment provid er may or may not be the originator of this progress note, and it is not deemed complete until electronically signed by the appointment provider. Sign off status: Pending * Provider: Hugh Velasco MD Date: 1 Generated for Helga miller/Sheela/Nylaitting on: 1 08/12/2024 05:32 PM EST
--- OUTSIDE RECORDS SUMMARY | 2025-06-11 17:31 | XMS_ITS | Patient Health Record ---
Author Organization [facility] Address [address] [place] [phone] Care Team Providers Care Hog Raiser Name Role Phone Ishan Andrews Primary Care Provider Fili Shah Jr Unavailable [phone] Allergies Allergen (clinical drug ingredient) Drug/Non [...] Status Risk Notes Problem Colon cancer screening (930661796) Colon cancer screening (Z12.11) Active confirmed Problem technician terminal and repeater current use of non-steroidal anti-inflammato ry drug ([id number] 3) Encounter for long-term (current) use of NSAIDs (Z79.1) Active confirmed Problem Pre-op evaluation (459618396) Pre-op evaluation (Z01.818) Active confirmed Plan Of Treatment Future Test Test Name Order Date COLONOSCOPY 03/07/2024 Insurance Providers Payer Name Payer Address Payer Phone Subscriber Number Group Number Insured Name Patient Relationship to Insured Coverage Start Date Coverage End Date [facility] [address] [address] [place] [address] [id number] DOMENICO PUTNAM Self - patient is the insured Medical (General) History Medical History History ICD Code Hyperlipidemia Environmental allergies HORACIO BPH Back and knee pain EGD with balloon dilation 01/03 Surgical History Surgery Date(Month/Year) total knee replacement bilateral 2022.,2 024 back surgery
--- OUTSIDE RECORDS SUMMARY | 2025-06-11 17:31 | XMS_ITS | Data Portability ---
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) MDM MODERATE MUST MEET 2 OUT OF [...] Time Details Appointments FOLLOW UP 15 2024 03:15P M DR NICK Not available Not available Not available Lab hemoglobi n A1c, QN, blood 2024 025 [facility], [place], [address], 12/20/2024 15:07:22 CMP, serum or plasma 2024 025 [facility], [place], [address], 12/20/2024 15:07:22 CBC w/ auto diff 2024 025 [facility], [place], [address], 12/23/2024 12:55:51 testoster one, free + total, serum 2024 025 [facility], [place], [address], 12/20/2024 15:07:22 amylase + lipase, serum 2024 025 [facility], [place], [address], 12/20/2024 15:07:22 gamma-glu tamyl transfera se (ggt), serum 2024 025 [facility], [place], [address], 12/20/2024 15:07:22 C-reactiv e protein, quantitat demetria, serum or plasma 2024 025 [facility], [place], [address], 12/20/2024 15:07:22 ESR (erythroc yte sedimenta tion rate), blood 2024 025 [facility], [place], [address], 12/23/2024 14:10:05 urinalysi s complete, reflex culture 2024 025 [facility], [place], [address], 12/23/2024 13:03:38 PSA, total + free, serum or plasma 2024 025 [facility], [place], [address], 01/02/2025 13:23:32 PSA, total + free, serum or plasma 2024 025 [facility], [place], [address], 01/02/2025 13:23:32 CBC w/ auto diff 2024 025 [facility] (Outpatient), [address] [place] [address], [address], 09/18/2024 15:49:14 CMP, serum or plasma 2024 025 [facility] (Outpatient), [address] [place], [address], 09/18/2024 15:49:38 urinalysi s complete, reflex culture 2024 025 [facility] (Outpatient), [address] [place], [address], 09/19/2024 07:47:15 ESR (erythroc yte sedimenta tion rate), blood 2024 025 [facility] (Outpatient), [address] [place], [address], 09/18/2024 11:29:44 C reactive protein, QN, serum or plasma 2024 025 [facility] (Outpatient), [address] [place], [address], 09/18/2024 11:29:44 HbA1c (hemoglob in A1c), blood 2024 025 [facility], [place], [address], 09/09/2024 13:54:00 PSA, serum or plasma 2024 025 [facility], [place], [address], 09/09/2024 13:43:41 Referral None recorded. Procedures None recorded. Surgeries None recorded. Imaging XR, ribs, bilateral , 3 view 2024 025 [facility], [address] [place] [address], [address], 02/08/2025 15:18:03 XR, thoracic spine, 2 view 2024 025 [facility], [address] [place] [address], [address], 02/08/2025 15:18:13 CT, abdomen + pelvis, w/o contrast 2024 025 [email or web address], [address] [place] [address], [address], 12/24/2024 09:29:48 XR, chest, 2 view 2024 025 [facility], [address] [place] [address], [address], 10/22/2024 16:11:23 XR, chest, 2 view 2024 025 [facility] Central Scheduling (Not Breast), [address] [place] [address], [address], 09/18/2024 17:43:31 Medication Orders prednison e 10 mg tablet 2024 025 [facility] #2024, [address] [place], [address], 12/20/2024 14:37:07 bupropion HCl SR 150 mg tablet,12 hr sustained -release 2024 025 [facility] [address] [place], [address], 12/20/2024 14:35:48 Patient TargetsNo targets recorded. Patient Instructions Encounter Date Encounter Id Patient Instructions Last Modified By Organization Details Last Modified Time 09/02/2024 [id number] prediabetes: car e instructions Not available 09/02/2024 14:35:49 learning about mood disorders Not available 09/02/2024 14:29:51 benign prostatic hyperplasia: care instructions Not available 09/02/2024 14:35:49 10/21/2024 [id number] prostate biopsy: about this test Not available 10/21/2024 15:34:04 Reason for Referral None Reported. Results Created Date Observation Date Name Description Value Unit Range Abnormal Flag Note LastModifiedBy Organization Detail LastModifiedTime 09/19/1909/18/2024 XR, chest , 2 view No observ ation record ed. [address], [address], 09/18/2024 18:16:44 10/23/19 25 10/22/2024 XR, chest , 2 view No observ ation record ed. [email or web address] [address], [place], [address], 10/23/2024 09:04:53 01/04/20 25 12/31/2024 CT, abdom en + pelvi s, w/o contr ast No observ ation record ed. [facility] [address] [place] [address], [address], 01/03/2025 15:29:27 02/08/20 25 02/06/2025 XR, ribs, bilat eral, 3 view No observ ation record ed. [address], [address], 02/12/2025 16:02:47 02/08/20 25 02/06/2025 XR, thora cic spine , 2 view No observ ation record ed. [address], [address], 02/12/2025 16:02:47 03/19/20 25 03/18/2025 MRI, thora cic spine , w/o contr ast No observ ation record ed. [facility] [address] [facility] [address], [place], [address], 03/20/2025 22:36:54 05/21/2005/20/2025 US, monica er No observ ation record ed. [email or web address] [address] [place], [address], 05/21/2025 11:28:34 Result Notes None recorded. Problems Name Problem SNOMED Code Status Onset Date Resolution Date Notes Provider Name and Address Organization Details Recorded Time Psoriati c arthriti s 845639217 [facility] 2017 [facility] 10:04:24 Degenera tion of lumbar interver tebral disc 89260550 Active 2017 hardware /screws Enedelia cid [facility] 5 10:04:24 History of calculus of kidney 687196233 Active 2017 Enedelia cid [facility] 5 10:04:24 Injury of knee 447695890 Active 2017 repaired [facility] 5 10:04:38 Sinusiti s 68243137 Active 2017 Enedeliaisa cid [facility] 5 10:04:38 Injury of knee 104235183 Active 2017 [facility] 5 10:04:38 Prostate specific antigen above referenc e range 807468532 Active 2017 Ishan Nick DO [address] [place], [address], [facility] 5 15:33:24 Impaired fasting glycemia 400154264 Completed 202006/21/2023 Removal Reason: a1c in low 5 DAVIDA MARTINEZ [address] [place], [address], [facility] 5 15:01:46 Candidia sis of mouth 70653518 Active 2021 Enedelia cid [facility] 5 10:04:38 Hypotens demetria episode 93467931 Active 2022 Enedelia cid [facility] 5 10:04:24 Benign prostati c hyperpla omer with outflow obstruct ion 049636383 Active 2022 Enedelia cid [facility] 5 10:04:24 Benign prostati c hyperpla omer 746069138 Active 2022 Enedelia Lopez null, [facility] 5 10:04:38 Morbid obesity 512802003 Active 2022 Enedelia Lopez null, [facility] 5 10:04:24 Pain of right hip joint 0894710906 29617 Active 2023 Enedelia Lopez null, [facility] 5 10:04:38 Pain of left hip joint 8415827165 96877 Active 2023 Enedelia Lopez null, [facility] 5 10:04:38 Impaired cognitio n 152081737 Active 2023 Enedelia Lopez null, [facility] 5 10:04:24 Insomnia 607099309 Active 2023 Enedelia John null, [facility] 5 10:04:24 COVID-19 229527961 Active 2023 Enedelia Lopez null, [facility] 5 10:04:38 Sleep apnea 69739187 Active 2024 Enedeliaisa Lopez null, [facility] 5 10:04:24 Depressi ve disorder 19534710 Active 2024 Ishan Nick, [address] [place] [address], [address], [facility] 5 14:28:37 Impaired fasting glycemia 046670795 Active 2024 DAVIDA MARTINEZ [address] [place], [address], [facility] 5 15:01:45 Acute urinary tract infectio n 891480398 Active 2024 Ishan Nick DO [address] [place] [address], [address], [facility] 5 10:00:03 Fever 563566399 Active 2024 DAVIDA MARTINEZ [address] [place], [address], [facility] 5 11:24:39 Acute bronchit is 64804036 Active 2024 DAVIDA MARTINEZ [address] [place], [address], [facility] 5 11:24:52 Pneumoni a 966396946 Active 2024 DAVIDA MARTINEZ [address] [place], [address], [facility] 5 16:41:42 Fatigue 46257614 Active 2024 Ishan Nick, DO [address] [place] [address], [address], [facility] 5 21:32:18 Hypotest osteroni sm 6412237244 104 Active 2024 Ishan Nick, DO [address] [place] [address], [address], [facility] 5 22:39:56 Intersti tial pneumoni a 74170381 Active 2024 Ishan Nick, DO [address] [place] [address], [address], [facility] 5 15:36:22 Right upper quadrant pain 499556632 Active 2024 DAVIDA MARTINEZ [address] [place] [address], [address], [facility] 5 15:00:34 Urinary frequenc y due to benign prostati c hypertro phy 6774140310 85257 Active 2024 DAVIDA MARTINEZ [address] [place] [address], [address], [facility] 5 15:02:42 Type 2 diabetes mellitus 45018336 Active 2024 DAVIDA MARTINEZ [address] [place], [address], [facility] 5 16:51:58 Rib pain 791964198 Active 2024 Ishan Nick DO [address] [place] [address], [address], [facility] 5 15:34:49 Notes:Some problems listed i n Documents: #[id number], #[id number], #[id number], #[id number], #[id number] could not be added to this patient's chart. Please review these documents and add these problems to the patient's chart manually as needed. Problem Notes None recorded. Procedures Surgical History Date Name Laterality Status Provider Name and Address Organization Details Recorded Time 04/19/20 24 Colonoscopy completed Ishan Nick DO [address] [place] [address], [address], [facility] 04/20/2024 08:37:15 Imaging Results None recorded. Procedure Notes None recorded. Medical Equipment None Reported. Allergies Allergen ID Allergen Name Allergen Category Reaction Reaction Severity Criticality Documentation Date Start Date Code Code System Note Provider Name and Address Organization Details Recorded Time 831 Tylox medicatio n dizziness ringing in ears Not available Not available Not available 10/02/2017 45658 5 RxNorm can take [facility]len [facility] 0 10:32:27 9112 Wellbutri n medicatio n Not available Not available Not available 12/20/2024 03473 RxNorm urina ting alot [facility] 5 14:36:06 9570 aspirin medicatio n ringing [...] Updated DateTime 5 173.99 cm 39.5 kg/m2 313050. 03 g 96 /min 92 % 136/82 mm[Hg] Enedelia Lopez [facility] 5 14:06:53 Date Recorded Body height Body mass index (BMI) Body weight Heart rate Oxygen saturation Systolic And Diastolic Provider Name and Address Organization Details Last Updated DateTime 5 173.99 cm 39.4 kg/m2 386292. 79 g 81 /min 98 % 130/80 mm[Hg] Krystyna Valentine [facility] 5 15:21:31 Date Recorded Body height Body mass index (BMI) Body weight Oxygen saturation Heart rate Systolic And Diastolic Provider Name and Address Organization Details Last Updated DateTime 5 173.99 cm 38.5 kg/m2 010733. 6 g 96 % 84 /min 122/76 mm[Hg] JOSEPH MARTINEZ [facility] 5 14:41:55 Date Recorded Body height Body mass index (BMI) Body weight Oxygen saturation Heart rate Systolic And Diastolic Provider Name and Address Organization Details Last Updated DateTime 5 173.99 cm 37.5 kg/m2 892002. 89 g 97 % 67 /min 116/70 mm[Hg] JOSEPH MARTINEZ [facility] 5 15:15:09 Social History Question Answer Notes LastModified by Organizat ion Details LastModified Time Tobacco Smoking Status Former Smoker Not Available [facility] 04/28/2020 03:36:23 What Was The Date Of [...] mcg/0.3 mL dose 1 completed Not Available [facility] 08/04/2023 23:29:56 Pneumococcal conjugate PCV 13 0 completed Not Available [facility] 08/04/2023 23:29:56 pneumococcal polysaccharide PPV23 2 completed Not Available [facility] 08/04/2023 23:29:56 Influenza, split virus, quadrivalent, preservative 8 completed Not Available [facility] 08/04/2023 23:29:56 COVID-19, mRNA, LNP-S, PF, 30 mcg/0.3 mL dose 2 completed Not Available [facility] 08/04/2023 23:29:56 Influenza, split virus, quadrivalent, preservative 2 completed Not Available [facility] 08/04/2023 23:29:56 COVID-19, mRNA, LNP-S, PF, 30 mcg/0.3 mL dose 2 completed Not Available [facility] 08/04/2023 23:29:56 COVID-19, mRNA, LNP-S, PF, 30 mcg/0.3 mL dose 1 completed Not Available [facility] 08/04/2023 23:29:56 COVID-19, mRNA, LNP-S, PF, garett-sucrose, 30 mcg/0.3 mL 5 completed Enedelia cid [facility] 12/11/2024 11:40:05 influenza, unspecified formulation 5 completed Enedelia cid [facility] 03/17/2025 09:08:47 SARS-COV-2 (COVID-19) vaccine, UNSPECIFIED 5 completed Ovi cid [facility] 04/26/2025 15:20:29 Influenza, split virus, quadrivalent, preservative 09/23/201 9 completed Not Available [facility] 08/04/2023 23:29:56 COVID-19, mRNA, LNP-S, PF, 30 mcg/0.3 mL dose 1 completed Not Available [facility] 08/04/2023 23:29:56 Past Encounters Encounter ID Performer Location Encounter Start Date Encounter Closed Date Diagnosis/Indication Diagnosis SNOMED-CT Code Diagnosis ICD10 Code Diagnosis IMO Codes Diagnosis Note [id number] Ishan Nick [facility] [address] [facility], [place] [facility] [place] [address] 10/02/2017 14:41:22 10/02/2017 15:59:51 Injury of knee 829149959 S89.92XA will need MRI due to knee and leg giving out with spontaneit y Acute sinusitis 93330055 J01.90 finished augmentin and pred with resolution of symptoms [id number] Ishan Nick [facility] [address] [facility],[place] [facility] [place] [address] 03/13/2018 15:30:09 03/13/2018 16:30:07 Injury of knee 003916762 S89.92XA plan forthe knee willbe having th eknee cleaned up and will then get cortisone inj Prostate s pecific antigen above reference range 963073948 R97.20 has undergone bx by dr telles and were negative Degenerati on of lumbar intervertebral disc 42720130 M51.36 about the same will cont with the pain management Renewal of prescription 315495722 Z76.0 [id number] Ishan Nick [facility] [address] [facility],[place] [address] 09/18/2018 15:32:05 09/18/2018 16:13:17 Psoriatic arthritis 924380323 L40.50 seems to be status quo Degenerati on of lumbar intervertebral disc 86852726 M51.36 about the same will cont with the pain management still in a great erick l of p[ain Abdominal pulsatile mass 4641197 R09.89 [place] [id number] Ishan Nick [facility] [address] [facility],[place] [address] 04/23/2019 16:04:03 04/23/2019 16:42:49 Abdominal aortic aneurysm screening 394569206 Z13.6 will order Prostate s pecific antigen above reference range 466606297 R97.20 has undergone bx by dr telles and were negative Adult heal th examination 596472558 Z00.00 will order fbw for pt include a1c as his has chk fibs and noted 140's [id number] Ishan Nick [facility] [address] [facility],[place] [address] 09/23/2019 15:01:16 09/24/2019 14:12:41 Degeneration of lumbar intervertebral disc 35597062 M51.36 about the same will cont with the pain management still in a great erick l of p[ain Psoriatic arthritis 1563 65655 L40.50 seems to be status quo Impaired f asting glycemia 209452105 R73.01 A1c is 6.1. I informed him [...] Prostate s pecific antigen above reference range 900121806 R97.20 has undergone bx by dr telles and were negative. Latest psa was 5.5 (5.8) [id number] Ishan Nick [facility] [address] [facility] [address] 02/24/2020 10:40:35 02/24/2020 15:48:51 Psoriatic arthritis 631178755 L40.50 seems to be status quo Degenerati on of lumbar intervertebral disc 15599241 M51.36 about the same will cont with the pain management still in a great erick l of p[ain Injury of knee 963333763 S89.92XA = still struggling with both knees but we will cont totxconser v until pandemic clears [id number] Ishan Nick [facility] [address] [facility],[place] [address] 09/28/2020 16:06:28 09/29/2020 08:20:32 Degeneration of lumbar intervertebral disc 75286102 M51.36 about the same will cont with the pain management still in a great erick l of p[ain Impaired f asting glycemia 725930552 R73.01 he has lost 40 lbs and i believe he has eliminated the pre dm condition we will chk a1c again in a coupl;e months . Prostate s pecific antigen above reference range 613582953 R97.20 has undergone bx by dr telles and were negative. Latest psa was 5.5 (5.8) [id number] Ishan Nick [facility] [address] [facility] [address] 02/10/2021 15:20:02 02/10/2021 16:20:11 Active or passive immunization 251139897 Z23 Adult heal th examination 603748576 Z00.00 will order fbw for pt include a1c as his has chk fibs and noted 140's Psoriatic arthritis 1563 51349 L40.50 seems to be status quo Fatigue 89417997 R53.83 [id number] Ishan Nick [facility] [address] [facility],[place] [address] 03/10/2021 13:43:37 03/10/2021 16:43:46 Orthostatic hypotension 75118815 I95.1 will fu with holter and cardio referral [id number] Ishan Nick [facility] [address] [facility] [address] 10/04/2021 15:53:37 10/05/2021 10:29:45 Impaired fasting glycemia 105476587 R73.01 he had lost 40 lbs and i believe he had eliminated the pre dm condition but he has gained a bunch back we will chk a1c again in a couple months . Degenerati on of lumbar intervertebral disc 17233274 M51.36 about the same will cont with the pain management still in a great erick l of p[ain Psoriatic arthritis 1563 80376 L40.50 seems to be status quo Screening for malignant neoplasm of colon 249600257 Z12.11 cologuard [id number] Ishan Nick [facility] [address] [facility],[place] [address] 04/19/2022 14:54:17 04/20/2022 11:43:23 Active or passive immunization 450451876 Z23 patient due for flu shot & shingles Adult heal th examination 536535918 Z00.01 will order fbw for pt include a1c as his has chk fibs and noted 140's Advance care planning 71 1530882 Z71.89 done Impaired f asting glycemia 910359316 R73.01 he had lost 40 lbs and i believe he had eliminated the pre dm condition but he has gained a bunch back we will chk a1c again in a couple months . Candidiasis of mouth 797 35114 B37.0 Degenerati on of lumbar intervertebral disc 29615097 M51.36 about the same will cont with the pain management still in a great erick l of p[ain [id number] Ishan Nick [facility] [address] [facility],[place] [address] 07/04/2022 14:06:38 07/04/2022 15:30:02 Pre-surgery evaluation 412808018 Z01.818 The patient was seen in the [...] Benign pro static hyperplasia with outflow obstruction 838164335 N13.8 start finasterid e [id number] Ishan Nick [facility] [address] [facility],[place] [address] 01/11/2023 16:19:14 2023 13:56:55 Psoriatic arthritis 552506816 L40.50 seems to be status quo Impaired f asting glycemia 773310862 R73.01 he had lost 40 lbs and i believe he had eliminated the pre dm condition a1c is now 5.8!!!rech k Benign pro static hyperplasia 604735343 N40.0 Degenerati on of lumbar intervertebral disc 30822408 M51.36 about the same will cont with the pain management still in a great erick l of p[ain [id number] Ishan Nick [facility] [address] [facility] [address] 06/21/2023 09:37:43 06/23/2023 15:30:34 Morbid obesity 198391460 E66.01 has cont to lose wgt and is doing fantastic Impaired f asting glycemia 039831133 R73.01 he had lost 40 lbs and i believe he had eliminated the pre dm condition a1c is now 5.8!!!rech k [id number] Ishan Nick [facility] [address] [facility] [facility] [place] [address] 10/23/2023 13:42:12 10/23/2023 14:16:37 Injury of knee 518329421 S89.92XA = still struggling with both knees but we will cont totxconser v until pandemic clears Degenerati on of lumbar intervertebral disc 76587567 M51.36 about the same will cont with the pain management still in a great erick l of p[ain Pain of ri ght hip joint 0272765537 84097 M25.551 Pain of le ft hip joint 9408903416 01863 M25.552 [id number] Ishan Nick [facility] [address] [facility], [place] [address] 05/14/2024 15:26:52 05/14/2024 16:03:46 Impaired cognition 949236360 R41.89 is acutely aware of his cognitive decline he is insisting that he is fine at times but also admits he is depressed and his sleep pattern is poor Insomnia 559586949 G47.0 0 [id number] Ishan Nick [facility] [address] [facility] [address] 09/02/2024 13:56:06 09/02/2024 14:41:05 Renewal of prescription 170755561 Z76.0 Depression screening 171 434977 Z13.31 pos Psoriatic arthritis 1563 52573 L40.50 seems to be status quo Depressive disorder 5644 2743 F32.A long detailed discussion and review of his consultwil l start buproprion Impaired f asting glycemia 225486006 R73.01 he had lost 40 lbs and i believe he had eliminated the pre dm condition a1c is now 5.8!!!rech k Benign pro static hyperplasia 023935586 N40.0 [id number] Ishan Nick [facility] [address] [facility],[place] [address] 09/18/2024 09:22:48 09/18/2024 11:55:15 Fever 089013691 R50.81 will set upwith lab work and recheck urine Acute bronchitis 4197174 2 J20.8 will set up with CXRstart on pred [id number] Ishan Nick [facility] [address] [facility],[place] [address] 10/21/2024 15:08:57 10/21/2024 16:00:41 Hypotestosteronism 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.1 testost was 54 Benign pro static hyperplasia with outflow obstruction 234784528 N13.8 doing better Degenerati on of lumbar intervertebral disc 11587784 M51.369 stable but same Depression screening 171 917007 Z13.31 pos Prostate s pecific antigen above reference range 076329666 R97.20 53322 psa is elevated again we need to have him go back to dr gera Jennings al pneumonia 87215205 J84.9 [id number] needs follow up xr [id number] Ishan Nick [facility] [address] [facility],[place] [address] 12/20/2024 14:24:35 12/20/2024 15:31:07 Depression screening 463028923 Z13.31 negative Right uppe r quadrant pain [id number] R10.11 592023 will check blood work levels Impaired f asting glycemia [id number] R73.01 731417 will set up with lab workIFG Hypotestosteronism 68129 35951 104 E34.9 630944 needs another lab prior to his endo appt Urinary fr equency due to benign prostatic hypertrophy [id number] 27533 N40.1 R35.0 [id number] start finasterid e 441958 Ishan Nick DO [facility] Internal [facility] [address] [facility],[place] [address] 02/03/2025 15:07:55 02/03/2025 16:17:38 Depression screening 354688809 Z13.31 pos Type 2 kelly betes mellitus 53824542 E11.9 40144346 stable Hypotestosteronism 60608 35025 104 E34.9 519702 testost was 54 and 89 being followed by endocrine and urology Rib pain 927917341 R07.8 1 [id number] Health Concerns Section Related Observation LastModified by Organization Detai ls LastModified Time None Recorded Concern Status LastModified by Organization Details LastModified Time None Recorded Advance Directives Directive None Recorded Payers Insurance Date Sequence Insurance Name Policy Number Policy Yo Covered Member ID Yo Member ID Guarantor Name 03/13/2018 1 [employer] (EPO) [id number] Iris Marroquin [id number] Rod Marroquin 10/21/2024 1 [place] Rod Marroquin [id number] Rod Marroquin 10/21/2024 1 [place] [id number] Rod Marroquin [id number] Rod Marroquin 05/26/2025 1 [facility] (MEDICARE REPLACEMENT/ ADVANTAGE - HMO) [id number] Rod Marroquin [id number] Rod Marroquin Notes Date Note Type Note Provider Name a nd Address Organization Details Recorded Time 5 text/html ROS as noted in the HPI here for rechk and is doing ok overallstill quite depressed and has been dx with a pseudo dementia from thissee reportwas started on B12 by neurologistlong detailed discussion Ishan Nick, [address] [facility], [place], [address], [facility] 09/02/2024 14:36:13 5 text/html ROS as noted in the HPI c/o bronchitis The patient is participating in this appointment via telemedicine communication with a phone call/video calling service ([employer])The patient consents to use of these platforms [...] urine sample, and CXR DAVIDA MARTINEZ [address] [place], [address], [facility] 09/18/2024 11:30:33 5 text/html [...] loss of motivation Ishan Nick DO [address] [place], [address], [facility] 10/21/2024 15:39:34 5 text/html ROS as noted in the HPI c/o abdominal pain the patient reports that he has been having RUQ painthe patient reports it has been about a monthfeels constant achethe patient does get pain after eatinggetting more bloated with appetite change recommended lab work and CT scan as well DAVIDA MARTINEZ [address] [place], [address], [facility] 12/20/2024 15:10:19 5 text/html Care [...] of his pneumonia Ishan Nick, DO [address] [facility], [place], [address], [facility] 02/04/2025 21:06:48
--- OUTSIDE RECORDS SUMMARY | 2025-06-11 17:31 | XMS_ITS | Encounter Summary ---
Author Organization [facility] Address [address] [place] [address] [place] [address] Phone Care Team Providers Care Bicycle Racer Name Role Phone Ishan Andrews Primary Care Provider [phone] Ishan Andrews DO Primary Care Provider [phone] Encounter Details Date Type Department Care Team (Late st Contact Info) Description 08/10/2022 Procedure Pass OR Admitting Dept - Virtual Department [address] [place] [address] Social History Tobacco Use Types Packs/Day Years [...] 08/10/2022 6:22 PM Gem Gandhi RN * [place] Suicide Severity Rating Scale (Screener/Recent Self-Report) Question Answer Date of Assessment Author 1. Wish to be (Past 1 Month) No 023 6:22 PM Gem Gandhi, MATT 2. Non-Specific Active Suici clover Thoughts (Past 1 Month) No 08/10/2022 6:22 PM Delio Gandhi RN 6. Suicidal Behavior (Lifetime) No 6:22 PM Gem Gandhi, MATT documented as of this encounter Plan of Treatment Not on file documented as of this encounter Visit Diagnoses Not on filedocumented in this encounter Care Teams Bicycle Racer Relationship Specialty Start Date End Date Ishan Andrews DO [email or web address] PCP - General Internal Medicine 08/01/17 03/17/25 Ishan Andrews DO [address] [place] [address] [email or web address] PCP - General Internal Medicine 03/18/25 documented as of this encounter Additional Source Comments The information contained in this document represents components of the legal health record. It is not the complete legal health record.[facility]
--- OUTSIDE RECORDS SUMMARY | 2025-06-11 17:31 | XMS_ITS | Encounter Summary ---
Author Organization [facility] Address [address] [facility] [address] [place] [address] Phone Care Team Providers Care Sheet Metal Duct Worker Supervisor Name Role Phone Karenjunior Ishan Flower DO Primary Care Provider [phone] Ishan Andrews DO Primary Care Provider [phone] Encounter Details Date Type Department Care Team (Late st Contact Info) Description 10/27/2023 Ancillary Orders [facility], X-Ray - [facility] [address] [place] [address] Ishan Andrews DO [address] [facility] [place] [address] [place] [address] [email or web address] Pain of left hip joint (Primary Dx); [...] on file documented as of this encounter Results * [...] disc documented in this encounter Care Teams Sheet Metal Duct Worker Supervisor Relationship Specialty Start Date End Date Ishan Andrews DO PCP - General Internal Medicine 08/01/17 03/17/25 Ishan Andrews DO [address] [place] [address] [email or web address] PCP - General Internal Medicine 03/18/25 documented as of this encounter Additional Source Comments The information contained in this document represents components of the legal health record. It is not the complete legal health record.[facility]
--- OUTSIDE RECORDS SUMMARY | 2025-06-11 17:31 | XMS_ITS | Encounter Summary ---
Author Organization [facility] Address [address] [facility] [address] [place] [address] Phone Care Team Providers Care Pipe Straightener Name Role Phone Karnejunior Ishan Flower DO Primary Care Provider [phone] Ishan Andrews DO Primary Care Provider [phone] Encounter Details Date Type Department Care Team (Late st Contact Info) Description 10/23/2023 Transcribe Orders Virtual Department [address] [place] [address] Ishan Andrews DO [address] [facility] [place] [address] [place] [address] [email or web address] Pain in right hip (Primary Dx) Social [...] Primary documented in this encounter Care Teams Pipe Straightener Relationship Specialty Start Date End Date Ishan Andrews DO PCP - General Internal Medicine 08/01/17 03/17/25 Ishan Andrews DO [address] [place] [address] PCP - General Internal Medicine 03/18/25 documented as of this encounter Additional Source Comments The information contained in this document represents components of the legal health record. It is not the complete legal health record.[facility]
--- OUTSIDE RECORDS SUMMARY | 2025-06-11 17:32 | XMS_ITS | Encounter Summary ---
Author Organization [facility] Address [address] [facility] [address] [place] [address] Phone Care Team Providers Care Apprentice Stylist Name Role Phone Ishan Andrews DO Primary Care Provider [phone] Ishan Andrews DO Primary Care Provider [phone] Encounter Details Date Type Department Care Team ([facility] st Contact Info) Description 10/16/2017 Transcribe Orders [facility] [address] [place] [address] Ishan Andrews DO [address] [facility] [place] [address] [place] [address] Impaired fasting glucose (Primary Dx); Elevated prostate [...] EDT) PSA 5.71(H) 0 - 4.00 ng/mL [facility] Blood 10/16/2017 10:4 5 AM EDT 10/16/2017 10:50 AM EDT us Ishan Mundo Jonesda DO LAB BLOOD BKR ORDERABLES Final R esult Performing Organization Address City/[facility]/ZIP Co de Phone Number [address] [address] * Hemoglobin A1c (10/16/2017 10:45 AM EDT) HEMOGLOBIN A1C 5.7 4.3 - 5.8 % [facility] Blood 10/16/2017 10:4 5 AM EDT 10/16/2017 10:49 AM EDT us Ishan Andrews DO LAB BLOOD BKR ORDERABLES Final R esult Performing Organization Address City/[facility] Co de Phone Number [address] [address] documented in this encounter Visit Diagnoses Diagnosis Impaired fasting glucose- Primary Elevated prostate specific antigen (PSA) documented in this encounter Care Teams Apprentice Stylist Relationship Specialty Start Date End Date Ishan Andrews DO PCP - General Internal Medicine 08/01/17 03/17/25 Ishan Andrews DO [address] [place] [address] PCP - General Internal Medicine 03/18/25 documented as of this encounter Additional Source Comments The information contained in this document represents components of the legal health record. It is not the complete legal health record.[facility]
--- OUTSIDE RECORDS SUMMARY | 2025-06-11 17:32 | XMS_ITS | Encounter Summary ---
Author Organization [facility] Address [address] [facility] [address] [place] [address] Phone Care Team Providers Care Cloud Security Architect Name Role Phone Ishan Andrews DO Primary Care Provider [phone] KarenIshan pacheco DO Primary Care Provider [phone] Encounter Details Date Type Department Care Team (Late st Contact Info) Description 02/13/2025 Procedure Pass [facility], [address] [address] Social History Tobacco Use Types Packs/Day Years [...] on filedocumented in this encounter Care Teams Cloud Security Architect Relationship Specialty Start Date End Date Ishan Andrews DO PCP - General Internal Medicine 08/01/17 03/17/25 Ishan Andrews DO [address] [place] [address] PCP - General Internal Medicine 03/18/25 documented as of this encounter Additional Source Comments The information contained in this document represents components of the legal health record. It is not the complete legal health record.[facility]
--- OUTSIDE RECORDS SUMMARY | 2025-06-11 17:32 | XMS_ITS | Encounter Summary ---
Author Organization [facility] Address [address] [facility] [address] [place] [address] Phone Care Team Providers Care Hose Mender Name Role Phone Ishan Andrews DO Primary Care Provider [phone] Ishan Andrews DO Primary Care Provider [phone] Encounter Details Date Type Department Care Team (Late st Contact Info) Description 09/13/2023 Procedure Pass OR Admitting Dept - Virtual Department [address] [place] [address] Social History Tobacco Use Types Packs/Day Years [...] 9:50 PM EDT Wang Banks RN * [place] Suicide Severity Rating Scale (Screener/Recent Self-Report) Question Answer Date of Assessment Author 1. Wish to be (Past 1 Month) No 024 9:50 PM EDT Laquita Banks RN 2. Non-Specific Active Suici clover Thoughts (Past 1 Month) No 09/13/2023 9:50 PM EDT Laquita Banks RN 6. Suicidal Behavior (Lifetime) No 9:50 PM EDT Laquita Banks RN documented as of this encounter Plan of Treatment Not on file documented as of this encounter Visit Diagnoses Not on filedocumented in this encounter Care Teams Hose Mender Relationship Specialty Start Date End Date Ishan Andrews DO PCP - General Internal Medicine 08/01/17 03/17/25 Ishan Andrews DO [address] [place] [address] PCP - General Internal Medicine 03/18/25 documented as of this encounter Additional Source Comments The information contained in this document represents components of the legal health record. It is not the complete legal health record.[facility]
--- OUTSIDE RECORDS SUMMARY | 2025-06-11 17:32 | XMS_ITS | Encounter Summary ---
Author Organization [facility] Address [address] [facility] [address] [place] [address] Phone Care Team Providers Care Cad Operator Name Role Phone Karenjunior Ishan Flower DO Primary Care Provider [phone] Ishan Andrews DO Primary Care Provider [phone] Encounter Details Date Type Department Care Team (Late st Contact Info) Description 02/06/2025 Ancillary Orders [facility], X-Ray - [facility] [address] [place] [address] Ishan Andrews DO [address] [facility] [place] [address] [place] [address] [email or web address] Pleurodynia (Primary Dx) Social [...] clinician's provided indication for this examination in [facility]: Pain COMPARISON: Chest x-ray dated 10/22/2024 [...] respiration documented in this encounter Care Teams Cad Operator Relationship Specialty Start Date End Date Ishan Andrews DO [email or web address] PCP - General Internal Medicine 08/01/17 03/17/[address] [place] [address] [email or web address] PCP - General Internal Medicine 03/18/25 documented as of this encounter Additional Source Comments The information contained in this document represents components of the legal health record. It is not the complete legal health record.[facility]
--- OUTSIDE RECORDS SUMMARY | 2025-06-11 17:32 | XMS_ITS | Encounter Summary ---
Author Organization [facility] Address [address] [facility] [address] [place] [address] Phone Care Team Providers Care Team Assistant Name Role Phone Ishan Andrews DO Primary Care Provider [phone] Ishan Andrews DO Primary Care Provider [phone] Encounter Details Date Type Department Care Team (Latest Contact Info) Description 10/20/2017 Transcribe Orders [address] [address] Rosanna Alvarez PA-C [address] [place] [address] [email or web address] Elevated prostate specific antigen (PSA) [...] AM EDT) PSA, TOTAL 5.8(H) <=4.5 ng/mL [facility] FREE PSA 1.8 ng/mL [facility] FREE/TOT PSA RATIO 0.31 ratio [facility] Comment: (NOTE) When [...] LAB BLOOD BKR ORDERABLES Fin al Result [facility] [address] [place] [address] documented in this encounter Visit Diagnoses Diagnosis Elevated prostate specific antigen (PSA)- Primary documented in this encounter Care Teams Team Assistant Relationship Specialty Start Date End Date Ishan Andrews DO PCP - General Internal Medicine 08/01/17 03/17/25 Ishan Andrews DO [address] [place] [address] PCP - General Internal Medicine 03/18/25 documented as of this encounter Additional Source Comments The information contained in this document represents components of the legal health record. It is not the complete legal health record.[facility]
--- OUTSIDE RECORDS SUMMARY | 2025-06-11 17:32 | XMS_ITS | Clinical Summary ---
Author Organization [facility] Address [address] [facility] [address] [place] [address] Phone Care Team Providers Care Onsite Case Manager Name Role Phone Ishan Andrews Primary Care Provider [phone] Allergies Active Allergy Reactions Criticality Noted Date [...] 30 days. Active cyanocobalamin/ folic acid (VITAMIN M77-XRBLJ ACID) 1,000-[address] 1 tablet [...] coronary syndromes including unstable or severe angina, RI within 1 month, severe CHF, high grade [...] Department Care Team Description 05/16/2025 Orders Only [address] [address] Farzaneh Leiva PA Type 2 diabetes mellitus without complication, without long-term current use of insulin (Primary Dx) 03/18/2025 6:25 PM EDT - 03/18/2025 11:59 PM EDT Hospital Encounter [address] [address] Ishan Andrews, Discharge Disposition: Home or Self Care 02/13/2025 Procedure Pass [address] [address] from Last 3 Months Family History Medical [...] 03/14/2025 10:25 AM EDT Plan of Treatment Health Maintenance Due Date [...] this topic Medical Devices Implanted Type Area Consulting Actuary Device Identifier Shelf Expiration Date Model / Serial / Lot Joe Joe Spine Lumbar Description:L4 L5 Cement Bone 1x40 Standard - [id number] Implanted:Qty: 1 on 08/10/2022 by Shawn Charles MD at [facility] Right: Knee [employer]NA [employer] 06/25/2024 [id number] / / [id number] Box Component 70mm Femoral Knee Vanguard Interlok Art[place]ia [place] Posterior Stabilized Open Cemented Right - [id number] Implanted:Qty: 1 on 08/10/2022 by Shawn Charles MD at [facility] Right: Knee [employer] 08/17/2030 [id number] / / [id number] Knee Tray 79mm Plate Bone Primary Vanguard Artesia Wells I Beam Revision Interlock Cemented - [id number] Implanted:Qty: 1 on 08/10/2022 by Shawn Charles MD at [facility] Right: Knee [employer] 03/23/2032 [id number] / / [id number] Knee Implant 30i94ed Patella Asymmetric - [id number] Implanted:Qty: 1 on 08/10/2022 by Shawn Charles MD at [facility] Right: Knee [employer] 02/07/2027 [id number] / / [id number] Knee Bearing 79 25p10ta Vanguard Stabilized - [id number] Implanted:Qty: 1 on 08/10/2022 by Shawn Charles MD at [facility] Right: Knee [employer] 02/05/2027 [id number] / / [id number] Knee Tray 79mm Plate Bone Primary Vanguard Artesia Wells I Beam Revision Interlock Cemented - [id number] Implanted:Qty: 1 on 09/13/2023 by Shawn Charles MD at [facility] Left: Knee [employer] 08/30/2032 [id number] / / [id number] Knee Bearing Tibial 18x79 To 83mm Implant Insert Vanguard Ps 05 - [id number] Implanted:Qty: 1 on 09/13/2023 by Shawn Charles MD at [facility] Left: Knee [employer] [id number] 04/28/2028 [id number] / / [id number] Cement Bone 1x40 Standard - [id number] Implanted:Qty: 2 on 09/13/2023 by Shawn Charles MD at [facility] Left: Knee [employer] [id number] 01/23/2026 [id number] / / [id number] Box Component 67.5mm Femoral Knee Vanguard Interlok Artesia Wells Posterior Stabilized Open Cemented Left - [id number] Implanted:Qty: 1 on 09/13/2023 by Shawn Charles MD at [facility] Left: Knee [employer] [id number] 06/27/2033 [id number] / / [id number] Knee Implant 14y21tz Patella Asymmetric - [id number] Implanted:Qty: 1 on 09/13/2023 by Shawn Charles MD at [facility] Left: Knee [employer] 12/18/2025 [id number] / / [id number] Procedures Procedure Name Priority Date/Time Associated Diagnosis [...] 136 - 145 mmol/L 05/16/2025 12:28 PM EST [facility] Potassium 4.1 3.4 - 5.1 mmol/L 05/16/2025 12:28 PM EST [facility] Chloride 107 98 - 107 mmol/L 05/16/2025 12:28 PM EST [facility] CO2 25 20 - 31 mmol/L 05/16/2025 12:28 PM EST [facility] Anion Gap 9 3 - 17 mmol/L 05/16/2025 12:28 PM [facility] BUN 15 6 - 23 mg/dL 05/16/2025 12:28 PM [facility] Creatinine 0.80 0.60 - 1.30 mg/dL 05/16/2025 12:28 PM [facility] eGFR 94 >59 mL/min/1.7 3m2 05/16/2025 12:28 PM [facility] Comment:Estimated glomerular filtration rate calculated using the CKD-EPI refit equation. Glucose 122(H) 70 - 99 mg/dL 05/16/2025 12:28 PM [facility] Calcium 8.8 8.5 - 10.5 mg/dL 05/16/2025 12:28 PM [facility] AST 18 <40 U/L 05/16/2025 12:28 PM [facility] ALT 15 <50 U/L 05/16/2025 12:28 PM [facility] Alkaline Phosphatase 139(H) 40 - 130 U/L 05/16/2025 12:28 PM [facility] Bilirubin, Total 0.5 0.0 - 1.2 mg/dL 05/16/2025 12:28 PM [facility] Total Protein 7.3 6.4 - 8.3 g/dL 05/16/2025 12:28 PM [facility] Albumin 3.9 3.5 - 5.2 g/dL 05/16/2025 12:28 PM [facility] Globulin 3.4 1.9 - 4.1 g/dL 05/16/2025 12:28 PM [facility] Blood (Blood) Venipuncture / Unknown 05/16/2025 10:10 AM EST 05/16/2025 10:10 AM EST us Farzaneh HIGUERA LAB BLOOD BKR ORDERABLES Fi nal Result [facility] [address] [place] [address] * (ABNORMAL) Hemoglobin A1c (05/16/2025 10:10 AM EST) Hemoglobin A1c 5.9(H) 4.3 - 5.6 % 05/16/2025 12:27 PM EST [facility] Calculated Mean Blood Glucose 123 mg/dL 05/16/2025 12:27 PM EST [facility] Comment:There is no establis [facility] normal range for the Estimated Average Glucose [...] LAB BLOOD BKR ORDERABLES Fi nal Result [facility] [address] [place], [place] [id number] * MRI THORACIC SPINE (NEURO) WITHOUT CONTRAST [...] clinician's provided indication for this examination in Psychiatric:Outside Radiology Order; thoracic pain TECHNIQUE: MRI THORACIC [...] clinician's provided indication for this examination in Psychiatric: Outside Radiology Order; ruq pain TECHNIQUE: Multidetector-row [...] AM EST) HCV NON-REACTIV E NON-REACTI VE [facility] Blood 08/26/2019 9:53 AM EST 08/26/2019 9:57 AM EST us Ishan A Bigda DO LAB BLOOD BKR ORDERABLES Final R esult Performing Organization Address [facility] Co de Phone Number [address] [address] * (ABNORMAL) Lipid panel (08/26/2019 9:53 AM EST) HDL 41 mg/dL [facility] Comment: Interpretation <40 mg/dL: Low HDL cholesterol (major risk factor for CHD) Greater than or equal to 60 mg/dL: High HDL cholesterol ( negative risk factor for CHD) HDL - cholesterol is affected by a number of factors, e.g. smoking, excerise, hormones, sex and age. CHOLESTEROL 172 0 - 240 mg/dL [facility] TRIGLYCERIDES 196(H) 30 - 160 mg/dL [facility] LDL 92 50 - 129 mg/dL [facility] Comment: LDL levels in terms of risk for coronary heart disease: <100 mg/dL: Optimal 100-129 mg/dL: Near or above optimal 130-159 mg/dL: Borderline high 160-189 mg/dL: High >190 mg/dL: Very High CARDIAC RISK RATIO 4.2 3.4 - 5.0 C [facility] Blood 08/26/2019 9:53 AM EST 08/26/2019 9:57 AM EST us Ishan Andrews [place] LAB BLOOD BKR ORDERABLES Final R [employer] Performing Organization Address [facility] Co de Phone Number [address] [address] from Last 3 Months or Most Recently Relevant to Health Maintenance Insurance [facility] MEDICARE REPLACEMENT MEDICARE REPLACEMENT MEDICARE REPLACEMENT MEDICARE REPLACEMENT MEDICARE REPLACEMENT MEDICARE REPLACEMENT MEDICARE REPLACEMENT [facility] AAR MEDICARE REPLACEMENT Advance Directives For more information, please contact: [phone] (9AM - 5PM [facility], Monday-Monday) Documents on File Type Date Recorded Patient Ux Lead Expl anation Healthcare Proxy 08/16/2022 2:27 PM * Full Code (Latest Code Status on File) Date Activated Date Inactivated Comments 09/13/2023 10:47 AM Question Answer Comments Code Status Confirmed With: Patient * Full Code Date Activated Date Inactivated Comments 08/10/2022 8:49 AM 09/13/2023 10:47 AM Question Answer Comments Code Status Confirmed With: Patient Care Teams Onsite Case Manager Relationship Specialty Start Date End Date Ishan Andrews DO [address] [place] [address] [email or web address] PCP - General Internal Medicine 03/18/25 Additional Source Comments The information contained in this document represents components of the legal health record. It is not the complete legal health record.[facility]
--- OUTSIDE RECORDS SUMMARY | 2025-06-11 17:32 | XMS_ITS | Encounter Summary ---
Author Organization Loc[facility] Address [address] [address] Phone Care Team Providers Care Candle Molder Name Role Phone Ishan Andrews DO Primary Care Provider [phone] Ishan Andrews DO Primary Care Provider [phone] Encounter Details Date Type Department Care Team (Late st Contact Info) Description 09/19/2018 Transcribe Orders Virtual Department 30 [place] [address] Ishan Andrews DO 179 [facility] [place] [address] [email or web address] Other specified symptoms and signs involving the [...] Primary documented in this encounter Care Teams Candle Molder Relationship Specialty Start Date End Date Ishan Andrews DO [email or web address] PCP - General Internal Medicine 08/01/17 03/17/25 Ishan Andrews DO [address] [place] [address] [email or web address] PCP - General Internal Medicine 03/18/25 documented as of this encounter Additional Source Comments The information contained in this document represents components of the legal health record. It is not the complete legal health record.[facility]
--- OUTSIDE RECORDS SUMMARY | 2025-06-11 17:32 | XMS_ITS | Encounter Summary ---
Author Organization [facility] Address [address] [place] [address] Phone Care Team Providers Care Roundhouse Worker Name Role Phone Ishan Andrews DO Primary Care Provider [phone] Ishan Andrews DO Primary Care Provider [phone] Encounter Details Date Type Department Care Team (Late st Contact Info) Description 09/18/2024 Ancillary Orders [facility], X-Ray - [facility] 30 [place] [address] Farzaneh Leiva PA [address] [place] [address] [place] [address] Acute bronchitis due to other specified organisms [...] initiated on 09/18/2024 3:54 PM, Message ID [id number]. Narrative 09/18/2024 3:55 PM EDT XR CHEST [...] clinician's provided indication for this examination in [facility]:Pain. COMPARISON: None. FINDINGS: Devices/Tubes/Lines: None. Lungs: The [...] was initiated on 09/18/2024 3:54 PM,Message ID [id number]. Farzaneh Leiva PA IMG XR CHEST Final Resul t documented in this encounter Visit Diagnoses Diagnosis Acute bronchitis due to other specified organisms- Primary Acute bronchitis due to other specified organisms documented in this encounter Care Teams Roundhouse Worker Relationship Specialty Start Date End Date Ishan Andrews DO PCP - General Internal Medicine 08/01/17 03/17/25 Ishan Andrews DO 179 [place] [address] PCP - General Internal Medicine 03/18/25 documented as of this encounter Additional Source Comments The information contained in this document represents components of the legal health record. It is not the complete legal health record.[facility]
--- OUTSIDE RECORDS SUMMARY | 2025-06-11 17:32 | XMS_ITS | Encounter Summary ---
Author Organization [facility] Address [address] [facility] [address] [place] [address] Phone Care Team Providers Care Rivet Bucker Name Role Phone Ishan Andrews DO Primary Care Provider [phone] Ishan Andrews DO Primary Care Provider [phone] Encounter Details Date Type Department Care Team (Late st Contact Info) Description 08/01/2017 Transcribe Orders [facility] [address] [place] [address] Ishan Andrews DO 179 [facility] [place] [address] Essential hypertension, benign (Primary Dx) Social History [...] EST) PSA 4.96(H) 0 - 4.00 ng/mL [facility] Blood 08/01/2017 10:3 5 AM EST 08/01/2017 10:39 AM EST us Ishan A Bigda DO LAB BLOOD BKR ORDERABLES Final R esult [address] [address] * (ABNORMAL) Lipid panel (08/01/2017 10:35 AM EST) HDL 35 mg/dL [facility] Comment: Interpretation: Risk Level Males Decreased >45 mg/dL Average 40-45 mg/dL Increased <40 mg/dL CHOLESTEROL 181 0 - 240 mg/dL [facility] TRIGLYCERIDES 281(H) 30 - 160 mg/dL [facility] LDL 90 50 - 129 mg/dL [facility] Comment: LDL levels in terms of risk for coronary heart disease: <100 mg/dL: Optimal 100-129 mg/dL: Near or above optimal 130-159 mg/dL: Borderline high 160-189 mg/dL: High >190 mg/dL: Very High CARDIAC RISK RATIO 5.2(H) 3.4 - 5.0 C [facility] Blood 08/01/2017 10:3 5 AM EST 08/01/2017 10:40 AM EST us Ishan A Bigda DO LAB BLOOD BKR ORDERABLES Final R esult [address] [address] * (ABNORMAL) Comprehensive metabolic panel (08/01/2017 10:35 AM EST) SODIUM 142 133 - 146 mmol/L [facility] POTASSIUM 4.4 3.3 - 5.1 mmol/L [facility] CHLORIDE 104 96 - 108 mmol/L [facility] CO2 30 21 - 35 mmol/L [facility] BUN 18 6 - 19 mg/dL [facility] CREATININE 0.90 0.5 - 1.5 mg/dL [facility] GLUCOSE 125(H) 70 - 99 mg/dL [facility] ALBUMIN 4.0 3.9 - 4.8 g/dL [facility] TOTAL PROTEIN 7.3 6.5 - 8.0 g/dL [facility] CALCIUM 8.9 8.4 - 10.3 mg/dL [facility] ALKALINE PHOSPHATASE 98 39 - 117 U/L [facility] TOTAL BILIRUBIN 0.4 0 - 1.2 mg/dL [facility] AST 32 0 - 37 U/L [facility] ALT 32 0 - 40 U/L [facility] GLOBULIN 3.3 1 - 4.8 g/dL [facility] EGFR >60 60 - 1000 mL/min/1.7 3m2 [facility] Comment:Abnormal if <60. If patient is -English, multiply the result by 1.21. ANION GAP 12 10 - 20 mmol/L [facility] Blood 08/01/2017 10:3 5 AM EST 08/01/2017 10:40 AM EST us Ishan Andrews DO LAB BLOOD BKR ORDERABLES Final R esult Performing Organization Address City/State/[facility] Co de Phone Number [facility] 30 [place] [address] documented in this encounter Visit Diagnoses Diagnosis Essential hypertension, benign- Primary documented in this encounter Care Teams Rivet Bucker Relationship Specialty Start Date End Date Ishan Andrews DO PCP - General Internal Medicine 08/01/17 03/17/25 Ishan Andrews DO 179 [place] [address] [email or web address] PCP - General Internal Medicine 03/18/25 documented as of this encounter Additional Source Comments The information contained in this document represents components of the legal health record. It is not the complete legal health record.[facility]
--- OUTSIDE RECORDS SUMMARY | 2025-06-11 17:32 | XMS_ITS | Encounter Summary ---
Author Organization [facility] Address [address] [place] [address] Phone Care Team Providers Care Folder Tier Name Role Phone Karenjunior Ishan Flower DO Primary Care Provider [phone] Karenjunior Ishan Mundo Primary Care Provider Reason for Referral * MRI/CAT Scan - Closed Specialty Diagnoses / Procedures Referred By Jeremiah hawkins Referred To Contact Radiology Diagnoses RUQ pain Procedures CT Abdomen/Pelvis Farzaneh Leiva PA [address] [facility] [place] [address] Phone: tel: fax: Referral ID Status Reason Start Date Expiration Date Visits Re quested Visits Authorized [id number] Closed 12/23/2024 12/23/2025 1 1 Encounter Details Date Type Department Care Team (Latest Contact Info) Description 12/23/2024 Transcribe Orders Virtual Department 30 [place] [address] Farzaneh Leiva PA [address] [facility] [place] [address] RUQ pain (Primary Dx) Social History Tobacco [...] quadrant documented in this encounter Care Teams Folder Tier Relationship Specialty Start Date End Date Ishan Andrews DO [email or web address] PCP - General Internal Medicine 08/01/17 03/17/25 Ishan Andrews DO [address] [place] [address] PCP - General Internal Medicine 03/18/25 documented as of this encounter Additional Source Comments The information contained in this document represents components of the legal health record. It is not the complete legal health record.[facility]
--- OUTSIDE RECORDS SUMMARY | 2025-06-11 17:32 | XMS_ITS | Encounter Summary ---
Author Organization [facility] Address [address] [facility] [address] [place] [address] Phone Care Team Providers Care Registration Representative Name Role Phone Karenjunior Ishan Flower DO Primary Care Provider [phone] Ishan Andrews DO Primary Care Provider [phone] Encounter Details Date Type Department Care Team (Late st Contact Info) Description 10/22/2024 Ancillary Orders [facility], X-Ray - [facility] [address] [place] [address] Ishan Andrews DO 179 [facility] [address] [email or web address] Bilateral interstitial pneumonia (Primary Dx) Social History [...] clinician's provided indication for this examination in [facility]: Pneumonia COMPARISON: 09/18/2024 FINDINGS: Devices/Tubes/Lines: None. Lungs: No specific radiographic evidence for pneumonia or edema. Pleura: No pleural effusion or pneumothorax. Heart/Mediastinum: Heart size is stable. Bones/Soft Tissues: No displaced rib fractures. Procedure Note Sohail Rushing MD - 10/22/2024 XR CHEST PA AND LATERAL 2 VIEWS Referring clinician's provided indication for this examination in [facility]:Pneumonia COMPARISON: 09/18/2024 FINDINGS: Devices/Tubes/Lines: None. Lungs: No [...] pneumonia documented in this encounter Care Teams Registration Representative Relationship Specialty Start Date End Date Ishan Andrews DO PCP - General Internal Medicine 08/01/17 03/17/25 Ishan Andrews DO 179 [place] [address] PCP - General Internal Medicine 03/18/25 documented as of this encounter Additional Source Comments The information contained in this document represents components of the legal health record. It is not the complete legal health record.[facility]
--- OUTSIDE RECORDS SUMMARY | 2025-06-11 17:32 | XMS_ITS | Encounter Summary ---
Author Organization [facility] Address [address] [place] [address] Phone Care Team Providers Care Microsoft Application Developer Name Role Phone Ishan Andrews DO Primary Care Provider [phone] Ishan Andrews DO Primary Care Provider [phone] Encounter Details Date Type Department Care Team (Late st Contact Info) Description 03/11/2021 Procedure Pass [facility] 30 [place] [address] Social History Tobacco Use Types Packs/Day Years [...] on filedocumented in this encounter Care Teams Microsoft Application Developer Relationship Specialty Start Date End Date Ishan Andrews DO PCP - General Internal Medicine 08/01/17 03/17/25 Ishan Andrews DO [address] [place] [address] [place] [address] [email or web address] PCP - General Internal Medicine 03/18/25 documented as of this encounter Additional Source Comments The information contained in this document represents components of the legal health record. It is not the complete legal health record.[facility]
--- OUTSIDE RECORDS SUMMARY | 2025-06-11 17:32 | XMS_ITS | Encounter Summary ---
Author Organization [facility] Address [address] [facility] [address] [place] [address] Phone Care Team Providers Care Teller Coordinator Name Role Phone Ishan Andrews DO Primary Care Provider [phone] Ishan Andrews DO Primary Care Provider [phone] Reason for Referral * MRI/CAT Scan - Closed Specialty Diagnoses / Procedures Referred By Jeremiah hawkins Referred To Contact Radiology Diagnoses Pain in thoracic spine Procedures MRI Thoracic Spine Ishan Andrews DO 179 [facility] D [place], [place] Phone: tel: fax: [email or web address] Referral ID Status Reason Start Date Expiration Date Visits Re quested Visits Authorized [id number] Closed 02/13/2025 02/13/2026 1 1 Encounter Details Date Type Department Care Team (Late st Contact Info) Description 02/13/2025 Transcribe Orders Virtual Department 30 [place] [address] Ishan Andrews DO [address] [place] [address] [email or web address] Pain in thoracic spine (Primary Dx) Social [...] clinician's provided indication for this examination in [facility]: Outside Radiology Order; thoracic pain TECHNIQUE: [...] clinician's provided indication for this examination in [facility]:Outside Radiology Order; thoracic pain TECHNIQUE: MRI [...] or foraminal stenosis in the thoracic spine. Ishan Andrews DO IMG MR XSPECIALTY Final Result documented in this encounter Visit Diagnoses Diagnosis Pain in thoracic spine- Primary Pain in thoracic spine documented in this encounter Care Teams Teller Coordinator Relationship Specialty Start Date End Date Ishan Andrews DO PCP - General Internal Medicine 08/01/17 03/17/25 Ishan Andrews DO [address] [place] [address] [email or web address] PCP - General Internal Medicine 03/18/25 documented as of this encounter Additional Source Comments The information contained in this document represents components of the legal health record. It is not the complete legal health record.[facility]
--- OUTSIDE RECORDS SUMMARY | 2025-06-11 17:32 | XMS_ITS | Encounter Summary ---
Author Organization [facility] Address [address] [facility] [address] [place] [address] Phone Care Team Providers Care Clinical Quality Rn Name Role Phone Ishan Andrews DO Primary Care Provider [phone] Ishan Andrews DO Primary Care Provider [phone] Encounter Details Date Type Department Care Team ([facility] st Contact Info) Description 04/24/2019 Ancillary Orders Virtual Department [address] [place] [address] Ishan Andrews DO 179 [facility] [place] [address] Abdominal aortic aneurysm (AAA) without rupture; Encounter [...] evident on prior CT. Procedure Note Claire Jolly MD - 05/16/2019 Screening ultrasound of the [...] disorders documented in this encounter Care Teams Clinical Quality Rn Relationship Specialty Start Date End Date Ishan Andrews DO [email or web address] PCP - General Internal Medicine 08/01/17 03/17/25 Ishan Andrews DO 179 [place] [address] [email or web address] PCP - General Internal Medicine 03/18/25 documented as of this encounter Additional Source Comments The information contained in this document represents components of the legal health record. It is not the complete legal health record.[facility]
--- OUTSIDE RECORDS SUMMARY | 2025-06-11 17:32 | XMS_ITS | Encounter Summary ---
Author Organization [facility] Address [address] [place] [address] Phone Care Team Providers Care Pullman Car Repairer Name Role Phone Ishan Andrews DO Primary Care Provider [phone] Ishan Andrews DO Primary Care Provider [phone] Encounter Details Date Type Department Care Team (Late st Contact Info) Description 06/11/2021 Procedure Pass [facility] [address] [place] [address] Social History Tobacco Use Types Packs/Day Years [...] on filedocumented in this encounter Care Teams Pullman Car Repairer Relationship Specialty Start Date End Date Ishan Andrews DO PCP - General Internal Medicine 08/01/17 03/17/25 Ishan Andrews DO [address] [place] [address] [email or web address] PCP - General Internal Medicine 03/18/25 documented as of this encounter Additional Source Comments The information contained in this document represents components of the legal health record. It is not the complete legal health record.[facility]
--- OUTSIDE RECORDS SUMMARY | 2025-06-11 17:32 | XMS_ITS | Encounter Summary ---
Author Organization [facility] Address [address] [place] [address] Phone Care Team Providers Care Control Clerk Subassembly Name Role Phone Ishan Andrews DO Primary Care Provider [phone] Ishan Andrews DO Primary Care Provider [phone] Encounter Details Date Type Department Care Team (Late st Contact Info) Description 12/23/2024 Procedure Pass [facility], Ct Scan - [address] [address] Social History Tobacco Use Types Packs/Day Years [...] on filedocumented in this encounter Care Teams Control Clerk Subassembly Relationship Specialty Start Date End Date Ishan Andrews DO PCP - General Internal Medicine 08/01/17 03/17/25 Ishan Andrews DO 179 [place] [address] PCP - General Internal Medicine 03/18/25 documented as of this encounter Additional Source Comments The information contained in this document represents components of the legal health record. It is not the complete legal health record.[facility]
--- OUTSIDE RECORDS SUMMARY | 2025-06-11 17:32 | XMS_ITS | Encounter Summary ---
Author Organization [facility] Address [address] [place] [address] Phone Care Team Providers Care Optical Laboratory Mechanic Name Role Phone Ishan Andrews DO Primary Care Provider [phone] Ishan Andrews DO Primary Care Provider [phone] Encounter Details Date Type Department Care Team (Late st Contact Info) Description 09/22/2017 Ancillary Orders Virtual Department 30 [place] [address] Ishan Andrews DO [address] [place] [address] [email or web address] Chronic sinusitis, unspecified location; Fever, unspecified fever [...] Headache documented in this encounter Care Teams Optical Laboratory Mechanic Relationship Specialty Start Date End Date Ishan Andrews DO PCP - General Internal Medicine 08/01/17 03/17/25 Ishan Andrews DO 179 [place] [address] [email or web address] PCP - General Internal Medicine 03/18/25 documented as of this encounter Additional Source Comments The information contained in this document represents components of the legal health record. It is not the complete legal health record.[facility]
--- OUTSIDE RECORDS SUMMARY | 2025-06-11 17:32 | XMS_ITS | Encounter Summary ---
Author Organization [facility] Address [address] [place] [address] Phone Care Team Providers Care Oracle Applications Analyst Name Role Phone Ishan Andrews DO Primary Care Provider [phone] Ishan Andrews DO Primary Care Provider [phone] Encounter Details Date Type Department Care Team (Late st Contact Info) Description 10/02/2017 Ancillary Orders Virtual Department 30 [place] [address] Ishan Andrews DO 179 [facility] [place] [address] [email or web address] Peripheral tear of medial meniscus of left [...] encounter documented in this encounter Care Teams Oracle Applications Analyst Relationship Specialty Start Date End Date Ishan Andrews DO PCP - General Internal Medicine 08/01/17 03/17/25 Ishan Andrews DO [address] [place] [address] PCP - General Internal Medicine 03/18/25 documented as of this encounter Additional Source Comments The information contained in this document represents components of the legal health record. It is not the complete legal health record.[facility]
--- OUTSIDE RECORDS SUMMARY | 2025-06-11 17:32 | XMS_ITS | Encounter Summary ---
Author Organization [facility] Address [address] [place] [address] Phone Care Team Providers Care Compression Molding Machine Tender Name Role Phone Ishan Andrews Primary Care Provider [phone] Encounter Details Date Type Department Care Team (Late st Contact Info) Description 05/16/2025 Orders Only [address] [address] Farzaneh Leiva PA [address] [place] [address] [place] [address] Type 2 diabetes mellitus without complication, without [...] as of this encounter Plan of Treatment Scheduled Orders Name Type Priority Associated Diagnoses [...] 4.3 - 5.6 % 05/16/2025 12:27 PM [facility] Calculated Mean Blood Glucose 123 mg/dL 05/16/2025 12:27 PM [facility] Comment:There is no establis [email or web address] normal range for the Estimated Average Glucose [...] LAB BLOOD BKR ORDERABLES Fi nal Result [address] [address] * (ABNORMAL) Comprehensive Metabolic Panel (CMP) (05/16/2025 10:10 AM EST) Sodium 141 136 - 145 mmol/L 05/16/2025 12:28 PM [facility] Potassium 4.1 3.4 - 5.1 mmol/L 05/16/2025 12:28 PM [facility] Chloride 107 98 - 107 mmol/L 05/16/2025 12:28 PM [facility] CO2 25 20 - 31 mmol/L 05/16/2025 12:28 PM [facility] Anion Gap 9 3 - 17 mmol/L 05/16/2025 12:28 PM [facility] BUN 15 6 - 23 mg/dL 05/16/2025 12:28 PM [facility] Creatinine 0.80 0.60 - 1.30 mg/dL 05/16/2025 12:28 PM [facility] eGFR 94 >59 mL/min/1.7 3m2 05/16/2025 12:28 PM [facility] Comment:Estimated glomerular filtration rate calculated using the CKD-EPI refit equation. Glucose 122(H) 70 - 99 mg/dL 05/16/2025 12:28 PM [facility] Calcium 8.8 8.5 - 10.5 mg/dL 05/16/2025 12:28 PM [facility] AST 18 <40 U/L 05/16/2025 12:28 PM [facility] ALT 15 <50 U/L 05/16/2025 12:28 PM [facility] Alkaline Phosphatase 139(H) 40 - 130 U/L 05/16/2025 12:28 PM [facility] Bilirubin, Total 0.5 0.0 - 1.2 mg/dL 05/16/2025 12:28 PM [facility] Total Protein 7.3 6.4 - 8.3 g/dL 05/16/2025 12:28 PM [facility] Albumin 3.9 3.5 - 5.2 g/dL 05/16/2025 12:28 PM EST [facility] Globulin 3.4 1.9 - 4.1 g/dL 05/16/2025 12:28 PM EST [facility] Blood (Blood) Venipuncture / Unknown 05/16/2025 10:10 AM EST 05/16/2025 10:10 AM EST us Farzaneh HIGUERA LAB BLOOD BKR ORDERABLES Fi nal Result [facility] [address] [place] [address] documented in this encounter Visit Diagnoses Diagnosis Type 2 diabetes mellitus without complication, without long-term current use of insulin- Primary documented in this encounter Care Teams Compression Molding Machine Tender Relationship Specialty Start Date End Date Ishan Andrews DO [address] [place] [address] [email or web address] PCP - General Internal Medicine 03/18/25 documented as of this encounter Additional Source Comments The information contained in this document represents components of the legal health record. It is not the complete legal health record.[facility]
--- OUTSIDE RECORDS SUMMARY | 2025-06-11 17:32 | XMS_ITS | Encounter Summary ---
Author Organization [facility] Address [address] [facility] [address] [place] [address] Phone Care Team Providers Care Front End Technician Name Role Phone Ishan Anderws DO Primary Care Provider [phone] Ishan Andrews DO Primary Care Provider [phone] Encounter Details Date Type Department Care Team (Late st Contact Info) Description 04/24/2019 Transcribe Orders Virtual Department [address] [place] [address] Ishan Andrews DO 179 [facility] [place] [address] [email or web address] Abdominal aortic aneurysm (AAA) without rupture (Primary [...] Primary documented in this encounter Care Teams Front End Technician Relationship Specialty Start Date End Date Ishan Andrews DO PCP - General Internal Medicine 08/01/17 03/17/25 Ishan Andrews DO [address] [place] [address] [email or web address] PCP - General Internal Medicine 03/18/25 documented as of this encounter Additional Source Comments The information contained in this document represents components of the legal health record. It is not the complete legal health record.[facility]
--- OUTSIDE RECORDS SUMMARY | 2025-06-11 17:32 | XMS_ITS | Encounter Summary ---
Author Organization [facility] Address [address] [facility] [address] [place] [phone] Phone Care Team Providers Care Bi Manager Name Role Phone Ishan Andrews DO Primary Care Provider [phone] KarenIshan pacheco DO Primary Care Provider [phone] Encounter Details Date Type Department Care Team (Late st Contact Info) Description 05/17/2024 Procedure Pass [facility], [address] [address] Social History Tobacco Use Types Packs/Day Years [...] on filedocumented in this encounter Care Teams Bi Manager Relationship Specialty Start Date End Date Ishan Andrews DO PCP - General Internal Medicine 08/01/17 03/17/25 Ishan Andrews DO [address] [place] [address] PCP - General Internal Medicine 03/18/25 documented as of this encounter Additional Source Comments The information contained in this document represents components of the legal health record. It is not the complete legal health record.[facility]
--- OUTSIDE RECORDS SUMMARY | 2025-06-11 17:32 | XMS_ITS | Encounter Summary ---
Author Organization [facility] Address [address] [place] [address] [place] [phone] Phone Care Team Providers Care Manager Client Service Name Role Phone Ishan Andrews DO Primary Care Provider [phone] Ishan Andrews DO Primary Care Provider [phone] Encounter Details Date Type Department Care Team (Latest Contact Info) Description 09/22/2022 Ancillary Orders [facility] [address] [place] [address] Shawn Charles MD [address] [place] [address] Orthopedics & Sports Medicine, [place], [place] [id number] [email or web address] Aftercare following joint replacement surgery [...] for this date of service. us Shawn Chalres MD IMG XR LOWER EXTREMITY Final Result documented in this encounter Visit Diagnoses Diagnosis Aftercare following joint replacement surgery Aftercare following joint replacement surgery documented in this encounter Care Teams Manager Client Service Relationship Specialty Start Date End Date Ishan Andrews DO [email or web address] PCP - General Internal Medicine 08/01/17 03/17/25 Ishan Andrews DO [address] [place] [id number] PCP - General Internal Medicine 03/18/25 documented as of this encounter Additional Source Comments The information contained in this document represents components of the legal health record. It is not the complete legal health record.[facility]
--- OUTSIDE RECORDS SUMMARY | 2025-06-11 17:33 | XMS_ITS | Encounter Summary ---
Author Organization [facility] Address [address] [facility] [address] [place] [address] Phone Care Team Providers Care Head Athletic Trainer Name Role Phone Karenjunior Ishan Flower DO Primary Care Provider [phone] Ishan Andrews DO Primary Care Provider Encounter Details Date Type Department Care Team (Late st Contact Info) Description 10/27/2023 Ancillary Orders Virtual Department [address] [place] [address] Ishan Andrews DO [address] [facility] [place] [address] [place] [address] [email or web address] Pain in right hip (Primary Dx) Social [...] documented in this encounter Care Teams Head Athletic Trainer Relationship Specialty Start Date End Date Ishan Andrews DO [email or web address] PCP - General Internal Medicine 08/01/17 03/17/25 Ishan Andrews DO [address] [place] [address] PCP - General Internal Medicine 03/18/25 documented as of this encounter Additional Source Comments The information contained in this document represents components of the legal health record. It is not the complete legal health record.[facility]
--- OUTSIDE RECORDS SUMMARY | 2025-06-11 17:33 | XMS_ITS | Encounter Summary ---
Author Organization [facility] Address [address] [facility] [address] [place] [address] Phone Care Team Providers Care Prison Classification Counselor Name Role Phone Ishan Andrews DO Primary Care Provider [phone] Ishan Andrews DO Primary Care Provider [phone] Encounter Details Date Type Department Care Team (Late st Contact Info) Description 09/18/2017 Ancillary Orders [facility], X-Ray - [facility] [address] [place] [address] Ishan Andrews DO [address] [facility] [place] [address] [place] [address] [email or web address] Chronic pain of both knees Social History [...] Patellar spurring is evident. Procedure Note César Mccarthy MD - 09/18/2017 COMPARISON: Seen AP knee [...] with minimal progression relative to prior imaging [id number]. S/S: Left knee pain, osteoarthritis POS - [...] noted and is unchanged. Procedure Note César Mccarthy MD - 09/18/2017 COMPARISON: Bilateral standing views [...] prominent than seen previously. Procedure Note César Mccarthy MD - 09/18/2017 COMPARISON: Standing AP view [...] knees documented in this encounter Care Teams Prison Classification Counselor Relationship Specialty Start Date End Date Ishan Andrews DO [email or web address] PCP - General Internal Medicine 08/01/17 03/17/25 Ishan Andrews DO [address] [place] [address] [email or web address] PCP - General Internal Medicine 03/18/25 documented as of this encounter Additional Source Comments The information contained in this document represents components of the legal health record. It is not the complete legal health record.[facility]
--- OUTSIDE RECORDS SUMMARY | 2025-06-11 17:33 | XMS_ITS | Encounter Summary ---
Author Organization [facility] Address [address] [facility] [address] [place] [address] Phone Care Team Providers Care Felling Bucking Supervisor Name Role Phone Ishan Andrews DO Primary Care Provider [phone] Ishan Andrews DO Primary Care Provider [phone] Reason for Referral * MRI/CAT Scan - Closed Specialty Diagnoses / Procedures Referred By Jeremiah hawkins Referred To Contact Radiology Diagnoses Other symptoms and signs involving cognitive functions and awareness Procedures MRI Brain Ishan Andrews DO Phone: tel: fax: [email or web address] Referral ID Status Reason Start Date Expiration Date Visits Re quested Visits Authorized [id number] Closed 05/17/2024 05/17/2025 1 1 Encounter Details Date Type Department Care Team (Late st Contact Info) Description 05/17/2024 Transcribe Orders Virtual Department [address] [place] [address] Ishan Andrews DO [address] [facility] [place] [address] [email or web address] Other symptoms and signs involving cognitive functions [...] clinician's provided indication for this examination in [facility]: impaired cognition TECHNIQUE: MRI BRAIN WITHOUT [...] clinician's provided indication for this examination in [facility]:impaired cognition TECHNIQUE: MRI BRAIN WITHOUT CONTRAST [...] or hemorrhage. There are scattered foci of [id number] in the white matter, likely a manifestation [...] awareness documented in this encounter Care Teams Felling Bucking Supervisor Relationship Specialty Start Date End Date Ishan Andrews DO [email or web address] PCP - General Internal Medicine 08/01/17 03/17/25 Ishan Andrews DO [address] [place] [address] [email or web address] PCP - General Internal Medicine 03/18/25 documented as of this encounter Additional Source Comments The information contained in this document represents components of the legal health record. It is not the complete legal health record.[facility]
--- OUTSIDE RECORDS SUMMARY | 2025-06-11 17:33 | XMS_ITS | Clinical Summary ---
Author Organization [facility] [place] [address] Care Team Providers Care Bolt Sorter Name Role Phone Ishan Andrews DO Primary Care Provider [phone] Allergies Active Allergy Reactions Criticality Noted Date [...] topic Insurance [employer] MED[employer]ARE Care Teams Bolt Sorter Relationship Specialty Start Date End Date Ishan Andrews DO [address] [place] [phone] PCP - General Internal Medicine 07/25/24
== END 2025-06-11 13:21 | disposition home or self-care (01) ==
LOC: HO.HMGAL 13:21
PROVIDERS: PCP Internal Medicine; Visit Provider Registered Nurse Emergency
DX: J30.89 Other allergic rhinitis (principal)
CPT/HCPCS: 95117; 95165